=== PATIENT | female | born 1955 | race Caucasian/White ===

== ENCOUNTER → 2018-04-30 01:47 | Outpatient (CLI) | payer MEDICARE, BC, SELFPAY ==
--- NOTE | 2018-04-30 14:03 | DI.REPORT_ITS ---
SYMPTOMS/DIAGNOSIS: ABNORMAL MAMMO, R92.8, 6-MO F/U CRANIOCAUDAD AND MEDIOLATERAL RIGHT BREAST MAMMOGRAM: Mammograms were interpreted according to the usual protocol including computer analysis with CAD system, tomosynthesis and C view imaging. The breast is of moderate radiodensity. There is no evidence of a mass. There are no suspicious calcifications and there is nothing to suggest a malignancy. SUMMARY: A six-month follow-up examination reveals no evidence of malignancy. Category 1, annual screening mammography is recommended. Breast density category B. MQSA ASSESSMENT OF FINDINGS: Negative. Category 1. Patient will receive a letter notifying them of these results. BI-RADS category B. There are scattered areas of fibroglandular density.
== END ==
PROVIDERS: Visit Provider Nurse Practitioner Gerontology
DX: Z12.31 Encounter for screening mammogram for malignant neoplasm of breast (principal); R92.8 Other abnormal and inconclusive findings on diagnostic imaging of breast; N64.59 Other signs and symptoms in breast
CPT/HCPCS: 77061; 77065; G0279

== ENCOUNTER 2018-09-05 02:32 | Outpatient (CLI) | payer MEDICARE, BC, SELFPAY ==
[2018-09-05 13:22] LABS: Hemoglobin A1C 7.4 % (4.5-6.2)
[2018-09-05 13:38] LABS: ALT 42 U/L (12-78); AST 25 U/L (15-37); Albumin 3.8 g/dL (3.4-5.0); Alkaline Phosphatase 105 U/L (46-116); Anion Gap 6.9 mmol/L (3-11); BUN 18 mg/dL (7-18); Bilirubin, Total 0.4 mg/dL (0.2-1.0); CO2 30.1 mmol/L (21.0-32.0); CREATININE 0.83 mg/dL (0.55-1.02); Calcium 9.2 mg/dL (8.5-10.1); Chloride 104 mmol/L (98-107); Cholesterol 194 mg/dL (50-200); Glucose 145 mg/dL (70-100); HDL Cholesterol 53 mg/dL (40-60); LDL CHOLESTEROL 116 mg/dL (<100); Potassium 4.2 mmol/L (3.5-5.1); Sodium 141 mmol/L (136-145); TSH (W/Ref FT4) 1.87 uIU/mL (0.358-3.74); Total Protein 8.1 g/dL (6.4-8.2); Triglyceride 136 mg/dL (30-150)
== END 2018-09-05 02:52 ==
DX: E03.9 Hypothyroidism, unspecified (principal); E11.9 Type 2 diabetes mellitus without complications; E78.5 Hyperlipidemia, unspecified; I10 Essential (primary) hypertension; L40.9 Psoriasis, unspecified
CPT/HCPCS: 36415; 80053; 80061; 83721; 83036; 84443

== ENCOUNTER 2019-02-23 16:19 | Outpatient (REF) | payer MEDICARE, BC, SELFPAY ==
--- NOTE | 2019-02-23 14:30 | PAPFT_PTH ---
PATIENT: Mary Ellen Avila LOC: [facility] U#:[id number] AGE/SX: 63/F ROOM: RE02/23/[address]: Jeannie Hoffman APRN : 1955 BED: DIS: 02/23/2019 SPEC #: [id number] RECD: 02/24/19 12:55 STATUS: JACKELYN SÁNCHEZ #: [id number] GRIFFIN: 02/23/19 14:[address]: Jeannie Hoffman [facility] Cytology RECD BY: Jana Recinos Tissues: 1 - CX/ENDOCX FOR PAP SMEARS Procedures: PAP THIN PREP/UVM Screening Comments: [id number] (VAGINAL HPV SENT TO [place])
[2019-03-04 10:14] LABS: HPV High Risk type 16, PCR Negative (Negative); Specimen Source Vagina
[2019-03-04 10:15] LABS: HPV High Risk type 18, PCR Negative (Negative)
[2019-03-04 10:16] LABS: HPV other High Risk types, PCR Positive (Negative)
== END 2019-02-23 16:39 ==
LOC: LBN 16:19
DX: Z12.4 Encounter for screening for malignant neoplasm of cervix (principal); Z11.51 Encounter for screening for human papillomavirus (HPV); R87.613 High grade squamous intraepithelial lesion on cytologic smear of cervix (HGSIL)
CPT/HCPCS: 87624; 88142

== ENCOUNTER 2019-05-01 00:25 | Outpatient (CLI) | payer MEDICARE, BC, SELFPAY ==
--- NOTE | 2019-05-01 15:40 | DI.MAMMO_ITS ---
SYMPTOMS/DIAGNOSIS: SCREENING, Z12.31 MAMMOGRAM: Mammograms were interpreted according to the usual protocol including computer analysis with CAD system, tomosynthesis and C view imaging. Comparison is made with exams from 2014 through 2018. The breasts are composed of scattered fibroglandular densities, breast density Category B. No suspicious masses or suspicious microcalcifications are seen. There has been no significant change. IMPRESSION: Category I, negative mammogram. Yearly screening mammography is recommended. [facility] ASSESSMENT OF FINDINGS: Negative. Category 1. Patient will receive a letter notifying them of these results. BI-RADS category B. There are scattered areas of fibroglandular density.
== END 2019-05-01 00:45 ==
DX: Z12.31 Encounter for screening mammogram for malignant neoplasm of breast (principal)
CPT/HCPCS: 77063; 77067

== ENCOUNTER 2019-06-13 11:52 | Emergency (ER) | payer MEDICARE, BC, SELFPAY ==
[2019-06-13 12:00] VITALS: BP 143/60; PULSE 72; RESP 18; TEMP 36.7; O2SAT 98
--- NOTE | 2019-06-13 12:17 | W.ED.GENAD ---
Discharge Plan Disposition Patient Disposition: HOME Condition: Fair Discharge Details Chief Complaint: Vascular Clinical Impression: Acute pain of right lower extremity Primary Care Provider: Unknown,Unknown ED Provider: Crystal Soni Home Meds and New Rx's Prescriptions: Continued ascorbic acid (vitamin C) 250 mg tablet 250 mg PO DAILY RF: 0 omega-3 fatty acids 1,250 mg capsule 1,250 mg PO DAILY RF: 0 apple cider vinegar 600 mg capsule PO RF: 0 (DME) Contour Next Test Strips strip See Dose Instructions .ROUTE .MEDSUPPLY Qty: 25 RF: 3 cholecalciferol (vitamin D3) [Vitamin D3] 1,000 UNIT capsule 1,000 unit PO DAILY RF: 0 Fiber Supplement (inulin) 2 GM tablet,chewable 2 tab PO HS RF: 0 (DME) lancets [OneTouch Delica Lancets] 1 EACH misc 1 ea Intradermal DAILY Qty: 300 RF: 4 Saw [place] Fruit [Saw [place]] 450 MG capsule 450 mg PO BID RF: 0 hair health 1 cap PO DAILY RF: 0 ONETOUCH ULTRA TEST STRIPS 1 EACH strip 1 strip Miscellaneous BID 90 Days Qty: 180 RF: 4 nifedipine 30 mg tablet extended release 24hr 30 mg PO DAILY Qty: 90 RF: 3 levothyroxine 50 mcg tablet 50 mcg PO DAILY Qty: 90 RF: 4 lisinopril 5 mg tablet 5 mg PO DAILY Qty: 90 RF: 4 rosuvastatin [Crestor] 10 mg tablet 10 mg PO HS Qty: 90 RF: 3 Prevnar 13 (PF) 0.5 mL syringe 0.5 ml IM ONCE Qty: 0.5 RF: 0 vitamin B complex Capsule 1 cap PO DAILY RF: 0 Discharge Instructions Instructions: Leg Pain (ED) Additional Instructions: Encourage rest, ice, elevation. Tylenol as needed for discomfort. Please use compression hose or Rosendo wrap. Please use the brace to help with discomfort. Please begin a daily aspirin. Your d-dimer as discussed was high end of normal. However, given your history, I remain concerned for possible DVT. You will need an outpatient ultrasound, patient coming Saturday morning for this. If you do not hear from them by 8 AM please call to schedule appointment. If however, over the weekend, you develop redness, warmth, fevers, shortness of breath, chest pain, increased swelling or other new/worsening symptoms please seek care urgently once again. Discharge Data Discharge Date/Time-TO BE ENTERED AT DEPARTURE: 06/13/19 14:52 Medical Decision Making Patient is 64-year-old female presenting today with chief complaint of right lower extremity pain. She reports this feels like when she had a DVT historically. She reports she had a DVT and subsequent PE after sedentary time on an airplane 1617 years ago. She reports at that time she was also on estrogen supplementation. She is no longer taking any estrogen supplements. However, she is being evaluated for possible cervical cancer. Had a colposcopy on Saturday and since that time has been laying low. She denies any fevers or chills. No trauma. No recent travel. States the pain is primarily lateral and posterior on the right lower extremity. Is not noted any change in skin. She also reports she has active shingles on the left hip this is chronic and ongoing for her and does not respond to acyclovir or other antiviral regimens. Does not wish to have this evaluated at this time. On exam, patient is resting comfortably. She is noted to be hypertensive at 143/60. Her vital signs are otherwise within normal limits. No visible or palpable abnormality on exam of the right lower extremity. She does have pain particular in the lateral aspect as well as some discomfort over the Achilles tendon to the ankle. Negative Homans sign. She is exquisitely tender when she dorsiflexes the foot. No pain when plantar flexing. Has discomfort when bearing weight on the extremity. Lungs are clear. She denies chest pain shortness of breath. Do not have field service poultry technician available at this time, will screen with d-dimer and baseline labs. Review the labs. No white count. Her d-dimer is within age-adjusted cut off at 638 although this is on the higher end of normal. Her glucose is elevated at 261. Discussed these findings the patient. Again, her exam is not consistent with a DVT. The pain is maximal along the anterior aspect of the ankle and exquisitely tender with palpation. No appreciable swelling, erythema, warmth. No posterior calf. Negative Homans sign. My only concern is that the patient has had a DVT historically and she reports that it felt quite similar. She does believe that at that point the pain was more in the posterior aspect but does not seem to be totally clear on this. She and I had a lengthy discussion of risk/benefits of anticoagulation until a ultrasound may be obtained. At this point, she prefers to hold off. She will use daily aspirin for the time being and will return on Saturday for formal ultrasound. Her daughter is with her and also knows of the education and return precautions. I encouraged rest, ice, elevation. Advised Rosendo wrap, nursing will apply this to help with compression and it support of the ankle. Advised that this may also be ankle sprain as she has suffered from multiple ankle sprains historically. Request for outpatient ultrasound has been performed. All of her questions and concerns were addressed and she is in agreement with this plan. HPI General Mode of arrival: ambulatory. Date/Time Provider Initiated Documentation: 06/13/19 11:58. Limitations to Documentation: no limitations. Information obtained by: patient, family (Daughter) and RN notes reviewed. History of Present Illness 64 year old F presents to the emergency department with the chief complaint of Right ankle pain, described as severe and similar to prior episodes, with intensity rated at 8. Quality is described as aching, and is localized to the right and lower extremity. Patient reports no radiation. Patient started experiencing this day(s) (1) and it has been constant. Immobilization improves symptom(s), Movement worsens symptoms . Patient notes no other symptoms.; denies diaphoresis, fever/chills, headaches, nausea/vomiting, rash and shortness of breath. Patient did receive the following treatments prior to arrival, none Related Data Home Medications Medication Instructions Recorded Confirmed Fiber Supplement (inulin) 2 tab PO HS tab.chew 10/06/15 06/13/19 cholecalciferol (vitamin D3) 1,000 unit PO DAILY 10/06/15 06/13/19 [Vitamin D3] lancets [OneTouch Delica Lancets] #300 ea 12/25/16 02/23/19 Hair Health 1 cap PO DAILY 08/21/17 02/23/19 Saw [place] Fruit [Saw [place]] 450 mg PO BID 08/21/17 02/23/19 nifedipine 30 mg tablet,extended 30 mg PO DAILY #90 tab 07/16/18 06/13/19 release 24 hr ascorbic acid (vitamin C) 250 mg 250 mg PO DAILY 08/20/18 06/13/19 tablet omega-3 fatty acids 1,250 mg 1,250 mg PO DAILY 08/20/18 06/13/19 capsule levothyroxine 50 mcg tablet 50 mcg PO DAILY #90 tab-cap 10/15/18 06/13/19 lisinopril 5 mg tablet 5 mg PO DAILY #90 tab-cap 10/15/18 06/13/19 rosuvastatin 10 mg tablet 10 mg PO HS #90 tab-cap 10/15/18 06/13/19 apple cider vinegar 600 mg capsule mg PO cap 02/23/19 02/23/19 blood sugar diagnostic #25 each 02/23/19 02/23/19 pneumoc 13-cristy conj-dip cr(PF) 0.5 0.5 ml IM ONCE #0.5 ml 05/06/19 mL IM syringe vitamin B complex 1 cap PO DAILY 06/13/19 06/13/19 Previous Rx's Medication Instructions Recorded nifedipine 30 mg tablet,extended 30 mg PO DAILY #90 tab 07/16/18 release 24 hr levothyroxine 50 mcg tablet 50 mcg PO DAILY #90 tab-cap 10/15/18 lisinopril 5 mg tablet 5 mg PO DAILY #90 tab-cap 10/15/18 rosuvastatin 10 mg tablet 10 mg PO HS #90 tab-cap 10/15/18 blood sugar diagnostic #25 each 02/23/19 pneumoc 13-cristy conj-dip cr(PF) 0.5 0.5 ml IM ONCE #0.5 ml 05/06/19 mL IM syringe Allergies Allergy/AdvReac Type Severity Reaction Status Date / Time allopurinol Allergy Severe HARD TIME Verified 06/13/19 12:04 BREATHING chlorthalidone Allergy Severe HARD TIME Verified 06/13/19 12:04 BREATHING Tetracyclines Allergy Severe Anaphylaxsi Verified 06/13/19 12:04 s Penicillins Allergy Intermediate swells up Verified 06/13/19 12:04 venom-honey bee Allergy Intermediate swells up Verified 06/13/19 12:04 amoxicillin Allergy Mild unknown Verified 06/13/19 12:04 atorvastatin AdvReac Intermediate cramps Verified 06/13/19 12:04 gabapentin AdvReac Intermediate Diarrhea Verified 06/13/19 12:04 glimepiride AdvReac Intermediate Diarrhea Unverified 06/13/19 12:04 lorazepam AdvReac Intermediate HX OF Unverified 06/13/19 12:04 ADDICTION AND WITHDRAWAL metformin AdvReac Intermediate Headache Unverified 06/13/19 12:04 simvastatin AdvReac Intermediate myalgia Unverified 06/13/19 12:04 valacyclovir AdvReac Intermediate Diarrhea Unverified 06/13/19 12:04 amitriptyline AdvReac Mild insomnia Unverified 06/13/19 12:04 General Stated Complaint: Vascular IESHA: 3 Review of Systems Constitutional Constitutional: Reports as per HPI, Denies chills, Denies fever(s), Denies headache(s) and Denies weakness ENT Ears, Nose, Mouth, and Throat: Denies headache(s) Cardiovascular Cardiovascular: Reports as per HPI Respiratory Respiratory: Reports as per HPI and Denies cough Musculoskeletal Musculoskeletal: Reports as per HPI and Denies tingling Integumentary/Breasts Skin/Breast: Reports as per HPI, Denies rash and Denies wounds Neurologic Neurologic: Reports as per HPI, Denies headache(s), Denies tingling, Denies paresthesias and Denies weakness [facility] Medical History kidney stones shingles Surgical History Hysterectomy, Laproscopic (10/25/11) Social History Smoking/Tobacco Use Status: Former Tobacco Use Alcohol Intake: never Drug use: Never Substance use type: does not use Do you feel safe at home: Yes Do you feel safe in your relationship?: Yes Exam Const General: cooperative, healthy appearing, comfortable, no acute distress, well developed and well groomed Nutritional Appearance: average body habitus and well nourished Orientation: alert and awake Resp Effort & Inspection: normal respiratory effort, able to speak in complete sentences and no respiratory distress Auscultation: clear to auscultation bilaterally Cardio Rate: regular rate Rhythm: regular rhythm Heart Sounds: S1 normal and S2 normal Skin General skin exam: no rashes or lesions noted Lesions: no lesions Rashes: no rashes Trauma: no lacerations or abrasions Neuro General: alert and awake Cognition: normal cognition Speech: speech normal Gait: antalgic Motor: muscle tone normal throughout Sensory Exam: no sensory deficits noted Extrem Right lower extremity: normal to inspection, full ROM, normal capillary refill, no joint enlargement, knee Details: normal to inspection, lower leg Details: normal to inspection, tenderness (Lateral inferior one third of tibia, posterior calf) and no edema; no localized swelling, no palpable cords, no abrasions, no lacerations, no ecchymosis, no crepitus, no deformity and no unusual warmth and ankle Details: normal to inspection and tenderness (Exquisitely tender over the lateral malleolus) Psych Appearance: grossly normal and well kempt Mental Status: mental status grossly normal Speech and Movement: speech and movement normal Course Vital Signs Vital signs: Vital Signs Temperature 36.7 C 06/13/19 12:00 Pulse 72 06/13/19 12:00 Respiratory Rate 18 06/13/19 12:00 Blood Pressure 143/60 H 06/13/19 12:00 Pulse Oximetry 98 06/13/19 12:00 Temperature 36.7 C 06/13/19 12:00 Temperature Source Skin 06/13/19 12:00 Pulse 72 06/13/19 12:00 Respiratory Rate 18 06/13/19 12:00 Respiratory Effort Non-Labored 06/13/19 12:09 Blood Pressure 143/60 H 06/13/19 12:00 Blood Pressure Position Sitting 06/13/19 12:00 Pulse Oximetry 98 06/13/19 12:00 Oxygen Delivery Method Room Air 06/13/19 12:00 Oxygen Flow Rate 0 06/13/19 12:00 Pain Level 8 06/13/19 12:00
[2019-06-13 12:38] VITALS: RESP 16
[2019-06-13 12:55] LABS: Abs Immature Grans 0.04 k/cumm (0.0-0.09); Absolute Basophil Count 0.05 k/cumm (0.0-0.2); Absolute Eosinophil Count 0.32 k/cumm (0.0-0.7); Absolute Monocyte Count 0.52 k/cumm (0.11-0.7); Absolute Neutrophil Count 5.86 k/cumm (1.2-6.7); Basophils % 0.5; Eosinophils % 3.4; HCT 44.7 % (36.0-46.0); Immature Grans % 0.4; Lymphocytes % 28.5; Mean Corp. HGB Concentration 33.6 g/dL (32.0-36.0); Mean Corpuscular Hemoglobin 30.1 pg (27.0-33.0); Mean Corpuscular Volume 89.8 fL (80-95); Mean Platelet Volume 9.3 fL (8.0-11.0); Monocytes % 5.5; Neutrophils % 61.7; Platelet Count 234 x1000/uL (130-400); RBC 4.98 m/cumm (4.00-5.20); RBC Distribution Width 12.5 % (11.7-14.6); White Blood Cell Count 9.49 k/cumm (4.4-10.8)
[2019-06-13 13:00] LABS: BUN 17 mg/dL (7-18); CREATININE 0.75 mg/dL (0.55-1.02); Calcium 8.8 mg/dL (8.5-10.1); Chloride 104 mmol/L (98-107); Glucose 261 mg/dL (70-100); Potassium 3.9 mmol/L (3.5-5.1); Sodium 141 mmol/L (136-145)
[2019-06-13 13:07] LABS: INR 0.9 (0.9-1.1); Prothrombin Time 9.3 sec (9.3-11.0)
[2019-06-13 13:38] LABS: D-Dimer 638 ng/mlFEU (<500)
--- NOTE | 2019-06-13 14:41 | NUR.NOTE ---
Nursing Note: allegra bandage applied to right lower leg.
[2019-06-13 14:49] VITALS: BP 154/67; PULSE 68; RESP 16; O2SAT 98
== END 2019-06-13 14:52 | disposition home or self-care (01) ==
PROVIDERS: Emergency Provider Physician Assistant
DX: M79.661 Pain in right lower leg (principal); E11.9 Type 2 diabetes mellitus without complications; I10 Essential (primary) hypertension
CPT/HCPCS: 36415; 80048; 99283; 85025; 85379; 85610; 85730

== ENCOUNTER 2020-08-31 02:36 | Outpatient (CLI) | payer MEDICARE, BC, SELFPAY ==
[2020-08-31 13:15] LABS: Abs Immature Grans 0.03 10^3/uL (0.0-0.06); Absolute Basophil Count 0.03 10^3/uL (0.0-0.2); Absolute Eosinophil Count 0.29 10^3/uL (0.0-0.7); Absolute Lymphocyte Count 2.76 10^3/uL (1.2-3.4); Absolute Monocyte Count 0.42 10^3/uL (0.1-0.8); Absolute Neutrophil Count 5.21 10^3/uL (1.2-6.7); Basophils % 0.3; Eosinophils % 3.3; HCT 45.2 % (36.0-46.0); HGB 14.5 g/dL (11.2-15.7); Immature Grans % 0.3; Lymphocytes % 31.6; MCH 29.4 pg (27.0-33.0); MCHC 32.1 % (32.0-36.0); MCV 91.5 fL (80-95); MPV 9.2 fL (8.0-11.0); Monocytes % 4.8; Neutrophils % 59.7; Nucleated RBC 0 %; Platelet Count 211 10^3/uL (130-400); RBC 4.94 10^6/uL (3.93-5.22); RDW 11.9 % (11.7-14.6); RDW-SD 39.8 fL; WBC 8.74 10^3/uL (4.4-10.8)
[2020-08-31 14:25] LABS: ALT 47 U/L (14-59); AST 22 U/L (15-37); Albumin 3.7 g/dL (3.4-5.0); Alkaline Phosphatase 106 U/L (46-116); Anion Gap 7.4 mmol/L (3-11); BUN 21 mg/dL (7-18); Bilirubin, Total 0.3 mg/dL (0.2-1.0); CO2 29.6 mmol/L (21.0-32.0); CREATININE 0.86 mg/dL (0.55-1.02); Calculated LDL 88 mg/dL (<100); Chloride 103 mmol/L (98-107); Cholesterol 181 mg/dL (<200); Glucose 208 mg/dL (74-106); HDL Cholesterol 47 mg/dL (40-60); Potassium 3.5 mmol/L (3.5-5.1); Sodium 140 mmol/L (136-145); TSH 1.79 uIU/mL (0.36-3.74); Total Protein 7.5 g/dL (6.4-8.2); Triglyceride 231 mg/dL (<150)
== END 2020-08-31 02:56 ==
PROVIDERS: Visit Provider Physician Assistant
DX: E11.40 Type 2 diabetes mellitus with diabetic neuropathy, unspecified (principal); I10 Essential (primary) hypertension; E78.5 Hyperlipidemia, unspecified; E03.9 Hypothyroidism, unspecified
CPT/HCPCS: 36415; 80053; 80061; 84443; 85025

== ENCOUNTER 2020-10-13 01:20 | Outpatient (CLI) | payer MEDICARE, BC, SELFPAY ==
--- NOTE | 2020-10-13 15:38 | DI.DEXA_ITS ---
EXAM: XR DEXA BONE DENSITY W/WO MARK CLINICAL HISTORY: SCREENING FOR OSTEOPOROSIS IN POSTMENOPAUSAL WOMAN,Z78.0 TECHNIQUE: Aircuity C densitometer COMPARISON: CR LUMBAR SPINE COMPLETE from 09/13/2009 FINDINGS: Lateral view of the thoracic and lumbar spine shows no evidence of compression fractures. Bone examiner of currency al density measurements the lumbar spine correspond to a total T-score of -0.7, in the normal range. The bone mineral density measurements of the left hip correspond to a total T-score of -0.6 and a fe moral neck T-score of -1.5, in the osteopenic range. The left forearm bone mineral density measureme nts correspond to a T-score of the distal 3rd of -0.5, in the normal range. IMPRESSION: Normal bone mineral density of the lumbar spine and left forearm. Osteopenia of the left hip.
--- NOTE | 2020-10-13 15:53 | DI.MAMMO_ITS ---
EXAM: MAMMO SCREENING CLINICAL HISTORY: SCREENING, Z12.31 TECHNIQUE: Mammograms were interpreted according to the usual protocol including computer analysis w [employer] CAD system, tomosynthesis and C-view imaging. COMPARISON: 2010 through 2018 FINDINGS: The breasts are composed of scattered fibroglandular densities, Breast Density category B. No suspicious masses or suspicious microcalcifications are seen. No skin thickening or abnormal axillary lymph nodes are seen. There has been no significant change from prior exams. IMPRESSION: BI-RADS Category 1, Negative mammogram Yearly screening mammography is recommended. Breast Density - Category B, scattered fibroglandular densities. A negative radiographic report should not delay biopsy if a dominant or clinically suspicious mass is present. Up to ten percent of cancers are not identified on mammography. A negative report may reinforce clinical impression. Adenosis and dense breasts may obscure an underlying neoplasm. False positive reports average 6 to 10%. Patient will receive a letter notifying them of these results.
== END 2020-10-13 01:21 ==
LOC: DI 01:20
PROVIDERS: Visit Provider Nurse Practitioner Women's Health
DX: Z78.0 Asymptomatic menopausal state (principal); M85.88 Other specified disorders of bone density and structure, other site; Z12.31 Encounter for screening mammogram for malignant neoplasm of breast
CPT/HCPCS: 77063; 77067; 77080

== ENCOUNTER 2021-01-10 03:30 | Outpatient (CLI) | payer MEDICARE, BC, SELFPAY ==
[2021-01-10 16:10] LABS: ALT 53 U/L (14-59); AST 28 U/L (15-37); Albumin 3.7 g/dL (3.4-5.0); Alkaline Phosphatase 101 U/L (46-116); Anion Gap 9.3 mmol/L (3-11); BUN 18 mg/dL (7-18); Bilirubin, Total 0.4 mg/dL (0.2-1.0); CO2 26.7 mmol/L (21.0-32.0); CREATININE 0.7 mg/dL (0.55-1.02); Calcium 8.9 mg/dL (8.5-10.1); Chloride 104 mmol/L (98-107); Glucose 174 mg/dL (74-106); Sodium 140 mmol/L (136-145); Total Protein 7.7 g/dL (6.4-8.2)
[2021-01-10 16:12] LABS: Folate > 20.0 ng/mL (8.6-20.0); Vitamin B12 > 2000 pg/mL (193-986)
[2021-01-12 01:14] LABS: Vitamin D 25 Total 41.2 ng/mL (30-100)
== END 2021-01-10 03:31 | disposition home or self-care (01) ==
LOC: LBO 03:30
DX: I10 Essential (primary) hypertension (principal); R42 Dizziness and giddiness; M85.88 Other specified disorders of bone density and structure, other site; Z86.39 Personal history of other endocrine, nutritional and metabolic disease
CPT/HCPCS: 36415; 80053; 82306; 82607; 82746

== ENCOUNTER 2021-02-06 02:20 | Outpatient (CLI) | payer MEDICARE, BC, SELFPAY ==
--- NOTE | 2021-02-06 | DI.RAD_ITS ---
Exam(s) XR SHOULDER LT COMPLETE 2+V EXAM: XR SHOULDER LT COMPLETE 2+V CLINICAL HISTORY: JOINT PAIN, M25.50. TECHNIQUE: 2D digital imaging was performed. COMPARISON: No exams were available for comparison FINDINGS: BONES: No acute fracture is present. No bony destructive lesion is seen. JOINTS: No dislocation present. Are mild degenerative changes seen at the acromioclavicular joint. M ild degenerative changes are also seen around the greater tuberosity. The glenohumeral joint is well maintained. SOFT TISSUE: Normal. IMPRESSION: Mild degenerative changes of the left shoulder. DATA REPOSITORY: RADIATION DOSE DELIVERED:
--- NOTE | 2021-02-06 | DI.RAD_ITS ---
Exam(s) XR SHOULDER RT COMPLETE 2+V EXAM: XR SHOULDER RT COMPLETE 2+V CLINICAL HISTORY: JOINT PAIN, M25.50. TECHNIQUE: 2D digital imaging was performed. COMPARISON: LAZARUS,RF BARIUM SWALLOW UGI 2V CXR from 02/20/2010 CT CTA THORAX/ABDOMEN/PELVIS from 01/20/2018 FINDINGS: BONES: No acute fracture is present. No bony destructive lesion is seen. There is again seen a bone i sland in the right humeral head. This is been present on prior examinations dating back to 2009. JOINTS: No dislocation present. Degenerative changes are seen at the acromioclavicular joint. The gl enohumeral joint appears well maintained. SOFT TISSUE: Normal. IMPRESSION: Mild degenerative changes of the right shoulder. DATA REPOSITORY: RADIATION DOSE DELIVERED:
== END 2021-02-06 02:40 ==
PROVIDERS: Visit Provider Family Medicine
DX: M25.511 Pain in right shoulder (principal); M25.512 Pain in left shoulder; M19.011 Primary osteoarthritis, right shoulder; M19.012 Primary osteoarthritis, left shoulder
CPT/HCPCS: 73030

== ENCOUNTER 2021-03-03 02:22 | Outpatient (CLI) | payer MEDICARE, BC, SELFPAY ==
[2021-03-03 12:27] LABS: TSH 1.09 uIU/mL (0.36-3.74)
== END 2021-03-03 02:23 | disposition home or self-care (01) ==
LOC: LBO 02:23
PROVIDERS: Visit Provider Clinical Nurse Specialist Family Health
DX: E03.9 Hypothyroidism, unspecified (principal)
CPT/HCPCS: 36415; 84443

== ENCOUNTER 2021-05-19 02:27 | Outpatient (CLI) | payer MEDICARE, BC, SELFPAY ==
[2021-05-19 15:22] LABS: Abs Immature Grans 0.03 10^3/uL (0.0-0.06); Absolute Basophil Count 0.09 10^3/uL (0.0-0.2); Absolute Eosinophil Count 0.28 10^3/uL (0.0-0.7); Absolute Lymphocyte Count 2.77 10^3/uL (1.2-3.4); Absolute Monocyte Count 0.51 10^3/uL (0.1-0.8); Absolute Neutrophil Count 4.59 10^3/uL (1.2-6.7); Basophils % 1.1; Eosinophils % 3.4; Immature Grans % 0.4; Lymphocytes % 33.5; MCH 29.3 pg (27.0-33.0); MCHC 32.6 % (32.0-36.0); MPV 8.9 fL (8.0-11.0); Monocytes % 6.2; Neutrophils % 55.4; Nucleated RBC 0 %; Platelet Count 213 10^3/uL (130-400); RBC 4.78 10^6/uL (3.93-5.22); RDW-SD 39.8 fL; WBC 8.27 10^3/uL (4.4-10.8)
[2021-05-19 17:20] LABS: Vitamin B12 698 pg/mL (193-986)
== END 2021-05-19 02:28 | disposition home or self-care (01) ==
LOC: LBO 02:27
PROVIDERS: Visit Provider Clinical Nurse Specialist Family Health
DX: N93.8 Other specified abnormal uterine and vaginal bleeding (principal); G62.9 Polyneuropathy, unspecified
CPT/HCPCS: 36415; 82607; 85025

== ENCOUNTER 2021-09-02 03:59 | Emergency (ER) | payer MEDICARE, BC, SELFPAY ==
--- NOTE | 2021-09-02 04:00 | DI.CT_ITS ---
Exam(s) CT RENAL COLIC WO EXAM: CT RENAL COLIC WO INDICATION: right flank pain. COMPARISON: CT CTA THORAX/ABDOMEN/PELVIS from 01/20/2018 TECHNIQUE: CT examination was performed without contrast administration. FINDINGS: Images obtained through the lung bases are unremarkable. Visualized portions of the liver and splee n appear intact. Visualized portions of the pancreas are unremarkable. Gallbladder and bile ducts are CT normal. Abdominal aorta is of normal diameter. No significant abdominal wall hernia. No significant abdominal or pelvic adenopathy. Adrenals appear normal bilaterally. The kidneys are normal in size and shape. There is no evidence of a renal mass, hydronephrosis, or n ephrolithiasis. No ureteral dilatation or calcification identified. Urinary bladder is nearly empty. Appendix is not specifically visualized but there is no evidence of appendicitis or diverticulitis. Uterus appears atrophic or absent. IMPRESSION: Negative noncontrast abdominal and pelvic CT. No urinary tract calcification or obstruction. RADIATION DOSE DELIVERED: 629.57mGy.cm DLP 629.57mGy.cm Total DLP 629.57mGy.cm DLP 629.57mGy.cm Total DLP CTDIvol RADIATION OPTIMIZATION: All CT scans at this facility use at least one of these dose optimization te chniques: automated exposure control; mA and/or kV adjustment per patient size (includes targeted exa ms where dose is matched to clinical indication); or iterative reconstruction.
[2021-09-02 04:05] VITALS: BP 145/64; PULSE 78; RESP 20; TEMP 36.4; O2SAT 97
--- NOTE | 2021-09-02 04:22 | ED.GENADUL_ITS ---
Discharge Plan Disposition Patient Disposition: HOME Condition: Stable Discharge Details Clinical Impression: Right flank pain Primary Care Provider: Unknown,Unknown ED Provider: Vic Flores Home Meds and New Rx's Prescriptions: New cyclobenzaprine 10 mg tablet 10 mg PO TID PRNQty: 30 RF: 0 Continued ascorbic acid (vitamin C) 250 mg tablet 250 mg PO DAILY RF: 0 omega-3 fatty acids 1,250 mg capsule 1,250 mg PO DAILY RF: 0 apple cider vinegar 600 mg capsule PO RF: 0 (DME) Contour Next Test Strips strip See Dose Instructions .ROUTE .MEDSUPPLY Qty: 25 RF: 3 Fiber Supplement (inulin) 2 GM tablet,chewable 2 tab PO HS RF: 0 (DME) lancets [OneTouch Delica Lancets] 1 EACH misc 1 ea Intradermal DAILY Qty: 300 RF: 4 Saw Dalton Fruit [Saw Dalton] 450 MG capsule 450 mg PO BID RF: 0 hair health 1 cap PO DAILY RF: 0 ONETOUCH ULTRA TEST STRIPS 1 EACH strip 1 strip Miscellaneous BID 90 Days Qty: 180 RF: 4 levothyroxine 50 mcg tablet 50 mcg PO DAILY Qty: 90 RF: 4 lisinopril 5 mg tablet 5 mg PO DAILY Qty: 90 RF: 4 rosuvastatin [Crestor] 10 mg tablet 10 mg PO HS Qty: 90 RF: 3 Prevnar 13 (PF) 0.5 mL syringe 0.5 ml IM ONCE Qty: 0.5 RF: 0 nifedipine 30 mg tablet extended release 24hr 30 mg PO DAILY Qty: 90 RF: 0 Discharge Instructions Additional Instructions: you had no kidney stones, the cat scan did show some joint degeneration follow up with your primary care provider this week if pain significantly worsens, you feel more ill or have fevers return to the emergency department Medical Decision Making 66 yo female with hx of prior kidney stones, gerd, htn, dm, who comes in with one day of right flank pain. She states she took a flexeril at 10pm but despite this has continued to have pain so came here. Denies vomit but has had nausea, no chest pain, dyspnea, fever, chills, abdomen pain. She appears uncomfortable during exam, caox4 with clear speech. She has no abdominal tenderness and has right cva tenderness on exam, no lower back tenderness or saddle anesthesia. Given her history and presentation concern for kidney stone, will obtain labs and ct and reassess. labs and imaging unremarakable for emergent findings, does have findings consistent with mesenteric inflammation and lumbar djd. She is feeling better, still no saddle anesthesia nor abdominal tenderness. Will provide her with mus marin relaxers and advised to take ibuprofen and tylenol, and to see pcp this week. Return precautions given Differential Diagnosis Differential Diagnosis: kidney stone, spasm, musculoskeletal pain Medical Records Medical records reviewed: Yes I reviewed the patient's medical records. Imaging Data Radiologic Study: Attestation: I personally reviewed and interpreted this imaging study as follows: Imaging: CT Scan Radiologist's impression: IMPRESSION: 1. Findings of enteritis with reactive mesenteric inflammation. 2. Negative for hydronephrosis or urolithiasis. Lab Data Lab results reviewed: Yes I reviewed the patient's lab results. HPI General Mode of arrival: ambulatory . Date/Time Provider Initiated Documentation: 09/02/21 04:00 . Limitations to Documentation: no limitations . Information obtained by: patient . History of Present Illness 66 year old F presents to the emergency department with the chief complaint of right flank pain, described as moderate, Quality is described as stabbing, Patient reports no radiation. Patient started experiencing this day(s) (1) and it has been constant. No relieving factors improve symptom(s), No exacerbating factors reported . Patient notes denies fever/chills. Related Data Home Medications Medication Instructions Recorded Confirmed Fiber Supplement (inulin) 2 tab PO HS tab.chew 10/06/15 09/02/21 lancets [OneTouch Delica Lancets] #300 ea 12/25/16 02/23/19 Hair Health 1 cap PO DAILY 08/21/17 02/23/19 Saw Dalton Fruit [Saw Dalton] 450 mg PO BID 08/21/17 02/23/19 ascorbic acid (vitamin C) 250 mg 250 mg PO DAILY 08/20/18 09/02/21 tablet omega-3 fatty acids 1,250 mg 1,250 mg PO DAILY 08/20/18 09/02/21 capsule levothyroxine 50 mcg tablet 50 mcg PO DAILY #90 tab-cap 10/15/18 09/02/21 lisinopril 5 mg tablet 5 mg PO DAILY #90 tab-cap 10/15/18 09/02/21 rosuvastatin 10 mg tablet 10 mg PO HS #90 tab-cap 10/15/18 09/02/21 apple cider vinegar 600 mg capsule mg PO cap 02/23/19 02/23/19 blood sugar diagnostic #25 each 02/23/19 02/23/19 pneumoc 13-cristy conj-dip cr(PF) 0.5 0.5 ml IM ONCE #0.5 ml 05/06/19 mL IM syringe nifedipine 30 mg tablet,extended 30 mg PO DAILY #90 tab 06/26/19 09/02/21 release 24 hr cyclobenzaprine 10 mg PO TID PRN #30 tab 09/02/21 Previous Rx's Medication Instructions Recorded levothyroxine 50 mcg tablet 50 mcg PO DAILY #90 tab-cap 10/15/18 lisinopril 5 mg tablet 5 mg PO DAILY #90 tab-cap 10/15/18 rosuvastatin 10 mg tablet 10 mg PO HS #90 tab-cap 10/15/18 blood sugar diagnostic #25 each 02/23/19 pneumoc 13-cristy conj-dip cr(PF) 0.5 0.5 ml IM ONCE #0.5 ml 05/06/19 mL IM syringe nifedipine 30 mg tablet,extended 30 mg PO DAILY #90 tab 06/26/19 release 24 hr cyclobenzaprine 10 mg PO TID PRN #30 tab 09/02/21 Allergies Allergy/AdvReac Type Severity Reaction Status Date / Time allopurinol Allergy Severe HARD TIME Verified 09/02/21 04:15 BREATHING chlorthalidone Allergy Severe HARD TIME Verified 09/02/21 04:15 BREATHING Tetracyclines Allergy Severe Anaphylaxsi Verified 09/02/21 04:15 s Penicillins Allergy Intermediate swells up Verified 09/02/21 04:15 venom-honey bee Allergy Intermediate swells up Verified 09/02/21 04:15 amoxicillin Allergy Mild unknown Verified 09/02/21 04:15 atorvastatin AdvReac Intermediate cramps Verified 09/02/21 04:15 gabapentin AdvReac Intermediate Diarrhea Verified 09/02/21 04:15 glimepiride AdvReac Intermediate Diarrhea Unverified 09/02/21 04:15 lorazepam AdvReac Intermediate HX OF Unverified 09/02/21 04:15 ADDICTION AND WITHDRAWAL metformin AdvReac Intermediate Headache Unverified 09/02/21 04:16 simvastatin AdvReac Intermediate myalgia Unverified 09/02/21 04:16 valacyclovir AdvReac Intermediate Diarrhea Unverified 09/02/21 04:16 amitriptyline AdvReac Mild insomnia Unverified 09/02/21 04:16 General Stated Complaint: FlankPain IESHA: 3 Review of Systems All systems reviewed & are unremarkable except as noted in HPI and below Constitutional Constitutional: Denies chills, Denies fever(s) and Denies weakness Cardiovascular Cardiovascular: Denies chest pain and Denies dyspnea Respiratory Respiratory: Denies cough and Denies dyspnea Gastrointestinal Gastrointestinal: Denies abdominal pain and Denies vomiting Neurologic Neurologic: Denies weakness PFSH All Active Problems (Updated 09/02/21 @ 05:38 by Vic Flores MD) Right flank pain (Acute) Constipation (Acute) Headache (Acute) Smoker (Acute 08/07/13) Status post laparoscopic hysterectomy (Acute) Urinary incontinence in female (Acute 07/19/15) Total urinary incontinence (Acute) 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 (Acute) Psoriasis (Acute) Pain of left heel (Acute 07/19/15) heel spur on x ray Numbness and tingling in left hand (Acute 12/30/14) Kidney stone (Acute) recurrent 2013 [facility] Johnie Herrera Hypothyroidism (Acute 12/02/12) Hyperlipidemia (Acute 04/16/13) 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 (Acute 07/23/11) 11/11 TOTAL LAP HYST for abnormal PAP PAP at [facility] q 6 mo HGSIL Pap smear of vagina (Acute 04/03/17) Generalized osteoarthrosis (Acute) Gastroesophageal reflux disease with esophagitis (Acute) Essential hypertension (Acute 08/06/13) Diabetes mellitus (Acute) 2014 control improved with weight loss Depressive disorder (Acute) Chest pain (Acute) spasm; esoph spasm--resolved w/ nefedipine Carpal tunnel syndrome on both sides (Acute 02/21/15) bilateral L>R Medical History (Updated 09/02/21 @ 05:38 by Vic Flores MD) kidney stones shingles Surgical History Hysterectomy, Laproscopic (10/25/11) Family History Mother Diabetes Myocardial infarction Father Dementia Depression Sister No problems noted. Sister Neoplasm OVARIAN OR UTERINE Brother Diabetes Brother No problems noted. Brother Depression Suicide Grandfather No problems noted. Grandfather , MINING ACCIDENT at age 40. No problems noted. Grandmother , CAR ACCIDENT at age 52. Diabetes Grandmother Neoplasm OVARIAN OR UTERINE Son No problems noted. Daughter Depression Social History Smoking/Tobacco Use Status: Former Tobacco Use Smoking risk assessment performed?: Yes Alcohol Intake: never Drug use: Never Substance use type: does not use Do you feel safe at home: Yes Do you feel safe in your relationship?: Yes Exam Const General: no acute distress Orientation: alert HENMT Head: normal to inspection Ears: external ears normal General nose exam: external nose normal Mouth: moist mucous membranes Eyes General: appearance normal, both eyes and all related structures Neck Neck: normal visual inspection Resp Effort & Inspection: normal respiratory effort and able to speak in complete sentences Cardio Rate: regular rate GI Palpation: soft and nontender Back/Spine/Pelvis Back: CVA tenderness, No erythema and No warmth Skin General skin exam: no rashes or lesions noted Neuro General: patient alert and patient oriented x3 Extrem General: normal to inspection Psych Mental Status: mental status grossly normal Course Vital Signs Vital signs: Vital Signs Temperature 36.4 C L 09/02/21 04:05 Pulse 78 09/02/21 04:05 Respiratory Rate 20 09/02/21 04:05 Blood Pressure 145/64 H 09/02/21 04:05 Pulse Oximetry 97 09/02/21 04:05 Temperature 36.4 C L 09/02/21 04:05 Temperature Source Skin 09/02/21 04:05 Pulse 78 09/02/21 04:05 Respiratory Rate 20 09/02/21 04:05 Blood Pressure 145/64 H 09/02/21 04:05 Blood Pressure Position Sitting 09/02/21 04:05 Pulse Oximetry 97 09/02/21 04:05 Oxygen Delivery Method Room Air 09/02/21 04:05 Oxygen Flow Rate 0 09/02/21 04:05 Pain Level 8 09/02/21 04:05
[2021-09-02 04:25] LABS: Bilirubin Negative (Negative); Blood Negative (Negative); Clarity Sl Cloudy (Clear); Glucose 100 mg/dL (Negative); Ketones Negative (Negative); Leukocyte Esterase Negative (Negative); Nitrite Negative (Negative); Specific Gravity >= 1.030 (1.005-1.025); Urobilinogen 0.2 EU/dL (Up TO 0.2); pH 6.5 (5-8)
[2021-09-02] MEDS: Normal Saline 1,000 ML 1000 ML IV (04:36)
[2021-09-02] MEDS: Ketorolac 15 MG/ML VIAL IVP (04:36)
[2021-09-02 04:45] LABS: Abs Immature Grans 0.03 10^3/uL (0.0-0.06); Absolute Basophil Count 0.07 10^3/uL (0.0-0.2); Absolute Eosinophil Count 0.31 10^3/uL (0.0-0.7); Absolute Lymphocyte Count 3.09 10^3/uL (1.2-3.4); Absolute Monocyte Count 0.67 10^3/uL (0.1-0.8); Basophils % 0.7; HCT 46.5 % (36.0-46.0); Immature Grans % 0.3; Lymphocytes % 29.8; MCH 29.2 pg (27.0-33.0); MCHC 32.3 % (32.0-36.0); MCV 90.5 fL (80-95); Monocytes % 6.5; Neutrophils % 59.7; Nucleated RBC 0 %; Platelet Count 218 10^3/uL (130-400); RBC 5.14 10^6/uL (3.93-5.22); RDW 11.9 % (11.7-14.6); RDW-SD 39.4 fL; WBC 10.37 10^3/uL (4.4-10.8)
[2021-09-02 04:58] LABS: ALT 37 U/L (14-59); AST 27 U/L (15-37); Albumin 3.9 g/dL (3.4-5.0); Alkaline Phosphatase 111 U/L (46-116); Anion Gap 6.5 mmol/L (3-11); BUN 26 mg/dL (7-18); Bilirubin, Total 0.2 mg/dL (0.2-1.0); CO2 29.5 mmol/L (21.0-32.0); CREATININE 0.8 mg/dL (0.55-1.02); Chloride 105 mmol/L (98-107); Glucose 183 mg/dL (74-106); Lipase 206 U/L (73-393); Potassium 3.8 mmol/L (3.5-5.1); Sodium 141 mmol/L (136-145); Total Protein 8.5 g/dL (6.4-8.2)
--- NOTE | 2021-09-02 05:31 | DI.VRAD_ITS ---
PROCEDURE INFORMATION: Exam: CT Abdomen And Pelvis Without Contrast Exam date and time: 09/02/2021 4:15 AM Age: 66 years old Clinical indication: Other: RT flank pain TECHNIQUE: Imaging protocol: Computed tomography of the abdomen and pelvis without contrast. COMPARISON: CTA THORAX/ABDOMEN/PELVIS 01/20/2018 4:23 PM FINDINGS: Lungs: Lung bases are clear. Liver: Unremarkable noncontrast liver imaging. Gallbladder and bile ducts: Normal. No calcified stones. No ductal dilation. Pancreas: Normal. No ductal dilation. Spleen: Normal. No splenomegaly. Adrenal glands: Normal. No mass. Kidneys and ureters: Normal. No hydronephrosis. No stones. Stomach and bowel: Unremarkable stomach. Nondilated small bowel. Fat planes around loops of small bowel are indistinct. There are no inflammatory changes observed around the colon. Appendix: The appendix is surgical absent. Intraperitoneal space: Mild mesenteric fat stranding. No significant free fluid. Negative for free air. Negative for abscess. Vasculature: Negative for aneurysm. Moderate vascular calcifications noted. Lymph nodes: Mesenteric lymph nodes are mildly prominent. Negative for pathologic lymphadenopathy. Urinary bladder: Unremarkable as visualized. Reproductive: Unremarkable as visualized. Bones/joints: Negative for compression fracture. Multilevel degenerative disc disease and facet arthropathy noted. Degenerative anterolisthesis noted at L3-L4 and L4-L5. Spinal canal stenosis noted at L3-L4 and L4-L5. Soft tissues: Unremarkable. IMPRESSION: 1. Findings of enteritis with reactive mesenteric inflammation. 2. Negative for hydronephrosis or urolithiasis. Dictated and Authenticated by: Vic Rogers MD. Ordering:CONSTANCE Ho MD
[2021-09-02 05:34] VITALS: BP 133/58; PULSE 62; RESP 14; O2SAT 97
== END 2021-09-02 05:45 | disposition home or self-care (01) ==
PROVIDERS: Emergency Provider Emergency Medicine
DX: R10.9 Unspecified abdominal pain (principal); Z87.442 Personal history of urinary calculi
CPT/HCPCS: 36415; 80053; 83690; 96361; 96374; 99284; 74176; 81003; 85025; J1885

== ENCOUNTER → 2022-01-24 03:37 | Outpatient (CLI) | payer MEDICARE, BC, SELFPAY ==
--- NOTE | 2022-01-24 14:47 | DI.MAMMO_ITS ---
Exam(s) MAMMO SCREENING EXAM: MAMMO SCREENING CLINICAL HISTORY: SCREENING, Z12.31 TECHNIQUE: Bilateral full field digital CC and MLO mammographic images were obtained with 3D tomosyn thesis and utilizing computer aided detection (CAD). COMPARISON: Available for comparison. FINDINGS: Masses/Architectural Distortion: None seen. Microcalcifications: No suspicious pleomorphic-type are seen. Skin Thickening/Nipple Retraction: None. IMPRESSION: 1. No significant interval change with no specific features of malignancy noted. 2. Unless there is more urgent need, screening mammography is recommended, as per [employer] guidelines. BI-RADS Category 1 - Negative Breast Density - Category B - Scattered areas of fibroglandular density Breast density category C or D implies that the patient has dense breast tissue. Dense breast tissue is very common and is not abnormal but dense breast tissue can make it harder to find cancer on a ma mmogram. Also, dense breast tissue may increase their breast cancer risk. This information about the result of the mammogram report was provided to the patient to raise their awareness. Use this report when you speak with the patient about their risks for breast cancer, which includes their family hist ory. At that time, you may recommend for more screening tests (Ultrasound or MRI) as they might be us eful based on their risk. A negative radiographic report should not delay biopsy if a dominant or clinically suspicious mass is present. Up to ten percent of cancers are not identified on mammography. A negative report may reinforce clinical impression. Adenosis and dense breasts may obscure an underlying neoplasm. False positive reports average 6 to 10%. Patient will receive a letter notifying them of these results.
== END ==
PROVIDERS: PCP Clinical Nurse Specialist Family Health; Visit Provider Nurse Practitioner Women's Health
DX: Z12.31 Encounter for screening mammogram for malignant neoplasm of breast (principal)
CPT/HCPCS: 77063; 77067

== ENCOUNTER 2022-02-12 19:20 | Emergency (ER) | payer MEDICARE, BC, SELFPAY ==
[2022-02-12 19:34] VITALS: BP 163/73; PULSE 92; RESP 18; TEMP 37; O2SAT 96
[2022-02-12 19:38] VITALS: RESP 18
--- NOTE | 2022-02-12 20:00 | DI.RAD_ITS ---
Exam(s) XR PORTABLE CHEST AP EXAM: XR PORTABLE CHEST AP CLINICAL HISTORY: SOB, COUGH, PUI, R/O PNA. TECHNIQUE: 2D digital imaging was performed. COMPARISON: CR,RF BARIUM SWALLOW UGI 2V CXR from 02/20/2010 CR CHEST 2 VIEWS PA,LAT from 08/01/2017 FINDINGS: Single AP portable view. Heart size is upper normal. The mediastinum is not widened. Lungs are clear. No infiltrates nor obvious pleural effusions. Sclerotic bone lesion in the right humeral head is again noted. This is unchanged from 2010. Most p robably an enchondroma. IMPRESSION: No acute pulmonary findings on this single AP portable view of the chest. 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 This is unchanged from chest x-ray of 1010 DATA REPOSITORY: RADIATION DOSE DELIVERED: All CT scans at this facility use at least one of these dose optimization techniques: automated exposure control; mA and/or kV adjustment per patient size (includes targeted e xams where dose is matched to clinical indication); or iterative reconstruction.
--- NOTE | 2022-02-12 20:08 | ED.GENADUL_ITS ---
Discharge Plan Disposition Patient Disposition: HOME Condition: Stable Discharge Details Clinical Impression: Viral URI, Acute seasonal allergic rhinitis Primary Care Provider: Terri Estrada ED Provider: Juju Mariee Home Meds and New Rx's Prescriptions: New azithromycin 250 mg tablet See Rx Instructions .ROUTE .COMPLEX 6 Days Qty: 6 0RF Rx Instructions: For 250 mg dose pack: take 500 mg today (day 1), then 250 mg for 4 days (days 2-5) Continued ascorbic acid (vitamin C) 250 mg tablet 250 mg PO DAILY omega-3 fatty acids 1,250 mg capsule 1,250 mg PO DAILY (DME) Contour Next Test Strips strip See Dose Instructions .ROUTE .MEDSUPPLY Qty: 25 3RF Dose Instruction: As directed Rx Instructions: Glucose monitoring 3 times per week- DM (DME) lancets [OneTouch Delica Lancets] 1 EACH misc 1 ea Intradermal DAILY Qty: 300 Rx Instructions: DX:E11.9. ON ORAL AGENTS, ADJUSTING MEDS ONETOUCH ULTRA TEST STRIPS 1 EACH strip 1 strip Miscellaneous BID 90 Days Qty: 180 4RF Rx Instructions: DX: E11.9 lisinopril 5 mg tablet 5 mg PO DAILY Qty: 90 4RF Rx Instructions: 1 TAB DAILY rosuvastatin [Crestor] 10 mg tablet 10 mg PO HS Qty: 90 3RF Prevnar 13 (PF) 0.5 mL syringe 0.5 ml IM ONCE Qty: 0.5 0RF Rx Instructions: as a single dose nifedipine 30 mg tablet extended release 24hr 30 mg PO DAILY Qty: 90 0RF levothyroxine 50 mcg tablet 25 mcg PO DAILY cyclobenzaprine 10 mg tablet 10 mg PO TID PRNQty: 30 0RF No Action apple cider vinegar 600 mg capsule PO Fiber Supplement (inulin) 2 GM tablet,chewable 2 tab PO HS Saw [place] Fruit [Saw Manchester] 450 MG capsule 450 mg PO BID hair health 1 cap PO DAILY Discharge Instructions Instructions: Upper Respiratory Infection (ED), Allergic Rhinitis (ED) Additional Instructions: At this time there is no evidence for pneumonia COVID flu RSV is all within normal limits. I do suspect that your symptoms may be caused by a viral URI, also allergic rhinitis or seasonal allergies. Please return for any worsening symptoms, fever or concerns. Follow up with primary care provider in 3-5 days. Return to ED sooner if any worsening or concerns. Increase oral fluids. Referrals: Terri Estrada [Primary Care Provider] - 1 week Discharge Data Discharge Date/Time-TO BE ENTERED AT DEPARTURE: 02/12/22 22:07 Medical Decision Making This time symptoms appear to be generally URI type symptoms body aches, cough, upper respiratory congestion. Discussed x-ray results and COVID swab negative. No evidence of pneumonia at this time. Discussed strict return instructions and red flags patient verbalizes understanding. Discussed home care. This text was generated using [employer] Captureation system, please disregard any oddities of phrase or misspellings. Differential Diagnosis Differential Diagnosis: URI, pneumonia, COVID-19, influenza, sinusitis, seasonal allergies Medical Records Medical records reviewed: Yes I reviewed the patient's medical records. HPI General Mode of arrival: ambulatory . Date/Time Provider Initiated Documentation: 02/12/22 19:44 . Limitations to Documentation: no limitations . Information obtained by: patient, RN notes reviewed and old records reviewed . HPI Narrative: 66-year-old female presents to the ER with chief complaint of upper respiratory type symptoms, nasal congestion, runny nose, cough with minimal productive sputum, body aches and headache for the last 2 days. She reports sick contact with similar symptoms. She reports some chest pain only with coughing, denies any dizziness lightheadedness nausea. Past medical history includes diabetes, kidney stones shingles, hypertension, hypothyroidism high cholesterol surgical history includes hysterectomy, Related Data Home Medications Medication Instructions Recorded Confirmed inulin-sorbitol 2 gram chewable 2 tab PO HS 10/06/15 09/02/21 tablet (Fiber Supplement (inulin)) lancets 33 gauge (OneTouch Delica #300 ea 12/25/16 02/23/19 Lancets) Hair Health 1 cap PO DAILY 08/21/17 02/23/19 Saw [place] Fruit [Saw [place]] 450 mg PO BID 08/21/17 02/23/19 ascorbic acid (vitamin C) 250 mg 250 mg PO DAILY 08/20/18 02/12/22 tablet omega-3 fatty acids 1,250 mg 1,250 mg PO DAILY 08/20/18 02/12/22 capsule lisinopril 5 mg tablet 5 mg PO DAILY #90 tab-caps 10/15/18 02/12/22 rosuvastatin 10 mg tablet (Crestor) 10 mg PO HS #90 tab-caps 10/15/18 02/12/22 apple cider vinegar 600 mg capsule mg PO 02/23/19 02/23/19 blood sugar diagnostic (Contour #25 ea 02/23/19 02/23/19 Next Test Strips) pneumoc 13-cristy conj-dip cr(PF) 0.5 0.5 ml IM ONCE #0.5 mL 05/06/19 mL IM syringe (Prevnar 13 (PF)) nifedipine 30 mg tablet,extended 30 mg PO DAILY #90 tabs 06/26/19 02/12/22 release 24 hr cyclobenzaprine 10 mg tablet 10 mg PO TID PRN #30 tabs 09/02/21 02/12/22 azithromycin 250 mg tablet See Rx Instructions PO .COMPLEX 6 02/12/22 days #6 tabs levothyroxine 50 mcg tablet 25 mcg PO DAILY 02/12/22 02/12/22 Previous Rx's Medication Instructions Recorded lisinopril 5 mg tablet 5 mg PO DAILY #90 tab-caps 10/15/18 rosuvastatin 10 mg tablet (Crestor) 10 mg PO HS #90 tab-caps 10/15/18 blood sugar diagnostic (Contour #25 ea 02/23/19 Next Test Strips) pneumoc 13-cristy conj-dip cr(PF) 0.5 0.5 ml IM ONCE #0.5 mL 05/06/19 mL IM syringe (Prevnar 13 (PF)) nifedipine 30 mg tablet,extended 30 mg PO DAILY #90 tabs 06/26/19 release 24 hr cyclobenzaprine 10 mg tablet 10 mg PO TID PRN #30 tabs 09/02/21 azithromycin 250 mg tablet See Rx Instructions PO .COMPLEX 6 02/12/22 days #6 tabs Allergies Allergy/AdvReac Type Severity Reaction Status Date / Time allopurinol Allergy Severe HARD TIME Verified 02/12/22 19:41 BREATHING chlorthalidone Allergy Severe HARD TIME Verified 02/12/22 19:41 BREATHING Tetracyclines Allergy Severe Anaphylaxsi Verified 02/12/22 19:41 s Penicillins Allergy Intermediate swells up Verified 02/12/22 19:41 venom-honey bee Allergy Intermediate swells up Verified 02/12/22 19:41 amoxicillin Allergy Mild unknown Verified 02/12/22 19:41 atorvastatin AdvReac Intermediate cramps Verified 02/12/22 19:41 gabapentin AdvReac Intermediate Diarrhea Verified 02/12/22 19:41 glimepiride AdvReac Intermediate Diarrhea Unverified 02/12/22 19:41 lorazepam AdvReac Intermediate HX OF Unverified 02/12/22 19:41 ADDICTION AND WITHDRAWAL metformin AdvReac Intermediate Headache Unverified 02/12/22 19:41 simvastatin AdvReac Intermediate myalgia Unverified 02/12/22 19:41 valacyclovir AdvReac Intermediate Diarrhea Unverified 02/12/22 19:41 amitriptyline AdvReac Mild insomnia Unverified 02/12/22 19:41 General Stated Complaint: GenMedical IESHA: 3 Review of Systems All systems reviewed & are unremarkable except as noted in HPI and below Constitutional Constitutional: Reports as per HPI, Reports body ache(s) and Reports headache(s) ENT Ears, Nose, Mouth, and Throat: Reports as per HPI, Denies change in voice, Reports headache(s), Reports nasal congestion, Reports sinus pain and Reports sinus pressure Cardiovascular Cardiovascular: Reports as per HPI, Denies chest pain at rest, Denies diaphoresis, Denies syncope, Denies lightheadedness, Denies radiating jaw, neck or arm pain, Denies dyspnea and Denies dyspnea on exertion Respiratory Respiratory: Reports as per HPI, Reports chest congestion, Reports cough, Denies excessive phlegm production, Denies pain on inspiration, Reports pain with cough, Denies dyspnea, Denies dyspnea on exertion, Denies stridor and Denies wheezing Neurologic Neurologic: Denies syncope and Reports headache(s) Allergic/Immunologic Allergic/Immunologic: Denies wheezing PFSH All Active Problems (Updated 02/12/22 @ 21:50 by Juju Mariee) Viral URI (Acute) Acute seasonal allergic rhinitis (Acute) Constipation (Acute) Headache (Acute) Smoker (Acute 08/07/13) Status post laparoscopic hysterectomy (Acute) Urinary incontinence in female (Acute 07/19/15) Total urinary incontinence (Acute) 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 (Acute) Psoriasis (Acute) Pain of left heel (Acute 07/19/15) heel spur on x ray Numbness and tingling in left hand (Acute 12/30/14) Kidney stone (Acute) recurrent 2013 [facility] [place] Hypothyroidism (Acute 12/02/12) Hyperlipidemia (Acute 04/16/13) 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 (Acute 07/23/11) 11/11 TOTAL LAP HYST for abnormal PAP PAP at [facility] q 6 mo HGSIL Pap smear of vagina (Acute 04/03/17) Generalized osteoarthrosis (Acute) Gastroesophageal reflux disease with esophagitis (Acute) Essential hypertension (Acute 08/06/13) Diabetes mellitus (Acute) 2013 control improved with weight loss Depressive disorder (Acute) Chest pain (Acute) spasm; esoph spasm--resolved w/ nefedipine Carpal tunnel syndrome on both sides (Acute 02/21/15) bilateral L>R Medical History (Updated 02/12/22 @ 21:50 by Juju Mariee) kidney stones shingles Surgical History Hysterectomy, Laproscopic (10/25/11) Family History Mother Diabetes Myocardial infarction Father Dementia Depression Sister No problems noted. Sister Neoplasm OVARIAN OR UTERINE Brother Diabetes Brother No problems noted. Brother Depression Suicide Grandfather No problems noted. Grandfather , MINING ACCIDENT at age 40. No problems noted. Grandmother , CAR ACCIDENT at age 52. Diabetes Grandmother Neoplasm OVARIAN OR UTERINE Son No problems noted. Daughter Depression Social History Smoking/Tobacco Use Status: Former Tobacco Use Smoking risk assessment performed?: Yes Alcohol Intake: never Drug use: Never Substance use type: does not use Do you feel safe at home: Yes Do you feel safe in your relationship?: Yes Exam Narrative Exam Narrative: Constitutional: Alert and oriented x3. Appears stated age. Normal body habitus. Head: Normocephalic, no trauma. Eyes: Pupils PERRL, Red reflex noted, EOM's intact. Eyelids symmetrical without lesions, discharge, or swelling. ENT: Bilateral TM's WNL, External ear normal to inspection, no mastoid TTP, swelling, or erythema, Nasal turbinates boggy erythemic, no nasal discharge. Normal dentition, Posterior pharynx slightly erythemic no exudate. Chest: RRR, Normal S1, S2, distal pulses intact. Resp: Lungs clear to auscultation bilaterally, no wheezes, rales, or rhonchi. Abdomen: Soft, non-distended, Normoactive bowel sounds all 4 quads. Musculoskeletal: Normal gait, 5/5 strength to all four extremities. Skin: No suspicious rashes or lesions. Capillary refill less than 2 sec. Neurologic: Cranial nerves II-XII intact. Alert and oriented x 3. Motor: No deficits noted. Hematologic/Lymphatic: No ecchymosis, no lymphadenopathy. Course Vital Signs Vital signs: Vital Signs Temperature 37.0 C 02/12/22 19:34 Pulse 92 H 02/12/22 19:34 Respiratory Rate 18 02/12/22 19:34 Blood Pressure 163/73 H 02/12/22 19:34 Pulse Oximetry 96 02/12/22 19:34 Temperature 37.0 C 02/12/22 19:34 Temperature Source Temporal Artery Scan 02/12/22 19:34 Pulse 92 H 02/12/22 19:34 Respiratory Rate 18 02/12/22 19:38 Respiratory Effort Non-Labored 02/12/22 19:38 Respiratory Depth Normal 02/12/22 19:38 Respiratory Pattern Normal 02/12/22 19:38 Blood Pressure 163/73 H 02/12/22 19:34 Blood Pressure Position Sitting 02/12/22 19:34 Pulse Oximetry 96 02/12/22 19:34 Oxygen Delivery Method Room Air 02/12/22 19:34 Oxygen Flow Rate 0 02/12/22 19:34 Lab/Test Results Lab/Test Results: Laboratory Tests Range/Units 02/12/22 02/12/22 02/12/22 19:49 19:49 22:49 WBC Cancelled RBC Cancelled Hgb Cancelled Hct Cancelled MCV Cancelled MCH Cancelled MCHC Cancelled RDW Cancelled Plt Count Cancelled MPV Cancelled Immature Gran % Cancelled Neutrophils % Cancelled Band Neutrophils % Cancelled Lymphocytes % Cancelled Atypical Lymphs % Cancelled Monocytes % Cancelled Eosinophils % Cancelled Basophils % Cancelled Metamyelocytes % Cancelled Myelocytes % Cancelled Promyelocytes % Cancelled Other Cells % Cancelled Nucleated RBC % Cancelled Absolute Neutrophils Cancelled Absolute Lymphocytes Cancelled Absolute Monocytes Cancelled Absolute Eosinophils Cancelled Absolute Basophils Cancelled RBC Morphology Cancelled Polychromasia Cancelled Hypochromasia Cancelled Poikilocytosis Cancelled Basophilic Stippling Cancelled Anisocytosis Cancelled Microcytosis Cancelled Macrocytosis Cancelled Spherocytes Cancelled Tear Drop Cells Cancelled Ovalocytes Cancelled Stomatocytes Cancelled [place] Bodies Cancelled [place] Cells/Echinocytes Cancelled Acanthocytes (Spur) Cancelled Schistocytes Cancelled Sodium Cancelled Potassium Cancelled Chloride Cancelled Carbon Dioxide Cancelled Anion Gap Cancelled BUN Cancelled Creatinine Cancelled Estimated GFR/1.73 m2 Cancelled Glucose Cancelled Calcium Cancelled Magnesium Cancelled Total Bilirubin Cancelled AST Cancelled ALT Cancelled Alkaline Phosphatase Cancelled Troponin I Cancelled Cancelled Total Protein Cancelled Albumin Cancelled
[2022-02-12 20:50] LABS: COVID-19 PCR Negative (Negative); Influenza A PCR Negative (Negative); Influenza B PCR Negative (Negative); RSV PCR Negative (Negative)
[2022-02-12 21:00] LABS: Source Nasopharynx
--- NOTE | 2022-02-12 21:32 | DI.VRAD_ITS ---
PROCEDURE INFORMATION: Exam: XR Chest Exam date and time: 02/12/2022 8:21 PM Age: 66 years old Clinical indication: Cough and shortness of breath; Patient HX: SOB, cough, pui, R/O pna TECHNIQUE: Imaging protocol: XR of the chest. Views: 1 view. COMPARISON: CR CHEST 2 VIEWS PA,LAT 08/01/2017 1:03 PM FINDINGS: Lungs: Unremarkable. No consolidation. Pleural spaces: Unremarkable. No pleural effusion. No pneumothorax. Heart/Mediastinum: Unremarkable. No cardiomegaly. Bones/joints: Unremarkable. IMPRESSION: No acute findings. Dictated and Authenticated by: Vic Rogers MD. Ordering:MONROE Matute MD
== END 2022-02-12 22:07 | disposition home or self-care (01) ==
PROVIDERS: Emergency Provider Registered Nurse Emergency; PCP Clinical Nurse Specialist Family Health
DX: J06.9 Acute upper respiratory infection, unspecified (principal); J30.2 Other seasonal allergic rhinitis
CPT/HCPCS: 80053; 87637; 99283; 71045; 83735; 84484; 85025

== ENCOUNTER → 2022-07-27 00:35 | Outpatient (CLI) | payer MEDICARE, BC, SELFPAY ==
--- NOTE | 2022-07-27 | DI.RAD_ITS ---
Exam(s) XR HAND LT COMPLETE EXAM: XR HAND LT COMPLETE CLINICAL HISTORY: LT HAND JOINT PAIN, M79.642 TECHNIQUE: COMPARISON: CR RIGHT INDEX FINGER from 08/24/2017 FINDINGS: Three views were obtained. There are degenerative changes involving the IP joints, particularly the DIP joints, as well as the greater multangular 1st metacarpal joint. Mild joint space narrowing and marginal osteophytes are noted involving the DIP joints, most marked at middle finger and little fing er DIP joints. IMPRESSION: RADIATION DOSE DELIVERED: Total DLP
== END ==
PROVIDERS: PCP Clinical Nurse Specialist Family Health; Visit Provider Nurse Practitioner
DX: M19.042 Primary osteoarthritis, left hand (principal)
CPT/HCPCS: 73130

== ENCOUNTER 2022-08-01 14:35 | Emergency (ER) | payer MEDICARE, BC, SELFPAY ==
--- NOTE | 2022-08-01 14:45 | RT.EKG_ITS ---
APPROVED REPORT Exam: Resting ECG Reason for Exam: Chest pain Patient Location: E HR:91 bpm ECG Measurements Heart Rate 91 AXIS NV 186 P 46 QRSd 106 QRS 62 QT 371 T 8 QTc 458 Conclusion Sinus rhythm...normal P axis, V-rate 60- 99
[2022-08-01 14:54] VITALS: BP 182/75; PULSE 92; RESP 14; TEMP 36.8; O2SAT 98
--- NOTE | 2022-08-01 16:15 | DI.RAD_ITS ---
Exam(s) XR CHEST 2V PA LATERAL EXAM: XR CHEST 2V PA LATERAL CLINICAL HISTORY: chest pain. TECHNIQUE: 2D digital imaging was performed. COMPARISON: No exams were available for comparison FINDINGS: 2 views: Heart size is normal. The mediastinum is not widened. Lungs are clear. No infiltrates nor pleural effusions. IMPRESSION: No acute pulmonary findings. DATA REPOSITORY: RADIATION DOSE DELIVERED:
[2022-08-01 16:44] LABS: Bilirubin Negative (Negative); Blood Negative (Negative); Clarity Clear (Clear); Glucose 500 mg/dL (Negative); Ketones Trace mg/dL (Negative); Leukocyte Esterase Negative (Negative); Nitrite Negative (Negative); Specific Gravity >= 1.030 (1.005-1.025); Urobilinogen 0.2 EU/dL (Up TO 0.2)
[2022-08-01 17:17] VITALS: RESP 18
[2022-08-01 17:29] LABS: Abs Immature Grans 0.05 10^3/uL (0.0-0.06); Absolute Basophil Count 0.09 10^3/uL (0.0-0.2); Absolute Eosinophil Count 0.19 10^3/uL (0.0-0.7); Absolute Lymphocyte Count 2.19 10^3/uL (1.2-3.4); Absolute Monocyte Count 0.68 10^3/uL (0.1-0.8); Absolute Neutrophil Count 6.39 10^3/uL (1.2-6.7); Basophils % 0.9; HCT 45.5 % (36.0-46.0); HGB 15.2 g/dL (11.2-15.7); Immature Grans % 0.5; Lymphocytes % 22.8; MCH 29.6 pg (27.0-33.0); MCHC 33.4 % (32.0-36.0); MCV 89 fL (80-95); MPV 9.3 fL (8.0-11.0); Monocytes % 7.1; Neutrophils % 66.7; Platelet Count 217 10^3/uL (130-400); RBC 5.14 10^6/uL (3.93-5.22); RDW 12.1 % (11.7-14.6); RDW-SD 39.5 fL; WBC 9.59 10^3/uL (4.4-10.8)
[2022-08-01 17:33] LABS: ALT 33 U/L (14-59); AST 23 U/L (15-37); Albumin 3.9 g/dL (3.4-5.0); Alkaline Phosphatase 102 U/L (46-116); Anion Gap 7.2 mmol/L (3-11); BUN 21 mg/dL (7-18); Bilirubin, Total 0.2 mg/dL (0.2-1.0); CO2 27.8 mmol/L (21.0-32.0); CREATININE 0.8 mg/dL (0.55-1.02); Calcium 9.5 mg/dL (8.5-10.1); Chloride 103 mmol/L (98-107); Estimated GFR 79.71 (mL/min/1.73m2); Glucose 237 mg/dL (74-106); Potassium 3.8 mmol/L (3.5-5.1); Sodium 138 mmol/L (136-145); Total Protein 8.6 g/dL (6.4-8.2); Troponin I < 50 ng/L (<or=60)
[2022-08-01 17:35] LABS: Hemoglobin A1C 8.3 % (<5.7)
--- NOTE | 2022-08-01 17:42 | DI.VRAD_ITS ---
PROCEDURE INFORMATION: Exam: XR Chest Exam date and time: 08/01/2022 5:01 PM Age: 67 years old Clinical indication: Other: Chest pain TECHNIQUE: Imaging protocol: Radiologic exam of the chest. Views: 2 views. COMPARISON: XR PORTABLE CHEST AP 02/12/2022 8:21 PM FINDINGS: Lungs: Unremarkable. No consolidation. Unchanged mild right hemidiaphragm elevation. Pleural spaces: Unremarkable. No pleural effusion. No pneumothorax. Heart/Mediastinum: Tortuous atheromatous aorta. No cardiomegaly. Bones/joints: Unremarkable. IMPRESSION: No acute findings. Dictated and Authenticated by: Silvia Mitchell MD. Ordering:CORI Bates MD
[2022-08-01 18:34] VITALS: BP 183/86; PULSE 74; TEMP 36.3; O2SAT 97
--- NOTE | 2022-08-01 18:37 | W.ED.GENAD ---
Discharge Plan Disposition Patient Disposition: Home Condition: Stable Discharge Details Clinical Impression: Hypertension, Hyperglycemia Primary Care Provider: KIRILL ADKINS ED Provider: Jana Celaya Home Meds and New Rx's Prescriptions: New lisinopril 20 mg tablet 20 mg PO DAILY Qty: 14 0RF Continued ascorbic acid (vitamin C) 250 mg tablet 250 mg PO DAILY apple cider vinegar 600 mg capsule PO (DME) Contour Next Test Strips strip See Dose Instructions .ROUTE .MEDSUPPLY Qty: 25 3RF Dose Instruction: As directed Rx Instructions: Glucose monitoring 3 times per week- DM (DME) lancets [OneTouch Delica Lancets] 1 EACH misc 1 ea Intradermal DAILY Qty: 300 Rx Instructions: DX:E11.9. ON ORAL AGENTS, ADJUSTING MEDS Saw [place] Fruit [Saw Schulenburg] 450 MG capsule 450 mg PO BID hair health 1 cap PO DAILY ONETOUCH ULTRA TEST STRIPS 1 EACH strip 1 strip Miscellaneous BID 90 Days Qty: 180 4RF Rx Instructions: DX: E11.9 rosuvastatin [Crestor] 10 mg tablet 10 mg PO HS Qty: 90 3RF Prevnar 13 (PF) 0.5 mL syringe 0.5 ml IM ONCE Qty: 0.5 0RF Rx Instructions: as a single dose nifedipine 30 mg tablet extended release 24hr 30 mg PO DAILY Qty: 90 0RF lisinopril 5 mg tablet 10 mg PO DAILY Qty: 90 4RF Rx Instructions: 1 TAB DAILY Digestive Advantage Prob Gummy 250 million cell tablet,chewable See Rx Instructions PO .COMPLEX Rx Instructions: 1 tablet orally daily aspirin [Enteric Coated Aspirin] 81 mg tablet,delayed release (DR/EC) 81 mg PO DAILY Child's Fiber Select Gummies 1.5 gram tablet,chewable 3 g PO DAILY cholecalciferol (vitamin D3) 25 mcg (1,000 unit) capsule 25 mcg PO DAILY omega 6-zap-iyg-fish oil [Fish Oil] 300-1,000 mg capsule 2 cap PO DAILY levothyroxine 50 mcg tablet 25 mcg PO DAILY cyclobenzaprine 10 mg tablet 10 mg PO TID PRNQty: 30 0RF Discharge Instructions Instructions: Hypertension (ED), Diabetic Hyperglycemia (ED) Additional Instructions: Increase lisinopril to 20 mg daily Follow-up for stress test Talk to your doctor about your blood sugar as it is quite elevated today Follow-up with your doctor next week Check your blood pressure once daily Return earlier should you have new or worsening complaint Referrals: KIRILL ADKINS [Primary Care Provider] - Discharge Data Discharge Date/Time-TO BE ENTERED AT DEPARTURE: 08/01/22 18:44 Medical Decision Making Labs within normal limits, troponin negative, EKG without acute abnormality Symptoms for several months, 1 troponin is reasonable at this time without acute chest pain Blood sugar is notably elevated and elevated A1c, patient declines starting on metformin She is encouraged to follow-up with her doctor for discussion She is asymptomatic at time of my assessment in the emergency department, I see no clear indication for further evaluation at this time although close outpatient reassessment is needed Return precautions reviewed and patient expressed understanding Medical Records Medical records reviewed: Yes I reviewed the patient's medical records. Lab Data Lab results reviewed: Yes I reviewed the patient's lab results. Sign Out No HPI General Date/Time Provider Initiated Documentation: 08/01/22 15:05. HPI Narrative: This 67-year-old female presents with high blood pressure that started last night, palpitations, some intermittent chest discomfort. She states this is going on for the past couple months intermittently. States her blood sugar was also elevated last evening is not currently on any meds for diabetes which she states that she refuses to take secondary to the adverse effects. Related Data Home Medications Medication Instructions Recorded Confirmed lancets 33 gauge (OneTouch Delica #300 ea 12/25/16 02/23/19 Lancets) Hair Health 1 cap PO DAILY 08/21/17 02/23/19 Saw Schulenburg Fruit [Saw Schulenburg] 450 mg PO BID 08/21/17 02/23/19 ascorbic acid (vitamin C) 250 mg 250 mg PO DAILY 08/20/18 02/12/22 tablet rosuvastatin 10 mg tablet (Crestor) 10 mg PO HS #90 tab-caps 10/15/18 02/12/22 apple cider vinegar 600 mg capsule mg PO 02/23/19 02/23/19 blood sugar diagnostic (Contour #25 ea 02/23/19 02/23/19 Next Test Strips) pneumoc 13-cristy conj-dip cr(PF) 0.5 0.5 ml IM ONCE #0.5 mL 05/06/19 mL IM syringe (Prevnar 13 (PF)) nifedipine 30 mg tablet,extended 30 mg PO DAILY #90 tabs 06/26/19 02/12/22 release 24 hr cyclobenzaprine 10 mg tablet 10 mg PO TID PRN #30 tabs 09/02/21 02/12/22 levothyroxine 50 mcg tablet 25 mcg PO DAILY 02/12/22 02/12/22 Bacillus coagulans 250 million See Rx Instructions PO .COMPLEX 07/24/22 cell chewable tablet (Digestive Advantage Probiotic Gummy) aspirin 81 mg tablet,delayed 81 mg PO DAILY 07/24/22 release (Enteric Coated Aspirin) cholecalciferol (vitamin D3) 25 25 mcg PO DAILY 07/24/22 mcg (1,000 unit) capsule inulin 1.5 gram chewable tablet 3 g PO DAILY 07/24/22 (Children's Fiber Select Gummies) lisinopril 5 mg tablet 10 mg PO DAILY #90 tab-caps 07/24/22 omega 8-rjh-lyd-fish oil 300 2 cap PO DAILY 07/24/22 mg-1,000 mg capsule (Fish Oil) lisinopril 20 mg tablet 20 mg PO DAILY #14 tabs 08/01/22 Previous Rx's Medication Instructions Recorded rosuvastatin 10 mg tablet (Crestor) 10 mg PO HS #90 tab-caps 10/15/18 blood sugar diagnostic (Contour #25 ea 02/23/19 Next Test Strips) pneumoc 13-cristy conj-dip cr(PF) 0.5 0.5 ml IM ONCE #0.5 mL 05/06/19 mL IM syringe (Prevnar 13 (PF)) nifedipine 30 mg tablet,extended 30 mg PO DAILY #90 tabs 06/26/19 release 24 hr cyclobenzaprine 10 mg tablet 10 mg PO TID PRN #30 tabs 09/02/21 lisinopril 5 mg tablet 10 mg PO DAILY #90 tab-caps 07/24/22 lisinopril 20 mg tablet 20 mg PO DAILY #14 tabs 08/01/22 Allergies Allergy/AdvReac Type Severity Reaction Status Date / Time allopurinol Allergy Severe HARD TIME Verified 02/12/22 19:41 BREATHING chlorthalidone Allergy Severe HARD TIME Verified 02/12/22 19:41 BREATHING Tetracyclines Allergy Severe Anaphylaxsi Verified 02/12/22 19:41 s Penicillins Allergy Intermediate swells up Verified 02/12/22 19:41 venom-honey bee Allergy Intermediate swells up Verified 02/12/22 19:41 amoxicillin Allergy Mild unknown Verified 02/12/22 19:41 atorvastatin AdvReac Intermediate cramps Verified 02/12/22 19:41 gabapentin AdvReac Intermediate Diarrhea Verified 02/12/22 19:41 glimepiride AdvReac Intermediate Diarrhea Unverified 02/12/22 19:41 lorazepam AdvReac Intermediate HX OF Unverified 02/12/22 19:41 ADDICTION AND WITHDRAWAL metformin AdvReac Intermediate Headache Unverified 02/12/22 19:41 simvastatin AdvReac Intermediate myalgia Unverified 02/12/22 19:41 valacyclovir AdvReac Intermediate Diarrhea Unverified 02/12/22 19:41 amitriptyline AdvReac Mild insomnia Unverified 02/12/22 19:41 contrast dye Allergy Severe Anaphylaxis Uncoded 07/24/22 14:18 General Stated Complaint: GenMedical IESHA: 3 Review of Systems All systems reviewed & are unremarkable except as noted in HPI and below PFSH All Active Problems (Updated 08/01/22 @ 18:41 by FRANCOIS Travis) Hypertension (Chronic) Hyperglycemia (Acute) Constipation (Acute) Headache (Acute) Smoker (Acute 08/07/13) Status post laparoscopic hysterectomy (Acute) Urinary incontinence in female (Acute 07/19/15) Total urinary incontinence (Acute) 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 (Acute) Psoriasis (Acute) Pain of left heel (Acute 07/19/15) heel spur on x ray Numbness and tingling in left hand (Acute 12/30/14) Kidney stone (Acute) recurrent 2013 ESWL Johnie Herrera Hypothyroidism (Acute 12/02/12) Hyperlipidemia (Acute 04/16/13) 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 (Acute 07/23/11) 3/ TOTAL LAP HYST for abnormal PAP PAP at [facility] q 6 mo HGSIL Pap smear of vagina (Acute 04/03/17) Generalized osteoarthrosis (Acute) Gastroesophageal reflux disease with esophagitis (Acute) Essential hypertension (Acute 08/06/13) Diabetes mellitus (Acute) 2014 control improved with weight loss Depressive disorder (Acute) Chest pain (Acute) spasm; esoph spasm--resolved w/ nefedipine Carpal tunnel syndrome on both sides (Acute 02/21/15) bilateral L>R Medical History (Updated 08/01/22 @ 18:41 by FRANCOIS Traivs) Abnormal vaginal bleeding Acute joint pain Hepatitis B History of neck pain Hx of herpes zoster Hypertension Insomnia kidney stones Neuropathy Osteopenia Palpitations shingles Shoulder pain Tremor Type 2 diabetes mellitus Surgical History Hysterectomy, Laproscopic (10/25/11) Family History Mother Diabetes Myocardial infarction Father Dementia Depression Sister No problems noted. Sister Neoplasm OVARIAN OR UTERINE Brother Diabetes Brother No problems noted. Brother Depression Suicide Grandfather No problems noted. Grandfather , MINING ACCIDENT at age 40. No problems noted. Grandmother , CAR ACCIDENT at age 52. Diabetes Grandmother Neoplasm OVARIAN OR UTERINE Son No problems noted. Daughter Depression Social History Smoking/Tobacco Use Status: Former Tobacco Use Smoking risk assessment performed?: Yes Alcohol Intake: never Drug use: Never Substance use type: does not use Do you feel safe at home: Yes Do you feel safe in your relationship?: Yes Exam Const General: cooperative, comfortable and no acute distress Eyes Pupils: PERRL EOM: EOM intact bilaterally and nystagmus Resp Effort & Inspection: normal respiratory effort Auscultation: clear to auscultation bilaterally Cardio Rate: regular rate Rhythm: regular rhythm Skin General skin exam: no rashes or lesions noted Neuro General: patient alert and patient oriented x3 Cranial Nerves: CN's II-XI intact bilaterally, tongue midline and nystagmus Cognition: normal cognition Speech: speech normal Gait: normal gait Motor: strength 5/5 throughout Sensory Exam: no sensory deficits noted Course Vital Signs Vital signs: Vital Signs Temperature 36.8 C 08/01/22 14:54 Pulse 92 H 08/01/22 14:54 Respiratory Rate 14 08/01/22 14:54 Blood Pressure 182/75 H 08/01/22 14:54 Pulse Oximetry 98 08/01/22 14:54 Temperature 36.3 C L 08/01/22 18:34 Temperature Source Oral 08/01/22 18:34 Pulse 74 08/01/22 18:34 Respiratory Rate 18 08/01/22 17:17 Respiratory Effort Non-Labored 08/01/22 17:17 Respiratory Depth Normal 08/01/22 17:17 Respiratory Pattern Normal 08/01/22 17:17 Blood Pressure 183/86 H 08/01/22 18:34 Blood Pressure Position Sitting 08/01/22 14:54 Pulse Oximetry 97 08/01/22 18:34 Oxygen Delivery Method Room Air 08/01/22 18:34 Oxygen Flow Rate 0 08/01/22 18:34 Pain Level 0 08/01/22 14:54 Lab/Test Results Lab/Test Results: Laboratory Tests Range/Units 08/01/22 08/01/22 08/01/22 16:40 16:59 16:59 WBC (4.4-10.8) 10^3/uL RBC (3.93-5.22) 10^6/uL Hgb (11.2-15.7) g/dL Hct (36.0-46.0) % MCV (80-95) fL MCH (27.0-33.0) pg MCHC (32.0-36.0) % RDW (11.7-14.6) % Plt Count (130-400) 10^3/uL MPV (8.0-11.0) fL Immature Gran % Neutrophils % Lymphocytes % Monocytes % Eosinophils % Basophils % Nucleated RBC % (0.0-0.3) % Absolute Neutrophils (1.2-6.7) 10^3/uL Absolute Lymphocytes (1.2-3.4) 10^3/uL Absolute Monocytes (0.1-0.8) 10^3/uL Absolute Eosinophils (0.0-0.7) 10^3/uL Absolute Basophils (0.0-0.2) 10^3/uL Sodium (136-145) mmol/L 138 Potassium (3.5-5.1) mmol/L 3.8 Chloride (98-107) mmol/L 103 Carbon Dioxide (21.0-32.0) mmol/L 27.8 Anion Gap (3-11) mmol/L 7.2 BUN (7-18) mg/dL 21 H Creatinine (0.55-1.02) mg/dL 0.8 Est GFR (CKD-EPI 2020) (mL/min/1.73m2) 79.71 Glucose (74-106) mg/dL 237 H Hemoglobin A1c (<5.7) % 8.3 H Calcium (8.5-10.1) mg/dL 9.5 Total Bilirubin (0.2-1.0) mg/dL 0.2 AST (15-37) U/L 23 ALT (14-59) U/L 33 Alkaline Phosphatase (46-116) U/L 102 Troponin I (<or=60) ng/L < 50 Total Protein (6.4-8.2) g/dL 8.6 H Albumin (3.4-5.0) g/dL 3.9 Urine Color (Yellow) Yellow Urine Clarity (Clear) Clear Urine pH (5-8) 6.0 Ur Specific [place] (1.005-1.025) >= 1.030 H Urine Protein (Negative) mg/dL Negative Urine Ketones (Negative) mg/dL Trace H Urine Blood (Negative) Negative Urine Nitrite (Negative) Negative Urine Bilirubin (Negative) Negative Urine Urobilinogen (Up TO 0.2) EU/dL 0.2 Ur Leukocyte Esterase (Negative) Negative Urine Glucose (Negative) mg/dL 500 H Range/Units 08/01/22 16:59 WBC (4.4-10.8) 10^3/uL 9.59 RBC (3.93-5.22) 10^6/uL 5.14 Hgb (11.2-15.7) g/dL 15.2 Hct (36.0-46.0) % 45.5 MCV (80-95) fL 89 MCH (27.0-33.0) pg 29.6 MCHC (32.0-36.0) % 33.4 RDW (11.7-14.6) % 12.1 Plt Count (130-400) 10^3/uL 217 MPV (8.0-11.0) fL 9.3 Immature Gran % 0.5 Neutrophils % 66.7 Lymphocytes % 22.8 Monocytes % 7.1 Eosinophils % 2.0 Basophils % 0.9 Nucleated RBC % (0.0-0.3) % 0.0 Absolute Neutrophils (1.2-6.7) 10^3/uL 6.39 Absolute Lymphocytes (1.2-3.4) 10^3/uL 2.19 Absolute Monocytes (0.1-0.8) 10^3/uL 0.68 Absolute Eosinophils (0.0-0.7) 10^3/uL 0.19 Absolute Basophils (0.0-0.2) 10^3/uL 0.09 Sodium (136-145) mmol/L Potassium (3.5-5.1) mmol/L Chloride (98-107) mmol/L Carbon Dioxide (21.0-32.0) mmol/L Anion Gap (3-11) mmol/L BUN (7-18) mg/dL Creatinine (0.55-1.02) mg/dL Est GFR (CKD-EPI 2020) (mL/min/1.73m2) Glucose (74-106) mg/dL Hemoglobin A1c (<5.7) % Calcium (8.5-10.1) mg/dL Total Bilirubin (0.2-1.0) mg/dL AST (15-37) U/L ALT (14-59) U/L Alkaline Phosphatase (46-116) U/L Troponin I (<or=60) ng/L Total Protein (6.4-8.2) g/dL Albumin (3.4-5.0) g/dL Urine Color (Yellow) Urine Clarity (Clear) Urine pH (5-8) Ur Specific [place] (1.005-1.025) Urine Protein (Negative) mg/dL Urine Ketones (Negative) mg/dL Urine Blood (Negative) Urine Nitrite (Negative) Urine Bilirubin (Negative) Urine Urobilinogen (Up TO 0.2) EU/dL Ur Leukocyte Esterase (Negative) Urine Glucose (Negative) mg/dL
--- NOTE | 2022-08-04 15:35 | NUR.NOTE ---
Nursing Note: 2nd stress test request faxed to [facility] for Regular Exercise Treadmill stress test; for chest pain per Jana Celaya.
== END 2022-08-01 18:44 | disposition home or self-care (01) ==
PROVIDERS: Emergency Provider Physician Assistant; PCP Nurse Practitioner
DX: E11.65 Type 2 diabetes mellitus with hyperglycemia (principal); I10 Essential (primary) hypertension; G47.00 Insomnia, unspecified
CPT/HCPCS: 36416; 80053; 82962; 93005; 99284; 71046; 81003; 83036; 84484; 85025; 93010

== ENCOUNTER 2022-10-23 02:11 | Outpatient (CLI) | payer MEDICARE, BC, SELFPAY ==
[2022-10-23 14:56] LABS: Hemoglobin A1C 7.1 % (<5.7)
[2022-10-23 15:58] LABS: ALT 29 U/L (14-59); AST 26 U/L (15-37); Alkaline Phosphatase 94 U/L (46-116); BUN 19 mg/dL (7-18); Bilirubin, Total 0.2 mg/dL (0.2-1.0); CREATININE 0.9 mg/dL (0.55-1.02); Calcium 9.5 mg/dL (8.5-10.1); Calculated LDL 132 mg/dL (<100); Chloride 102 mmol/L (98-107); Cholesterol 211 mg/dL (<200); Glucose 152 mg/dL (74-106); HDL Cholesterol 60 mg/dL (40-60); Sodium 140 mmol/L (136-145); Total Protein 8.3 g/dL (6.4-8.2); Triglyceride 95 mg/dL (<150); Vitamin B12 1383 pg/mL (193-986)
== END 2022-10-23 02:12 | disposition home or self-care (01) ==
PROVIDERS: PCP Nurse Practitioner; Visit Provider Nurse Practitioner
DX: E11.40 Type 2 diabetes mellitus with diabetic neuropathy, unspecified (principal); E78.5 Hyperlipidemia, unspecified; G62.9 Polyneuropathy, unspecified
CPT/HCPCS: 36415; 80053; 80061; 82607; 83036

== ENCOUNTER 2023-01-30 01:52 | Outpatient (CLI) | payer MEDICARE, BC, SELFPAY ==
--- NOTE | 2023-01-30 14:30 | DI.MAMMO_ITS ---
Exam(s) MAMMO SCREENING EXAM: MAMMO SCREENING CLINICAL HISTORY: SCREENING, Z12.31 TECHNIQUE: Mammograms were interpreted according to the usual protocol including computer analysis w [employer] CAD system, tomosynthesis and C-view imaging. COMPARISON: 2012 through 2021 FINDINGS: The breasts are composed of scattered fibroglandular densities, Breast Density category B. No suspicious masses or suspicious microcalcifications are seen. No skin thickening or abnormal axillary lymph nodes are seen. There has been no significant change from prior exams. IMPRESSION: BI-RADS Category 1, Negative mammogram Yearly screening mammography is recommended. Breast Density - Category B, scattered fibroglandular densities. A negative radiographic report should not delay biopsy if a dominant or clinically suspicious mass is present. Up to ten percent of cancers are not identified on mammography. A negative report may reinforce clinical impression. Adenosis and dense breasts may obscure an underlying neoplasm. False positive reports average 6 to 10%. Patient will receive a letter notifying them of these results.
== END 2023-01-30 02:12 ==
LOC: DI 01:53
PROVIDERS: PCP Nurse Practitioner; Visit Provider Nurse Practitioner Women's Health
DX: Z12.31 Encounter for screening mammogram for malignant neoplasm of breast (principal)
CPT/HCPCS: 77063; 77067

== ENCOUNTER 2023-03-01 01:26 | Outpatient (CLI) | payer MEDICARE, BC, SELFPAY ==
[2023-03-01 13:21] LABS: Abs Immature Grans 0.02 10^3/uL (0.0-0.06); Absolute Basophil Count 0.07 10^3/uL (0.0-0.2); Absolute Eosinophil Count 0.32 10^3/uL (0.0-0.7); Absolute Lymphocyte Count 2.75 10^3/uL (1.2-3.4); Absolute Monocyte Count 0.52 10^3/uL (0.1-0.8); Absolute Neutrophil Count 4.64 10^3/uL (1.2-6.7); Basophils % 0.8; Eosinophils % 3.8; HCT 39.3 % (36.0-46.0); HGB 12.9 g/dL (11.2-15.7); Immature Grans % 0.2; Lymphocytes % 33.1; MCH 29.3 pg (27.0-33.0); MCHC 32.8 % (32.0-36.0); MCV 89 fL (80-95); Monocytes % 6.3; Neutrophils % 55.8; Platelet Count 194 10^3/uL (130-400); RDW 12.1 % (11.7-14.6); RDW-SD 40.2 fL; WBC 8.32 10^3/uL (4.4-10.8)
[2023-03-01 13:23] LABS: ESR 20 mm/hr (0-30)
[2023-03-01 14:01] LABS: Vitamin B12 536 pg/mL (193-986)
[2023-03-04 12:42] LABS: ANA Interpretation Negative (Negative)
== END 2023-03-01 01:27 | disposition home or self-care (01) ==
LOC: LBO 01:26
PROVIDERS: PCP Nurse Practitioner; Visit Provider Nurse Practitioner
DX: R25.1 Tremor, unspecified (principal); G62.9 Polyneuropathy, unspecified
CPT/HCPCS: 36415; 85652; 82607; 85025; 86038

== ENCOUNTER → 2023-03-18 13:51 | Outpatient (BNVA) | payer MEDICARE, BC, SELFPAY | PROVIDERS: PCP Nurse Practitioner; Referring Provider Clinical Nurse Specialist Family Health; Visit Provider Psychiatry & Neurology Neurology | DX: R40.4 Transient alteration of awareness (principal); G47.00 Insomnia, unspecified; I10 Essential (primary) hypertension | CPT/HCPCS: 99205 ==

== ENCOUNTER 2024-02-21 01:26 | Outpatient (CLI) | payer MEDICARE, BC, SELFPAY ==
--- OUTSIDE RECORDS SUMMARY | 2024-02-21 01:27 | XMS_ITS | Continuity of Care Document ---
Author Name Unknown Organization [facility] Address [address] [place] [id number] Care Team Providers Care Green Chain Marker Name Role Phone Sophia Hercules APRN Primary Care Physician Encounter [facility]_[id number] FIN NBR [id number] Date(s): 12/25/22 - 12/25/[address] [phone] Discharge Disposition: Home Assessment and Plan Future Appointments Future Scheduled Tests Radiology* MG Mammo Screening Bilateral 12/25/22 Patient Care team information Care Team Personnel Name: Sophia Hercules APRN Position: No Access Member Role: Primary Care Physician Address: Address: [address] [place] [id number]
--- OUTSIDE RECORDS SUMMARY | 2024-02-21 01:27 | XMS_ITS | Continuity of Care Document ---
Author Name Unknown Organization [facility] Ambulatory Clinics Address [address] [place] [address] Care Team Providers Care Hand Clipper Name Role Phone KIRILL ADKINS APRN Primary Care Physician [phone] Encounter [facility] NBR [id number] Date(s): 02/17/24 - 02/17/24 [facility] Ambulatory Clinics [address] [place], [place] [address] Encounter Diagnosis History of abnormal cervical Pap smear(Discharge Diagnosis) - 02/17/24 Pap smear for cervical cancer screening(Discharge Diagnosis) - 02/17/24 Discharge Disposition: Home or Self Care Attending Physician: Annia Cobb APRN Allergies, Adverse Reactions, Alerts Substance Reaction Severity Status allopurinol Unknown Unknown Active tetracycline Unknown Unknown Active amoxicillin Unknown Unknown Active penicillin Unknown Unknown Active chlorthalidone Unknown Unknown Active simvastatin Unknown Unknown Active gabapentin Unknown Unknown Active glimepiride Unknown Unknown Active atorvastatin Unknown Unknown Active Bee Stings Unknown Unknown Active Amitriptyline Hydrochloride Unknown Unknown Active LORazepam Unknown Unknown Active metFORMIN Unknown Unknown Active valACYclovir unknown Unknown Active Contrast Media Unknown Unknown Active Assessment and Plan Extracted from: Title:Office Visit Note Author:TANIA Hill RN Date:02/17/24 1.??History of abnormal cerv ical Pap smear??Z87.42 ??The last 4 vaginal Paps have been Neg/Neg HPV. 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 She has some auto-immune type labs that are pending for a variety to symptoms she has been experiencing for a few years. Ordered: Outside Lab Request, 02/17/24 16:42:00 EDT, Stop date 02/17/24 16:42:00 EDT, Genpath PAP + PAP dependent HPV, History of abnormal cervical Pap smear Pap smear for cervical cancer screening ?? 2.??Pap smear for cervical cancer screening??Z12.4 Ordered: Outside Lab Request, 02/17/24 16:42:00 EDT, Stop date 02/17/24 16:42:00 EDT, Genpath PAP + PAP dependent HPV, History of abnormal cervical Pap smear Pap smear for cervical cancer screening ?? Future Appointments Medications Crestor 10 mg oral tablet 10 mg = 1 tab, Oral, Daily, # 30 tab, 0 Refill(s) Start Date: 01/21/23 Status: Ordered cyclobenzaprine 5 mg oral tablet 5 mg = 1 tab, Oral, TID, PRN as needed for muscle spasm, # 30 tab, 0 Refill(s) Start Date: 01/21/23 Status: Ordered Fiber Choice 1.5 g oral tablet, chewable 1.5 g = 1 tab, Chewed, BID, # 90 tab, 0 Refill(s) Start Date: 01/21/23 Status: Ordered levothyroxine 50 mcg (0.05 mg) oral capsule 50 mcg = 1 cap, Oral, Daily, Half tab daily., # 30 cap, 0 Refill(s) Start Date: 01/21/23 Status: Ordered lisinopril 10 mg oral tablet 10 mg = 1 tab, Oral, Daily, # 30 tab, 0 Refill(s) Start Date: 01/21/23 Status: Ordered omega-3 polyunsaturated fatty acids 1000 mg oral capsule 1,000 mg = 1 cap, Oral, BID, # 60 cap, 0 Refill(s) Start Date: 01/21/23 Status: Ordered One Touch Ultra Test Strips Supply, See instructions, # 1 EA, 0 Refill(s) Start Date: 01/21/23 Status: Ordered Probiotic Formula (Bacillus Coagulans) oral capsule 1 cap, Oral, Daily, # 30 cap, 0 Refill(s) Start Date: 01/21/23 Status: Ordered Procardia XL 30 mg oral tablet, extended release 30 mg = 1 tab, Oral, Daily, # 30 tab, 0 Refill(s) Start Date: 01/21/23 Status: Ordered Vitamin B12 1,000 mcg =, Oral, Daily, 0 Refill(s) Start Date: 01/21/23 Status: Ordered Vitamin C 500 mg oral tablet 500 mg = 1 tab, Oral, Daily, # 30 tab, 0 Refill(s) Start Date: 5/22/23 Status: Ordered Vitamin D3 1000 intl units oral capsule 25 mcg = 1 cap, Oral, Daily, # 75 cap, 0 Refill(s) Start Date: 01/21/23 Status: Ordered Problem List Condition Confirmation Course Effective Dates Status H ealth Status Informant Chest pain Confirmed Active Headaches, cluster Confirmed Active 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 Constipation Confirmed Active Depression Confirmed Active Diabetes Confirmed Active Embolism Confirmed Active GERD (gastroesophageal reflux disease) Confirmed Active Shingles Confirmed Active History of abnormal cervical Pap smear Confirmed Active HPV in female Confirmed Active Hyperlipidemia Confirmed Active Hypertensive disorder Confirmed Active Hypothyroidism Confirmed Active Nephrolithiasis Confirmed Active Osteoarthritis Confirmed Active Psoriasis Confirmed Active Tremors of nervous system Confirmed Active Urinary incontinence Confirmed Active Procedures Procedure Date Related Diagnosis Body Site Status Colposcopy 06/2019 Completed ESWL (extracorporeal shockwa ve lithotripsy) of ureteric calculus 2012 Completed Appendectomy Completed delivery Complet ed Dysplasia Completed Embolism Completed Hysterectomy 1 Completed Kidney stone Completed LEEP (Loop electrosurgical e xcision procedure) of cervix Completed Surgery 2 Completed 1Due to HPV 2Cryo surgery Vital Signs Most recent to oldest [Reference Range]: 1 Blood Pressure [90-140/60-90 mmHg] 122/6 8mmHg (02/17/24 2:22 PM) Mean Arterial Pressure, Cuff [65-140 mmH g] 86 mmHg (02/17/24 2:22 PM) Weight 68.9 kg (02/17/24 2:22 PM) Weight Measured (lbs) 151.898 lb (02/17/24 2:22 PM) Weight Dosing 68.900 kg (02/17/24 2:22 PM) [place] Body Weight Calculated 50.118 kg (02/17/24 2:22 PM) Height 157.5 cm (02/17/24 2:22 PM) Height/Length Measured (inches) 62.01 in ch (02/17/24 2:22 PM) BSA Measured 1.74 m2 (02/17/24 2:22 PM) Body Mass Index 27.78 kg/m2 (02/17/24 2:22 PM) Social History Social History Type Response Tobacco Former tobacco user Tobacco Use:. 1 Sex Female 1stopped smoking in 2006 Physician Outpatient Note * Annia Cobb APRN: PERFORM Event Display: Office Clinic Note Physician Authored Date: [id number] ELIAZAR HAYDEN DOB:1955 Age:68 years Sex:Female Visit Date:02/17/2024 Primary Care Physician: KIRILL ADKINS APRN Chief Complaint Annual PAP History of Present Illness Eliazar??presents for??repeat??vaginal Pap smear.? Patient has a long history of HPV and subsequently had a hysterectomy due to this reason. Since herhysterectomy she continues to get vaginal Pap smears which had returned abnormal. She was seen by Dr. Althea Wolf who had been treating her. The patient has required anesthesia while doing colposcopy and treatment to the vaginal cuff. Dr. Melina Card suggested she have Paps locally to saveher the drive to [facility], and she would continue to treat her as needed. The last laser surgery was inOctober of 2018. ?? Last Pap: 01/21/2023 neg/neg HPV. 01/15/2022, neg/neg HPV.?? 01/31/2021 Neg/Neg HPV 07/11/2020 Neg/Neg HPV Review of Systems GENERAL??Overall she feels well.. INBOUND CUSTOMER SERVICE AGENT??No complaints..?? Physical Exam Vitals & Measurements BP:??122/68?? HT:??157.5??cm?? WT:??68.9??kg?? BMI:??27.78?? BSA:??1.74?? GENERAL?Healthy woman appearing her age, No apparent distress, Reasonable historian.? [facility] Pelvic Exam:?? EXTERNAL GENITALIA??Labia majora and minora bilaterally are normal in appearance.,??Introitus is normal in external appearance..?? VAGINA??Atrophic mucosa. Short vagina. Tissues appear healthy. No masses palpated.?? VAGINAL DISCHARGE??Thin, minimal, white discharge..?? CERVIX??Surgically absent..?? UTERUS??Surgically absent.. Assessment/Plan 1.??History of abnormal cervical Pap smear??Z87.42 ??The last 4 vaginal Paps have been Neg/Neg HPV. 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 She has some auto-immune type labs that are pending for a variety to symptoms she has been experiencing for a few years. Ordered: Outside Lab Request, 02/17/24 16:42:00 EDT, Stop date 02/17/24 16:42:00 EDT, Genpath PAP + PAP dependent HPV, History of abnormal cervical Pap smear Pap smear for cervical cancer screening ?? 2.??Pap smear for cervical cancer screening??Z12.4 Ordered: Outside Lab Request, 02/17/24 16:42:00 EDT, Stop date 02/17/24 16:42:00 EDT, Genpath PAP + PAP dependent HPV, History of abnormal cervical Pap smear Pap smear for cervical cancer screening ?? Follow Up Instructions prn, one year Problem List/Past Medical History Ongoing Chest pain Constipation Depression Diabetes Embolism Genital warts due to HPV (human papillomavirus) GERD (gastroesophageal reflux disease) Headaches, cluster History of abnormal cervical Pap smear HPV in female Hyperlipidemia Hypertensive disorder Hypothyroidism Nephrolithiasis Osteoarthritis Psoriasis Shingles Tremors of nervous system Urinary incontinence Historical Procedure/Surgical History ???Colposcopy (06/2019)???ESWL (extracorporeal shockwave lithotripsy) of ureteric calculus (2012)???Appendectomy??? delivery???Dysplasia???Embolism???Hysterectomy???Kidney stone???LEEP (Loop e lectrosurgical excision procedure) of cervix???Surgery Medications Crestor 10 mg oral tablet, 10 mg= 1 tab, Oral, Daily cyclobenzaprine 5 mg oral tablet, 5 mg= 1 tab, Oral, TID, PRN Fiber Choice 1.5 g oral tablet, chewable, 1.5 g= 1 tab, Chewed, BID levothyroxine 50 mcg (0.05 mg) oral capsule, 50 mcg= 1 cap, Oral, Daily lisinopril 10 mg oral tablet, 10 mg= 1 tab, Oral, Daily omega-3 polyunsaturated fatty acids 1000 mg oral capsule, 1000 mg= 1 cap, Oral, BID One Touch Ultra Test Strips, See instructions Probiotic Formula (Bacillus Coagulans) oral capsule, 1 cap, Oral, Daily Procardia XL 30 mg oral tablet, extended release, 30 mg= 1 tab, Oral, Daily Vitamin B12, 1000 mcg, Oral, Daily Vitamin C 500 mg oral tablet, 500 mg= 1 tab, Oral, Daily Vitamin D3 1000 intl units oral capsule, 25 mcg= 1 cap, Oral, Daily Allergies Amitriptyline Hydrochloride??(Unknown) Bee Stings??(Unknown) Contrast Media??(Unknown) LORazepam??(Unknown) allopurinol??(Unknown) amoxicillin??(Unknown) atorvastatin??(Unknown) chlorthalidone??(Unknown) gabapentin??(Unknown) glimepiride??(Unknown) metFORMIN??(Unknown) penicillin??(Unknown) simvastatin??(Unknown) tetracycline??(Unknown) valACYclovir??(unknown) Social History Alcohol Never Electronic Cigarette/Vaping Electronic Cigarette Use: Never. Employment/School Retired Exercise Home/Environment Lives with Children, Significant other, dog. Living situation: Home/Independent. Sexual Sexually active: No. Substance Use Never Tobacco Former tobacco user Tobacco Use:.- Comments: stopped smoking in 2006 Family History Alzheimer's disease: Father. Diabetes mellitus: Mother. Heart disease: Mother. Kidney stone: Father. Family Member(s): ?? FATHER, at age: Unknown. Cause of : Electronically Signed on 02/18/2024 07:24 EDT Annia Cobb APRN Patient Care team information Care Team Personnel Name: KIRILL ADKINS APRN Position: No Access Member Role: Primary Care Physician Address: Address: [address] [place], [place] [address] [address]- Care Team Related Persons Name: DWAIN HAYDEN Address: Home [address] [place] [address] Name: ROCHELLE HAYDEN Name: MEGHAN HAYDEN
--- OUTSIDE RECORDS SUMMARY | 2024-02-21 01:27 | XMS_ITS | Continuity of Care Document ---
Author Name Unknown Organization [facility] Address [address] [place] [address] Care Team Providers Care Stranding Supervisor Name Role Phone Sophia Hercules APRN Primary Care Physician [phone] Encounter [facility] [facility] NBR [id number] Date(s): 01/24/23 - 01/24/[address] [address]- [place] Discharge Disposition: Home or Self Care Attending Physician: Sophia Hercules APRN Admitting Physician: Sophia Hercules APRN Referring Physician: Sophia Hercules APRN Assessment and Plan Future Appointments Future Scheduled Tests Radiology* MG Mammo Screening Bilateral 12/25/22 Medications Crestor 10 mg oral tablet 10 [...] Refill(s) Start Date: 01/21/23 Status: Ordered Vitamin D3 1000 intl units [...] 2 Completed 1Due to HPV 2Cryo surgery Results Laboratory List Name Date Microalbumin/Creatinine Rati o Urine (Microalbumin, Random Urine (CPT- 65744/40481)) 01/24/23 Most recent to oldest [Reference Range]: 1 U Creatinine 112.0 mg/dL *NA* (01/24/23 4:19 PM) U Microalb/Creat [0.0-30.0] 8.6 (01/24/23 4:19 PM) U Microalb [<=19.0 mg/L] 9.6 mg/L (01/24/23 4:19 PM) Social History Social History Type Response Tobacco Former tobacco user Tobacco Use:. 1 Sex 1stopped smoking in 2006 Patient Care team information Care Team Personnel Name: Sophia Hercules APRN Position: No Access Member Role: Primary Care Physician Address: Address: [address] [place] [address]
--- OUTSIDE RECORDS SUMMARY | 2024-02-21 01:27 | XMS_ITS | Continuity of Care Document ---
Author Name Unknown Organization [facility] Ambulatory Clinics Address [address] [place] [address] Care Team Providers Care Flight Manager Name Role Phone Sophia Hercules APRN Primary Care Physician Encounter [facility] NBR [id number] Date(s): 01/21/23 - 01/21/23 [facility] Ambulatory Clinics [address] [place] [address]- Encounter Diagnosis History of abnormal cervical Pap smear(Discharge Diagnosis) - 01/21/23 Discharge Disposition: Home or Self Care Attending Physician: Annia Cobb Assessment and Plan Future Appointments Future Scheduled Tests Radiology* MG Mammo Screening Bilateral 12/25/22 Functional Status 01/21/23 Other exposure to Infectious Disease Non e Medications Crestor 10 mg oral tablet 10 [...] [Reference Range]: 1 Blood Pressure [90-140/60-90 mmHg] 90/55 mmHg (01/21/23 1:51 PM) Weight 64.4 kg (01/21/23 1:51 PM) Weight Measured (lbs) 141.978 lb (01/21/23 1:51 PM) [place] Body Weight Calculated 50.571 kg (01/21/23 1:51 PM) Height 158 cm (01/21/23 1:51 PM) Height/Length Measured (inches) 62.2 inc h (01/21/23 1:51 PM) BSA Measured 1.68 m2 (01/21/23 1:51 PM) Body Mass Index 25.8 kg/m2 (01/21/23 1:51 PM) Social History Social History Type Response Tobacco Former tobacco user Tobacco Use:. 1 Sex 1stopped smoking in 2006 Patient Care team information Care Team Personnel Name: Sophia Hercules APRN Position: No Access Member Role: Primary Care Physician Address: Address: [address] [place] [address] [place], [place] [address]
--- OUTSIDE RECORDS SUMMARY | 2024-02-21 01:27 | XMS_ITS | Continuity of Care Document ---
Author Name Unknown Organization [facility] Address [address] [place] [phone] Care Team Providers Care Angle Shear Operator Name Role Phone KIRILL ADKINS APRN Primary Care Physician [phone] Encounter [facility] [facility] NBR [id number] Date(s): 06/07/22 - 06/07/[address] [address] Discharge Disposition: Home or Self Care Attending Physician: Jose L Parker MD, FACC, FACP, FASNC, FASE, FSCCT Admitting Physician: Jose L Parker MD, FACC, FACP, FASNC, FASE, FSCCT Referring Physician: KIRILL ADKINS APRN Patient Care team information Personnel Name: KIRILL ADKINS APRN Address: Address: [address] [place] [phone]
--- OUTSIDE RECORDS SUMMARY | 2024-02-21 01:27 | XMS_ITS | Continuity of Care Document ---
Author Name Unknown Organization [facility] Address [address] [place] [id number] Care Team Providers Care Compressor Station Operator Name Role Phone Sophia Hercules APRN Primary Care Physician Encounter [facility] NBR [id number] Date(s): 02/28/23 - 02/28/[address] [address] Encounter Diagnosis Tremor, unspecified(Final) - Palpitations(Final) - Discharge Disposition: Home or Self Care Attending Physician: CRISTA BRAGG MD Admitting Physician: CRISTA BRAGG MD Referring Physician: Sophia Hercules APRN Allergies, Adverse Reactions, Alerts Substance Reaction [...] Media Unknown Unknown Active Assessment and Plan Future Appointments Future Scheduled [...] Most recent to oldest [Reference Range]: 1 Weight 64.5 kg (02/27/23 8:09 AM) Height 157.5 cm (02/27/23 8:09 AM) Social History Social History Type Response Tobacco Former tobacco user Tobacco Use:. 1 Sex 1stopped smoking in 2006 Patient Care team information Care Team Personnel Name: Sophia Hercules APRN Position: No Access Member Role: Primary Care Physician Address: Address: [address] [place] [address]- Care Team Related Persons Name: MEGHAN HAYDEN
[2024-02-21 16:11] LABS: COMMENT (LAB VIEW ONLY) 160.37 mg/dL; Microalb ug/mg Crea 9.8 ug/mg Cr
== END 2024-02-21 01:27 | disposition home or self-care (01) ==
LOC: LBO 01:26
PROVIDERS: PCP Nurse Practitioner; Visit Provider Nurse Practitioner
DX: M25.59 Pain in other specified joint (principal); R21 Rash and other nonspecific skin eruption; E78.5 Hyperlipidemia, unspecified; E11.40 Type 2 diabetes mellitus with diabetic neuropathy, unspecified
CPT/HCPCS: 36415; 80053; 80061; 82306; 85652; 86200; 86812; 82043; 82570; 82607; 83036; 84443; 85025; 86038; 86140; 86431; 86618

== ENCOUNTER 2024-03-03 03:23 | Outpatient (CLI) | payer MEDICARE, BC, SELFPAY ==
[2024-03-03 15:43] LABS: Abs Immature Grans 0.03 10^3/uL (0.0-0.06); Absolute Basophil Count 0.07 10^3/uL (0.0-0.2); Absolute Eosinophil Count 0.18 10^3/uL (0.0-0.7); Absolute Lymphocyte Count 2.63 10^3/uL (1.2-3.4); Absolute Monocyte Count 0.59 10^3/uL (0.1-0.8); Absolute Neutrophil Count 6.36 10^3/uL (1.2-6.7); Basophils % 0.7 %; Eosinophils % 1.8 %; HCT 45.2 % (36.0-46.0); HGB 15.1 g/dL (11.2-15.7); Immature Grans % 0.3 %; Lymphocytes % 26.7 %; MCH 29.9 pg (27.0-33.0); MCHC 33.4 % (32.0-36.0); MCV 90 fL (80-95); MPV 9.6 fL (8.0-11.0); Neutrophils % 64.5 %; Platelet Count 227 10^3/uL (130-400); RBC 5.05 10^6/uL (3.93-5.22); RDW 12.3 % (11.7-14.6); RDW-SD 40.1 fL; WBC 9.86 10^3/uL (4.4-10.8)
[2024-03-03 16:02] LABS: ESR 16 mm/hr (0-30)
[2024-03-03 16:53] LABS: Hemoglobin A1C 10.7 % (<5.7)
[2024-03-03 17:16] LABS: ALT 48 U/L (14-59); AST 29 U/L (15-37); Albumin 3.9 g/dL (3.4-5.0); Alkaline Phosphatase 93 U/L (46-116); Anion Gap 8.8 mmol/L (3-11); BUN 24 mg/dL (7-18); Bilirubin, Total 0.38 mg/dL (0.2-1.0); CO2 29.2 mmol/L (21.0-32.0); Calcium 9.6 mg/dL (8.5-10.1); Calculated LDL 139 mg/dL (<100); Chloride 100 mmol/L (98-107); Cholesterol 221 mg/dL (<200); Estimated GFR 60.61 (mL/min/1.73m2); Glucose 232 mg/dL (74-106); HDL Cholesterol 53 mg/dL (40-60); Potassium 4.2 mmol/L (3.5-5.1); Sodium 138 mmol/L (136-145); TSH (W/Ref FT4) 2.69 uIU/mL (0.36-3.74); Triglyceride 149 mg/dL (<150); Vitamin B12 712 pg/mL (193-986); Vitamin D 25 Total 74.1 ng/mL (30-100)
[2024-03-03 17:33] LABS: C-Reactive Protein < 0.50 mg/dL (<or=0.5)
[2024-03-03 22:23] LABS: Rheumatoid Factor <8.6 IU/mL (<12.0)
[2024-03-04 09:40] LABS: Cyclic Citrullinated Peptide <2.5 U/mL (<5.0)
[2024-03-04 10:45] LABS: Lyme Ab w Rflx to Lyme Confirm Negative (Negative)
[2024-03-04 14:30] LABS: ANA Interpretation Negative (Negative)
[2024-03-06 15:29] LABS: HLA-B27 Result Negative
== END 2024-03-03 03:24 | disposition home or self-care (01) ==
LOC: LBO 03:23
PROVIDERS: PCP Nurse Practitioner; Visit Provider Nurse Practitioner
DX: E11.40 Type 2 diabetes mellitus with diabetic neuropathy, unspecified (principal); M85.80 Other specified disorders of bone density and structure, unspecified site; G62.9 Polyneuropathy, unspecified; R21 Rash and other nonspecific skin eruption; M25.50 Pain in unspecified joint; E78.5 Hyperlipidemia, unspecified; I10 Essential (primary) hypertension; E03.9 Hypothyroidism, unspecified
CPT/HCPCS: 36415; 80053; 80061; 82306; 85652; 86200; 86812; 82607; 83036; 84443; 85025; 86038; 86140; 86431; 86618

== ENCOUNTER 2024-05-01 01:48 | Outpatient (CLI) | payer MEDICARE, BC, SELFPAY ==
--- OUTSIDE RECORDS SUMMARY | 2024-05-01 01:54 | XMS_ITS | Encounter Summary ---
Author Organization [facility] [place] [address] Care Team Providers Care Solder Making Laborer Name Role Phone Kristen Avina Wyatt JONES Primary Care Provider [phone] Reason for Visit * Reason Comments Post Hospital Discharge Established Encounter Details Date Type Department Care Team (Latest Contact Info) Description 11/29/2017 9:30 AM EDT Office Visit [place] [address] Althea Mascorro MD [facility] DR [place] [address] VAIN III (vaginal intraepithelial neoplasia III) Social History Tobacco Use Types Packs/Day Years Used Date Smoking Tobacco: Former Smokeless Tobacco: Never Alcohol Use Standard Drinks/Week Comments No 0 (1 standard drink = 0.6 oz pur e alcohol) Sex and Gender Information Value Date Recorded Sex Assigned at Not on file Gender Identity Not on file Sexual Orientation Not on file documented as of this encounter Last Filed Vital Signs Vital Sign Reading Time Taken Comments Blood Pressure 110/79 11/29/2017 9:42 AM EDT Pulse 71 11/29/2017 9:42 AM EDT Temperature 36.7 ??C (98 ??F) 11/29/2017 9:42 AM EDT Respiratory Rate 14 11/29/2017 9:42 AM EDT Oxygen Saturation 98% 11/29/2017 9:42 AM EDT Inhaled Oxygen Concentration - - Weight 69.9 kg (154 lb 1.6 oz) 11/29/2017 9:42 A M EDT Height 160 cm (5' 2.99) 11/29/2017 9:42 AM EDT Body Mass Index 27.3 11/29/2017 9:42 AM EDT documented in this encounter Progress Notes * Jacqui Nicolas - 11/29/2017 9:30 AM EDT Division [place] [address] Postoperative Visit: Patient Active Problem List Diagnosis Code ??? Acrochordon L91.8 ??? Psoriasis L40.9 ??? Abnormal Pap smear of cervix R87.619 ??? Anxiety F41.9 ??? HTN (hypertension) I10 ??? Hyperlipidemia E78.5 ??? Hypothyroidism E03.9 ??? Nephrolithiasis N20.0 ??? Pulmonary embolus I26.99 ??? Shingles B02.9 ??? Pap smear of vagina with HGSIL R87.623 ??? 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 On 11/08/17 she underwent an exam under anesthesia, vaginal colposcopy, and CO2 laser ablation of a lesion in her posterior left vaginal cuff. Her postoperative course was uncomplicated. She has been doing well since surgery aside from spotting and cramping for about 3 days. She never took pain medicationsand is having regular bowel movements. Her energy level is normal and she is eating well. She denies fevers, chills, dysuria, abdominal pain, vaginal bleeding, nausea, vomiting or diarrhea. Objective: Vitals: 11/29/17 0942 BP: 110/79 Pulse: 71 Resp: 14 Temp: 36.7 ??C (98 ??F) TempSrc: Tympanic SpO2: 98% Weight: 69.9 kg (154 lb 1.6 oz) Height: 160 cm (5' 2.99) Body mass index is 27.3 kg/(m^2). Body surface area is 1.76 meters squared. Physical Exam Constitutional: She appears well-developed and well-nourished. No distress. HENT: Head: Normocephalic. Eyes: No scleral icterus. Neck: Normal range of motion. Cardiovascular: Normal rate, regular rhythm and normal heart sounds. Exam reveals no gallop and no friction rub. No murmur heard. Pulmonary/Chest: Effort normal and breath sounds normal. No respiratory distress. She has no wheezes. She has no rales. Genitourinary: Genitourinary Comments: Deferred Musculoskeletal: Normal range of motion. She exhibits no edema or tenderness. Neurological: She is alert. Coordination normal. Skin: Skin is warm and dry. No rash noted. She is not diaphoretic. Psychiatric: She has a normal mood and affect. Her behavior is normal. 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 She is doing well postoperatively and is advised thatshe may resume full activities. I reviewed her pathology with her from September, and the plan for her further care. We recommend an annual vaginal cuff pap with concurrent HPVat this time. She may pursue this here with us, or with her PCP annually. If abnormal with her PCP, she should follow up with us in our clinic so we can complete a vaginal colposcopy with biopsies. She agreed to the plan. She will call in the interim with any vaginal bleeding or pain. She also expressed concern as she's had two family members with uterine cancer and 1 with ovarian cancer in the past. She is worried that she retained her ovaries after her hysterectomy. No family members have had genetic testing, and no one has a history of colorectal cancer. 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 She agreed, and we will place that referral today. Patient seen, evaluated, and discussed with Dr. Mascorro, attending gynecologic oncologist. 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
--- OUTSIDE RECORDS SUMMARY | 2024-05-01 01:54 | XMS_ITS | Encounter Summary ---
Author Organization [place] [address] Care Team Providers Care Publishing Specialist Name Role Phone Jena Benavides KAREN Primary Care Provider Reason for Visit * Reason Comments Follow-up Skin Check Encounter Details Date Type Department Care Team (Late st Contact Info) Description 03/20/2019 4:30 PM EDT Office Visit Dermatology at [address] [phone] Anthony Uribe MD [address] [place] [address], [facility] [place] [address] Psoriasis; Actinic keratosis; Seborrheic keratosis Social History Tobacco Use Types Packs/Day Years Used Date Smoking Tobacco: Former Smokeless Tobacco: Never Alcohol Use Standard Drinks/Week Comments No 0 (1 standard drink = 0.6 oz pur e alcohol) Sex and Gender Information Value Date Recorded Sex Assigned at Not on file Gender Identity Not on file Sexual Orientation Not on file documented as of this encounter Progress Notes * Anthony Uribe MD - 03/20/2019 4:30 PM EDT Problems: 1. Followup psoriasis/skin lesions of concern ?? 2. New skin tags. ?? 3. History of palmar-plantar pustular psoriasis with chronic plaques, now primarily with just elbow and knee involvement, controlled with her home narrow-band UVB unit. ?? 4. History of successful acitretin use, currently not taking this. ?? 5. Status post unsuccessful course of Enbrel, March 2004 through October 2004 Deana follows up after last see me some 5 years ago. She is been doing well. Her psoriasis is pretty much in remission now. She is not needing to use her narrowband UVB light unit at home. Usually using [id number] creams and emollients with good results. The summer sun certainly does helpher. She is more concerned today about some tags in the left axillary vault and skin lesions of concern. She reminds with her psoriasis really started to flareup around the times that she had her children. She is concerned about lesion on her right mid central cheek which tse and stings and has been present for about a year she states it does not heal does not go away. Physical examination reveals what appears to be an actinic keratosis on her right mid central cheek. She has seborrheic keratoses one on the right upper back and one on the right popliteal fossa. Otherwise careful examination of the face the neck the chest the back the hands arms and forearms is benign. She has very minimal patches of psoriasis on her both elbows and both knees with slight erythema. No palmar plantar pustular disease today. Her hands are clear Assessment plan: Acrochordon left axillary vaults 1. Today site was anesthetized and removed with electrodesiccation Seborrheic keratoses right back, right posterior fossa 1. LN 2 x 2 applied to sites Actinic keratosis right lateral cheek 1. LN 2 x 2 applied to single site. Psoriasis 1. Continue conservative therapy as she is doing now 2. Hold in reserve the use of her home narrowband UVB light unit. 3. Return to clinic here as needed for new lesion/concerns. CC: Jena Velasco APRN documented in this encounter Plan of Treatment Upcoming Encounters Date Type Department Care Team (Late st Contact Info) Description 06/01/2024 4:00 PM EDT Office Visit Dermatology at [place] [address] [facility] [place] [phone] Anthony Uribe MD [address] [facility] [place] [address] documented as of this encounter Visit Diagnoses Diagnosis Psoriasis Other psoriasis Actinic keratosis Seborrheic keratosis Other seborrheic keratosis documented in this encounter Care Teams Publishing Specialist Relationship Specialty Start Date End Date Jena Benavides APRN [address] [phone] PCP - General Family Medicine 03/20/19 06/29/19 documented as of this encounter
--- OUTSIDE RECORDS SUMMARY | 2024-05-01 01:54 | XMS_ITS | Encounter Summary ---
Author Organization [facility] Address [facility] [place] [address] Care Team Providers Care Croze Machine Operator Name Role Phone Chip Harris Primary Care Provider Reason for Visit * Auth/Cert Specialty Diagnoses / Procedures Referred By Robert jessica Referred To Contact Diagnoses VAIN III Procedures PRO COLPOSCOPY, ENTIRE VAGINA PRO EXCISION VAGINAL CYST OR TUMOR PRO DESTRUCT, VAGINAL LESION(S), SIMPLE COLPOSCOPY OF VAGINA WITH CERVIX IF PRESENT (WRVU 1.6) EXCISION OF VAGINAL CYST OR TUMOR (WRVU 2.7) DESTRUCTION OF VAGINAL LESION(S), SIMPLE W\W\O LASER (WRVU 1.3) MODIFIER LASER,CO2 Referral ID Status Reason Start Date Expiration Date Visits Re quested Visits Authorized [id number] 1 1 Encounter Details Date Type Department Care Team (Latest Contact Info) Description 08/10/2019 12:55 PM EST - 08/10/2019 5:20 PM [facility] Hospital [place] [address] Alex Mascorro MD [facility] [place] [address] VAIN III (vaginal intraepithelial neoplasia III) Discharge Disposition: Home Social History Tobacco Use Types Packs/Day Years [...] Sign Reading Time Taken Comments Blood Pressure 140/67 08/10/2019 4:45 PM EST Pulse 100 08/10/2019 4:10 PM EST Temperature 36.4 ??C (97.5 ??F) 08/10/2019 4:10 PM ES T Respiratory Rate 18 08/10/2019 1:56 PM EST Oxygen Saturation 99% 08/10/2019 4:45 PM EST Inhaled Oxygen Concentration - - Weight 67.1 kg (148 lb) 08/10/2019 1:56 PM EST Height 158.8 cm (5' 2.5) 08/10/2019 1:56 PM EST Body Mass Index 26.64 08/10/2019 1:56 PM EST documented in this encounter Discharge Instructions * Patient Instructions* Yaa Peck - 08/10/2019 4:05 PM EST Medical Receptionist Assistant Surgery Patient Instructions Activity Restrictions and Hygeine Avoid vigorous exercise for 2 weeks. It is normal to have brown, black or redish discharge. If you have heavy vaginal bleeding, call. When to Call It is normal to have a vniqoa-rq-nspgitlo amount of discharge. This can range in color from yellow to blood tinged. On days of high activity, you may have bright red spotting. This is OK. What is NOTnormal is heaving bleeding, or discharge with foul odor, especially if it is associated with increasing pain, redness, or fever. These symptoms should be reported immediately. Contact Information Dr. Summers-Kyaw Division of Gynecologic Oncology [place] [phone] documented in this encounter Medications at Time of Discharge Medication Sig Dispensed Refills Start Date End Date cholecalciferol, Vitamin D3, 25 mcg (1,000 unit) Capsule Take 1,000 Units by mouth. 10/06/2015 ascorbic acid, Vitamin C, (Vitamin C) 250 mg Tablet Take 250 mg by mouth. 08/20/2018 VITAMIN B COMPLEX-100 ORAL Take 1 capsule by mouth. 06/13/2019 UNABLE TO FIND Take 1 capsule by mouth. Hair Health 08/21/2017 INULIN-SORBITOL ORAL Take 2 tablets by mouth nightly. 10/06/2015 cyclobenzaprine (FLEXERIL) 5 mg Tablet Take 5 mg by mouth 3 times daily as needed for Muscle spasms. aspirin 325 mg Tablet, Delayed Release (E.C.) Take 325 mg by mouth daily. atropine 1 % Drops 1 drop 3 times daily. Apple Cider Vinegar 300 mg Tablet Take 200 mg by mouth. SYNTHROID 50 mcg Tablet Take 50 mcg by mouth daily. 05/09/2017 lisinopril (PRINIVIL;ZESTRIL) 5 mg Tablet 5 mg nightly. 04/08/2017 rosuvastatin (CRESTOR) 10 mg Tablet 10 mg nightly. 05/09/2017 NIFEdipine (PROCARDIA XL) 30 mg Tablet Extended Rel 24 hr 30 mg nightly. 04/09/2017 CALCIUM CARBONATE/VITAMIN D3 (VITAMIN D-3 ORAL) Take by mouth nightly. INULIN (FIBER GUMMIES ORAL) Take by mouth nightly. fish oil-omega-3 fatty acids 1,000 mg Capsule Take 2 g by mouth nightly. [place] Fruit 450 mg Capsule Take 450 mg by mouth. 08/21/2017 02/17/2021 metFORMIN (Glucophage) 500 mg Tablet Take 500 mg by mouth. 06/26/2019 02/17/2021 acetaminophen (TYLENOL) 500 mg Tablet Take 2 tablets by mouth every 8 hours as needed for Pain. 30 tablet 1 08/10/2019 02/17/2021 b complex vitamins Capsule Take 1 capsule by mouth daily. 02/17/2021 lidocaine (LIDODERM) 5 %(700 mg/patch) 07/11/2010 02/17/2021 documented as of this encounter Progress Notes * Mary Andino RN - 08/10/2019 5:19 PM EST Patient alert and oriented, vital signs stable. Reviewed discharge instructions; patient and verbalized understanding. Copy of instruction sheet with contact numbers for questions/concerns with family. Pain assessment documented. Patient escorted out of department via wheelchair with family. Pt voided prior to leaving. documented in this encounter H&P Notes * Yaa Peck M - 08/10/2019 2:41 PM EST Gynecology H & P Problem List: Active Hospital Problems Diagnosis ??? VAIN III (vaginal intraepithelial neoplasia III) Resolved Hospital Problems No resolved problems to display. Active Non-Hospital Problems Diagnosis ??? Type 2 diabetes mellitus ~ 10 yrs off all oral meds with diet; A1c 7.3% January 2019 ??? Pap smear of vagina with HGSIL ??? Abnormal Pap smear of cervix ??? Anxiety ??? HTN (hypertension) ??? Hyperlipidemia ??? Hypothyroidism ??? Nephrolithiasis ??? Shingles ??? Acrochordon ??? Psoriasis ??? Pulmonary embolus Reason for Visit: 64 y.o. Female presents to [facility] for scheduled surgery History of Present Illness: VONDA Hyde is a 64 yo woman with VAIN. She had biopsies in June which returned VAIN 2-3 and she wasrecommended to undergo resection and CO2 laser. Since her last visit, she has had a sinus infection which is now better. She also has been having neck spasms and is starting Flexeril. She's been having spotting from the vagina. Otherwise, no changes in health. Review of Systems: Review of Systems Complete ROS performed and otherwise negative. Past Medical and Surgical History: Past Medical History: Diagnosis Date ??? Abnormal Pap smear of cervix ??? Anxiety ??? Diabetes ??? Hepatitis B at age 17 ??? HTN (hypertension) ??? Hyperlipidemia ??? Hypothyroidism ??? Nephrolithiasis ??? Psoriasis ??? Pulmonary embolus 2000 percipitated by HRT ??? Pyelonephritis ??? Shingles Past Surgical History: Procedure Laterality Date ??? CERVIX LESION DESTRUCTION ??? SECTION ??? DILATION AND CURETTAGE OF UTERUS ??? HYSTERECTOMY 2012 laparoscopic ??? LAPAROSCOPIC APPENDECTOMY ??? LEEP ??? LITHOTRIPSY ??? PRO COLPOSCOPY, ENTIRE VAGINA N/A 11/08/2017 COLPOSCOPY OF VAGINA WITH CERVIX IF PRESENT (WRVU 1.6) performed by Alex Pa MD at [facility] OR ??? PRO COLPOSCOPY, ENTIRE VAGINA N/A 06/09/2019 COLPOSCOPY OF VAGINA WITH CERVIX IF PRESENT (WRVU 1.6) [facility] ??? PRO COLPOSCOPY, ENTIRE VAGINA, W/BIOPSY(S) N/A 09/20/2017 COLPOSCOPY OF VAGINA WITH CERVIX IF PRESENT, BIOPSY (WRVU 2.2) performed by [facility]orro [facility] ??? PRO DESTRUCT, VAGINAL LESION(S), SIMPLE N/A 11/08/2017 DESTRUCTION OF VAGINAL LESION(S), SIMPLE W\W\O LASER (WRVU 1.3) performed by Alex Mascorro MD at [facility] OR ??? PRO PELVIC EXAMINATION W ANESTH N/A 09/20/2017 PELVIC EXAM UNDER ANESTHESIA (WRVU 1.75) performed by Alex Mascorro MD at [facility] OR ??? PRO PELVIC EXAMINATION W ANESTH N/A 06/09/2019 PELVIC EXAM UNDER ANESTHESIA (WRVU 1.75) performed by Alex Mascorro MD at [facility] OR Past Obstetric History: OB History Para Term AB Living 4 2 2 0 0 0 SAB TAB Ectopic Multiple Live Births 0 0 0 0 2 Prior To Admission Medications: Medications Prior to Admission Medication Sig Dispense Refill Last Dose ??? cyclobenzaprine (FLEXERIL) 5 mg Tablet Take 5 mg by mouth 3 times daily as needed for Muscle spasms. 08/09/2019 at Unknown time ??? atropine 1 % Drops 1 drop 3 times daily. 08/09/2019 at Unknown time ??? b complex vitamins Capsule Take 1 capsule by mouth daily. 08/09/2019 at Unknown time ??? Apple Cider Vinegar 300 mg Tablet Take 200 mg by mouth. 08/09/2019 at Unknown time ??? SYNTHROID 50 mcg Tablet Take 50 mcg by mouth daily. 08/10/2019 at 0930 ??? lisinopril (PRINIVIL;ZESTRIL) 5 mg Tablet 5 mg nightly. 08/09/2019 at Unknown time ??? rosuvastatin (CRESTOR) 10 mg Tablet 10 mg nightly. 08/09/2019 at Unknown time ??? NIFEdipine (PROCARDIA XL) 30 mg Tablet Extended Rel 24 hr 30 mg nightly. 08/09/2019 at Unknown time ??? CALCIUM CARBONATE/VITAMIN D3 (VITAMIN D-3 ORAL) Take by mouth nightly. 08/09/2019 at Unknown time ??? INULIN (FIBER GUMMIES ORAL) Take by mouth nightly. 08/09/2019 at Unknown time ??? fish oil-omega-3 fatty acids 1,000 mg Capsule Take 2 g by mouth nightly. 08/09/2019 at Unknown time ??? aspirin 325 mg Tablet, Delayed Release (E.C.) Take 325 mg by mouth daily. 08/04/2019 ??? acetaminophen (TYLENOL) 500 mg Tablet Take 1,000 mg by mouth every 6 hours as needed for Pain. More than a month at Unknown time ??? lidocaine (LIDODERM) 5 %(700 mg/patch) Unknown at Unknown time Allergies: Allergies Allergen Reactions ??? Allergen Pae-Wvrkp-Huosv Bee CIS - Anaphylaxis ??? Iodine And Iodide Containing Products CIS - Anaphylaxis ??? Penicillins CIS - Anaphylaxis ??? Tetracyclines CIS - Anaphylaxis ??? Venom-Wasp CIS - Anaphylaxis ??? Qwkpr-Doigg-Kpsvc Hornet CIS - Anaphylaxis ??? Venom-Yellow Hornet CIS - Anaphylaxis ??? Venom-Yellow Jacket CIS - Anaphylaxis ??? Amitriptyline Palpitations ??? Amoxicillin Trihydrate CIS - mild ??? Atorvastatin Calcium CIS - muscle nadeen ??? Glimepiride CIS - N/V/D ??? Metformin CIS - nausea & diarrhea Family History: Family History Problem Relation Age of Onset ??? Diabetes Mother ??? Myocardial Infarction Mother 81 ??? Dementia Father 82 ??? Uterine Cancer Sister 35 ovarian or uterine, unsure ??? Depression Brother ??? Diabetes Brother ??? Diabetes Maternal Grandmother age 52 MVA ??? Ovarian Cancer Paternal Grandmother 40 ??? Uterine Cancer Niece ??? Colorectal Cancer Neg Hx ??? Pancreatic Cancer Neg Hx Social History and Habits: Social History Socioeconomic History ??? Marital status: Spouse name: Not on file ??? Number of children: Not on file ??? Years of education: Not on file ??? Highest education level: Not on file Occupational History ??? Not on file Social Needs ??? Financial resource strain: Not on file ??? Food insecurity: Worry: Not on file Inability: Not on file ??? Transportation needs: Medical: Not on file Non-medical: Not on file Tobacco Use ??? Smoking status: Former Smoker ??? Smokeless tobacco: Never Used Substance and Sexual Activity ??? Alcohol use: No ??? Drug use: No ??? Sexual activity: Not on file Lifestyle ??? Physical activity: Days per week: Not on file Minutes per session: Not on file ??? Stress: Not on file Relationships ??? Social connections: Talks on phone: Not on file Gets together: Not on file Attends cheondoism service: Not on file Active member of club or organization: Not on file Attends meetings of clubs or organizations: Not on file Relationship status: Not on file ??? Intimate partner violence: Fear of current or ex partner: Not on file Emotionally abused: Not on file Physically abused: Not on file Forced sexual activity: Not on file Other Topics Concern ??? Not on file Social History Narrative ??? Not on file Immunizations: Immunization History Administered Date(s) Administered ??? Influenza Vaccine PF, Quadrivalent 06/09/2019 Physical Exam: Last Set of Vitals: Last value Range last 24 hrs Temperature Temp: 36.7 ??C (98.1 ??F) Temp: [36.7 ??C (98.1 ??F)] Heart Rate Heart Rate: 60 Heart Rate: [60] Blood Pressure BP: 139/58 BP: (139)/(58) Respiratory Rate Resp: 18 Resp: [18] SpO2 SpO2: 98 % SpO2: [98 %] Physical Exam General: Appears well, NAD Carido: RRR Resp: CTAB Abdomen: soft, non-tender LE: no edema, non-tender. Pertinent Radiographic/Diagnostic Results: ? Surgical Pathology DIAGNOSIS A - Upper left vaginal biopsy: ?? 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 B - Right vaginal apex, biopsy: ?? - Vaginal submucosa with scant focal denuded mucosa. ?? - No definite dysplasia or HPV effect is seen. Assessment/Plan: 64 yo woman with VAIN with recent bx showing VAIN 2-3 who presents for scheduled colposcopy, excision of lesions, CO2 laser of the vagina. Dr Mascorro counseled the patient about the risks including bleeding, infection, injury to surrounding structures. All questions were answered and she signed a consent form. Yaa Peck MD PGY4 08/10/2019 Associated attestation - Alex Mascorro MD - 08/10/2019 2:57 PM EST Into see patient prior to her surgery. We reviewed the planned procedure. Consents complete and in her chart. Questions answered. documented in this encounter Miscellaneous Notes * Op Note - Alex Mascorro MD - 08/10/2019 4:47 PM EST [facility] Operative Note Patient Name: Mary Ellen Avila : [id number] MR#: [id number] Case Date: 08/10/2019 Surgeon: Surgeon(s) and Role: * Alex Mascorro MD - Primary * Yaa Peck MD - Resident Preoperative diagnosis: VAIN III Postoperative diagnosis: VAIN III Procedure(s) (LRB): COLPOSCOPY OF VAGINA WITH CERVIX IF PRESENT (WRVU 1.6) (N/A) EXCISION OF VAGINAL CYST OR TUMOR (WRVU 2.7) (N/A) DESTRUCTION OF VAGINAL LESION(S), SIMPLE W\W\O LASER (WRVU 1.3) (N/A) MODIFIER LASER,CO2 (N/A) Findings: Diffuse lugol's non staining at vaginal apex with concentration of punctations on the left upper vaginal apex. Anesthesia: General Estimated Blood Loss: 0.5 mL Specimens removed during surgery: Order Name Source Comment Collection Info Order Time SPECIMEN TO PATHOLOGY Vain iii left vaginal apex excision No 08/10/2019 3:45 PM Time specimen removed from patient: 3:39 PM Number of tissue samples (in container) 1 Drains: * No LDAs found * Surgical Closure: Primary Closure - skin incision is completely closed without any wires, michelle, drains or other devices Disposition: awakened from anesthesia, extubated and taken to the recovery room in a stable condition, having suffered no apparent untoward event. Condition: doing well without problems (Please see the Surgical Encounter Summary for any Implant and Specimen details pertinent to this patient.) HPI/Surgical Indications: 64 yo with VAIN II-III Procedure Description: Informed consent was signed. Patient was taken the operating room where she was put to sleep with sedation. She is placed in dorsolithotomy position. SCDs were placed. She not receive any antibiotic prophylaxis. A verbal timeout was performed. A colposcopy of the vagina was then performed with findings as noted above. The vagina and perineum were prepped and the patient wasdraped. A sterile speculum was inserted in the area of concentrated punctate lesions was injected with local anesthetic with epinephrine. This area was then excised using a 15 blade. The laser was then assembled. A wet Ray-Wilbert was placed in the rectum. Safety timeout was performed to ensure that all OR staff had appropriate laser protection. And a CO2 laser set at a power of 20 was then used to laser the upper vagina and the areas of diffuse nonstaining as well as the bed of the excised portion. Hemostasis was noted at the conclusion of the laser procedure. All instrument of the vagina. Allises were of the rectum. The patient tolerated the procedure well was awake in the operating room. Sponge [place] counts were correct x2. Infection Bundle used? N/A Attestation: Case Date: 08/10/2019 I was present and I participated during the entire procedure (does not need to include opening and closing). ALEX MASCORRO MD 08/10/2019 documented in this encounter Plan of Treatment Upcoming Encounters Date Type Department Care Team (Late st Contact Info) Description 06/01/2024 4:00 PM EDT Office Visit Dermatology at [place] [address] [facility] [place] [address] Anthony Uribe MD [address] [facility] [place] [address] documented as of this encounter Procedures Procedure Name Priority Date/Time Associated Diagnosis Comments POCT GLUCOSE Routine 08/10/2019 4:34 PM EST SPECIMEN TO PATHOLOGY Routine 08/10/2019 3:45 PM EST SURGICAL PATHOLOGY REPORT Routine 08/10/2019 3:39 PM EST MODIFIER LASER,CO2 08/10/2019 3: 04 PM EST VAIN III Destruct, Vaginal Lesion(S), Simple (73089) 08/10/2019 3:04 PM EST VAIN III Excision Vaginal Cyst Or Tumor ([id number]) 08/10/2019 3:04 PM EST VAIN III Colposcopy, Entire Vagina ([id number]) 08/10/2019 3:04 PM EST VAIN III POCT GLUCOSE Routine 08/10/2019 2:05 PM EST documented in this encounter Results * POCT Glucose (08/10/2019 4:34 PM EST) [facility] Glucose, POC 102 65 - 199 mg/dL [facility] Comment: Supplemental ranges: <140 mg/dL before meals <180 mg/dL all other times of the day Blood specimen (specimen) 08/10/2019 4:34 PM EST 08/10/2019 4:34 PM EST Alex Mascorro MD POINT OF CARE TEST ORDERABLES Performing Organization Address City/[facility]/ZIP Co de Phone Number [facility] [place] [place] [address] * Specimen to Pathology (08/10/2019 3:45 PM EST) AP Specimen 08/10/2019 3:45 PM EST 08/10/2019 3:45 PM EST Narrative [facility] - 08/10/2019 3:45 PM EST Specimen requisition ordered. ??Separate Pathology report to follow Alex Mascorro MD PATHOLOGY/CYTOLOGY ORDERABLES Performing Organization Address City/[facility]/ZIP Co de Phone Number [facility] [place] [address] * Surgical Pathology Report (08/10/2019 3:39 PM EST) Final Diagnosis [id number] ? Location: [facility]; A The signing pathologist has (i) examined the relevant preparation(s) for the specimen(s) and (ii) rendered or confirmed the diagnosis(es). . ?Surgical Pathology DIAGNOSIS Left vaginal apex biopsy: ?HSIL (VAIN III). CR-0 Electronically signed by: ??Kevin REZA, Ortega Buckley Verified: ??08/13/2019 ?Pathologist Performed at: ??-[facility] Dept. of Pathology, [place], [place] CLINICAL INFORMATION Specimen Submitted: A - Left vaginal apex Clinical History and Diagnosis: VAIN III SPECIMEN PROCESSING A - Labeled/Fixativ e: Left vaginal apex, fresh. Quantity/Size: Single, 1.3 x 0.3 x 0.1 cm. Tissue Description: Thin curled glistening pink mucosa with yellow and red surface opposite. The yellow and red surface is inked black. Sections/Proces sing: Entirely submitted in 1 cassette labeled A1. rh 08/13/2019 4:16 PM EST [facility] VAGINAL STRUCTURE / Unknown 08/10/2019 3:39 PM EST 08/10/2019 3:39 PM EST Alex Mascorro MD PATHOLOGY/CYTOLOGY ORDERABLES [facility] [place] [place] [address] * POCT Glucose (08/10/2019 2:05 PM EST) Glucose, POC 126 65 - 199 mg/dL [facility] Comment: Supplemental ranges: <140 mg/dL before meals <180 mg/dL all other times of the day Blood specimen (specimen) 08/10/2019 2:05 PM EST 08/10/2019 2:05 PM EST Alex Mascorro MD POINT OF CARE TEST ORDERABLES [facility] [place] [place] [address] documented in this encounter Visit Diagnoses Diagnosis 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, 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, vagina documented in this encounter Administered Medications Inactive Administered Medications - up to 3 most recent administrations Medication Order MAR Action Action Date Dose Rate Site acetaminophen (Tylenol) tablet 650 mg 650 mg, Oral, ONCE, 1 dose, On Sat08/10/19 at 1430, Day of Surgery (Day of Procedure), Routine Given 08/10/2019 2:30 PM EST 650 mg lactated ringers infusion 1,000 mL, at 100 mL/hr, Intravenous, CONTINUOUS, Starting on Sat08/10/19 at 1430, Until Sat08/10/19 at 1701, Day of Surgery (Day of Procedure) New Bag 08/10/2019 2:30 PM EST 1,000 mLs 100 mL/hr documented in this encounter Active and Recently Administered Medications Times are shown in EST. Scheduled Medication Order 08/08/2019 08/09/2019 08/10/2019 acetaminophen (Tylenol) tablet 650 mg (COMPLETED) 650 mg, Oral, ONCE, 1 dose, On 08/10/19 at 1430, Day of Surgery (Day of Procedure), Routine 1430 (Given - Provid er: Frieda Dave RN) Continuous Medication Order 08/08/2019 08/09/2019 08/10/2019 lactated ringers infusion (CANCELED) 1,000 mL, at 100 mL/hr, Intravenous, CONTINUOUS, Starting on Sat08/10/19 at 1430, Until Sat08/10/19 at 1701, Day of Surgery (Day of Procedure) 1430 (New Bag - Prov ider: Frieda Dave RN)1604 (Anesthesia Volume Adjustment - Provider: Mercedes Gill CRNA) lactated ringers infusion 1,000 mL, at 100 mL/hr, Intravenous, CONTINUOUS, Starting on Sat08/10/19 at 1630, Until Sat08/10/19 at 1920 1630 (Due) PRN Medication Order 08/08/2019 08/09/2019 08/10/2019 BUpivacaine-EPINEPHrine 0.5 %-1:200,000 injection (CANCELED) ONCE PRN, Starting on Sat08/10/19 at 1545, Until Sat08/10/19 at 1920, Intra-Operative (Intra-Procedure), Routine 1545 (Given - Provid er: lAex Mascorro MD) oxyCODONE (Roxicodone) tablet 5-10 mg 5-10 mg, Oral, EVERY 3 HOURS PRN, Starting on Sat08/10/19 at 1605, Until Sat08/10/19 at 1920, Pain, - If multiple pain medications ordered, use acetaminophen first. - If pain not relieved by acetaminophen first, administer oxycodone. - Initial dose 5 mg. - If pain control not adequate in 60 minutes, give additional 5 mg., Routine strong iodine (Lugols) 5% oral liquid (CANCELED) ONCE PRN, Starting on Sat08/10/19 at 1536, Until Sat08/10/19 at 1920, Intra-Operative (Intra-Procedure), Routine 1536 (Given - Provid er: Alex Mascorro MD - Comment: applied during colposcopy) documented in this encounter Care Teams Croze Machine Operator Relationship Specialty Start Date End Date Chip Harris PA PCP - General Family Medicine 07/09/19 documented as of this encounter
--- OUTSIDE RECORDS SUMMARY | 2024-05-01 01:54 | XMS_ITS | Encounter Summary ---
Author Organization [facility] [place] [place] [address] Care Team Providers Care Seed Service Advisor Name Role Phone None Primary Care Provider Unavailabl e Encounter Details Date Type Department Care Team (Late Contact Info) Description 07/06/2019 Telephone Obstetrics [place] [phone] Jaylin Stovall RN Social History Tobacco Use Types Packs/Day Years Used Date Smoking Tobacco: Former Smokeless Tobacco: Never Alcohol Use Standard Drinks/Week Comments No 0 (1 standard drink = 0.6 oz pur e alcohol) Sex and Gender Information Value Date Recorded Sex Assigned at Not on file Gender Identity Not on file Sexual Orientation Not on file documented as of this encounter Miscellaneous Notes * Telephone Encounter - Jaylin Stovall RN - 07/06/2019 10:07 AM EST Pre-op Education Call: RN left message for patient offering to review any questions regarding upcoming surgery. Requested she call the office if she did not receive pre-op soap while in the office, contact name and number provided. documented in this encounter Plan of Treatment Upcoming Encounters Date Type Department Care Team (Late Contact Info) Description 06/01/2024 4:00 PM EDT Office Visit Dermatology at [address] [place] [id number] Anthony Uribe MD [address] [place] [address] documented as of this encounter Visit Diagnoses Not on filedocumented in this encounter Care Teams Seed Service Advisor Relationship Specialty Start Date End Date None None PCP - General 06/30/19 07/08/19 documented as of this encounter
--- OUTSIDE RECORDS SUMMARY | 2024-05-01 01:54 | XMS_ITS | Encounter Summary ---
Author Organization [facility] Address [facility] [place] [address] Care Team Providers Care Machine Records Units Supervisor Name Role Phone Chip Harris Primary Care Provider Reason for Visit * Auth/Cert Specialty Diagnoses / Procedures Referred By Robert t Referred To Contact Diagnoses VAIN III Procedures PRO COLPOSCOPY, ENTIRE VAGINA PRO EXCISION VAGINAL CYST OR TUMOR PRO DESTRUCT, VAGINAL LESION(S), SIMPLE COLPOSCOPY OF VAGINA WITH CERVIX IF PRESENT (WRVU 1.6) EXCISION OF VAGINAL CYST OR TUMOR (WRVU 2.7) DESTRUCTION OF VAGINAL LESION(S), SIMPLE W\W\O LASER (WRVU 1.3) MODIFIER LASER,CO2 Referral ID Status Reason Start Date Expiration Date Visits Re quested Visits Authorized [id number] 1 1 Encounter Details Date Type Department Care Team (Late st Contact Info) Description 08/10/2019 3:02 PM EST Anesthesia Event [place] [address] Avi Andrade MD [facility] [place] [address] Amadou Lombardi Anesthesia Record Procedure Summary Procedure Name Responsible Anesthesiologist Anesthesia Start Time Anesthesia Stop Time COLPOSCOPY OF VAGINA WITH CERVIX IF PRESENT (WRVU 1.6) Avi Andrade MD 08/10/19 1502 08/10/19 1610 Events Date Time Event Comment 08/10/2019 1439 1502 AN Verify 1502 Start 1504 An Start Data 1508 An Induction 1510 Anesthesia Ready 1533 Quick Note Local w/epi inj ected by surgeon 1601 an stop data 1605 Recovery or ICU Handoff Faith ent care was transferred to the destination unit staff after review of the patient's medical history, current anesthetic/surgical status and plan, according to the Provider Handoff Checklist. 1610 Stop Meds Name Total fentaNYL 25 mcg IV Lidocaine 80 mg Propofol 150 mg Dexmedetomidine 4 mcg Ondansetron 4 mg Glycopyrrolate 0.8 mg Ketorolac 15 mg lactated ringers infusion 600 mL * Agents Name O2 Air N2O Sevoflurane (et) * Blood No blood administrations on file. Lines, Drains, and Airways Type Details Placement Removal (RETIRED) Peripheral IV Line - Single Lumen 08/10/19; 1430; median cubital vein (antecubital fossa), right; ohzd-pzq-pzmcce catheter system; 20 gauge; tolerated well; 08/10/19; 1719 08/10/19 1430 by Frieda Dave RN 08/10/19 1719 by Mary Andino RN documented in this encounter Social History Tobacco Use Types Packs/Day Years Used Date Smoking Tobacco: Former Smokeless Tobacco: Never Alcohol Use Standard Drinks/Week Comments No 0 (1 standard drink = 0.6 oz pur e alcohol) Sex and Gender Information Value Date Recorded Sex Assigned at Not on file Gender Identity Not on file Sexual Orientation Not on file documented as of this encounter OR Notes * Anesthesia Postprocedure Evaluation - Avi Andrade MD - 08/10/2019 9:25 PM EST Department of Anesthesiology Post-procedure Note Patient: Mary Ellen Avila Procedure Summary Date: 08/10/19 Room / Location: [facility] MAIN OR Anesthesia Start: 1502 Anesthesia Stop: 1610 Procedures: COLPOSCOPY OF VAGINA WITH CERVIX IF PRESENT (WRVU 1.6) (N/A ) EXCISION OF VAGINAL CYST OR TUMOR (WRVU 2.7) (N/A ) DESTRUCTION OF VAGINAL LESION(S), SIMPLE W\W\O LASER (WRVU 1.3) (N/A ) MODIFIER LASER,CO2 (N/A ) Diagnosis: (VAIN III) Surgeon: Althea Mascorro MD Responsible Provider: Avi Andrade MD Anesthesia Type: general ASA Status: 2 All Anesthesia Providers: Anesthesiologist: Avi Andrade MD POTLINE MONITOR: Mercedes Gill CRNA Student Nurse Emergency Nurse: Amadou Lombardi Vitals Value Taken Time BP 140/67 08/10/2019 4:45 PM Temp 36.4 ??C (97.5 ??F) 08/10/2019 4:10 PM Pulse 100 08/10/2019 4:10 PM Resp SpO2 99 % 08/10/2019 4:45 PM Pain Level 0 08/10/2019 4:30 PM ANES POST EVAL * Anesthesia Preprocedure Evaluation - Avi Andrade MD - 08/10/2019 2:06 PM EST Pre-Anesthesia Evaluation for: Mary Ellen Avila a 64 y.o. female. Procedure(s): COLPOSCOPY OF VAGINA WITH CERVIX IF PRESENT (WRVU 1.6) EXCISION OF VAGINAL CYST OR TUMOR (WRVU 2.7) DESTRUCTION OF VAGINAL LESION(S), SIMPLE W\W\O LASER (WRVU 1.3) MODIFIER LASER,CO2 Patient Active Problem List Diagnosis ??? Type 2 diabetes mellitus ~ 10 yrs off all oral meds with diet; A1c 7.3% January 2019 ??? VAIN III (vaginal intraepithelial neoplasia III) ??? Pap smear of vagina with HGSIL ??? Abnormal Pap smear of cervix S/p LEEP, cryo, hysterectomy Continued HSIL pap of vagina with multiple colposcopies resulting as normal ??? Anxiety ??? HTN (hypertension) ??? Hyperlipidemia ??? Hypothyroidism ??? Nephrolithiasis ??? Shingles ??? Acrochordon ??? Psoriasis ??? Pulmonary embolus percipitated by HRT in 2000, reports that she was never on anticoagulation Past Medical History: Diagnosis Date ??? Abnormal [...] CERVIX IF PRESENT (WRVU 1.6) performed by Althea Pa MD at [facility] OR ??? PRO COLPOSCOPY, ENTIRE VAGINA N/A 06/09/2019 COLPOSCOPY OF VAGINA WITH CERVIX IF PRESENT (WRVU 1.6) performed by Althea Pa MD at [facility] OR ??? PRO COLPOSCOPY, ENTIRE VAGINA, W/BIOPSY(S) N/A 09/20/2017 COLPOSCOPY OF VAGINA WITH CERVIX IF PRESENT, BIOPSY (WRVU 2.2) performed by Althea Mascorro MDat [facility] OR ??? PRO DESTRUCT, VAGINAL LESION(S), SIMPLE N/A 11/08/2017 DESTRUCTION OF VAGINAL LESION(S), SIMPLE W\W\O LASER (WRVU 1.3) performed by Althea Mascorro MD at [facility] OR ??? PRO PELVIC EXAMINATION W ANESTH N/A 09/20/2017 PELVIC EXAM UNDER ANESTHESIA (WRVU 1.75) performed by Althea Mascorro MD at [facility] OR ??? PRO PELVIC EXAMINATION W ANESTH N/A 06/09/2019 PELVIC EXAM UNDER ANESTHESIA (WRVU 1.75) performed by Althea Mascorro MD at [facility] OR Social History Tobacco Use ??? Smoking status: Former Smoker ??? Smokeless tobacco: Never Used Substance Use Topics ??? Alcohol use: No Social History Substance and Sexual Activity Drug Use No Allergies Allergen Reactions ??? Allergen Vei-Bjvoe-Cydhj Bee CIS - Anaphylaxis ??? Iodine And Iodide Containing Products CIS - Anaphylaxis ??? Penicillins CIS - Anaphylaxis ??? Tetracyclines CIS - Anaphylaxis ??? Venom-Wasp CIS - Anaphylaxis ??? Gzciq-Xtdww-Dablg Hornet CIS - Anaphylaxis ??? Venom-Yellow Hornet CIS - Anaphylaxis ??? Venom-Yellow Jacket CIS - Anaphylaxis ??? Amitriptyline Palpitations ??? Amoxicillin Trihydrate CIS - mild ??? Atorvastatin Calcium CIS - muscle nadeen ??? Glimepiride CIS - N/V/D ??? Metformin CIS - nausea & diarrhea Medications: MAR and/or home medications have been reviewed. Physical Exam: Most Recent Vitals: 08/10/19 1356 BP: 139/58 Pulse: 60 Resp: 18 Temp: 36.7 ??C (98.1 ??F) SpO2: 98% Body mass index is 26.64 kg/m??. Height: 158.8 cm (5' 2.5) Weight: 67.1 kg (148 lb) Airway Assessment: Mallampati: II TM distance: >3 FB Neck ROM: full Cardiovascular Assessment: Rhythm: regular Pulmonary Assessment: breath sounds clear to auscultation Dental Assessment: Misc Assessment: Patient is wearing No contact(s). IV access: Peripheral line Anesthesia Plan: ASA 2 general, with a(n) intravenous induction 64 yo female, 67kg, for colposcopy/laser desctruction of lesions PMH: htn (KAREN-I, CCB), hld (statin), hypothyroid (synthroid) Did well with LMA for similar procedure last month. Plan: GALMA with ETT back up, piv I have seen and examined the patient. I have reviewed the medical record and pertinent laboratory information. I have noted the major medical issues to include abcd. I have reviewed risks from minor to major as outlined in the anesthesia consent form. I have highlighted risks related to abcd. The patient acknowledged These risks and would like to proceed with the anesthesia plan. Region - Other Informed Consent: Anesthetic plan and risks discussed with patient. Use of blood products discussed with patient who. Plan discussed with POTLINE MONITOR. PAT Clinic Note documented in this encounter Plan of Treatment Upcoming Encounters Date Type Department Care Team (Late st Contact Info) Description 06/01/2024 4:00 PM EDT Office Visit Dermatology at [address] [place] [address] Anthony Uribe MD [address], [place] [address] documented as of this encounter Visit Diagnoses Not on filedocumented in this encounter Administered Medications Inactive Administered Medications - up to 3 most recent administrations Medication Order MAR Action Action Date Dose Rate Site dexmedetomidine (PRECEDEX) injection PRN, Starting on Sat08/10/19 at 1508, Until Sat08/10/19 at 1641, Anesthesia Intra-op, Routine Given 08/10/2019 3:08 PM EST 4 mcg fentaNYL 50 mcg/mL multi-dose injection PRN, Starting on Sat08/10/19 at 1527, Until Sat08/10/19 at 1641, Anesthesia Intra-op, Routine Given 08/10/2019 3:27 PM EST 25 mcg glycopyrrolate (ROBINUL) multi-dose injection PRN, Starting on Sat08/10/19 at 1527, Until Sat08/10/19 at 1641, Anesthesia Intra-op, Routine Given 08/10/2019 3:30 PM EST 0.2 mg Given 08/10/2019 3:28 PM EST 0.2 mg Given 08/10/2019 3:23 PM EST 0.4 mg ketorolac (TORADOL) injection PRN, Starting on Sat08/10/19 at 1601, Until Sat08/10/19 at 1641, Anesthesia Intra-op, Routine Given 08/10/2019 4:01 PM EST 15 mg lidocaine (PF) (XYLOCAINE) 100 mg/5 mL (2 %) injection PRN, Starting on Sat08/10/19 at 1508, Until Sat08/10/19 at 1641, Anesthesia Intra-op, Routine Given 08/10/2019 3:08 PM EST 80 mg ondansetron (ZOFRAN) injection PRN, Starting on Sat08/10/19 at 1517, Until Sat08/10/19 at 1641, Anesthesia Intra-op, Routine Given 08/10/2019 3:17 PM EST 4 mg propofol (DIPRIVAN) 10 mg/mL bolus injection (Anesthesia) PRN, Starting on Sat08/10/19 at 1508, Until Sat08/10/19 at 1641, Anesthesia Intra-op Given 08/10/2019 3:08 PM EST 150 mg documented in this encounter Care Teams Machine Records Units Supervisor Relationship Specialty Start Date End Date Chip Harris PA PCP - General Family Medicine 07/09/19 documented as of this encounter
--- OUTSIDE RECORDS SUMMARY | 2024-05-01 01:54 | XMS_ITS | Encounter Summary ---
Author Organization [facility] [place] [address] Care Team Providers Care Finished Cloth Examiner Name Role Phone Chip Harris Primary Care Provider [phone] Encounter Details Date Type Department Care Team (Late st Contact Info) Description 02/22/2021 Telephone Obstetrics [place] [id number] Jacqui Guthrie RN Social History Tobacco Use Types Packs/Day Years Used Date Smoking Tobacco: Former Smokeless Tobacco: Never Alcohol Use Standard Drinks/Week Comments No 0 (1 standard drink = 0.6 oz pur e alcohol) Sex and Gender Information Value Date Recorded Sex Assigned at Not on file Gender Identity Not on file Sexual Orientation Not on file documented as of this encounter Miscellaneous Notes * Addendum Note - Jacqui Guthrie RN - 02/23/2021 4:03 PM EDTAddended by: JACQUI GUTHRIE on: 02/23/2021 04:03 PM Modules accepted: Orders * Addendum Note - Jacqui Guthrie RN - 02/23/2021 3:11 PM EDTAddended by: JACQUI GUTHRIE on: 02/23/2021 03:11 PM Modules accepted: Orders * Telephone Encounter - Jacqui Guthrie RN - 02/23/2021 12:30 PM EDT This nurse spoke to patient. Patient states she believes that the blood that was seen on UA was not blood from her bladder as originally thought. Patient believes it was blood from her vagina. She states she had spotting after she left the office and she believes the bleeding was from the speculum during the exam. Dr. Oh patient would like to know if you still feel the urology consult is still urgent and nessacary? * Telephone Encounter - Jacqui Guthrie RN - 02/23/2021 12:28 PM EDT ----- Message from Jessie Eagle sent at 02/23/2021 12:10 PM EDT ----- Regarding: Referral Caller's name: Mary Ellen Margarita Call back #: [phone] Patient's provider/team: Dr Melina Card Reason for call: She would like to talk with you directly before making any changes * Telephone Encounter - Jacqui Guthrie RN - 02/22/2021 12:21 PM EDT ----- Message from Jessie Eagle sent at 02/22/2021 11:38 AM EDT ----- Regarding: Referral Caller's name: Mary Ellen Avila Call back #: [phone] Patient's provider/team:Dr Melina Card Reason for call: Referral to Urology, she would like to go to [facility] can you change the referral to external? documented in this encounter Plan of Treatment Upcoming Encounters Date Type Department Care Team (Late st [facility] Info) Description 06/01/2024 4:00 PM EDT Office Visit Dermatology at [address] [place] [address] Anthony Uribe MD [address], [place] [address] documented as of this encounter Results * US Transvaginal Non OB (03/10/2021 1:48 PM EDT) Anatomical Region Laterality Modality Ultrasound 03/10/2021 1:45 PM EDT Impressions 03/10/2021 2:28 PM EDT 1. Uterus is surgically absent. No pelvic mass. 2. Normal postmenopausal appearance of the left ovary. No cystic or solid adnexal mass. 3. Right ovary is not visualized. Normal appearance of the right adnexa with no cystic or solid mass. Thank you for letting us participate in the care of this patient. ??If you are a health care provider and have any questions regarding this report, please contact the number below. ??For patients who have questions please contact the health transitions rn care coordinator that requested your imaging first. Electronically signed by: Heraclio Gallagher MD, [facility] ([phone]), at 03/10/2021 2:20 PM Thank you for letting us participate in the care of this patient. If you are a health care provider and have any questions regarding this report, please contact the number below. For patients who have questions, please contact the health transitions rn care coordinator that requested your imaging first. ?Heraclio Gallagher, Staff Physician Electronically Signed Final Report ?? 03/10/2021 02:27 pm Narrative 03/10/2021 2:28 PM EDT Gynecological Report ?(Signed Final 03/10/2021 02:27 pm) PATIENT INFO: ID #: ? [id number] ?: ??[birth year] (65 yrs)(F) Name: ? MARY ELLEN Moreno MARGARITA ? Visit Date: 03/10/2021 01:45 pm PERFORMED BY: Performed By: ? Margaret Marino RDMS Attending: ?Heraclio Gallagher MD Referred By: ?ALEX GAN Location: ? [place] SERVICE(S) PROVIDED: UTV - Transvaginal - [id number] ?[id number] INDICATIONS: Abnormal uterine bleeding TECHNIQUE/SCAN QUALITY: Technique: ?Transducer ID#:[id number] -------- HISTORY: -------- Age: ?? 65 ------- UTERUS: ------- Position: ?? Surgically absent ENDOMETRIUM: RIGHT OVARY: Status: ?? Not Visualized LEFT OVARY: Status: ?? Visualized Size (cm) ?L: ??2.0 ? W: ?? 1.2 ?H: ??1.3 Vol (ml): ?1.6 Morphology: ?Normal appearance Procedure Note Heraclio Gallagher MD - 03/10/2021 Gynecological Report (Signed Final 03/10/2021 02:27 pm) PATIENT INFO: ID #: [id number] : [birth year] (65 yrs)(F) Name: MARY ELLEN AVILA Visit Date: 03/10/2021 01:45 pm PERFORMED BY: Performed By: Margaret Marino RDMS Attending: Heraclio Gallagher MD Referred By: ALEX GAN Location: [place] SERVICE(S) PROVIDED: UTV - Transvaginal - [id number] INDICATIONS: Abnormal uterine bleeding TECHNIQUE/SCAN QUALITY: Technique: Transducer ID#:[id number] -------- HISTORY: -------- Age: 65 ------- UTERUS: ------- Position: Surgically absent ENDOMETRIUM: RIGHT OVARY: Status: Not Visualized LEFT OVARY: Status: Visualized Size (cm) L: 2.0 W: 1.2 H: 1.3 Vol (ml): 1.6 Morphology: Normal appearance IMPRESSION 1. Uterus is surgically absent. No pelvic mass. 2. Normal postmenopausal appearance of the left ovary. No cystic or solid adnexal mass. 3. Right ovary is not visualized. Normal appearance of the right adnexa with no cystic or solid mass. Thank you for letting us participate in the care of this patient. If you are a health care provider and have any questions regarding this report, please contact the number below. For patients who have questions please contact the health transitions rn care coordinator that requested your imaging first. Electronically signed by: Heraclio Gallagher MD, [facility] ([phone]), at 03/10/2021 2:20 PM Thank you for letting us participate in the care of this patient. If you are a health care provider and have any questions regarding this report, please contact the number below. For patients who have questions, please contact the health transitions rn care coordinator that requested your imaging first. Heraclio Gallagher, Staff Physician Electronically Signed Final Report 03/10/2021 02:27 pm Alex Gan MD IMG US PELVIC ORDE RABLES documented in this encounter Visit Diagnoses Diagnosis Nephrolithiasis Calculus of kidney Hematuria, unspecified type Hematuria, unspecified type documented in this encounter Care Teams Finished Cloth Examiner Relationship Specialty Start Date End Date Chip Harris PA PCP - General Family Medicine 07/09/19 documented as of this encounter
--- OUTSIDE RECORDS SUMMARY | 2024-05-01 01:54 | XMS_ITS | Encounter Summary ---
Author Organization [facility] [place] [address] Care Team Providers Care Nfl Player Name Role Phone Chip Harris Primary Care Provider Reason for Visit * Reason Comments Established follow up Encounter Details Date Type Department Care Team (Latest Contact Info) Description 02/17/2021 1:00 PM EDT Office Visit [place] [address] Althea Mascorro MD [facility] [place] [address] VAIN III (vaginal intraepithelial neoplasia III); Other microscopic hematuria Social History Tobacco Use Types Packs/Day Years [...] Sign Reading Time Taken Comments Blood Pressure 138/68 02/17/2021 1:01 PM EDT Pulse 53 02/17/2021 1:01 PM EDT Temperature 36.6 ??C (97.8 ??F) 02/17/2021 1:01 PM ED T Respiratory Rate 16 02/17/2021 1:01 PM EDT Oxygen Saturation 99% 02/17/2021 1:01 PM EDT Inhaled Oxygen Concentration - - Weight 64.3 kg (141 lb 11.2 oz) 02/17/2021 1:01 PM EDT Height 160 cm (5' 3) 02/17/2021 1:01 PM EDT Body Mass Index 25.1 02/17/2021 1:01 PM EDT documented in this encounter Progress Notes * Althea Mascorro MD - 02/17/2021 1:00 PM EDT Division of [place] [address] Follow up Visit: Patient Active Problem List Diagnosis Code ??? Acrochordon L91.8 ??? Psoriasis L40.9 ??? Abnormal Pap smear of cervix R87.619 ??? Anxiety F41.9 ??? HTN (hypertension) I10 ??? Hyperlipidemia E78.5 ??? Hypothyroidism E03.9 ??? Nephrolithiasis N20.0 ??? Pulmonary embolus I26.99 ??? Shingles B02.9 ??? Pap smear of vagina with HGSIL R87.623 ??? VAIN III (vaginal intraepithelial neoplasia III) D07.2 ??? Type 2 diabetes mellitus ~ 10 yrs off all oral meds with diet; A1c 7.3% January 2019 E11.9 Subjective: Mary Ellen Avila returns to the office today for a follow up visit. She has a hx of VAIN III, last treated with laser 08/2019. SHe has been undergoing pap smears with her local provider, that have beennormal per patient. She had an episode of brown mucous discharge ~ 2 weeks ago. It occurred as a single episode and soaked through her pad (used for incontinence) and pants. She had severe cramping im mediately after this and then had brighter red bleeding with spotting X 2 days. Her bleeding has now stopped. She saw her local provider and was told she has a fistula, but unknown other organ the fistula connects to. The discharge had no odor. She does have urinary incontinence and does not think she leaks urine form her vagina. No issues with micturition otherwise. She has changed her diet and m oves her bowels less frequently. She has a hx of prior total hysterectomy. Objective: Vitals: 02/17/21 1301 BP: 138/68 Patient Position: Sitting Pulse: 53 Resp: 16 Temp: 36.6 ??C (97.8 ??F) TempSrc: Temporal SpO2: 99% Weight: 64.3 kg (141 lb 11.2 oz) Height: 160 cm (5' 3) Body mass index is 25.1 kg/m??. Body surface area is 1.69 meters squared. Physical Exam Constitutional: General: She is not in acute distress. Appearance: She is well-developed. She is not diaphoretic. HENT: Head: Normocephalic. Eyes: General: No scleral icterus. Cardiovascular: Rate and Rhythm: Normal rate and regular rhythm. Heart sounds: Normal heart sounds. No murmur heard. No friction rub. No gallop. Pulmonary: Effort: Pulmonary effort is normal. No respiratory distress. Breath sounds: Normal breath sounds. No wheezing or rales. Genitourinary: Comments: Normal external genitalia (labia majora and minora, vaginal introitus, urethral meatus). Atrophic vaginal mucosa with no blood in the vault. No visible lesions or nodularity. On bimanual exam no palpable nodules or pelvic masses. On rectovaginal exam no palpable masses or nodularity. No thickening of the rectovaginal septum. Musculoskeletal: General: No tenderness. Normal range of motion. Cervical back: Normal range of motion. Skin: General: Skin is warm and dry. Findings: No rash. Neurological: Mental Status: She is alert. Coordination: Coordination normal. Psychiatric: Behavior: Behavior normal. Assessment and Plan: Mary Ellen Avila is a 65 y.o. with hx of VAIN II-III s/p laser. She had a normal pap recently, but has had an episode of bleeding. No blood or obvious sources on exam. UA +bloood. Will discuss with urology study that may help determine if her bleeding is from . * Mis Ortiz LNA - 02/17/2021 1:00 PM EDT Examination chaperoned by COOPER Landry. documented in this encounter Plan of Treatment Upcoming Encounters Date Type Department Care Team (Late st Contact Info) Description 06/01/2024 4:00 PM EDT Office Visit Dermatology at [place] [address] [place] [address] Anthony Uribe MD [address], [place] [address] documented as of this encounter Procedures Procedure Name Priority Date/Time Associated Diagnosis Comments POCT URINE DIPSTICK Routine 02/17/2021 3 :36 PM EDT Other microscopic hematuria HC URINE CULTURE Routine 02/17/2021 1:00 PM EDT Other microscopic hematuria documented in this encounter Results * POCT urine dipstick (02/17/2021 3:36 PM EDT) POC Sp [place] 1.025 1.002 - 1.030 POC pH, UA 5 5.0 - 8.5 POC Leuk, UA Negative Negative - Negative POC Nitrite, UA Negative Negative - Negative POC Protein, UA Trace Negative - Negative mg/dL POC Glucose, UA Normal Normal - Normal mg/dL POC Ketone, UA Negative Negative - Negative POC Urobil, UA Normal 0.2 - 1.0 mg/dL POC Bili, UA Negative Negative - Negative POC Blood, UA 250 Negative - Negative savanah/uL 02/17/2021 3:36 PM EDT Althea Mascorro MD POINT OF CARE TEST ORDERABLES * Urine culture Clean Catch Urine (02/17/2021 1:00 PM EDT) Urine Culture No growth (Less than 1,000 cfu/ml). 

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
--- OUTSIDE RECORDS SUMMARY | 2024-05-01 01:54 | XMS_ITS | Clinical Summary ---
Author Organization [facility] Address [facility] [place] [address] Care Team Providers Care Technical Services Rep Name Role Phone Chip Harris Primary Care Provider [phone] Allergies Active Allergy Reactions Criticality Noted Date Comments Allergen Yjh-Zfqnd-Rqots Bee High CIS - Anaphylaxis Allopurinol High 06/13/2019 Other reaction(s): HARD TIME BREATHING Amitriptyline Palpitations 08/07/2019 Amoxicillin Trihydrate CIS - mild Atorvastatin Calcium CIS - muscle nadeen Chlorthalidone High 06/13/2019 Other reaction(s): HARD TIME BREATHING Gabapentin Diarrhea Medium 06/13/2019 Glimepiride CIS - N/V/D Iodine And Iodide Containing Products High CIS - Anaphylaxis Lorazepam Medium 06/13/2019 Other reaction(s): HX OF ADDICTION AND WITHDRAWAL Metformin CIS - nausea & diarrhea Penicillins High CIS - Anaphylaxis Tetracyclines High CIS - Anaphylaxis Valacyclovir Diarrhea Medium 06/13/2019 Venom-Wasp High CIS - Anaphylaxis [facility] High CIS - Anaphylaxis Venom-Yellow [place]et High CIS - Anaphylaxis Venom-Yellow Jacket High CIS - Anaphylaxis Medications Medication Sig Dispensed Refills Start Date End Date Status SYNTHROID 50 mcg Tablet Take 50 mcg by mouth daily. 05/09/2017 Active lisinopril (PRINIVIL;ZESTRIL) 5 mg Tablet 5 mg nightly. 04/08/2017 Active rosuvastatin (CRESTOR) 10 mg Tablet 10 mg nightly. 05/09/2017 Active NIFEdipine (PROCARDIA XL) 30 mg Tablet Extended Rel 24 hr 30 mg nightly. 04/09/2017 Ac tive CALCIUM CARBONATE/VITAMIN D3 (VITAMIN D-3 ORAL) Take by mouth nightly. Active INULIN (FIBER GUMMIES ORAL) Take by mouth nightly. Active fish oil-omega-3 fatty acids 1,000 mg Capsule Take 2 g by mouth nightly. Active atropine 1 % Drops 1 drop 3 times daily. Active Apple Cider Vinegar 300 mg Tablet Take 200 mg by mouth. Active cyclobenzaprine (FLEXERIL) 5 mg Tablet Take 5 mg by mouth 3 times daily as needed for Muscle spasms. Active aspirin 325 mg Tablet, Delayed Release (E.C.) Take 325 mg by mouth daily. Active cholecalciferol, Vitamin D3, 25 mcg (1,000 unit) Capsule Take 1,000 Units by mouth. 10/06/2015 Active ascorbic acid, Vitamin C, (Vitamin C) 250 mg Tablet Take 250 mg by mouth. 08/20/2018 Active VITAMIN B COMPLEX-100 ORAL Take 1 capsule by mouth. 06/13/2019 Active UNABLE TO FIND Take 1 capsule by mouth. Hair Health 08/21/2017 Active INULIN-SORBITOL ORAL Take 2 tablets by mouth nightly. 10/06/2015 Active Bacillus coagulans/inulin (PROBIOTIC WITH PREBIOTIC ORAL) Take by mouth. 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 Pap smear of vagina with HGSIL 07/03/2017 Acrochordon 05/24/2014 Psoriasis 05/24/2014 Pulmonary embolus 09/02/2000 Overview (07/03/2017): percipitated by HRT in 2000, reports that she was never on anticoagulation Abnormal Pap smear of cervix Overview (07/03/2017): S/p LEEP, cryo, hysterectomy Continued HSIL pap of vagina with multiple colposcopies resulting as normal Anxiety HTN (hypertension) Hyperlipidemia Hypothyroidism Nephrolithiasis Shingles Immunizations Name Administration Dates Next Due Influenza Quadrivalent, Preservative Free 2018 Family History Medical History Relation Comments Depression Brother Diabetes Brother Dementia Father Diabetes Maternal Grandmother ag e 52 MVA Diabetes Mother Myocardial Infarction Mother Uterine Cancer Niece Ovarian Cancer Paternal Grandmother Uterine Cancer Sister ovarian or uteri ne, unsure Colorectal Cancer Neg Hx Pancreatic Cancer Neg Hx Relation Status Comments Brother Father Maternal Grandmother Mother Niece Paternal Grandmother Sister Social History Tobacco Use Types Packs/Day Years Used Date Smoking Tobacco: Former Smokeless Tobacco: Never Alcohol Use Standard Drinks/Week Comments No 0 (1 standard drink = 0.6 oz pur e alcohol) Sex and Gender Information Value Date Recorded Sex Assigned at Not on file Gender Identity Not on file Sexual Orientation Not on file Last Filed Vital Signs Vital Sign Reading [...] Mass Index 25.1 02/17/2021 1:01 PM EDT Plan of Treatment Upcoming Encounters Date Type Department Care Team (Late st Contact Info) Description 06/01/2024 4:00 PM EDT Office Visit Dermatology at [place] [address] [facility] [place] [phone] Anthony Uribe MD [address], [place] [address] Health Maintenance Due Date Last Done Comments CT Colonography 1953 Colonoscopy 1953 Colorectal Cancer Screening 1953 FIT DNA 1953 FIT 1953 Sigmoidoscopy (10 year) with FIT yearly 1953 Sigmoidoscopy 1953 Pneumoccocal Vaccine: 65+ (1 of 2 - PCV) 1959 DM Creatinine yearly 1963 DM Hemoglobin A1c 1963 DM Opthalmology Exam 1963 DM Urine Microalbumin yearly 1963 Hepatitis C Screening 1971 Tdap adult 1972 Tetanus vaccine 1972 Breast Cancer Share Decision Needed 1993 Breast Cancer screening 1993 Zoster vaccine (1 of 2) 2003 Advance Directive 2008 Bone Density Scan 2018 Covid-19 Vaccine (1 - 2022-24 season) 2023 Influenza (Flu) vaccine (1 o f 1 - Influenza standard series) 05/03/2024 06/09/2019 HPV test Discontinued 09/20/2017 PAP Smear Discontinued 09/20/2017 Procedures Procedure Name Priority Date/Time Associated Diagnosis Comments HPV Routine 09/20/2017 9:06 AM EST MINIBUS DRIVER CYTOLOGY FINAL REPORT Routine 09/20/2017 9:06 AM EST from Last 3 Months or Most Recently Relevant to Health Maintenance Results * (ABNORMAL) HPV (09/20/2017 9:06 AM EST) HPV16 NEGATIVE NEGATIVE [facility] HPV 18 NEGATIVE NEGATIVE [facility] HPV Other HR POSITIVE(A) NEGATIVE [facility] HPV Interpretation See Comment [facility] Comment: POSITIVE for high-risk HPV* (High risk type other than types 16 or 18): * Testing positive for high risk HPV means that the specimen is positive for at least one of the following 14 types tested: ??types 16, 18, 31, 33, 35, 39, 45, 51, 52, 56, 58, 59, 66, and 68. Radha Keven HPV test Specimen: HPV Testing - Cytology Liquid Based Prep Cervical swab (specimen) 09/20/2017 9:06 AM EST 09/20/2017 9:26 AM EST Narrative Resulting Agency Comment Spec In Lab Althea Mascorro MD PATHOLOGY/CYTOLOGY ORDERABLES [facility] [place] [address] * Outdoor Education Teacher Cytology Final Report (09/20/2017 9:06 AM EST) Outdoor Education Teacher Cytology Final Report [id number] ? [facility]; A The signing pathologist has (i) examined the relevant preparation(s) for the specimen(s) and (ii) rendered or confirmed the diagnosis(es). . ? Outdoor Education Teacher Final DIAGNOSIS Epithelial Cell Abnormality Atypical Squamous Cells, cannot exclude High Grade Squamous Intraepithelial Lesion (ASC-H). For consensus guidelines for the management of cervical cancer screening test results, please see: ?? http://www.asccp.o rg . Electronically signed by: ??Lorraine Zaman MD Verified: ??10/01/2017 ?Pathologist Performed at: ??-[facility] [place], [place], [place] HPV RESULTS HPV16 (Result) ?Negative HPV18 (Result) ?Negative HPVOHR (Result) ? Positive * HPV (Interpretation) ?See Below HPV (Interpretation) Text: POSITIVE for high-risk HPV* (High risk type other than types 16 or 18): *Testing positive for high risk HPV means that the specimen is positive for at least one of the following 14 types tested: types 16, 18, 31, 33, 35, 39, 45, 51, 52, 56, 58, 59, 66, and 68. Radha keven HPV test Specimen: HPV Testing - Cytology Liquid Based Prep The Radha keven ? HPV test was validated, performed and results reported through the [facility] ([facility]) at [facility]. ? - Wilfrido Mahoney, PhD, [facility], Director-[facility] STATEMENT OF ADEQUACY Specimen submitted is satisfactory. Endocervical component present. CLINICAL INFORMATION HPV Option: ?Concurrent HPV and Pap Preparation: ? Liquid based Pap Specimen Source: ? Vaginal LMP: ? n/a Hormones?: ? No Hysterectomy?: ? Total Hysterectomy ?: ? _ ?: ? _ I.U.D.?: ? _ Pelvic Radiation: ?No Prior MINIBUS DRIVER Therapy?: ?Cone Biopsy Hist Abnl Pap/Biopsy?: ?? Yes, history of previous abnormal Pap Hist of HPV Vaccine?: ?No Hist of Smoking?: ?No Hist of ANANTH exposure?: ?? No ICD Diagnosis: ? Z91.89 Screening Pap, History Clinical High Risk Clinical Data, Significant Therapy and Clinical Impression ?? : . CLINICAL INFORMATION ?_ This Pap Test has been evaluated with the assistance of the SampalRxPrep Pap Test Imaging System. Note: The Pap test is a screening test for cervical cancer with an inherent false-negative rate dependent upon several variables. For further information please contact the [facility]. Reference: Parminder OSEI. Specifications Writer of Pap Smear Results. In: Loni BS, Vidal [facility], ed. The Pap Smear. [place]: Jabier, 2002: 71-77. [facility] 09/20/2017 9:06 AM EST Althea Mascorro MD PATHOLOGY/CYTOLOGY ORDERABLES [facility] [place] [address] from Last 3 Months or Most Recently Relevant to Health Maintenance Advance Directives * Full Code (Latest Code Status on File) Date Activated Date Inactivated Comments 08/10/2019 2:46 PM 08/10/2019 7:25 PM Question Answer Comments Does patient have capacity to make decision: Yes * Full Code Date Activated Date Inactivated Comments 06/09/2019 6:58 AM 06/09/2019 11:28 AM Question Answer Comments Does patient have capacity to make decision: Yes * Full Code Date Activated Date Inactivated Comments 11/08/2017 9:17 AM 11/08/2017 2:30 PM Question Answer Comments Does patient have capacity to make decision: Yes * Full Code Date Activated Date Inactivated Comments 09/20/2017 7:47 AM 09/20/2017 1:23 PM Question Answer Comments Does patient have capacity to make decision: Yes Care Teams Technical Services Rep Relationship Specialty Start Date End Date Chip Harris PA PCP - General Family Medicine 07/09/19
--- OUTSIDE RECORDS SUMMARY | 2024-05-01 01:54 | XMS_ITS | Encounter Summary ---
Author Organization [facility] [place] [address] Care Team Providers Care Dust Collector Operator Name Role Phone Jena Benavides Godwin JONES Primary Care Provider Reason for Visit * Auth/Cert Specialty Diagnoses / Procedures Referred By Robert jessica Referred To Contact Diagnoses VAIN III Procedures PRO PELVIC EXAMINATION W ANESTH PRO COLPOSCOPY, ENTIRE VAGINA PELVIC EXAM UNDER ANESTHESIA (WRVU 1.75) COLPOSCOPY OF VAGINA WITH CERVIX IF PRESENT (WRVU 1.6) Referral ID Status Reason Start Date Expiration Date Visits Re quested Visits Authorized [id number] 1 1 Encounter Details Date Type Department Care Team (Late st Contact Info) Description 06/09/2019 7:30 AM EDT - 06/09/2019 8:58 AM EDT Surgery [place] [phone] Alex Gan MD [facility] [place] [address] PELVIC EXAM UNDER ANESTHESIA (WRVU 1.75) Social History Tobacco Use Types Packs/Day Years [...] Sign Reading Time Taken Comments Blood Pressure 128/52 06/09/2019 8:45 AM EDT Pulse 76 06/09/2019 8:12 AM EDT Temperature 36 ??C (96.8 ??F) 06/09/2019 8:12 AM EDT Respiratory Rate 16 06/09/2019 8:45 AM EDT Oxygen Saturation 96% 06/09/2019 8:45 AM EDT Inhaled Oxygen Concentration - - Weight 65.8 kg (145 lb) 06/09/2019 6:29 AM EDT Height 157.5 cm (5' 2) 06/09/2019 6:29 AM EDT Body Mass Index 26.52 06/09/2019 6:29 AM EDT documented in this encounter Discharge Instructions * Patient Instructions* Minerva Hodge MD - 06/09/2019 8:09 AM EDT Showroom Sales Consultant/Oncology Patient Instructions Future Appointments Date Time Provider Department Center 07/10/2019 1:15 PM Alex Gan MD [facility] DIRECTOR OF PRIMARY CARE [address] [place] [address] When to Call It is normal to have a lqtqxn-gz-pzydbvek amount of discharge after vaginal surgery. This can rangein color from yellow to blood tinged. On days of high activity, you may have bright red spotting. This is OK. What is NOT normal is heaving bleeding, or discharge with foul odor, especially if it is associated with increasing pain, redness, or fever. These symptoms should be reported immediately. Follow-up Our legal secretary will call you to schedule a follow-up appointment. If you do not hear from us after 1week, please call our office during normal business hours. Contact Information Dr. Alex Gan Division of [place] [address] documented in this encounter Medications at Time of Discharge Medication Sig Dispensed Refills Start Date End Date cholecalciferol, Vitamin D3, 25 mcg (1,000 unit) Capsule Take 1,000 Units by mouth. 10/06/2015 ascorbic acid, Vitamin C, (Vitamin C) 250 mg Tablet Take 250 mg by mouth. 08/20/2018 UNABLE TO FIND Take 1 capsule by mouth. Hair Health 08/21/2017 INULIN-SORBITOL ORAL Take 2 tablets by mouth nightly. 10/06/2015 SYNTHROID 50 mcg Tablet Take 50 mcg [...] Take 2 g by mouth nightly. [place] Fruit 450 mg Capsule Take 450 mg by mouth. 08/21/20172020 acetaminophen (TYLENOL) 500 mg Tablet Take 1,000 mg by mouth every 6 hours as needed for Pain. 08/10/2019 estrogens, conjugated, (PREMARIN) 0.625 mg/gram Cream Place 0.5 g vaginally daily. 42.5 g 12 05/29/2019 08/07/2019 [place] 500 mg Capsule Take 500 mg by mouth 3 times daily. 06/30/2019 Biotin 10,000 mcg Capsule Take by mouth daily. 019 diphenhydrAMINE-acetami nophen (TYLENOL PM) 25-500 mg Tablet Take by mouth nightly. 1 10/08/2018 lidocaine (LIDODERM) 5 %(700 mg/patch) 07/11/2010 02/17/2021 Cyanocobalamin (VITAMIN B-12) 2,000 mcg tablet 07/11/201008/07 documented as of this encounter Progress Notes * Vic Kaur RN - 06/09/2019 8:59 AM EDT Patient and stated understanding of discharge instructions and had no questions at this time. documented in this encounter H&P Notes * Mindy Gaona MD - 06/09/2019 6:48 AM EDT Inpatient [facility] - Admission Interval Note I have reviewed the pre-procedure H&P completed by Dr. Alex Gan on 05/29/19. (X) Condition unchanged since H&P originally performed. Interval Note: S: Mary Ellen Avila feels well today. She does have a tooth infection which she has seen her dentist about. She is not taking any antibiotics. She has a black eye because [place] Otherwise no changes to medical or surgical history. No interim hospitalizations or medication changes. Has not started estrogen cream, but has obtained it. O: Most Recent Vitals: 06/09/19 0629 BP: 147/63 Pulse: 62 Resp: 18 Temp: 36.2 ??C (97.2 ??F) SpO2: 98% Gen: Sitting in bed, appears comfortable CV: Normal rate, regular rhythm Pulm : CTAB A/P: 64 y.o. 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 Consent reviewed and signed with patient today. Will proceed with planned procedure. Abx Ppx: not indicated VTE Ppx: SCDs A copy of this document will be sent to the patient's Primary Care Physician and/or Referring Physician. Mindy Gaona MD 06/09/2019 Associated attestation - Alex Gan MD - 06/09/2019 11:20 AM EDT Into see patient prior to her surgery. We reviewed the planned procedure. Consents complete and in her chart. Questions answered. documented in this encounter Miscellaneous Notes * Op Note - Alex Gan MD - 06/09/2019 9:28 AM EDT [facility] Operative Note Patient Name: Mary Ellen Avila : [id number] MR#: [id number] Case Date: 06/09/2019 Surgeon: Surgeon(s) and Role: * Alex Gan MD - Primary * Minerva Hodge MD - Resident Preoperative diagnosis: VAIN III Postoperative diagnosis: VAIN III Procedure(s) (LRB): PELVIC EXAM UNDER ANESTHESIA (WRVU 1.75) (N/A) COLPOSCOPY OF VAGINA WITH CERVIX IF PRESENT (WRVU 1.6) (N/A) Findings: On EUA no palpable masses or nodules. On colposcopy the vaginal is atrophic appearing. Wart like lesion on the upper left vaginal apex was biopsied. Are of Lugol's non staining on the rightvaginal apex also biopsied. No other suspicious lesions. Anesthesia: General Estimated Blood Loss: None Specimens removed during surgery: Order Name Source Comment Collection Info Order Time SPECIMEN TO PATHOLOGY VAIN III Upper Left Vaginal BX biopsy No 06/09/2019 7:56 AM Time specimen removed from patient: 7:55 AM Number of tissue samples (in container) 1 Biospecimen to store? No SPECIMEN TO PATHOLOGY VAIN III Right vaginal [place] biopsy No 06/09/2019 7:56 AM Time specimen removed from patient: 7:56 AM Number of tissue samples (in container) 1 Biospecimen to store? No Drains: * No LDAs found * Surgical [...] details pertinent to this patient.) HPI/Surgical Indications: Mary Ellen Avila returns to the office today for a follow up visit. On 11/08/17 she underwent an exam under anesthesia, vaginal colposcopy, and CO2 laser ablation of a lesion inher posterior left vaginal cuff. Her postoperative course was uncomplicated. She has been doing well since surgery. She denies fevers, chills, dysuria, abdominal pain, vaginal bleeding, nausea, vomiting or diarrhea. She had a follow up pap smear that showed HSIL 03/2019. She is unable to tolerate exams in the office. She feels her vaginal/vulvar discomfort is worsening in general. She is unable tohave intercourse due to discomfort and dryness. Procedure Description: Informed consent was signed. The patient was taken the operating room she was put sleep under general anesthesia. She is placed in dorsolithotomy position. SCDs were placed. A verbal timeout was performed. On exam under anesthesia was performed with findings as noted above. An open sided speculum was placed in the vagina. Acetic acid and Lugol's were applied and colposcopy was performed with findings as noted above. Biopsies were obtained with a Playteau biopsy forcep. The biopsy sites were found to be hemostatic. All instruments were removed from the vagina. The patient told the procedure well was awakened in the operating room. Sponge needle instrument counts were correct x2. Infection Bundle used? N/A Attestation: Case Date: 06/09/2019 I performed this procedure without the involvement of a resident. ALEX GAN MD 06/09/2019 documented in this encounter Plan of Treatment Upcoming Encounters Date Type Department Care Team (Late st Contact Info) Description 06/01/2024 4:00 PM EDT Office Visit Dermatology at [place] [address] [place] [address] Anthony Uribe MD [address] [facility] [facility], [place] [address] documented as of this encounter Procedures Procedure Name Priority Date/Time Associated Diagnosis Comments POCT GLUCOSE Routine 06/09/2019 8:44 AM EDT SURGICAL PATHOLOGY REPORT Routine 06/09/2019 7:56 AM EDT SPECIMEN TO PATHOLOGY Routine 06/09/2019 7:56 AM EDT SPECIMEN TO PATHOLOGY Routine 06/09/2019 7:56 AM EDT Colposcopy, Entire Vagina (81759) 06/09/2019 7:30 AM EDT VAIN III Pelvic Examination W Anesth (30679) 06/09/2019 7:30 AM EDT VAIN III POCT GLUCOSE Routine 06/09/2019 6:51 AM EDT documented in this encounter Results * POCT Glucose (06/09/2019 8:44 AM EDT) Glucose, POC 159 65 - 199 mg/dL [facility] Comment: Supplemental ranges: <140 mg/dL before meals <180 mg/dL all other times of the day Blood specimen (specimen) 06/09/2019 8:44 AM EDT 06/09/2019 8:44 AM EDT Alex Gan MD POINT OF CARE TEST ORDERABLES [facility] [place] [address] * Surgical Pathology Report (06/09/2019 7:56 AM EDT) Final Diagnosis [id number] ? Location: [facility]; [facility]; The signing pathologist has (i) examined the relevant preparation(s) for the specimen(s) and (ii) rendered or confirmed the diagnosis(es). . 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 B - Right vaginal apex, biopsy: ??- Vaginal submucosa with scant focal denuded mucosa. ??- No definite dysplasia or HPV effect is seen. Electronically signed by: ??Ana Mandel DO Verified: ??06/12/2019 ?Pathologist Performed at: ??-[facility] Dept. [place]ology, [place], [place] DISCUSSION Deeper levels were examined. ADDITIONAL STUDIES Immunohistochemistry Studies: Formalin-fixed, paraffin-embedded tissue sections are studied using the polymer technique with appropriate positive and negative controls. ?These IHC studies provide the pathologist with adjunctive diagnostic information. Antibody specificity has been verified by testing antibodies on a series of in-house tissues with known immunohistochemical performance characteristics. The clinical interpretation of any antibody positive staining or its absence is evaluated within the context of clinical presentation, morphology, histopathological criteria and other diagnostic tests. Block ? Antibody ?Result (Positive/Negative) B1 ? p16 ?Negative CLINICAL INFORMATION Specimen Submitted: A - upper left vaginal bx B - right vaginal apex Clinical History and Diagnosis: VAIN III SPECIMEN PROCESSING A - Labeled/Fixative: Upper left vaginal BX, saline. Quantity/Size: Single, 0.5 cm. Tissue Description: Soft, pink-white tissue. Sections/Processing: Submitted en toto ??in 1 cassette labeled A1. B - Labeled/Fixative: Right vaginal apex, saline. Quantity/Size: Single, 0.8 x 0.2 x 0.1 cm. Tissue Description: Soft, pink tissue. Sections/Processing: Submitted en toto ??in 1 cassette labeled B1. ??sns 06/12/2019 8:40 AM EDT [facility] VAGINAL STRUCTURE / Unknown 06/09/2019 7:56 AM EDT 06/09/2019 7:56 AM EDT VAGINAL STRUCTURE / Unknown 06/09/2019 7:56 AM EDT 06/09/2019 7:56 AM EDT Alex Gan MD PATHOLOGY/CYTOLOGY ORDERABLES Performing Organization Address [facility] Co de Phone Number [facility] [place] [address] * Specimen to Pathology (06/09/2019 7:56 AM EDT) AP Specimen 06/09/2019 7:56 AM EDT 06/09/2019 7:56 AM EDT Narrative [facility] - 06/09/2019 7:56 AM EDT Specimen requisition ordered. ??Separate Pathology report to follow Alex Gan MD PATHOLOGY/CYTOLOGY ORDERABLES Performing Organization Address [facility]/ZIP Co de Phone Number [facility] [place] [address] * Specimen to Pathology (06/09/2019 7:56 AM EDT) AP Specimen 06/09/2019 7:56 AM EDT 06/09/2019 7:56 AM EDT Narrative [facility] - 06/09/2019 7:56 AM EDT Specimen requisition ordered. ??Separate Pathology report to follow Alex Gan MD PATHOLOGY/CYTOLOGY ORDERABLES Performing Organization Address City/[facility]/ZIP Co de Phone Number [facility] [place] [address] * POCT Glucose (06/09/2019 6:51 AM EDT) Glucose, POC 144 65 - 199 mg/dL [facility] Comment: Supplemental ranges: <140 mg/dL before meals <180 mg/dL all other times of the day Blood specimen (specimen) 06/09/2019 6:51 AM EDT 06/09/2019 6:51 AM EDT Alex Gan MD POINT OF CARE TEST ORDERABLES Performing Organization Address [facility]/ZIP Co de Phone Number [facility] [place] [address] documented in this encounter Visit Diagnoses Not on filedocumented in this encounter Administered Medications Inactive Administered Medications - up to 3 most recent administrations Medication Order MAR Action Action Date Dose Rate Site lactated ringers infusion 1,000 mL, at 100 mL/hr, Intravenous, CONTINUOUS, Starting on Sat06/09/19 at 0645, Until Sat06/09/19 at 0901, Day of Surgery (Day of Procedure) New Bag 06/09/2019 7:25 AM EDT 1,000 mLs 100 mL/hr documented in this encounter Active and Recently Administered Medications Times are shown in EDT. Continuous Medication Order 06/07/2019 06/08/2019 06/09/2019 lactated ringers infusion (CANCELED) 1,000 mL, at 100 mL/hr, Intravenous, CONTINUOUS, Starting on Sat06/09/19 at 0645, Until Sat06/09/19 at 0901, Day of Surgery (Day of Procedure) 0725 (New Bag - Prov ider: Winifred Cunningham, RN)0751 (Anesthesia Volume Adjustment - Provider: Annia Newman CRNA) documented in this encounter Care Teams Dust Collector Operator Relationship Specialty Start Date End Date Jena Benavides APRN [address] [facility] [address] [place] [address] PCP - General Family Medicine 03/20/19 06/29/19 documented as of this encounter
--- OUTSIDE RECORDS SUMMARY | 2024-05-01 01:54 | XMS_ITS | Encounter Summary ---
Author Organization [facility] Address [facility] [place] [address] Care Team Providers Care Environmental Programs Manager Name Role Phone Chip Harris Primary Care Provider [phone] Reason for Referral * Consultation (Urgent) - Closed Specialty Diagnoses / Procedures Referred By Contac t Referred To Contact Urology Diagnoses Hematuria, unspecified type concern for origin of blood. discussed with Dr. Pepe. Althea Mascorro MD [facility] [place] [address] Jose Antonio Pepe MD [facility] [place] [address] Referral ID Status Reason Start Date Expiration Date V isits Requested Visits Authorized [id number] Closed Consult, Test & Treat 02/21/2021 02/21/2022 1 1 Encounter Details Date Type Department Care Team (Late st Contact Info) Description 02/21/2021 Telephone Obstetrics [place] [phone] Jaylin Guthrie, RN Social History Tobacco Use Types Packs/Day [...] Miscellaneous Notes * Telephone Encounter - Jaylin Guthrie RN - 02/21/2021 8:48 AM EDT ----- Message from Althea Mascorro MD sent at 02/21/2021 8:33 AM EDT ----- Please place urgent referral to urology with Discussed with Dr. Pepe in the comments. Baylee- this is the patient whose PCP was adamant that she be told everything. Are you able to send them a note saying concern for origin of blood and that she is being referred to urology? Thanks, Althea documented in this encounter Plan of Treatment Upcoming Encounters Date Type Department Care Team (Late st Contact Info) Description 06/01/2024 4:00 PM EDT Office Visit Dermatology at [place] [address] [place] [address] Anthony Uribe MD [address] [place] [address] Scheduled Referrals Name Type Priority Associated Diagnoses Orde r Schedule Referral to Urology Outpatient Referral Routine Hematuria, unspecified type Ordered: 02/21/2021 documented as of this encounter Visit Diagnoses Diagnosis Hematuria, unspecified type documented in this encounter Care Teams Environmental Programs Manager Relationship Specialty Start Date End Date Chip Harris PA PCP - General Family Medicine 07/09/19 documented as of this encounter
--- OUTSIDE RECORDS SUMMARY | 2024-05-01 01:54 | XMS_ITS | Encounter Summary ---
Author Organization [facility] [place] [place] [address] Care Team Providers Care Tower Helper Name Role Phone Chip Harris Primary Care Provider Encounter Details Date Type Department Care Team (Late Contact Info) Description 02/21/2021 [place] [address] Jolynn Pepe MD [facility] [place] [address] Hematuria, unspecified type (Primary Dx) Social History Tobacco Use Types Packs/Day Years Used Date Smoking Tobacco: Former Smokeless Tobacco: Never Alcohol Use Standard Drinks/Week Comments No 0 (1 standard drink = 0.6 oz pur e alcohol) Sex and Gender Information Value Date Recorded Sex Assigned at Not on file Gender Identity Not on file Sexual Orientation Not on file documented as of this encounter Plan of Treatment Upcoming Encounters Date Type Department Care Team (Late st Contact Info) Description 06/01/2024 4:00 PM EDT Office Visit Dermatology at [place] [address] [place] [phone] Anthony Uribe MD [address] [facility] [place] [address] documented as of this encounter Results * US Retroperitoneal Complete (03/10/2021 1:48 PM EDT) Anatomical Region Laterality Modality Abdomen Ultrasound 03/10/2021 1:32 PM EDT Impressions 03/10/2021 2:04 PM EDT 1. Mild bilateral medullary nephrocalcinosis. No concerning focal lesion. 2. No evident stone within either kidney. 3. No collecting system dilation. Thank you for letting us participate in the care of this patient. ??If you are a health care provider and have any questions regarding this report, please contact the number below. ??For patients who have questions please contact the health insurance healthcare representative that requested your imaging first. Thank you for letting us participate in the care of this patient. If you are a health care provider and have any questions regarding this report, please contact the number below. For patients who have questions, please contact the health insurance healthcare representative that requested your imaging first. ?Heraclio Gallagher, Staff Physician Electronically Signed Final Report ?? 03/10/2021 02:03 pm Narrative 03/10/2021 2:04 PM EDT Renal ? (Signed Final 03/10/2021 02:03 pm) PATIENT INFO: ID #: ? [id number] ?: ??[birth year] (65 yrs)(F) Name: ? ELIAZAR AVILA ? Visit Date: 03/10/2021 01:32 pm PERFORMED BY: Performed By: ? Margaret Marino RDMS Attending: ?Heraclio Gallagher MD Referred By: ?JOLYNN PEPE Location: ? [facility] SERVICE(S) PROVIDED: URETRO - Retroperitoneal Complete - [id number] ? [id number] INDICATIONS: Hematuia, allergic to Iodine. Please assess for renal mass and hydronephrosis COMPARISON: No prior studies for comparison. RIGHT KIDNEY: Size (cm) ?L: ??9.5 Cortical Thickness: ?Normal Cortical Echogenicity: ?? Normal Hydronephrosis: ?No sonographic evidence Comment: ?Nephrocalcinosis LEFT KIDNEY: Size (cm) ?L: ??9.6 Cortical Thickness: ?Normal Cortical Echogenicity: ?? Normal Hydronephrosis: ?No sonographic evidence Comment: ?Simple cyst mid measuring 0.9 x 0.6 x 0.8. ? Nephrocalcinosis URINARY BLADDER: Pre-void (cm) ? L: ??4.7 ? AP: ??2.6 ? TV: ??6.4 Vol (ml): ?40.9 Comment: ?Partially distended, normal contour Procedure Note Heraclio Gallagher MD - 03/10/2021 Renal (Signed Final 03/10/2021 02:03 pm) PATIENT INFO: ID #: [id number] : [birth year] (65 yrs)(F) Name: ELIAZAR AVILA Visit Date: 03/10/2021 01:32 pm PERFORMED BY: Performed By: Margaret Marino RDMS Attending: Heraclio Gallagher MD Referred By: JOLYNN PEPE Location: [facility] SERVICE(S) PROVIDED: URETRO - Retroperitoneal Complete - [id number] INDICATIONS: Hematuia, allergic to Iodine. Please assess for renal mass and hydronephrosis COMPARISON: No prior studies for comparison. RIGHT KIDNEY: Size (cm) L: 9.5 Cortical Thickness: Normal Cortical Echogenicity: Normal Hydronephrosis: No sonographic evidence Comment: Nephrocalcinosis LEFT KIDNEY: Size (cm) L: 9.6 Cortical Thickness: Normal Cortical Echogenicity: Normal Hydronephrosis: No sonographic evidence Comment: Simple cyst mid measuring 0.9 x 0.6 x 0.8. Nephrocalcinosis URINARY BLADDER: Pre-void (cm) L: 4.7 AP: 2.6 TV: 6.4 Vol (ml): 40.9 Comment: Partially distended, normal contour IMPRESSION 1. Mild bilateral medullary nephrocalcinosis. No concerning focal lesion. 2. No evident stone within either kidney. 3. No collecting system dilation. Thank you for letting us participate in the care of this patient. If you are a health care provider and have any questions regarding this report, please contact the number below. For patients who have questions please contact the health insurance healthcare representative that requested your imaging first. Thank you for letting us participate in the care of this patient. If you are a health care provider and have any questions regarding this report, please contact the number below. For patients who have questions, please contact the health insurance healthcare representative that requested your imaging first. Heraclio Gallagher, Staff Physician Electronically Signed Final Report 03/10/2021 02:03 pm Jolynn Pepe MD IMG US GEN ORDERABLE S documented in this encounter Visit Diagnoses Diagnosis Hematuria, unspecified type- Primary Hematuria, unspecified type documented in this encounter Care Teams Tower Helper Relationship Specialty Start Date End Date Chip Harris PA PCP - General Family Medicine 07/09/19 documented as of this encounter
--- OUTSIDE RECORDS SUMMARY | 2024-05-01 01:54 | XMS_ITS | Encounter Summary ---
Author Organization [facility] Address [facility] [place] [address] Care Team Providers Care Sales Service Professional Name Role Phone Chip Harris Primary Care Provider [phone] Encounter Details Date Type Department Care Team (Latest Contact Info) Description 03/10/2021 1:03 PM EDT - 03/10/2021 11:59 PM EDT Hospital En[place] [address] Alex Gan MD [facility] G[place]EC[place] [address] Hematuria, unspecified type Discharge Disposition: Home Social History Tobacco Use Types Packs/Day Years Used Date Smoking Tobacco: Former Smokeless Tobacco: Never Alcohol Use Standard Drinks/Week Comments No 0 (1 standard drink = 0.6 oz pur e alcohol) Sex and Gender Information Value Date Recorded Sex Assigned at Not on file Gender Identity Not on file Sexual Orientation Not on file documented as of this encounter Medications at Time of Discharge Medication Sig Dispensed Refills Start Date End Date cholecalciferol, Vitamin D3, 25 mcg (1,000 unit) Capsule Take 1,000 Units by mouth. 10/06/2015 ascorbic acid, Vitamin C, (Vitamin C) 250 mg Tablet Take 250 mg by mouth. 2017 VITAMIN B COMPLEX-100 ORAL Take 1 capsule by mouth. 06/13/2019 UNABLE TO FIND Take 1 capsule by mouth. Hair Health 08/21/2017 INULIN-SORBITOL ORAL Take 2 tablets by mouth nightly. 10/06/2015 Bacillus coagulans/inulin (PROBIOTIC WITH PREBIOTIC ORAL) Take by mouth. UNABLE TO FIND altai to help with blood augar cyclobenzaprine (FLEXERIL) 5 mg Tablet Take 5 [...] Capsule Take 2 g by mouth nightly. documented as of this encounter Plan of Treatment Upcoming Encounters Date Type Department Care Team (Late st Contact Info) Description 06/01/2024 4:00 PM EDT Office Visit Dermatology at [address] [address] Anthony Uribe MD [address], [place] [address] documented as of this encounter Procedures Procedure Name Priority Date/Time Associated Diagnosis Comments US TRANSVAGINAL NON OB Routine 1:48 PM EDT Hematuria, unspecified type US RETROPERITONEAL COMPLETE Routine 03/10/2021 1:48 PM EDT Hematuria, unspecified type documented in this encounter Results * US Transvaginal Non [...] who have questions please contact the health careers counsellor that requested your imaging first. Electronically signed by: Heraclio Gallagher MD, [facility] ([phone]), at 03/10/2021 2:20 PM Thank you for letting us participate in the care of this patient. If you are a health care provider and have any questions regarding this report, please contact the number below. For patients who have questions, please contact the health careers counsellor that requested your imaging first. ?Heraclio Gallagher, Staff Physician Electronically Signed Final Report ?? 03/10/2021 02:27 pm Narrative 03/10/2021 2:28 PM EDT Gynecological Report ?(Signed Final 03/10/2021 02:27 pm) PATIENT INFO: ID #: ? [id number] ?: ??[birth year] (65 yrs)(F) Name: ? ELIAZAR AVILA ? Visit Date: 03/10/2021 01:45 pm PERFORMED BY: Performed By: ? Margaret Marino RDMS Attending: ?Heraclio Gallagher MD Referred By: ?ALEX GAN Location: ? [facility] SERVICE(S) PROVIDED: UTV - Transvaginal - [id number] ?[id number] INDICATIONS: Abnormal uterine bleeding TECHNIQUE/SCAN QUALITY: Technique: [...] 03/10/2021 02:27 pm) PATIENT INFO: ID #: [id number] : 51 (65 yrs)(F) Name: ELIAZAR AVILA Visit Date: 03/10/2021 01:45 pm PERFORMED BY: Performed By: Margaret Marino RDMS Attending: Heraclio Gallagher MD Referred By: ALEX GAN Location: [facility] SERVICE(S) PROVIDED: UTV - Transvaginal - [id number] INDICATIONS: Abnormal uterine bleeding TECHNIQUE/SCAN QUALITY: Technique: [...] who have questions please contact the health careers counsellor that requested your imaging first. Electronically signed by: Heraclio Gallagher MD, [facility] ([phone]), at 03/10/2021 2:20 PM Thank you for letting us participate in the care of this patient. If you are a health care provider and have any questions regarding this report, please contact the number below. For patients who have questions, please contact the health careers counsellor that requested your imaging first. Staff Pilar Foreman Electronically Signed Final Report 03/10/2021 02:27 pm Alex Gan MD IMG US PELVIC ORDE RABLES * US Retroperitoneal Complete (03/10/2021 1:48 PM [...] who have questions please contact the health careers counsellor that requested your imaging first. Electronically signed by: Heraclio Gallagher MD, [facility] ([phone]), at 03/10/2021 1:55 PM Thank you for letting us participate in the care of this patient. If you are a health care provider and have any questions regarding this report, please contact the number below. For patients who have questions, please contact the health careers counsellor that requested your imaging first. ?Staff Pilar Foreman Electronically Signed Final Report ?? 03/10/2021 02:03 pm Narrative 03/10/2021 2:04 PM EDT Renal ? (Signed Final 03/10/2021 02:03 pm) PATIENT INFO: ID #: ? [id number] ?: ??[birth year] (65 yrs)(F) Name: ? ELIAZAR Moreno PETERJules ? Visit Date: 03/10/2021 01:32 pm PERFORMED BY: Performed By: ? Margaret Marino RDMS Attending: ?Heraclio Gallagher MD Referred By: ?JOLYNN PEPE Location: ? [facility] SERVICE(S) PROVIDED: URETRO - Retroperitoneal Complete - [id number] ? [id number] INDICATIONS: Hematuia, allergic to Iodine. Please assess [...] 03/10/2021 02:03 pm) PATIENT INFO: ID #: [id number] : [birth year] (65 yrs)(F) Name: ELIAZAR AVILA Visit Date: 03/10/2021 01:32 pm PERFORMED BY: Performed By: Margaret Marino RDMS Attending: Heraclio Gallagher MD Referred By: JOLYNN PEPE Location: [facility] SERVICE(S) PROVIDED: URETRO - Retroperitoneal Complete - [id number] INDICATIONS: Hematuia, allergic to Iodine. Please assess [...] who have questions please contact the health careers counsellor that requested your imaging first. Electronically signed by: Heraclio Gallagher MD, [facility] ([phone]), at 03/10/2021 1:55 PM Thank you for letting us participate in the care of this patient. If you are a health care provider and have any questions regarding this report, please contact the number below. For patients who have questions, please contact the health careers counsellor that requested your imaging first. Heraclio Gallagher, Staff Physician Electronically Signed Final Report 03/10/2021 02:03 pm Jolynn Pepe MD IMG US GEN ORDERABLE S documented in this encounter Visit Diagnoses Diagnosis Hematuria, unspecified type documented in this encounter Care Teams Sales Service Professional Relationship Specialty Start Date End Date Chip Harris PA PCP - General Family Medicine 07/09/19 documented as of this encounter
--- OUTSIDE RECORDS SUMMARY | 2024-05-01 01:54 | XMS_ITS | Encounter Summary ---
Author Organization [facility] [place] [address] Care Team Providers Care C2 Tactical Analysis Technician Name Role Phone Kristen Avina Wyatt JONES Primary Care Provider [phone] Encounter Details Date Type Department Care Team (Late st Contact Info) Description 06/03/2018 Notes Only [place] [address] Umesh Hernandez MD [facility] DR HEMATOLOGY/[place] [address] Social History Tobacco Use Types Packs/Day Years Used Date Smoking Tobacco: Former Smokeless Tobacco: Never Alcohol Use Standard Drinks/Week Comments No 0 (1 standard drink = 0.6 oz pur e alcohol) Sex and Gender Information Value Date Recorded Sex Assigned at Not on file Gender Identity Not on file Sexual Orientation Not on file documented as of this encounter Progress Notes * Umesh Hernandez MD - 06/03/2018 11:23 AM EDT I have reviewed the patient's record and given personal and/or family history of cancer she should be seen by genetic counselor. This is scheduled for next week. documented in this encounter Plan of Treatment Upcoming Encounters Date Type Department Care Team (Late st Contact Info) Description 06/01/2024 4:00 PM EDT Office Visit Dermatology at [place] [address] [place] [address] Anthony Uribe MD [address], [place] [address] documented as of this encounter Visit Diagnoses Not on filedocumented in this encounter Care Teams C2 Tactical Analysis Technician Relationship Specialty Start Date End Date Kristen Avina APRN PCP - General Family Medicine 07/03/17 03/19/19 documented as of this encounter
--- OUTSIDE RECORDS SUMMARY | 2024-05-01 01:54 | XMS_ITS | Encounter Summary ---
Author Organization [facility] [place] [address] Care Team Providers Care Diving Judge Name Role Phone Chip Harris Primary Care Provider Encounter Details Date Type Department Care Team (Late st Contact Info) Description 03/13/2021 Telephone Gynecology [place] [address] Althea Mascorro MD [facility] DR [place] [address] Social History Tobacco Use Types Packs/Day Years [...] encounter Miscellaneous Notes * Telephone Encounter - Althea Mascorro MD - 03/13/2021 9:45 AM EDT Spoke with Mary Ellen about her US showing normal left and non visible right ovaries. No pelvic masses. I am concerned the bleeding she experienced was from her bladder. She has declined refer to urology and would like to see her local urologist. Referal placed. She was also give the name of her local urologist and recommended to call for an appointment. documented in this encounter Plan of Treatment Upcoming Encounters Date Type Department Care Team (Late st Contact Info) Description 06/01/2024 4:00 PM EDT Office Visit Dermatology at [place] [address] [place] [address] Anthony Uribe MD [address], [place] [address] documented as of this encounter Visit Diagnoses Not on filedocumented in this encounter Care Teams Diving Judge Relationship Specialty Start Date End Date Chip Harris PA PCP - General Family Medicine 07/09/19 documented as of this encounter
--- OUTSIDE RECORDS SUMMARY | 2024-05-01 01:54 | XMS_ITS | Encounter Summary ---
Author Organization [facility] [place] [address] Care Team Providers Care Slot Shift Supervisor Name Role Phone Chip Harris Primary Care Provider [phone] Encounter Details Date Type Department Care Team (Late st Contact Info) Description 02/08/2021 Telephone Obstetrics [place] [phone] Jaylin Guthrie, RN Social History Tobacco Use [...] Miscellaneous Notes * Telephone Encounter - Jaylin Guthrie, RN - 02/08/2021 12:07 PM EDT This nurse spoke with Porsha Nurse practitioner who has been preforming pap smears on patient. Per Porsha she can be reached at [phone] till 3pm today. Porsha states she did a pap on the patient 1 week ago, pap returned negative and normal. Patient called yesterday she had a gush of shey color fluid that then went to bleeding till 3am this morning. Porsha had patient return to her office today did repeat exam and notes what she believes is a fistula the size of a q-tip. This nurse told porsha she would forward message to Dr. Oh for a call back at this time. documented in this encounter Plan of Treatment Upcoming Encounters Date Type Department Care Team (Late st Contact Info) Description 06/01/2024 4:00 PM EDT Office Visit Dermatology at [place] [address] [place] [address] Anthony Uribe MD [address], [place] [address] documented as of this encounter Visit Diagnoses Not on filedocumented in this encounter Care Teams Slot Shift Supervisor Relationship Specialty Start Date End Date Chip Harris PA PCP - General Family Medicine 07/09/19 documented as of this encounter
--- OUTSIDE RECORDS SUMMARY | 2024-05-01 01:54 | XMS_ITS | Encounter Summary ---
Author Organization [facility] [place] [address] Care Team Providers Care Brine Purifier Name Role Phone Chip Harris Primary Care Provider Encounter Details Date Type Department Care Team (Late Contact Info) Description 02/08/2021 Telephone [place] [phone] Michelle Kapoor Social History Tobacco Use Types Packs/Day Years [...] encounter Miscellaneous Notes * Telephone Encounter - Michelle Kapoor - 02/08/2021 1:22 PM EDT Called patient to tell her that jessica asked me to make an appt for her for next Saturday at 1pm. I lefta voicemail for her to call back to confirm, documented in this encounter Plan of Treatment Upcoming Encounters Date Type Department Care Team (Late Contact Info) Description 06/01/2024 4:00 PM EDT Office Visit Dermatology at [address] [place] [phone] Anthony Uribe MD [address], [place] [address] documented as of this encounter Visit Diagnoses Not on filedocumented in this encounter Care Teams Brine Purifier Relationship Specialty Start Date End Date Chip Harris PA PCP - General Family Medicine 07/09/19 documented as of this encounter
--- OUTSIDE RECORDS SUMMARY | 2024-05-01 01:54 | XMS_ITS | Encounter Summary ---
Author Organization [facility] [place] [address] Care Team Providers Care Form Press Operator Name Role Phone Chip Harris Primary Care Provider Encounter Details Date Type Department Care Team (Late Contact Info) Description 02/21/2021 Telephone [place] [address] Althea Mascorro MD [facility] [place] [address] Social History Tobacco Use Types Packs/Day Years [...] Telephone Encounter - Althea Mascorro MD - 02/21/2021 8:35 AM EDT LVM to discuss referral to urology documented in this encounter Plan of Treatment Upcoming Encounters Date Type Department Care Team (Late st Contact Info) Description 06/01/2024 4:00 PM EDT Office Visit Dermatology at [address] [place] [address] Anthony Uribe MD [address], [place] [address] documented as of this encounter Visit Diagnoses Not on filedocumented in this encounter Care Teams Form Press Operator Relationship Specialty Start Date End Date Chip Harris PA PCP - General Family Medicine 07/09/19 documented as of this encounter
--- OUTSIDE RECORDS SUMMARY | 2024-05-01 01:54 | XMS_ITS | Encounter Summary ---
Author Organization [facility] [place] [address] Care Team Providers Care Assistant Director Of Residence Life Name Role Phone Chip Harris Primary Care Provider Encounter Details Date Type Department Care Team (Late st Contact Info) Description 02/14/2021 Telephone Obstetrics [place] [phone] Jaylin Guthrie, RN Social History Tobacco Use [...] Telephone Encounter - Jaylin Guthrie, RN - 02/14/2021 3:07 PM EDT This nurse spoke with Jordyn PARKER. Jordyn PARKER calling to report that she did not hear back from thisoffice last week, she feels if she is going to be envoloved in this patient's care she needs to receive information. This nurse apologized that I did not call her back as patient was notified of appointment to be scheduled with Dr. Oh. Jordyn states she knew about the appointment on the as shewas informed of by the patient. In the future Jordyn would like notes sent from our office and callsto be returned to her. She will be sending her recent office not as well. Message sent to Dr. Oh for Follow-up * Telephone Encounter - Jaylin Guthrie RN - 02/14/2021 3:06 PM EDT ----- Message from Michelle Gonzalez sent at 02/14/2021 2:59 PM EDT ----- Jordyn the MARINE PHOTOGRAPHER who you spoke with last week would like to speak with you again as she feels things have not fully been communicated. Please call Jordyn back at [phone] documented in this encounter Plan of Treatment Upcoming Encounters Date Type Department Care Team (Late st Contact Info) Description 06/01/2024 4:00 PM EDT Office Visit Dermatology at [place] [address] [place] [address] Anthony Uribe MD [address], [place] [address] documented as of this encounter Visit Diagnoses Not on filedocumented in this encounter Care Teams Assistant Director Of Residence Life Relationship Specialty Start Date End Date Chip Harris PA PCP - General Family Medicine 07/09/19 documented as of this encounter
--- OUTSIDE RECORDS SUMMARY | 2024-05-01 01:54 | XMS_ITS | Encounter Summary ---
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 Contact Diagnoses VAIN III Procedures PRO PELVIC EXAMINATION W ANESTH PRO COLPOSCOPY, ENTIRE VAGINA PELVIC EXAM UNDER ANESTHESIA (WRVU 1.75) COLPOSCOPY OF VAGINA WITH CERVIX IF PRESENT (WRVU 1.6) Referral ID Status Reason Start Date Expiration Date Visits Re quested Visits Authorized [id number] 1 1 Encounter Details Date Type Department Care Team (Late st Contact Info) Description 06/09/2019 7:28 AM EDT Anesthesia Event [place] [address] Saskia Armstrong MD [facility] [place] [address] Anesthesia Record Procedure Summary Procedure Name Responsible Anesthesiologist Anesthesia Start Time Anesthesia Stop Time PELVIC EXAM UNDER ANESTHESIA (WRVU 1.75) (Perineum) Saskia Armstrong MD 06/09/19 0728 06/09/19 0812 Events Date Time Event Comment 06/09/2019 0702 0728 AN Verify 0728 Start 0731 An Start Data 0737 An Induction 0738 An Intubation 0739 Anesthesia Ready 0800 Extubation/LMA Out 0804 an stop data 0812 Recovery or ICU Handoff Faith ent care was transferred to the destination unit staff after review of the patient's medical history, current anesthetic/surgical status and plan, according to the Provider Handoff Checklist. 08 Stop Meds Name Total Propofol 200 mg Propofol INF 98.7 mg IV Lidocaine 100 mg Dexamethasone 8 mg Ondansetron 4 mg Ketorolac 30 mg lactated ringers infusion 250 mL * Agents Name O2 Air N2O Sevoflurane (et) O2 Auxiliary Flowmeter 1 * Blood No blood administrations on file. Lines, Drains, and Airways Type Details Placement Removal (RETIRED) Peripheral IV Line - Single Lumen 06/09/19; 723; median cubital vein (antecubital fossa), right; jyvt-rin-dolmzr catheter system; 20 gauge; Jeff Cunningham RN; intradermal injection, tolerated well, appears comfortable; no longer indicated, catheter/device intact, removed per policy/procedure; 06/09/19; 92706/09/19723 by Winifred Cunningham RN 06/09/19927 by Vic Kaur RN Supraglottic Mask Ventilation: Ea sy (1); LMA Type: iGel; LMA Size: 3; Inserted by: MARQUITA Nassar; Removal Date: 06/09/19; Removal Time: 0806/09/19 0738 by Annia Montelongo CRNA 06/09/19 0800 by Annia Montelongo CRNA documented in this encounter Social History Tobacco [...] OR Notes * Anesthesia Postprocedure Evaluation - Saskia Armstrong MD - 06/09/2019 8:11 AM EDT Department of Anesthesiology Post-procedure Note Patient: Mary Ellen Avila Procedure Summary Date: 06/09/19 Room / Location: [address] MAIN OR Anesthesia Start: 727 Anesthesia Stop: Procedures: PELVIC EXAM UNDER ANESTHESIA (WRVU 1.75) (N/A Perineum) COLPOSCOPY OF VAGINA WITH CERVIX IF PRESENT (WRVU 1.6) (N/A ) Diagnosis: (VAIN III) Surgeon: Althea Mascorro MD Responsible Provider: Saskia Armstrong MD Anesthesia Type: general ASA Status: 2 All Anesthesia Providers: Anesthesiologist: Saskia Armstrong MD ICU RN: Annia Montelongo CRNA Vitals Value Taken Time BP Temp Pulse Resp SpO2 Pain Level Patient Location: PACU/[facility] Level of Consciousness: Awake and Alert Pain Management: Satisfactory Analgesia PONV: None Cardiovascular Status: At Baseline and Hemodynamically Stable Respiratory Status: At Baseline and Room Air Postoperative Fluid Status: Intravascular EUvolemia Possible Anesthetic Complications: NONE apparent at time of evaluation Final Primary Anesthesia Type: General (The anesthetic type performed was the same as planned.) Comments: Asking/answering questions, appropriate, while en route to recovery. VSS. Saskia Armstrong MD * Anesthesia Preprocedure Evaluation - Saskia Armstrong MD - 06/08/2019 3:17 PM EDT Images from the original note were not included. Pre-Anesthesia Evaluation for: Mary Ellen Avila a 64 y.o. female. Procedure(s): PELVIC EXAM UNDER ANESTHESIA (WRVU 1.75) COLPOSCOPY OF VAGINA WITH CERVIX IF PRESENT (WRVU 1.6) Patient Active Problem List Diagnosis ??? VAIN III (vaginal intraepithelial neoplasia [...] 1.6) [facility]?? PRO COLPOSCOPY, ENTIRE VAGINA, W/BIOPSY(S) N/A 09/20/2017 COLPOSCOPY OF VAGINA WITH CERVIX IF PRESENT, BIOPSY (WRVU 2.2) performed by Althea Mascorro MDat [facility] MAIN OR ??? PRO DESTRUCT, VAGINAL LESION(S), SIMPLE N/A 11/08/2017 DESTRUCTION OF VAGINAL LESION(S), SIMPLE W\W\O LASER (WRVU 1.3) performed by Althea Mascorro MD at [facility] MAIN OR ??? PRO PELVIC EXAMINATION W ANESTH N/A 09/20/2017 PELVIC EXAM UNDER ANESTHESIA (WRVU 1.75) performed by Althea Mascorro MD at [facility] MAIN OR Social History Tobacco Use ??? Smoking status: Former Smoker ??? Smokeless tobacco: Never Used Substance Use Topics ??? Alcohol use: No Social History Substance and Sexual Activity Drug Use No Allergies Allergen Reactions ??? Allergen Yne-Fnxgn-Aikdk Bee CIS - Anaphylaxis ??? Iodine And Iodide Containing Products CIS - Anaphylaxis ??? Penicillins CIS - Anaphylaxis ??? Tetracyclines CIS - Anaphylaxis ??? Venom-Wasp CIS - Anaphylaxis ??? Guesn-Uwdyg-Cwewa Hornet CIS - Anaphylaxis ??? Venom-Yellow Hornet CIS - Anaphylaxis ??? Venom-Yellow Jacket CIS - Anaphylaxis ??? Amoxicillin Trihydrate CIS - mild ??? Atorvastatin Calcium CIS - muscle nadeen ??? Glimepiride CIS - N/V/D ??? Metformin CIS - nausea & diarrhea Medications: MAR and/or home medications have been reviewed. Physical Exam: There were no vitals filed for this visit. There is no height or weight on file to calculate BMI. Airway Assessment: Mallampati: I TM distance: >3 FB Neck ROM: full Cardiovascular Assessment: Pulmonary Assessment: Dental Assessment: Misc Assessment: Anesthesia Plan: ASA 2 general, with a(n) intravenous induction 64 yo female with htn hld hypothyroid presents for EUA and colposcopy if indicated. Did well with LMA for similar procedure last year. Recent dental work. Plan GALMA with standard ASA monitors and adequate IV access. Region - Other Informed Consent: Anesthetic plan and risks discussed with patient and spouse. Plan discussed with attending and ICU RN. PAT Clinic Note documented in this encounter Plan of Treatment Upcoming Encounters Date Type Department Care Team (Late st Contact Info) Description 06/01/2024 4:00 PM EDT Office Visit Dermatology at [place] [address] [place] [phone] Anthony Uribe MD [address], [place] [address] documented as of this encounter Visit Diagnoses Not on filedocumented in this encounter Administered Medications Inactive Administered Medications - up to 3 most recent administrations Medication Order MAR Action Action Date Dose Rate Site dexamethasone (DECADRON) injection Intravenous, PRN, Starting on Sat06/09/19 at 0737, Until Sat06/09/19 at 0812, Anesthesia Intra-op, Routine Given 06/09/2019 7:37 AM EDT 8 mg ketorolac (TORADOL) injection PRN, Starting on Sat06/09/19 at 0759, Until Sat06/09/19 at 0812, Anesthesia Intra-op, Routine Given 06/09/2019 7:59 AM EDT 30 mg lidocaine (PF) (XYLOCAINE) 100 mg/5 mL (2 %) injection Intravenous, PRN, Starting on Sat06/09/19 at 0737, Until Sat06/09/19 at 0812, Anesthesia Intra-op, Routine Given 06/09/2019 7:37 AM EDT 100 mg ondansetron (ZOFRAN) injection Intravenous, PRN, Starting on Sat06/09/19 at 0751, Until Sat06/09/19 at 0812, Anesthesia Intra-op, Routine Given 06/09/2019 7:51 AM EDT 4 mg propofol (DIPRIVAN) 10 mg/mL bolus injection (Anesthesia) Intravenous, PRN, Starting on Sat06/09/19 at 0737, Until Sat06/09/19 at 0812, Anesthesia Intra-op Given 06/09/2019 7:37 AM EDT 200 mg propofol (DIPRIVAN) infusion Intravenous, CONTINUOUS PRN, Starting on Sat06/09/19 at 0743, Until Sat06/09/19 at 0812, Anesthesia Intra-op, Routine Rate/Dose Change 06/09/2019 7:53 AM EDT 100 mcg/kg/min 39.5 mL/hr Rate/Dose Change 06/09/2019 7:47 AM EDT 150 mcg/kg/min 59. 2 mL/hr New Bag 06/09/2019 7:43 AM EDT 50 mcg/kg/min 19.7 mL/hr documented in this encounter Care Teams Leave Coordinator Relationship Specialty Start Date End Date Jena Benavides, KAREN [address] [phone] PCP - General Family Medicine 03/20/19 06/29/19 documented as of this encounter
--- OUTSIDE RECORDS SUMMARY | 2024-05-01 01:54 | XMS_ITS | Encounter Summary ---
[facility] Organization [facility] [place] [address] Care Team Providers Care Stage Settings Painter Name Role Phone Jena Benavides KAREN Primary Care Provider Encounter Details Date Type Department Care Team (Late Contact Info) Description 06/01/2019 Telephone Obstetrics [place] [phone] Jaylin Stovall RN Social History Tobacco Use [...] Telephone Encounter - Jaylin Stovall RN - 06/01/2019 5:08 PM EDT Pre-op Education Call: Dietary instructions reviewed. Anticoagulation plan: Stop fish oil Need for further testing: NA Patient was told to expect a phone call on the day prior to surgery to review day of surgery medication instructions as well as surgical arrival time. All questions answered to patient satisfaction. Mary Ellen Avila states understanding of instructionsreviewed and is in agreement with plan. documented in this encounter Plan of Treatment Upcoming Encounters Date Type Department Care Team (Late st Contact Info) Description 06/01/2024 4:00 PM EDT Office Visit Dermatology at [place] [address] [place] [address] Anthony Uribe MD [address], [place] [address] documented as of this encounter Visit Diagnoses Not on filedocumented in this encounter Care Teams Stage Settings Painter Relationship Specialty Start Date End Date Jena Benavides APRN [address] [place] [address] [address] [place] [address] PCP - General Family Medicine 03/20/19 06/29/19 documented as of this encounter
--- OUTSIDE RECORDS SUMMARY | 2024-05-01 01:54 | XMS_ITS | Encounter Summary ---
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 Procedures PRO PELVIC EXAMINATION W ANESTH PRO COLPOSCOPY, ENTIRE VAGINA PELVIC EXAM UNDER ANESTHESIA (WRVU 1.75) COLPOSCOPY OF VAGINA WITH CERVIX IF PRESENT (WRVU 1.6) Referral ID Status Reason Start Date Expiration Date Visits Re quested Visits Authorized [id number] 1 1 Encounter Details Date Type Department Care Team (Latest Contact Info) Description 06/09/2019 6:15 AM EDT - 06/09/2019 9:28 AM EDT Hospital Encounter [place] [phone] Alex Gan MD [facility] [place] [address] Discharge Disposition: Home Social History Tobacco Use [...] Sign Reading Time Taken Comments Blood Pressure 139/54 06/09/2019 9:00 AM EDT Pulse 76 06/09/2019 8:12 AM EDT Temperature 36 ??C (96.8 ??F) 06/09/2019 8:12 AM EDT Respiratory Rate 16 06/09/2019 9:00 AM EDT Oxygen Saturation 96% 06/09/2019 9:00 AM EDT Inhaled Oxygen Concentration - - Weight 65.8 kg (145 lb) 06/09/2019 6:29 AM EDT Height 157.5 cm (5' 2) 06/09/2019 6:29 AM EDT Body Mass Index 26.52 06/09/2019 6:29 AM EDT documented in this encounter Discharge Instructions * Patient Instructions* Minerva Hodge MD - 06/09/2019 8:09 AM EDT Engineering Consultant/Oncology Patient Instructions Future Appointments Date Time Provider Department Center 07/10/2019 1:15 PM Alex Gan MD [facility] GLUE MOUNTER OPERATOR 3K [facility] When to Call It is normal to have a auxobu-ee-olvltxon amount of discharge after vaginal surgery. This can rangein color from yellow to blood tinged. On days of high activity, you may have bright red spotting. This is OK. What is NOT normal is heaving bleeding, or discharge with foul odor, especially if it is associated with increasing pain, redness, or fever. These symptoms should be reported immediately. Follow-up Our marketing secretary will call you to schedule a follow-up appointment. If you do not hear from us after 1week, please call our office during normal business hours. Contact Information Dr. Alex Gan Division of Gynecologic Oncology [place] [phone] documented in this encounter Medications at Time [...] Take 2 g by mouth nightly. [place] Fruit 450 mg Capsule Take 450 mg by mouth. 08/21/20172020 acetaminophen (TYLENOL) 500 mg Tablet Take 1,000 mg by mouth every 6 hours as needed for Pain. 08/10/2019 estrogens, conjugated, (PREMARIN) 0.625 mg/gram Cream Place 0.5 g vaginally daily. 42.5 g 12 05/29/2019 08/07/2019 [place] 500 mg Capsule Take 500 mg by [...] MD - 06/09/2019 6:48 AM EDT Inpatient OFFICE MESSENGER - Admission Interval Note I have reviewed [...] Gan MD - 06/09/2019 9:28 AM EDT [facility] Operative Note Patient Name: Mary Ellen Avila : [id number] MR#: [id number] Case Date: 06/09/2019 Surgeon: Surgeon(s) and Role: [...] SPECIMEN TO PATHOLOGY VAIN III Right vaginal Lovilia biopsy No 06/09/2019 7:56 AM Time specimen [...] noted above. Biopsies were obtained with a Chuger biopsy forcep. The biopsy sites were found [...] 4:00 PM EDT Office Visit Dermatology at [place] [address] [place] [address] Anthony Uribe MD [address], [place] [address] documented as of this encounter Procedures Procedure Name Priority Date/Time Associated Diagnosis Comments POCT GLUCOSE Routine 06/09/2019 8:44 AM EDT SURGICAL PATHOLOGY REPORT Routine 06/09/2019 7:56 AM EDT SPECIMEN TO PATHOLOGY Routine 06/09/2019 7:56 AM EDT SPECIMEN TO PATHOLOGY Routine 06/09/2019 7:56 AM EDT Colposcopy, Entire Vagina ([id number]) 06/09/2019 7:30 AM EDT VAIN III Pelvic Examination W Anesth ([id number]) 06/09/2019 7:30 AM EDT VAIN III POCT GLUCOSE Routine 06/09/2019 6:51 AM EDT documented in this encounter Results * POCT Glucose (06/09/2019 8:44 AM EDT) Glucose, POC 159 65 - 199 mg/dL [facility] Comment: Supplemental ranges: <140 mg/dL before meals <180 mg/dL all other times of the day Blood specimen (specimen) 06/09/2019 8:44 AM EDT 06/09/2019 8:44 AM EDT Alex Gan MD POINT OF CARE TEST ORDERABLES [facility] [place] [address] * Surgical Pathology Report (06/09/2019 7:56 AM EDT) Final Diagnosis [id number] ? Location: [facility]; [facility]; The signing pathologist has (i) examined the [...] Mandel DO Verified: ??06/12/2019 ?Pathologist Performed at: ??-[facility] Dept. of Pathology, [place], [place] DISCUSSION Deeper levels were examined. ADDITIONAL [...] labeled B1. ??sns 06/12/2019 8:40 AM EDT [facility] VAGINAL STRUCTURE / Unknown 06/09/2019 7:56 AM EDT 06/09/2019 7:56 AM EDT VAGINAL STRUCTURE / Unknown 06/09/2019 7:56 AM EDT 06/09/2019 7:56 AM EDT Alex Gan MD PATHOLOGY/CYTOLOGY ORDERABLES Performing Organization Address [facility] Co de Phone Number [facility] [place] [address] * Specimen to Pathology (06/09/2019 7:56 AM EDT) AP Specimen 06/09/2019 7:56 AM EDT 06/09/2019 7:56 AM EDT Narrative [facility] - 06/09/2019 7:56 AM EDT Specimen requisition ordered. ??Separate Pathology report to follow Alex Gan MD PATHOLOGY/CYTOLOGY ORDERABLES Performing Organization Address [facility]/ZIP Co de Phone Number [facility] [place] [address] * Specimen to Pathology (06/09/2019 7:56 AM EDT) AP Specimen 06/09/2019 7:56 AM EDT 06/09/2019 7:56 AM EDT Narrative [facility] - 06/09/2019 7:56 AM EDT Specimen requisition ordered. ??Separate Pathology report to follow Alex Gan MD PATHOLOGY/CYTOLOGY ORDERABLES Performing Organization Address City/[facility]/ZIP Co de Phone Number [facility] [place] [address] * POCT Glucose (06/09/2019 6:51 AM EDT) Glucose, POC 144 65 - 199 mg/dL [facility] Comment: Supplemental ranges: <140 mg/dL before meals <180 mg/dL all other times of the day Blood specimen (specimen) 06/09/2019 6:51 AM EDT 06/09/2019 6:51 AM EDT Alex Gan MD POINT OF CARE TEST ORDERABLES Performing Organization Address City/[facility]/ZIP Co de Phone Number [facility] [place] [address] documented in this encounter Visit Diagnoses Not [...] at 100 mL/hr, Intravenous, CONTINUOUS, Starting on 06/09/19 at 0645, Until Sat06/09/19 at 0901, Day of Surgery (Day of Procedure) 0725 (New Bag - Prov ider: Winifred Cunningham, RN)0751 (Anesthesia Volume Adjustment - Provider: Annia Newman CRNA) documented in this encounter Care Teams Presiding Steward Relationship Specialty Start Date End Date Jena Benavides APRN [address] [phone] PCP - General Family Medicine 03/20/19 06/29/19 documented as of this encounter
--- OUTSIDE RECORDS SUMMARY | 2024-05-01 01:54 | XMS_ITS | Encounter Summary ---
Author Organization [facility] Address [facility] [place] [address] Care Team Providers Care Health Services Manager Name Role Phone Chip Harris Primary Care Provider Encounter Details Date Type Department Care Team (Late st Contact Info) Description 04/03/2023 4:40 PM EDT Ext Surgery or Single Event Cardiology at [address] [place] [phone] Jean Dickinson MD [facility] [place] [address] Palpitations Social History Tobacco Use Types Packs/Day Years Used Date Smoking Tobacco: Former Smokeless Tobacco: Never Alcohol Use Standard Drinks/Week Comments No 0 (1 standard drink = 0.6 oz pur e alcohol) Sex and Gender Information Value Date Recorded Sex Assigned at Not on file Gender Identity Not on file Sexual Orientation Not on file documented as of this encounter Progress Notes * Jean Dickinson MD - 04/03/2023 4:40 PM EDT Event Monitor Summary Start Date: 02/28/23 Indication: Palpitations Referring Provider: Diomedes Baseline: ROSEMARYR 74 Events: - Auto-Triggered events: none - Symptom-Triggered events: 103 - 1 episode was during an isolated PVC - Remainder 102 episodes were during sinus rhythm without nearby ectopy/arrhythmia Conclusion: Causation of reported symptoms not apparent on this study. Electronically Signed: Jean Dickinson MD, 04/03/2023 12:43 PM documented in this encounter Plan of Treatment Upcoming Encounters Date Type Department Care Team (Late st Contact Info) Description 06/01/2024 4:00 PM EDT Office Visit Dermatology at [place] [address] [place] [address] Anthony Uribe MD [address], [place] [address] documented as of this encounter Visit Diagnoses Diagnosis Palpitations documented in this encounter Care Teams Health Services Manager Relationship Specialty Start Date End Date Chpi Harris PA PCP - General Family Medicine 07/09/19 documented as of this encounter
--- OUTSIDE RECORDS SUMMARY | 2024-05-01 01:54 | XMS_ITS | Encounter Summary ---
Author Organization Formerly [facility] [place] [address] Care Team Providers Care Special Procedures Nurse Name Role Phone Chip Harris Primary Care [...] Expiration Date Visits Re quested Visits Authorized [id number] 1 1 Encounter Details Date Type Department Care Team (Late st Contact Info) Description 08/10/2019 1:34 PM EST - 08/10/2019 3:32 PM EST [place] [address] Alex Gan MD [facility] [address] COLPOSCOPY OF VAGINA WITH CERVIX IF PRESENT (WRVU 1.6) Social History Tobacco Use Types Packs/Day Years [...] Sign Reading Time Taken Comments Blood Pressure 139/58 08/10/2019 1:56 PM EST Pulse 60 08/10/2019 1:56 PM EST Temperature 36.7 ??C (98.1 ??F) 08/10/2019 1:56 PM ES T Respiratory Rate 18 08/10/2019 1:56 PM EST Oxygen Saturation 98% 08/10/2019 1:56 PM EST Inhaled Oxygen Concentration - - Weight 67.1 kg (148 lb) 08/10/2019 1:56 PM EST Height 158.8 cm (5' 2.5) 08/10/2019 1:56 PM EST Body Mass Index 26.64 08/10/2019 1:56 PM EST documented in this encounter Discharge Instructions * Patient Instructions* Yaa Peck - 08/10/2019 4:05 PM EST Joint Filler Surgery Patient Instructions Activity Restrictions and Hygeine Avoid vigorous exercise for 2 weeks. It is normal to have brown, black or redish discharge. If you have heavy vaginal bleeding, call. When to Call It is normal to have a fofngd-za-zlfhyckf amount of discharge. This can range in color from yellow to blood tinged. On days of high activity, you may have bright red spotting. This is OK. What is NOTnormal is heaving bleeding, or discharge with foul odor, especially if it is associated with increasing pain, redness, or fever. These symptoms should be reported immediately. Contact Information Dr. Summers-Kyaw Division of Gynecologic Oncology [place] [phone] documented in this encounter Medications at Time [...] Take 2 g by mouth nightly. Saw Leslie Fruit 450 mg Capsule Take 450 mg [...] for Visit: 64 y.o. Female presents to [facility] for scheduled surgery History of Present Illness: [...] 1.6) performed by Alex Pa MD at [facility] OR ??? PRO COLPOSCOPY, ENTIRE VAGINA N/A 06/09/2019 COLPOSCOPY OF VAGINA WITH CERVIX IF PRESENT (WRVU 1.6) [facility] ??? PRO COLPOSCOPY, ENTIRE VAGINA, W/BIOPSY(S) N/A 09/20/2017 COLPOSCOPY OF VAGINA WITH CERVIX IF PRESENT, BIOPSY (WRVU 2.2) performed by Alex Gan MDat [facility] OR ??? PRO DESTRUCT, VAGINAL LESION(S), SIMPLE N/A 11/08/2017 DESTRUCTION OF VAGINAL LESION(S), SIMPLE W\W\O LASER (WRVU 1.3) performed by Alex Gan MD at [facility] OR ??? PRO PELVIC EXAMINATION W ANESTH N/A 09/20/2017 PELVIC EXAM UNDER ANESTHESIA (WRVU 1.75) performed by Alex Gan MD at [facility] OR ??? PRO PELVIC EXAMINATION W ANESTH N/A 06/09/2019 PELVIC EXAM UNDER ANESTHESIA (WRVU 1.75) performed by Alex Gan MD at [facility] OR Past Obstetric History: OB History [...] time Allergies: Allergies Allergen Reactions ??? Allergen Vlz-Gorwm-Ezkik Bee CIS - Anaphylaxis ??? Iodine And Iodide Containing Products CIS - Anaphylaxis ??? Penicillins CIS - Anaphylaxis ??? Tetracyclines CIS - Anaphylaxis ??? Venom-Wasp CIS - Anaphylaxis ??? Wpltz-Gigsx-Exrmm Hornet CIS - Anaphylaxis ??? Venom-Yellow Hornet [...] file Gets together: Not on file Attends amish service: Not on file Active member of [...] lesions, CO2 laser of the vagina. Dr Gan counseled the patient about the risks including bleeding, infection, injury to surrounding structures. All questions were answered and she signed a consent form. Yaa Peck MD PGY4 08/10/2019 Associated attestation - Alex Gan MD - 08/10/2019 2:57 PM EST Into see patient prior to her surgery. We reviewed the planned procedure. Consents complete and in her chart. Questions answered. documented in this encounter Miscellaneous Notes * Op Note - Alex Gan MD - 08/10/2019 4:47 PM EST [facility] Operative Note Patient Name: Mary Ellen Avila : [id number] MR#: [id number] Case Date: 08/10/2019 Surgeon: Surgeon(s) and Role: * Alex Gan MD - Primary * Yaa Peck MD [...] was awake in the operating room. Sponge [place] counts were correct x2. Infection Bundle used? N/A Attestation: Case Date: 08/10/2019 I was present and I participated during the entire procedure (does not need to include opening and closing). ALEX GAN MD 08/10/2019 documented in this encounter Plan of Treatment Upcoming Encounters Date Type Department Care Team (Late st Contact Info) Description 06/01/2024 4:00 PM EDT Office Visit Dermatology at [place] [address] [place] [address] Anthony Uribe MD [address], [place] [address] documented as of this encounter Procedures Procedure Name Priority Date/Time Associated Diagnosis Comments POCT GLUCOSE Routine 08/10/2019 4:34 PM EST SPECIMEN TO PATHOLOGY Routine 08/10/2019 3:45 PM EST SURGICAL PATHOLOGY REPORT Routine 08/10/2019 3:39 PM EST MODIFIER LASER,CO2 08/10/2019 3: 04 PM EST VAIN III Destruct, Vaginal Lesion(S), Simple ([id number]) 08/10/2019 3:04 PM EST VAIN III Excision Vaginal Cyst Or Tumor ([id number]) 08/10/2019 3:04 PM EST VAIN III Colposcopy, Entire Vagina ([id number]) 08/10/2019 3:04 PM EST VAIN III POCT GLUCOSE Routine 08/10/2019 2:05 PM EST documented in this encounter Results * POCT Glucose (08/10/2019 4:34 PM EST) Glucose, POC 102 65 - 199 mg/dL [facility] Comment: Supplemental ranges: <140 mg/dL before meals <180 mg/dL all other times of the day Blood specimen (specimen) 08/10/2019 4:34 PM EST 08/10/2019 4:34 PM EST Alex Gan MD POINT OF CARE TEST ORDERABLES Performing Organization Address [facility]/ZIP Co de Phone Number [facility] [place] [address] * Specimen to Pathology (08/10/2019 3:45 PM EST) AP Specimen 08/10/2019 3:45 PM EST 08/10/2019 3:45 PM EST Narrative [facility] - 08/10/2019 3:45 PM EST Specimen requisition ordered. ??Separate Pathology report to follow Alex Gan MD PATHOLOGY/CYTOLOGY ORDERABLES Performing Organization Address City/[facility]/ZIP Co de Phone Number [facility] [place] [address] * Surgical Pathology Report (08/10/2019 3:39 PM EST) Final Diagnosis [id number] ? Location: [facility]; A The signing pathologist has (i) examined the relevant preparation(s) for the specimen(s) and (ii) rendered or confirmed the diagnosis(es). . 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 of Pathology, [place], [place] CLINICAL INFORMATION Specimen Submitted: A - [...] labeled A1. rh 08/13/2019 4:16 PM EST [facility] VAGINAL STRUCTURE / Unknown 08/10/2019 3:39 PM EST 08/10/2019 3:39 PM EST Alex Gan MD PATHOLOGY/CYTOLOGY ORDERABLES [facility] [place] [address] * POCT Glucose (08/10/2019 2:05 PM EST) Glucose, POC 126 65 - 199 mg/dL [facility] Comment: Supplemental ranges: <140 mg/dL before meals <180 mg/dL all other times of the day Blood specimen (specimen) 08/10/2019 2:05 PM EST 08/10/2019 2:05 PM EST Alex Gan MD POINT OF CARE TEST ORDERABLES [facility] [place] [address] documented in this encounter Visit Diagnoses Not on filedocumented in this encounter Administered Medications Inactive Administered Medications - up to 3 most recent administrations Medication Order MAR Action Action Date Dose Rate Site acetaminophen (Tylenol) tablet 650 mg 650 mg, Oral, ONCE, 1 dose, On 08/10/19 at 1430, Day of Surgery (Day of Procedure), Routine Given 08/10/2019 2:30 PM EST 650 mg BUpivacaine-EPINEPHr ine 0.5 %-1:200,000 injection ONCE PRN, Starting on Sat08/10/19 at 1545, Until Sat08/10/19 at 1920, Intra-Operative (Intra-Procedure), Routine Given 08/10/2019 3:45 PM EST 10 mLs 19- Surgical Site lactated ringers infusion 1,000 mL, at 100 mL/hr, Intravenous, CONTINUOUS, Starting on Sat08/10/19 at 1430, Until Sat08/10/19 at 1701, Day of Surgery (Day of Procedure) New Bag 08/10/2019 2:30 PM EST 1,000 mLs 100 mL/hr strong iodine (Lugols) 5% oral liquid ONCE PRN, Starting on Sat08/10/19 at 1536, Until Sat08/10/19 at 1920, Intra-Operative (Intra-Procedure), Routine Given 08/10/2019 3:36 PM EST 1 mL 19- Surgical Site documented in this encounter Active and Recently [...] (Intra-Procedure), Routine 1545 (Given - Provid er: Alex Gan MD) oxyCODONE (Roxicodone) tablet 5-10 mg 5-10 [...] Routine 1536 (Given - Provid er: Alex Gan MD - Comment: applied during colposcopy) documented in this encounter Care Teams Special Procedures Nurse Relationship Specialty Start Date End Date Chip Harris PA PCP - General Family Medicine 07/09/19 documented as of this encounter
--- OUTSIDE RECORDS SUMMARY | 2024-05-01 01:54 | XMS_ITS | Encounter Summary ---
Author Organization [facility] [place] [address] Care Team Providers Care Center Medical Specialist Name Role Phone Chip Harris Primary Care Provider Encounter Details Date Type Department Care Team (Late st Contact Info) Description 07/13/2019 12:54 PM EST Anesthesia Event [place] [address] Marty Murray MD [facility] [place] [address] Keith Brumfield CRNA [facility] [place] [address] Anesthesia Record Procedure Summary Procedure Name Responsible Anesthesiologist Anesthesia Start Time Anesthesia Stop Time COLPOSCOPY OF VAGINA WITH CERVIX IF PRESENT (WRVU 1.6) Events No events on file. Meds * Agents No agents on file. * Blood No blood administrations on file. Lines, Drains, and Airways No LDAs on file. documented in this encounter Social History Tobacco [...] of this encounter OR Notes * Anesthesia Preprocedure Evaluation - Marty Murray MD - 07/12/2019 8:19 PM EST Pre-Anesthesia Evaluation for: Mary Ellen [...] 1.6) performed by Althea Pa MD at [facility] OR ??? PRO COLPOSCOPY, ENTIRE VAGINA N/A 06/09/2019 COLPOSCOPY OF VAGINA WITH CERVIX IF PRESENT (WRVU 1.6) performed by [facility] ??? PRO COLPOSCOPY, ENTIRE VAGINA, W/BIOPSY(S) N/A 09/20/2017 COLPOSCOPY OF VAGINA WITH CERVIX IF PRESENT, BIOPSY (WRVU 2.2) performed by Althea Mascorro, MDat [facility] OR ??? PRO DESTRUCT, VAGINAL LESION(S), SIMPLE N/A 11/08/2017 DESTRUCTION OF VAGINAL LESION(S), SIMPLE W\W\O LASER (WRVU 1.3) performed by Althea Mascorro MD at [facility] MA[facility] OR ??? PRO PELVIC EXAMINATION W ANESTH N/A 09/20/2017 PELVIC EXAM UNDER ANESTHESIA (WRVU 1.75) performed by Althea Mascorro MD at [facility] OR ??? PRO PELVIC EXAMINATION W ANESTH N/A 06/09/2019 PELVIC EXAM UNDER ANESTHESIA (WRVU 1.75) performed by Althea Mascorro MD at [facility] MA[facility] OR Social History Tobacco Use ??? Smoking status: Former Smoker ??? Smokeless tobacco: Never Used Substance Use Topics ??? Alcohol use: No Social History Substance and Sexual Activity Drug Use No Allergies Allergen Reactions ??? Allergen Lie-Kbkcd-Xanwe Bee CIS - Anaphylaxis ??? Iodine And Iodide Containing Products CIS - Anaphylaxis ??? Penicillins CIS - Anaphylaxis ??? Tetracyclines CIS - Anaphylaxis ??? Venom-Wasp CIS - Anaphylaxis ??? Wlsjx-Tpnkm-Bdxhs Hornet CIS - Anaphylaxis ??? Venom-Yellow Hornet [...] or weight on file to calculate BMI. Anesthesia Physical Exam Anesthesia Plan: ASA 2 general, with a(n) intravenous induction 64 yo female, 67kg, for colposcopy/laser desctruction of lesions PMH: htn (KAREN-I, CCB), hld (statin), hypothyroid (synthroid) Did well with LMA for similar procedure last month. Plan: general Region - Other Informed Consent: PAT Clinic Note documented in this encounter Plan of Treatment Upcoming Encounters Date Type Department Care Team (Late st Contact Info) Description 06/01/2024 4:00 PM EDT Office Visit Dermatology at [place] [address] [place] [address] Anthony Uribe MD [address], [place] [address] documented as of this encounter Visit Diagnoses Not on filedocumented in this encounter Care Teams Center Medical Specialist Relationship Specialty Start Date End Date Cihp Harris PA PCP - General Family Medicine 07/09/19 documented as of this encounter
--- OUTSIDE RECORDS SUMMARY | 2024-05-01 01:54 | XMS_ITS | Encounter Summary ---
Author Organization Formerly [facility] [place] [address] Care Team Providers Care Jewel Waxer Name Role Phone Jena Benavides KAREN Primary Care Provider Reason for Visit * Reason Comments Follow-up Colposcopy Encounter Details Date Type Department Care Team (Latest Contact Info) Description 05/29/2019 11:45 AM EDT Procedure visit [place] [address] Althea Mascorro MD [facility] [place] [address] Abnormal cervical Papanicolaou smear, unspecified abnormal pap finding Social History Tobacco Use Types Packs/Day Years [...] Sign Reading Time Taken Comments Blood Pressure 140/65 05/29/2019 11:50 AM EDT Pulse 71 05/29/2019 11:50 AM EDT Temperature 36.5 ??C (97.7 ??F) 05/29/2019 11:50 AM E DT Respiratory Rate 16 05/29/2019 11:50 AM EDT Oxygen Saturation 97% 05/29/2019 11:50 AM EDT Inhaled Oxygen Concentration - - Weight 68 kg (149 lb 14.6 oz) 05/29/2019 11:50 A M EDT Height 160 cm (5' 2.99) 05/29/2019 11:50 AM EDT Body Mass Index 26.56 05/29/2019 11:50 AM EDT documented in this encounter Progress Notes * Althea Mascorro MD - 05/29/2019 11:45 AM EDT Division [place] [address] Follow up Visit: Patient Active Problem List [...] bleeding, nausea, vomiting or diarrhea. She had afollow up pap smear that showed HSIL 03/2019. She is unable to tolerate exams in the office. She feels her vaginal/vulvar discomfort is worsening in general. She is unable to have intercourse due to discomfort and dryness. Objective: Vitals: 05/29/19 1150 BP: 140/65 Pulse: 71 Resp: 16 Temp: 36.5 ??C (97.7 ??F) TempSrc: Temporal SpO2: 97% Weight: 68 kg (149 lb 14.6 oz) Height: 160 cm (5' 2.99) Body mass index is 26.56 kg/m??. Body surface area is 1.74 meters squared. Physical Exam Constitutional: She appears [...] She has no rales. Genitourinary: Genitourinary Comments: Declined Musculoskeletal: Normal range of motion. She exhibits no edema or tenderness. Neurological: She is alert. Coordination normal. Skin: Skin is warm and dry. No rash noted. She is not diaphoretic. Psychiatric: She has a normal mood and affect. Her behavior is normal. Assessment and Plan: Mary Ellen Avila is a 64 y.o. with hx of VAIN II-III now with HISL pap. Unable to tolerate office exam. I recommended she undergo a colposcopy in the OR. We discucssed that she will likely need a second ablative procedure if VAIN is again discovered. In addition I recommended she try vaginal estrogento improve vaginal symptoms possibly enough to re-engage in intercourse. Rx premarin cream. Instructed to apply daily X 2 weeks and then taper to lowest effective dose. Will schedule for colpo in theOR with biopsies. documented in this encounter Plan of Treatment Upcoming Encounters Date Type Department Care Team (Late st Contact Info) Description 06/01/2024 4:00 PM EDT Office Visit Dermatology at [place] [address] [facility] [place] [address] Anthony Uribe MD [address] [facility], [place] [address] documented as of this encounter Visit Diagnoses Diagnosis Abnormal cervical Papanicolaou smear, unspecified abnormal pap finding documented in this encounter Care Teams Jewel Waxer Relationship Specialty Start Date End Date Jena Benavides APRN [address] [place] [address] [address] [place] [address] PCP - General Family Medicine 03/20/19 06/29/19 documented as of this encounter
--- OUTSIDE RECORDS SUMMARY | 2024-05-01 01:55 | XMS_ITS | Encounter Summary ---
Author Organization [place] [address] Care Team Providers Care Learning Support Teacher Name Role Phone Amy Kaur MD Primary Care Provider [phone] Reason for Visit * Reason Comments Skin Check Encounter Details Date Type Department Care Team (Late st Contact Info) Description 05/24/2014 4:15 PM EDT Office Visit Dermatology at [address] [place] [address] Anthony Uribe MD [address] [place] [address], [place] [address] Acrlukasordon (Primary Dx); Psoriasis Discharge Disposition: Home Social History Tobacco Use Types Packs/Day Years Used Date Smoking Tobacco: Unknown Sex and Gender Information Value Date Recorded Sex Assigned at Not on file Gender Identity Not on file Sexual Orientation Not on file documented as of this encounter Patient Instructions * Patient Instructions* Marlin Bynum LPN - 05/24/2014 4:45 PM EDT Images from the original note were not included. [facility] Skin Tag Removal: After Your Visit Your Care Instructions Skin tags are small lumps of fleshy brown, meek, or pink skin. They are usually raised or hang from the skin on a small stalk. They often grow on the eyelids, neck, armpit, and groin. Skin tags are not moles and usually do not turn into cancer. You are more likely to get skin tags if you are overweight. They also tend to run in families. Skin tags may be removed if they bother you. Your doctor can remove an unwanted skin tag by simply cutting it off. However, new skin tags often form. Follow-up care is a bourgeois part of your treatment and safety. Be sure to make and go to all appointments, and call your doctor if you are having problems. It's also a good idea to know your test resultsand keep a list of the medicines you take. How can you care for yourself at home? ?? If clothing irritates a skin tag, cover it with a bandage to prevent rubbing and bleeding. ?? If you have a skin tag removed, clean the area with soap and water two times a day unless your doctor gives you different instructions. Don't use hydrogen peroxide or alcohol, which can slow healing. ?? You may cover the wound with a thin layer of petroleum jelly, such as Vaseline, and a nonstick bandage. ?? Check all the skin on your body once a month for skin growths or other changes, such as color and feel of the skin. ?? welt insole channeler front of a full-length mirror. Look carefully at the front and back of your body. Then look at your right and left sides with your arms raised. ?? Bend your elbows and look carefully at your forearms, the back of your upper arms, and your palms. ?? Look at your feet, the soles of your feet, and the spaces between your toes. ?? Use a hand mirror to look at the back of your legs, the back of your neck, and your back, rear end (buttocks), and genital area. Part the hair on your head to look at your scalp. ?? If you see a change in a skin growth, contact your doctor. Look for: ?? A mole that bleeds. ?? A fast-growing mole. ?? A scaly or crusted growth on the skin. ?? A sore that will not heal. When should you call for help? Call your doctor now or seek immediate medical care if: ?? You have a bump that itches and bleeds. ?? You have an area of normal skin that suddenly changes in shape, size, or how it looks. ?? You have signs of infection such as: ?? Pain, warmth, or swelling in your skin. ?? Red streaks near a wound in your skin. ?? Pus coming from a wound in your skin. ?? A fever not due to the flu or other illness. Watch closely for changes in your health, and be sure to contact your doctor if: ?? You do not get better as expected. Where can you learn more? Visit our health information library at [email or web address] You can also view health information on [employer], your personal patient account. Log in or sign up today. Enter B457 in the search box to learn more about Skin Tag Removal: After Your Visit. ?? [phone] [employer]. Care instructions adapted under license by [facility]. This care instruction is for use with your licensed healthcare professional. If you have questions about a medical condition or this instruction, always ask your healthcare professional. [employer] disclaims any warranty or liability for your use of this information. Content Version: 9.9.777295; Last Revised: October 14, 2012 documented in this encounter Progress Notes * Anthony Uribe MD - 05/24/2014 5:26 PM EDT Problems: 1. Followup psoriasis. 2. Tags. 3. History of palmar-plantar pustular psoriasis with chronic plaques, now primarily with just elbow and knee involvement, controlled with her home narrow-band UVB unit. 4. History of successful acitretin use, currently not taking this. 5. Status post unsuccessful course of Enbrel, March 2004 through October 2004. Mary Ellen follows up and has about 30 tags she would like to have removed from the base of her neck. 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 She is enjoying correction and has recently lost weight to get ahead of her diabetes, which was a new problem for her. Her psoriasis is beginning to flare a little bit on the elbows and knees, and she is going to be restarting shortly again her narrow-band UVB. I last saw Mary Ellen in October 2009. Physical examination confirms about 30 tags present around the base of her neck anteriorly and laterally, as well as one tag posteriorly. She has thin patch plaque psoriasis starting up again on the elbows and knees. Assessment and Plan: 1. Tags. a. After obtaining informed patient consent, the sites were anesthetized and electrodesiccated. b. The indication for removal of her skin tags is that they were often rubbed and irritated and would bleed. They would get caught in her hair and any chains that she would wear. 2. Psoriasis. a. Resume narrow-band UVB. b. I recommended that she switch from her betamethasone, which she has used thrice weekly all summer long, to clobetasol cream and apply this b.i.d. on weekends only; 30 grams dispensed with three refills. I think she is developing tachyphylaxis to the betamethasone. c. Resume Dovonex cream, applying this on a b.i.d. basis during the week; 60 grams dispensed with three refills. d. I recommended return to clinic p.r.n. Note: The patient is unable to take/tolerate chlorthalidone per Dr. Villeda to prevent renal stones. She has had a total of seven of these to date. Currently she states her ultrasound is clear, and no alternative medical therapy is planned for the moment. COPY: Amy Kaur M.D. documented in this encounter Plan of Treatment Upcoming Encounters Date Type Department Care Team (Late st Contact Info) Description 06/01/2024 4:00 PM EDT Office Visit Dermatology at [place] [address] [place] [id number] Anthony Uribe MD [address] [facility], [place] [address] documented as of this encounter Visit Diagnoses Diagnosis Acrochordon- Primary Unspecified hypertrophic and atrophic condition of skin Psoriasis Other psoriasis documented in this encounter Care Teams Learning Support Teacher Relationship Specialty Start Date End Date Amy Kaur MD [address] [place] [address] PCP - General 07/25/10 07/02/17 documented as of this encounter
--- OUTSIDE RECORDS SUMMARY | 2024-05-01 01:55 | XMS_ITS | Clinical Summary ---
Author Organization [facility] Address [address] [place] [address] Care Team Providers Care Automotive Parts Counter Associate Name Role Phone Sophia Hercules Primary Care Provider [phone] Encounters Date Type Department Care Team Description 03/03/2024 Lab Requisition [facility] Pathology & Laboratory Medicine - [facility] [address] [place] [address] Outr Resulting Lab, Provider from Last 3 Months Social History Tobacco Use Types Packs/Day Years Used Date Smoking Tobacco: Never Assessed Sex and Gender Information Value Date Recorded Sex Assigned at Not on file Gender Identity Female 01/29/2023 10:56 EDT Sexual Orientation Not on file Plan of Treatment Health Maintenance Due Date Last Done Comments Hepatitis C Screen 1955 RSV Immunization ( o r 60+ Years) (1 - 1-dose 60+ series) 2013 Fall Risk Screening 2018 COVID-19 Vaccine ( season) 2023 Procedures Procedure Name Priority Date/Time Associated Diagnosis Comments LYME AB Routine 03/03/2024 15:15 EDT RHEUMATOID FACTOR Routine 03/03/2024 15: 15 EDT ANTI NUCLEAR AB (TIFFANIE), IFA Routine 03/03/2024 15:15 EDT CCP ANTIBODIES Routine 03/03/2024 15:15 EDT from Last 3 Months Results * CCP ANTIBODIES (03/03/2024 15:15 EDT) Pathologist [facility] CCP Antibodies <2.5 <5.0 U/mL 03/04/2024 9:35 EDT [facility] Blood VENOUS BLOOD / Unknown 03/03/2024 15:15 EDT 03/03/2024 21:56 EDT Provider Outr Resulting Lab IMMUNOLOGY A ND SEROLOGY ORDERABLES Performing Organization Address City/[facility]/ZIP Co de Phone Number [facility] [address] [place] [address] * LYME AB (03/03/2024 15:15 EDT) [facility] Lyme Ab Negative Negative 03/04/2024 10:40 EDT [facility] Blood VENOUS BLOOD / Unknown 03/03/2024 15:15 EDT 03/03/2024 21:56 EDT Provider Outr Resulting Lab IMMUNOLOGY A ND SEROLOGY ORDERABLES Performing Organization Address [facility] Co de Phone Number [facility] [address] [place] [address] * RHEUMATOID FACTOR (03/03/2024 15:15 EDT) [facility] Rheumatoid Factor <8.6 <12.0 IU/mL 03/03/2024 22:19 EDT [facility] Blood VENOUS BLOOD / Unknown 03/03/2024 15:15 EDT 03/03/2024 21:56 EDT Provider Outr Resulting Lab CHEMISTRY & BLOOD GAS ORDERABLES Performing Organization Address [facility] Co de Phone Number [facility] [address] [place] [address] * ANTI NUCLEAR AB (TIFFANIE), IFA (03/03/2024 15:15 EDT) [facility] TIFFANIE Interpretation Negative Negative 2023 14:26 EDT [facility] Comment:No titer performed, TIFFANIE Screen is negative. Blood VENOUS BLOOD / Unknown 03/03/2024 15:15 EDT 03/03/2024 21:56 EDT Narrative [facility] - 03/04/2024 14:26 EDT Results were obtained with the CHEQROOM NOVA Lite HEp-2 TIFFANIE Kit by indirect immunofluorescence. Provider Outr Resulting Lab IMMUNOLOGY A ND SEROLOGY ORDERABLES [facility] [address], [place] [address] from Last 3 Months Care Teams Automotive Parts Counter Associate Relationship Specialty Start Date End Date Diomedes Tyra [address] [place] [address] PCP - General 01/29/23
--- OUTSIDE RECORDS SUMMARY | 2024-05-01 01:55 | XMS_ITS | Encounter Summary ---
Author Organization [facility] Address [address] [place] [address] Care Team Providers Care Audiovisual Tech Name Role Phone Sophia Hercules Primary Care Provider [phone] Encounter Details Date Type Department Care Team (Late st Contact Info) Description 03/01/2023 Lab Requisition [facility] Pathology & Laboratory Medicine - [address] [address] Outr Resulting Lab, Provider Social History Tobacco Use Types Packs/Day Years Used Date Smoking Tobacco: Never Assessed Sex and Gender Information Value Date Recorded Sex Assigned at Not on file Gender Identity Female 01/29/2023 10:56 EDT Sexual Orientation Not on file documented as of this encounter Plan of Treatment Not on file documented as of this encounter Procedures Procedure Name Priority Date/Time Associated Diagnosis Comments ANTI NUCLEAR AB (TIFFANIE), IFA Routine 03/01/2023 13:08 EDT documented in this encounter Results * ANTI NUCLEAR AB (TIFFANIE), IFA (03/01/2023 13:08 EDT) TIFFANIE Interpretation Negative Negative 2022 12:37 EDT [facility] Comment:No titer performed, TIFFANIE Screen is negative. Blood VENOUS BLOOD / Unknown 03/01/2023 13:08 EDT 03/01/2023 21:32 EDT Narrative [facility] - 03/04/2023 12:37 EDT Results were obtained with the INOVA NOVA Lite HEp-2 TIFFANIE Kit by indirect immunofluorescence. Provider Outr Resulting Lab IMMUNOLOGY A ND SEROLOGY ORDERABLES [facility] [address] [place] [address] documented in this encounter Visit Diagnoses Not on filedocumented in this encounter Care Teams Audiovisual Tech Relationship Specialty Start Date End Date Sophia Hercules [address] [place] [address] PCP - General 01/29/23 documented as of this encounter
--- OUTSIDE RECORDS SUMMARY | 2024-05-01 01:55 | XMS_ITS | Encounter Summary ---
Author Organization [facility] Address [address] [place] [address] Care Team Providers Care Medical Device Name Role Phone Amy Conklin MD Primary Care Provider [phone] Encounter Details Date Type Department Care Team (Late st Contact Info) Description 12/02/2013 Results Only [facility] Laboratory Services - [facility] ([facility]) [address] [place], [place] [id number] Yolanda Blank MD [address] [place] [address] [place] [address] Social History Tobacco Use Types Packs/Day Years Used Date Smoking Tobacco: Never Assessed Sex and Gender Information Value Date Recorded Sex Assigned at Not on file Gender Identity Female 01/29/2023 10:56 EDT Sexual Orientation Not on file documented as of this encounter Plan of Treatment Not on file documented as of this encounter Procedures Procedure Name Priority Date/Time Associated Diagnosis Comments PAP TEST- RESULT ONLY Routine 12/02/2013 0:00 EDT documented in this encounter Results * PAP TEST- RESULT ONLY (12/02/2013 0:00 EDT) Pathology Report: CYTOPATHOLOGY REPORT Reports generated via electronic interface contain original data; however they are lacking the format of the original report. Caution should be taken when reading/interpreti ng unformatted reports. Name: ? ELIAZAR AVILA ? Accession #: ? [id number] ? : ? 1955 (Age: 58) ??F ?Collect Date: ? 12/02/2013 ? Location: ? [facility] ? Receive Date: ? 12/03/2013 ? Provider: YOLANDA BLANK MD Copy to: AMY CONKLIN MD ? Final Report SPECIMEN ADEQUACY ? Satisfactory for Evaluation - assessment of transformation zone component not applicable ( e.g. atrophy, vaginal sample, hysterectomy) GENERAL CATEGORIZATION ? Epithelial Cell Abnormality INTERPRETATION ? Squamous Cell Abnormality - Atypical squamous cells, undetermined significance (ASC-US). EDUCATIONAL NOTES/RECOMMENDATI ONS ? [facility] recommends following ASCCP's 2012 Updated Consensus Guidelines for the Management of Abnormal Cervical Cancer Screening Tests and Cancer Precursors (JLGTD, 2013; 17(5):S1-S27). ??Consensus guidelines are available online at www.asccp.org. Previous Gynecologic Pathology: Yes: ASC-H 10/14/12 Treatment History: Hysterectomy: 10/25/11 Specimen/Source: ??Pap Test, Vagina, ThinPrep Imaging System with manual evaluation Document reviewed and electronically signed by: ? ROSHAN NAIR MD [facility] ? Report ??Date: 12/09/2013 13:34 HPV with Pap Test ? Date Ordered: ? 12/09/2013 ? Status: ?? Signed Out ?Date Complete: ? 12/11/2013 ? By: ??System Interface ? Date Reported: ? 12/11/2013 ? Interpretation RESULT: Positive for high or intermediate risk HPV. E6 OR E7 mRNA from one or more types of HPV types 16,18,31, 33,35,39,45,51,52, 56,58,59,66, and 68 is detected by supervisor joiners mediated amplification. High and intermediate risk HPV types are associated with most squamous intraepithelial lesions and cervical cancers. Test not validated for this type of specimen or collection method. The sensitivity and specificity of the test in this situation are unknown. The results should be interpreted with caution. Comments Document reviewed and electronically signed by: ? System Interface ? Report date: 12/11/2013 By the signature above, the attending physician certifies that he/she has personally conducted a gross and/or microscopic examination of the described specimens and rendered or confirmed the above diagnosis. End of Report FLORA GAMBINO 12/02/2013 12/03/2013 Yolanda Blank MD PATHOLOGY ORDERABLES Performing Organization Address City/State/[facility] Co wa Phone Number FLORA MALIN [facility] [address] [place] [address] documented in this encounter Visit Diagnoses Not on filedocumented in this encounter Care Teams Medical Device Relationship Specialty Start Date End Date Amy Conklin MD [address] [place] [address] [place] [address] PCP - General 03/14/10 01/28/23 documented as of this encounter
--- OUTSIDE RECORDS SUMMARY | 2024-05-01 01:55 | XMS_ITS | Encounter Summary ---
Author Organization [facility] [place] [address] Care Team Providers Care Ice Handler Name Role Phone Kristen Avina Wyatt JONES Primary Care Provider [phone] Reason for Visit * Auth/Cert Specialty Diagnoses / Procedures Referred By Robert jessica Referred To Contact Diagnoses HGSIL (high grade squamous intraepithelial lesion) on Pap smear of cervix HGSIL Procedures PRO PELVIC EXAMINATION W ANESTH PRO COLPOSCOPY, ENTIRE VAGINA, W/BIOPSY(S) PELVIC EXAM UNDER ANESTHESIA (WRVU 1.75) COLPOSCOPY OF VAGINA WITH CERVIX IF PRESENT, BIOPSY (WRVU 2.2) Referral ID Status Reason Start Date Expiration Date Visits Re quested Visits Authorized [id number] 1 1 Encounter Details Date Type Department Care Team (Late st Contact Info) Description 09/20/2017 8:32 AM EST Anesthesia [place] [address] Larissa Bailey MD [facility] [place] [address] Sylwia Dozier CRNA [facility] [place] [address] Anesthesia Record Procedure Summary Procedure Name Responsible Anesthesiologist Anesthesia Start Time Anesthesia Stop Time PELVIC EXAM UNDER ANESTHESIA (WRVU 1.75) (Perineum) Larissa Bailey MD 09/20/17 0832 09/20/17 0911 Events Date Time Event Comment 09/20/2017 0832 AN Verify 0832 Start 0832 An Start Data 0838 Anesthesia Ready Yellow OPA placed 0907 an stop data 0909 Recovery or ICU Handoff Faith ent care was transferred to the destination unit staff after review of the patient's medical history, current anesthetic/surgical status and plan, according to the Provider Handoff Checklist. 0911 Stop 1034 Meds Name Total Midazolam 2 mg fentaNYL 100 mcg IV Lidocaine 40 mg Propofol 50 mg Propofol INF 153.34 mg Ketorolac 30 mg Lactated Ringers 800 mL * Agents Name O2 Air N2O O2 Auxiliary Flowmeter 1 * Blood No blood administrations on file. Lines, Drains, and Airways Type Details Placement Removal (RETIRED) Peripheral IV Line - Single Lumen 09/20/17; 0729; metacarpal vein (top of hand), left; [id number]-[id number] catheter system; 18 gauge, 3/4 in length; Delphine Nagel,GLEN; intradermal injection, distraction, tolerated well; 0; 09/20/17; 1110 09/20/17 0729 by Delphine Nagel, GLEN 09/20/17 1110 by Libia Morales RN documented in this encounter Social History Tobacco Use Types Packs/Day Years Used Date Smoking Tobacco: Former Smokeless Tobacco: Never Sex and Gender Information Value Date Recorded Sex Assigned at Not on file Gender Identity Not on file Sexual Orientation Not on file documented as of this encounter OR Notes * Anesthesia Postprocedure Evaluation - Larissa Bailey MD - 09/20/2017 10:[address] [facility] Department of Anesthesiology Post-procedure Note Patient: Mary Ellen Avila Procedure Summary Date Anesthesia Start Anesthesia Stop Room / Location 09/20/17 0832 0911 [facility] OR / [facility] Procedure Diagnosis Surgeon Responsible Provider PELVIC EXAM UNDER ANESTHESIA (WRVU 1.75) (N/A Perineum); COLPOSCOPY OF VAGINA WITH CERVIX IF PRESENT, BIOPSY (WRVU 2.2) (N/A Vagina ) (HGSIL) Althea Mascorro MD Welch, Marnie B, MD All Anesthesia Providers: Anesthesiologist: Larissa Bailey MD BAGGAGE INSPECTOR: Sylwia Dozier CRNA Most Recent Vitals: 09/20/17 1030 BP: 118/84 Pulse: Resp: 16 Temp: SpO2: 97% Pain 2 (09/20/17 1030) Patient Location: PACU/[facility] Level of Consciousness: Awake and Alert Pain Management: Satisfactory Analgesia PONV: None Cardiovascular Status: At Baseline and Hemodynamically Stable Respiratory Status: At Baseline and Room Air Postoperative Fluid Status: Intravascular EUvolemia Possible Anesthetic Complications: NONE apparent at time of evaluation Final Primary Anesthesia Type: MAC (The anesthetic type performed was the same as planned.) Comments: LARISSA BAILEY MD No issues with anesthesia at this time, mild cramping * Anesthesia Preprocedure Evaluation - Larissa Bailey MD - 09/19/2017 2:48 PM EST Pre-Anesthesia Evaluation for: Mary Ellen Avila a 62 y.o. female. Procedure(s): PELVIC EXAM UNDER ANESTHESIA (WRVU 1.75) COLPOSCOPY OF VAGINA WITH CERVIX IF PRESENT, BIOPSY (WRVU 2.2) Patient Active Problem List Diagnosis ??? Pap smear of vagina with HGSIL [...] ??? LAPAROSCOPIC APPENDECTOMY ??? LEEP ??? LITHOTRIPSY Social History Substance Use Topics ??? Smoking status: Former Smoker ??? Smokeless tobacco: Never Used ??? Alcohol use Not on file History Drug Use Not on file Allergies Allergen Reactions ??? Allergen Gfh-Wfxxz-Dpcyr Bee CIS - Anaphylaxis ??? Iodine And Iodide Containing Products CIS - Anaphylaxis ??? Penicillins CIS - Anaphylaxis ??? Tetracyclines CIS - Anaphylaxis ??? Venom-Wasp CIS - Anaphylaxis ??? Njhvr-Fabdc-Zegas Hornet CIS - Anaphylaxis ??? Venom-Yellow Hornet [...] file to calculate BMI. Airway Assessment: Mallampati: II TM distance: >3 FB Neck ROM: full Cardiovascular Assessment: Rhythm: regular Pulmonary Assessment: breath sounds clear to auscultation Dental Assessment: (+) upper dentures and lower dentures Misc Assessment: IV access: Peripheral line Other exam findings: Partials Broken tooth lower left, having repaired Saturday Anesthesia Plan: ASA 2 general, with a(n) intravenous induction 62 y/o here for pelvic exam under anesthesia, colposcopy PMH: HTN, DM, hypothyroid No GERD, good fx capacity, no URIs, no smoking or EtOH, DM and BG under good control Did have episodes of dizziness per notes, called patient, had it evaluated by her PCP and thought to be inner ear vertigo, given a medication to take prn. Also had left arm pain, evaluated at [facility] ED this winter, pt states had the full work up there and was deemed to be non cardiac. Thought potentially to be shingles. EKG from [facility] shows NSR PSH: multiple anesthesia, C/S with shaking, nitrous oxide w/ goofiness for days for dental procedures, appy, stones, no other issues Plan : sedation, back up general [facility] Region - Other Informed Consent: Anesthetic plan and risks discussed with patient. Plan discussed with BAGGAGE INSPECTOR. PAT Staff Note documented in this encounter Plan of Treatment Upcoming Encounters Date Type Department Care Team (Late st Contact Info) Description 06/01/2024 4:00 PM EDT Office Visit Dermatology at [place] [address] [place] [id number] Anthony Uribe MD [address], [place] [address] documented as of this encounter Visit Diagnoses Not on filedocumented in this encounter Administered Medications Inactive Administered Medications - up to 3 most recent administrations Medication Order MAR Action Action Date Dose Rate Site fentaNYL 50 mcg/mL multi-dose injection PRN, Starting on Sat09/20/17 at 0837, Until Sat09/20/17 at 0914, Pain, Anesthesia Intra-op, Routine Given 09/20/2017 9:05 AM EST 25 mcg Given 09/20/2017 8:55 AM EST 25 mcg Given 09/20/2017 8:44 AM EST 25 mcg ketorolac (TORADOL) injection PRN, Starting on Sat09/20/17 at 0904, Until Sat09/20/17 at 0914, Pain, Anesthesia Intra-op, Routine Given 09/20/2017 9:04 AM EST 30 mg lactated Ringers infusion CONTINUOUS PRN, Starting on Sat09/20/17 at 0832, Until Sat09/20/17 at 0914, Anesthesia Intra-op New Bag 09/20/2017 8:32 AM EST lidocaine (PF) (XYLOCAINE) 100 mg/5 mL (2 %) injection PRN, Starting on Sat09/20/17 at 0837, Until Sat09/20/17 at 0914, Anesthesia Intra-op, Routine Given 09/20/2017 8:37 AM EST 40 mg midazolam (PF) (VERSED) 1 mg/mL multi-dose injection PRN, Starting on Sat09/20/17 at 0832, Until Sat09/20/17 at 0914, Sleep, Anesthesia Intra-op, Routine Given 09/20/2017 8:32 AM EST 2 mg propofol (DIPRIVAN) 10 mg/mL bolus injection (Anesthesia) PRN, Starting on Sat09/20/17 at 0837, Until Sat09/20/17 at 0914, Anesthesia Intra-op Given 09/20/2017 8:37 AM EST 50 mg propofol (DIPRIVAN) infusion CONTINUOUS PRN, Starting on Sat09/20/17 at 0838, Until Sat09/20/17 at 0914, Anesthesia Intra-op, Routine Rate/Dose Change 09/20/2017 8:57 AM EST 75 mcg/kg/min 30.3 mL/hr New Bag 09/20/2017 8:38 AM EST 100 mcg/kg/min 40.4 mL/h r documented in this encounter Care Teams Ice Handler Relationship Specialty Start Date End Date Kristen Avina APRN PCP - General Family Medicine 07/03/17 03/19/19 documented as of this encounter
--- OUTSIDE RECORDS SUMMARY | 2024-05-01 01:55 | XMS_ITS | Encounter Summary ---
Author Organization [facility] [place] [address] Care Team Providers Care Background Investigator Name Role Phone Chip Harris Primary Care Provider Encounter Details Date Type Department Care Team (Late Contact Info) Description 07/06/2008 Orders [place] [address] Johnson Mixon MD [facility] [address] Social History Tobacco Use Types Packs/Day Years Used Date Smoking Tobacco: Never Assessed Sex and Gender Information Value Date Recorded Sex Assigned at Not on file Gender Identity Not on file Sexual Orientation Not on file documented as of this encounter Plan of Treatment Upcoming Encounters Date Type Department Care Team (Late Contact Info) Description 06/01/2024 4:00 PM EDT Office Visit Dermatology at [place] [address] [place] [address] Anthony Uribe MD [address], [place] [address] documented as of this encounter Procedures Procedure Name Priority Date/Time Associated Diagnosis Comments SURGICAL PATHOLOGY REPORT Routine 07/06/2008 12:45 PM EST documented in this encounter Results * Surgical Pathology Report (07/06/2008 12:45 PM EST) Surgical Pathology Report [id number] ? Location: 4T The signing pathologist has (i) examined the relevant preparation(s) for the specimen(s) and (ii) rendered or confirmed the diagnosis(es). . ?Pathology Surgical Pathology Final Report Clinical Information Specimen Submitted: A - Biopsies of antral nodule Clinical History: Small antral mucosal nodule Clinical Diagnosis: Dysphagia, hx of esophageal spasms. Gross Description Labeled/Fixativ e: ? Biopsies of antral nodule, formalin. Qty/Size/Weight : ?Two, averaging 0.3 x 0.3 x 0.2 cm. Tissue Description: ?? Soft, meek tissue. Sections/Proces sing: ??(T1) ??aje/SNS Microscopic Description Slides reviewed, microscopic description not recorded. Diagnosis A - Gastric antrum nodule, biopsy: ?Gastric antral mucosa with foveolar hyperplasia consistent with ?hyperplastic polyp. ?There is no evidence of adenomatous change. CR-0 07/08/08 VMS 07/08/08 Verified by: ? Josi REAZ, Hugo ?Pathologist ?(Electronic Signature) The attending pathologist whose signature appears on this report has reviewed all diagnostic slides and has edited the gross and/or microscopic portion of the report in rendering the final pathologic diagnosis. YUDI DENNIS 07/06/2008 12:4 5 PM EST Johnson Mixon MD PATHOLOGY/CYTOLOGY O RDERABLES YUDI DENNIS documented in this encounter Visit Diagnoses Not on filedocumented in this encounter Care Teams Background Investigator Relationship Specialty Start Date End Date Chip Harris PA PCP - General Family Medicine 07/09/19 documented as of this encounter
--- OUTSIDE RECORDS SUMMARY | 2024-05-01 01:55 | XMS_ITS | Encounter Summary ---
Author Organization [facility] Address [address] [place] [address] Care Team Providers Care Medical Supply Technician Name Role Phone Amy Kaur MD Primary Care Provider [phone] Encounter Details Date Type Department Care Team (Late st Contact Info) Description 02/28/2011 Results Only [facility] Laboratory Services - [facility] ([facility]) [address] [place], [place] [phone] Yolanda Blank MD [address] [place] [address] [place] [address] Social History Tobacco Use Types Packs/Day Years [...] Diagnosis Comments PAP TEST- RESULT ONLY Routine 02/28/2011 0:00 EDT documented in this encounter Results * PAP TEST- RESULT ONLY (02/28/2011 0:00 EDT) Pathology Report: CYTOPATHOLOGY REPORT ? Reports generated via electronic interface contain original data; ? however they are lacking the format of the original report. ? Caution should be taken when reading/interpreti ng unformatted reports. ? Name: ? CATRACHO, ELIAZAR ? Accession #: ? [id number] ? : ? 1955 (Age: 55) ??F ?Collect Date: ? 02/28/2011 ? Location: ? [facility] ? Receive Date: ? 03/01/2011 ? Provider: YOLANDA MANUEL MD ? Copy to: AMY ROXYISMAN MD ? Final Report ? SPECIMEN ADEQUACY ? Satisfactory for Evaluation ? - transformation zone component present ? GENERAL CATEGORIZATION ? Epithelial Cell Abnormality ? INTERPRETATION ? Squamous Cell Abnormality - High grade squamous intraepithelial lesion ? (HSIL). ? EDUCATIONAL NOTES/RECOMMENDATI ONS ? [facility] recommends following the 2006 Consensus Guidelines for the Management of Women with Abnormal Cervical Cancer Screening Tests (JLGTD, ? 2007;114:201-222 ). ??Consensus guidelines are available online at ? www.ASCCP.org. ? Previous Gynecologic Pathology: ASC-US: pap 8// ? HSIL: 08/07, 05/06, 04/06, 03/07, 01/08, 02/09 ? LSIL: 09/05, 07/09, 02/07 ? Treatment History: Colposcopy: 06/05, 08/08 ? LEEP: 08/08 ? Specimen/Source: ??Pap Test, Cervix/Endocervix, ThinPrep Imaging System with ? manual evaluation ? Document reviewed and electronically signed by: ? CARMELA PATRICIA MD ? Report ??Date: 03/12/2011 18:00 ? HPV with Pap Test ? Date Ordered: ? 03/12/2011 ? Status: ?? Signed Out ?Date Complete: ? 03/19/2011 ? By: ??System Interface ? Date Reported: ? 03/19/2011 ? Interpretation ? RESULT: Quantity not sufficient. ? Credit Issued ? Comments ? Document reviewed and electronically signed by: ? System Interface ? Report date: 03/19/2011 ? By the signature above, the attending physician certifies that he/she has ? personally conducted a gross and/or microscopic examination of the described ? specimens and rendered or confirmed the above diagnosis. ? End of Report ? [facility] 02/28/2011 03/01/2011 Yolanda Blank MD PATHOLOGY ORDERABLES Performing Organization Address City/State/[facility] Co de Phone Number [facility] [address] [place] [address] documented in this encounter Visit Diagnoses Not on filedocumented in this encounter Care Teams Medical Supply Technician Relationship Specialty Start Date End Date Amy Kaur MD [address] [place] [address] [place] [address] PCP - General 03/14/10 01/28/23 documented as of this encounter
--- OUTSIDE RECORDS SUMMARY | 2024-05-01 01:55 | XMS_ITS | Encounter Summary ---
Author Organization [facility] Address [address] [place] [address] Care Team Providers Care Acupressurist Name Role Phone Amy Kaur MD Primary Care Provider [phone] Encounter Details Date Type Department Care Team (Late st Contact Info) Description 10/14/2012 Results Only [facility] Laboratory Services - [facility] ([facility]) [address] [place], [place] [phone] Yolanda Blank MD [address] [place] [address] [place] [address] Social History Tobacco Use Types Packs/Day Years [...] Diagnosis Comments PAP TEST- RESULT ONLY Routine 10/14/2012 0:00 EST documented in this encounter Results * PAP TEST- RESULT ONLY (10/14/2012 0:00 EST) Pathology Report: CYTOPATHOLOGY REPORT Reports generated via electronic interface contain original data; however they are lacking the format of the original report. Caution should be taken when reading/interpreti ng unformatted reports. Name: ? ELIAZAR AVILA ? Accession #: ? [id number] : ? 1955 (Age: 57) ??F ?Collect Date: ? 10/14/2012 Location: ? [facility] ? Receive Date: ? 10/15/2012 Provider: ?YOLANDA BLANK MD Copy to: ? Specimen/Source: ?Pap Test, Vagina, ThinPrep Imaging System with manual evaluation Last Menstrual Period: ? Previous Gynecologic Pathology: ? HSIL: 08/07, 05/06, 04/06, 03/07, 01/08, 01/2010, 01/2011, 09/2011, LSIL: 09/05, 07/09, 02/07 Treatment History: ? Hysterectomy: 10/25/2011 LEEP: 08/08 ? SPECIMEN ADEQUACY ? Satisfactory for Evaluation - assessment of transformation zone component not applicable ( e.g. atrophy, vaginal sample, hysterectomy) GENERAL CATEGORIZATION ? Epithelial Cell Abnormality INTERPRETATION ? Squamous Cell Abnormality - Atypical squamous cells, cannot exclude ? high grade squamous intraepithelial lesion (ASC-H). EDUCATIONAL NOTES/RECOMMENDATI ONS ? [facility] recommends following the 2006 Consensus Guidelines for the Management of Women with Abnormal Cervical Cancer Screening Tests (JLGTD, 2007;11(4):201-222 ). ??Consensus guidelines are available online at www.ASCCP.org. ? Document reviewed and electronically signed by: ? CYNDY CHEN MD ? Report Date: ??10/20/2012 15:53 End of Report [facility] 10/14/2012 10/15/2012 Yolanda Blank MD PATHOLOGY ORDERABLES [facility] [address] [place] [address] documented in this encounter Visit Diagnoses Not on filedocumented in this encounter Care Teams Acupressurist Relationship Specialty Start Date End Date Amy Kaur MD [address] [place] [address] [place] [address] PCP - General 03/14/10 01/28/23 documented as of this encounter
--- OUTSIDE RECORDS SUMMARY | 2024-05-01 01:55 | XMS_ITS | Encounter Summary ---
Author Organization [facility] Address [address] [place] [address] Care Team Providers Care Warp Picker Name Role Phone Amy Kaur MD Primary Care Provider [phone] Encounter Details Date Type Department Care Team (Latest Contact Info) Description 12/02/2013 16:11 EDT - 12/02/2013 23:59 EDT Hospital Encounter [address] [address] Unknown, Provider, Discharge Disposition: Home or Self Care Social History Tobacco Use Types Packs/Day Years Used Date Smoking Tobacco: Never Assessed Sex and Gender Information Value Date Recorded Sex Assigned at Not on file Gender Identity Female 01/29/2023 10:56 EDT Sexual Orientation Not on file documented as of this encounter Discharge Disposition Disposition Code Departure Means Destination Home or Self Retirement documented in this encounter Plan of Treatment Not on file documented as of this encounter Visit Diagnoses Not on filedocumented in this encounter Care Teams Warp Picker Relationship Specialty Start Date End Date Amy Kaur MD [address] [place] [address] [place] [address] PCP - General 03/14/10 01/28/23 documented as of this encounter
--- OUTSIDE RECORDS SUMMARY | 2024-05-01 01:55 | XMS_ITS | Encounter Summary ---
Author Organization [facility] [place] [address] Care Team Providers Care Beater Lead Name Role Phone Kristen Avina Wyatt JONES Primary Care Provider [phone] Reason for Visit * Auth/Cert Specialty Diagnoses / Procedures Referred By Robert jessica Referred To Contact Diagnoses VAGINAL DYSPLASIA Procedures PRO DESTRUCT, VAGINAL LESION(S), SIMPLE PRO COLPOSCOPY, ENTIRE VAGINA DESTRUCTION OF VAGINAL LESION(S), SIMPLE W\W\O LASER (WRVU 1.3) COLPOSCOPY OF VAGINA WITH CERVIX IF PRESENT (WRVU 1.6) MODIFIER LASER,CO2 Referral ID Status Reason Start Date Expiration Date Visits Re quested Visits Authorized [id number] 1 1 Encounter Details Date Type Department Care Team (Late st Contact Info) Description 11/08/2017 9:44 AM EST Anesthesia Event [place] [address] Jolynn Hagan MD [facility] [place] [address] Anesthesia Record Procedure Summary Procedure Name Responsible Anesthesiologist Anesthesia Start Time Anesthesia Stop Time DESTRUCTION OF VAGINAL LESION(S), SIMPLE W\W\O LASER (WRVU 1.3) Jolynn Hagan MD 11/08/17 0944 11/08/17 1040 Events Date Time Event Comment 11/08/2017 0944 AN Verify 0944 Start 0945 0948 An Start Data 0951 An Induction 0953 An Intubation 0954 Anesthesia Ready 1034 Extubation/LMA Out 1037 an stop data 1040 Recovery or ICU Handoff Faith ent care was transferred to the destination unit staff after review of the patient's medical history, current anesthetic/surgical status and plan, according to the Provider Handoff Checklist. 1040 Stop Meds Name Total Midazolam 2 mg fentaNYL 50 mcg Propofol 200 mg Propofol INF 144.28 mg lactated Ringers infusion 1,000 mL 400 m L * Agents Name O2 Air N2O * Blood No blood administrations on file. Lines, Drains, and Airways Type Details Placement Removal (RETIRED) Peripheral IV Line - Single Lumen 11/08/17; 916; ddlf-dge-gujhja catheter system; 20 gauge; Deann CARROLL; distraction, intradermal injection, tolerated well; 0; 11/08/17; 1219 11/08/17 0917 by Salma Sesay RN 11/08/17 1219 by Katelynn Royal RN Supraglottic Mask Ventilation: No t Attempted (0); LMA Type: iGel; LMA Size: 3; Inserted by: Deana Narvaez, Medical Student; Removal Date: 11/08/17; Removal Time: 1034 11/08/17 0953 by Margaret Chavez MD 11/08/17 1034 by Margaret Chavez MD documented in this encounter Social History Tobacco [...] OR Notes * Anesthesia Postprocedure Evaluation - Jolynn Hagan MD - 11/08/2017 11:21 AM EST [facility] Department of Anesthesiology Post-procedure Note Patient: Mary Ellen Avila Procedure Summary Date Anesthesia Start Anesthesia Stop Room / Location 11/08/17 0944 1040 [facility] OR 24 / MH MAIN OR Procedure Diagnosis Surgeon Responsible Provider DESTRUCTION OF VAGINAL LESION(S), SIMPLE W\W\O LASER (WRVU 1.3) (N/A ); COLPOSCOPY OF VAGINA WITH CERVIX IF PRESENT (WRVU 1.6) (N/A ); MODIFIER LASER,CO2 (N/A ) (ABNORMAL VAGINAL PAP) Althea Mascorro MD [place], John W, MD All Anesthesia Providers: Anesthesiologist: Jolynn Hagan MD Fur Weigher: Margaret Chavez MD Most Recent Vitals: 11/08/17 1110 BP: 109/64 Pulse: 57 Resp: Temp: SpO2: 95% Pain 4 (11/08/17 1058) Patient Location: PACU/[facility] Level of Consciousness: Awake and Alert Pain Management: Satisfactory Analgesia PONV: None Cardiovascular Status: At Baseline and Hemodynamically Stable Respiratory Status: At Baseline and Room Air Postoperative Fluid Status: Intravascular EUvolemia Possible Anesthetic Complications: NONE apparent at time of evaluation Final Primary Anesthesia Type: General (The anesthetic type performed was the same as planned.) Comments: JOLYNN HAGAN MD * Anesthesia Preprocedure Evaluation - Margaret Chavez MD - 11/07/2017 8:10 PM EST Pre-Anesthesia Evaluation for: Mary Ellen Avila a 62 y.o. female. Procedure(s): DESTRUCTION OF VAGINAL LESION(S), SIMPLE W\W\O LASER (WRVU 1.3) COLPOSCOPY OF VAGINA WITH CERVIX IF PRESENT (WRVU 1.6) MODIFIER LASER,CO2 Patient Active Problem List Diagnosis ??? VAIN [...] LEEP ??? LITHOTRIPSY ??? PRO COLPOSCOPY, ENTIRE VAGINA, W/BIOPSY(S) N/A 09/20/2017 COLPOSCOPY OF VAGINA WITH CERVIX IF PRESENT, BIOPSY (WRVU 2.2) performed by Althea Mascorro MDat [facility] MAIN OR ??? PRO PELVIC EXAMINATION W ANESTH N/A 09/20/2017 PELVIC EXAM UNDER ANESTHESIA (WRVU 1.75) performed by Althea Mascorro MD at [facility] MAIN OR Social History Substance Use Topics ??? Smoking status: Former Smoker ??? Smokeless tobacco: Never Used ??? Alcohol use No History Drug Use No Allergies Allergen Reactions ??? Allergen Pqk-Dqusf-Yhjgw Bee CIS - Anaphylaxis ??? Iodine And Iodide Containing Products CIS - Anaphylaxis ??? Penicillins CIS - Anaphylaxis ??? Tetracyclines CIS - Anaphylaxis ??? Venom-Wasp CIS - Anaphylaxis ??? Dlbcm-Pkhyz-Uwdog Hornet CIS - Anaphylaxis ??? Venom-Yellow Hornet [...] sounds clear to auscultation Dental Assessment: (+) lower dentures and upper dentures Comment: partials Misc Assessment: Anesthesia Plan: ASA 2 general, with a(n) intravenous induction 62yo woman 69kg (IBW 55kg) c history of abnormal pap smear to OR c Dr. Mascorro for destruction of vaginal lesions PMHx: HTN, hypothyroidism No previous anesthetic complications. History of prolonged effects of nitrous oxide after dental procedures. Denies family history of malignant hyperthermia. No documented recent chest pain, shortness of breath, fever, cold, cough, seizure, or weakness. Plan GA c LMA Adequate venous access Standard ASA monitors MARGARET CHAVEZ MD 3664 PGY4/CA3 Region - Other Informed Consent: PAT Staff Note documented in this encounter Miscellaneous Notes * Addendum Note - Magraret Chavez MD - 11/12/2017 7:20 AM EDT Addendum created 11/12/17719 by Margaret Chavez MD Anesthesia Intra Meds edited documented in this encounter Plan of Treatment Upcoming Encounters Date Type Department Care Team (Late st Contact Info) Description 06/01/2024 4:00 PM EDT Office Visit D[facility]ology at [place] [address] [place] [address] Anthony Uribe MD [address], [place] Josh [place] [address] documented as of this encounter Visit Diagnoses Not on filedocumented in this encounter Administered Medications Inactive Administered Medications - up to 3 most recent administrations Medication Order MAR Action Action Date Dose Rate Site fentaNYL 50 mcg/mL multi-dose injection PRN, Starting on Sat11/08/17 at 0957, Until Sat11/08/17 at 1111, Pain, Anesthesia Intra-op, Routine Given 11/08/2017 9:57 AM EST 50 mcg lactated Ringers infusion 1,000 mL 1,000 mL, at 100 mL/hr, Intravenous, CONTINUOUS, Starting on Sat11/08/17 at 0915, Until Sat11/08/17 at 1153, Day of Surgery (Day of Procedure) New Bag 11/08/2017 9:44 AM EST New Bag 11/08/2017 9:18 AM EST 1,000 mLs 100 mL/hr midazolam (PF) (VERSED) 1 mg/mL multi-dose injection PRN, Starting on Sat11/08/17 at 0944, Until Sat11/08/17 at 1111, Sleep, Anesthesia Intra-op, Routine Given 11/08/2017 9:44 AM EST 2 mg propofol (DIPRIVAN) 10 mg/mL bolus injection (Anesthesia) PRN, Starting on Sat11/08/17 at 0951, Until Sat11/08/17 at 1111, Anesthesia Intra-op Given 11/08/2017 9:57 AM EST 50 mg Given 11/08/2017 9:52 AM EST 50 mg Given 11/08/2017 9:51 AM EST 100 mg propofol (DIPRIVAN) infusion CONTINUOUS PRN, Starting on Sat11/08/17 at 0955, Until Sat11/08/17 at 1111, Anesthesia Intra-op, Routine Rate/Dose Change 11/08/2017 10:22 AM EST 30 mcg/kg/min 12.5 mL/hr New Bag 11/08/2017 9:55 AM EST 75 mcg/kg/min 31.1 mL/hr documented in this encounter Care Teams Beater Lead Relationship Specialty Start Date End Date Kristen Avina APRN PCP - General Family Medicine 07/03/17 03/19/19 documented as of this encounter
--- OUTSIDE RECORDS SUMMARY | 2024-05-01 01:55 | XMS_ITS | Encounter Summary ---
Author Organization [facility] Address [address] [place] [address] Care Team Providers Care Poker Dealer Name Role Phone Amy Kaur MD Primary Care Provider [phone] None, Provider Primary Care Provider Unavailabl e Encounter Details Date Type Department Care Team (Late st Contact Info) Description 02/17/2008 Results Only [facility] [address] [place] [address] Yolanda Blank MD [address] [place] [address] [place] [address] Social History Tobacco Use Types Packs/Day Years Used Date Smoking Tobacco: Never Assessed Sex and Gender Information Value Date Recorded Sex Assigned at Not on file Gender Identity Female 01/29/2023 10:56 EDT Sexual Orientation Not on file documented as of this encounter Plan of Treatment Not on file documented as of this encounter Procedures Procedure Name Priority Date/Time Associated Diagnosis Comments CYTOPATHOLOGY Routine 02/17/2008 0:00 EDT documented in this encounter Results * CYTOPATHOLOGY (02/17/2008 0:00 EDT) Pathology Report: CYTOPATHOLOGY REPORT Reports generated via electronic interface contain original data; however they are lacking the format of the original report. Caution should be taken when reading/interpreti ng unformatted reports. Name: ? ELIAZAR AVILA ? Accession #: ? [id number] : ? 1955 (Age: 52) ??F ?Collect Date: ? 02/17/2008 Location: ? [facility] ? Receive Date: ? 02/18/2008 Provider: ?YOLANDA BLANK MD Copy to: ? Specimen/Source: ?ThinPrep Pap Test, Cervix/Endocervix, processed on [employer] ThinPrep Imaging System, with manual evaluation Last Menstrual Period: ? Other: ? HPVA - HPV testing requested if ASC-US on the current ThinPrep Pap test. ? SPECIMEN ADEQUACY ? Satisfactory for Evaluation - transformation zone component present GENERAL CATEGORIZATION ? Epithelial Cell Abnormality INTERPRETATION ? Squamous Cell Abnormality - Low grade squamous intraepithelial lesion (LSIL). EDUCATIONAL NOTES/RECOMMENDATI ONS ? [facility] recommends following the 2006 Consensus Guidelines for the Management of Women with Abnormal Cervical Cancer Screening Tests (JLGTD, 2007;11(4):201-222 ). ??Consensus guidelines are available online at www.ASCCP.org. ? Document reviewed and electronically signed by: ? BARBIE PATTERSON MD ? Report Date: ??02/20/2008 14:30 End of Report [facility] 02/17/2008 02/18/2008 Yolanda Blank MD PATHOLOGY ORDERABLES [facility] [address] [place] [address] documented in this encounter Visit Diagnoses Not on filedocumented in this encounter Care Teams Poker Dealer Relationship Specialty Start Date End Date Amy Kaur MD [facility] [place] [address] PCP - General 03/14/10 01/28/23 None, Provider PCP - General 08/04/09 03/13/10 documented as of this encounter
--- OUTSIDE RECORDS SUMMARY | 2024-05-01 01:55 | XMS_ITS | Encounter Summary ---
Author Organization [facility] Address [address] [place] [address] Care Team Providers Care Quarter Seamer Name Role Phone None, Provider Primary Care Provider Unavailabl e Encounter Details Date Type Department Care Team ([facility] st Contact Info) Description 03/01/2010 Results Only [facility] Laboratory Services - [facility] ([facility]) [address] [place], [place] [phone] Yolanda Blank MD [address] [place] [address] [place] [address] Social History Tobacco Use Types Packs/Day Years Used Date Smoking Tobacco: Never Assessed Sex and Gender Information Value Date Recorded Sex Assigned at Not on file Gender Identity Female 01/29/2023 10:56 EDT Sexual Orientation Not on file documented as of this encounter Plan of Treatment Not on file documented as of this encounter Procedures Procedure Name Priority Date/Time Associated Diagnosis Comments CYTOPATHOLOGY Routine 03/01/2010 0:00 EDT documented in this encounter Results * CYTOPATHOLOGY (03/01/2010 0:00 EDT) Pathology Report: CYTOPATHOLOGY REPORT ? Reports generated via electronic interface contain original data; ? however they are lacking the format of the original report. ? Caution should be taken when reading/interpreti ng unformatted reports. ? Name: ? PETERM, ELIAZAR ? Accession #: ? [id number] ? : ? 1955 (Age: 54) ??F ?Collect Date: ? 03/01/2010 ? Location: ? [facility] ? Receive Date: ? 03/03/2010 ? Provider: ?YOLANDA BLANK MD ? Copy to: ? Specimen/Source: ?Pap Test, Cervix/Endocervix, ThinPrep Imaging System ? with manual evaluation ? Last Menstrual Period: ? Treatment History: ? Cone biopsy: F/u 1/20/10 ? SPECIMEN ADEQUACY ? Satisfactory for Evaluation ? - transformation zone component present ? GENERAL CATEGORIZATION ? Epithelial Cell Abnormality ? INTERPRETATION ? Squamous Cell Abnormality - Low grade squamous intraepithelial lesion, ? cannot exclude ? high grade squamous ? intraepithelial lesion (LSIL-H). ? EDUCATIONAL NOTES/RECOMMENDATI ONS ? There is no ASCCP recommendation specific to the diagnosis above. ??This ? diagnosis indicates a greater likelihood of the cervix harboring HSIL compared ?? to a diagnosis of LSIL alone, 55% vs. 17% in our experience. ??Initial ? colposcopic evaluation is advised. ? Should HSIL not be confirmed on colposcopic evaluation and/or biopsy, close ? follow-up with Pap test and/or repeat colposcopy is advised. ??In some situations there may be clinical or colposcopic reasons to perform a diagnostic cone ? biopsy/LEEP. ? Document reviewed and electronically signed by: ? Carmelo Gaitan MD ? Report Date: ??2010 07:50 ? End of Report ? [facility] 03/01/2010 03/03/2010 Yolanda Blank MD PATHOLOGY ORDERABLES [facility] [address] [place] [address] documented in this encounter Visit Diagnoses Not on filedocumented in this encounter Care Teams Quarter Seamer Relationship Specialty Start Date End Date None, Provider PCP - General 08/04/09 03/13/10 documented as of this encounter
--- OUTSIDE RECORDS SUMMARY | 2024-05-01 01:55 | XMS_ITS | Encounter Summary ---
Author Organization [facility] Address [address] [place] [address] Care Team Providers Care Jewelry Maker Name Role Phone Amy Kaur MD Primary Care Provider [phone] Encounter Details Date Type Department Care Team (Late st Contact Info) Description 08/24/2010 Results Only [facility] Laboratory Services - [facility] ([facility] [address] [place], [place] [phone] Yolanda Blank MD [address] [place] [address] [place] [address] Social History Tobacco Use Types Packs/Day Years Used Date Smoking Tobacco: Never Assessed Sex and Gender Information Value Date Recorded Sex Assigned at Not on file Gender Identity Female 01/29/2023 10:56 EDT Sexual Orientation Not on file documented as of this encounter Plan of Treatment Not on file documented as of this encounter Procedures Procedure Name Priority Date/Time Associated Diagnosis Comments SURGICAL PATHOLOGY Routine 08/24/2010 0:00 EST documented in this encounter Results * SURGICAL PATHOLOGY (08/24/2010 0:00 EST) Pathology Report: SURGICAL PATHOLOGY REPORT ? Reports generated via electronic interface contain original data; ? however they are lacking the format of the original report. ? Caution should be taken when reading/interpreti ng unformatted reports. ? Name: ? FLUM, ELIAZAR ? Accession #: ? [id number] ? : ? 1955 (Age: 55) ??F ? Collect Date: ? 08/24/2010 ? Location: ? [facility] ? Receive Date: ? 08/24/2010 ? Provider: YOLANDA BLANK MD ? Copy to: AMY GOREAN MD ? Final Pathologic Diagnosis: ? Endometrium, biopsy: ? - Superficial strips of inactive endometrium with tubal metaplasia and focal ? stromal breakdown. ? Document reviewed and electronically signed by: ? NEELIMA COLINOF MD ? Report ??Date: 08/31/2010 15:35 ? By the signature above, the attending physician certifies that he/she has ? personally conducted a gross and/or microscopic examination of the described ? specimens and rendered or confirmed the above diagnosis. ? Specimen(s) Received: ? Endometrial bx ? Clinical History: ? Postmenopausal bleeding; LMP: 2003 ? Gross Description: ? Received in formalin labelled Flum, Eliazar and endometrial bx is 2 cc of clotted blood and blood tinged mucus admixed with multiple fragments of ? red-brown tissue. ??The specimen is submitted entirely in one cassette following filtration. ??(COURTNEY Tessitore)/ljn ? End of Report ? [facility] 08/24/2010 08/24/2010 10: 36 EST Yolanda Blank MD PATHOLOGY ORDERABLES Performing Organization Address City/State/[facility] Co de Phone Number [facility] [address] [place] [address] documented in this encounter Visit Diagnoses Not on filedocumented in this encounter Care Teams Jewelry Maker Relationship Specialty Start Date End Date Amy Kaur MD [address] [place] [address] [place] [address] PCP - General 03/14/10 01/28/23 documented as of this encounter
--- OUTSIDE RECORDS SUMMARY | 2024-05-01 01:55 | XMS_ITS | Encounter Summary ---
Author Organization [facility] [place] [address] Care Team Providers Care Aerial Survey Technician Name Role Phone Kristen Avina Wyatt JONES Primary Care Provider [phone] Reason for Visit * Auth/Cert Specialty Diagnoses / Procedures Referred By Rboert jessica Referred To Contact Diagnoses VAGINAL DYSPLASIA Procedures PRO DESTRUCT, VAGINAL LESION(S), SIMPLE PRO COLPOSCOPY, ENTIRE VAGINA DESTRUCTION OF VAGINAL LESION(S), SIMPLE W\W\O LASER (WRVU 1.3) COLPOSCOPY OF VAGINA WITH CERVIX IF PRESENT (WRVU 1.6) MODIFIER LASER,CO2 Referral ID Status Reason Start Date Expiration Date Visits Re quested Visits Authorized [id number] 1 1 Encounter Details Date Type Department Care Team (Latest Contact Info) Description 11/08/2017 8:35 AM [facility] - 11/08/2017 12:25 PM [facility] Hospital [place]counter [place] [address] Alex Gan MD [facility] GYNECOLOGIC [place] [address] VAIN III (vaginal intraepithelial neoplasia III) Discharge [...] Sign Reading Time Taken Comments Blood Pressure 109/64 11/08/2017 11:10 AM EST Pulse 57 11/08/2017 11:10 AM EST Temperature 36.7 ??C (98.1 ??F) 11/08/2017 10:[address] Respiratory Rate 16 11/08/2017 10:42 AM EST Oxygen Saturation 95% 11/08/2017 11:10 AM EST Inhaled Oxygen Concentration - - Weight 69.2 kg (152 lb 8.9 oz) 11/08/2017 9:01 A M EST Height 160 cm (5' 3) 11/08/2017 9:01 AM EST Body Mass Index 27.02 11/08/2017 9:01 AM EST documented in this encounter Discharge Instructions * Patient Instructions* Karma Betancourt - 11/08/2017 9:24 AM EST PATIENT DISCHARGE INSTRUCTIONS [facility] [place] - [phone] Follow Up Appointment: November 29, 2017 - 9:30AM - with Dr. Gan, [facility] [place] [facility] Call your doctor if you develop: --A fever over 101 degrees --Severe pain --Heavy vaginal bleeding --Increasing pain, redness, or discharge from your vagina Activity level: No sexual intercourse, no tampons, nothing in the vagina for 8 weeks. Diet: You may resume your regular diet. Be sure you drink plenty of fluids. Please use myke-colace (or colace) 1-2 tablets twice daily for the entire time that you are taking pain medication to keep your bowel movements soft and regular. If you are constipated or have not had a bowel movement in 3 days, please use milk of magnesia (or miralax) as directed over the counter. Driving: Do not drive until you are not feeling pain. Shower/Bath: Showering is fine. Short baths are OK. Pain medications include ibuprofen (Advil/Motrin), acetaminophen (Tylenol). ??? Please use ibuprofen 600 mg every 6 hours with food around the clock for the next several days and then after that use it only as needed. ??? You may take Tylenol (acetaminophen) over the counter as prescribed, 650mg every 6 hours as needed, for the first two days, you may want to schedule this, every 6 hours. Do not exceed 3000mg of Tylenol in any 24 hour period. You can take ibuprofen and Tylenol at the same time as the two medications work differently. documented in this encounter Medications at Time of Discharge Medication Sig Dispensed Refills Start Date End Date cholecalciferol, Vitamin D3, 25 mcg (1,000 unit) Capsule Take 1,000 Units by mouth. 10/06/2015 UNABLE TO FIND Take 1 capsule by [...] Take 2 g by mouth nightly. Saw [place] Fruit 450 mg Capsule Take 450 mg by mouth. 08/21/20172020 Saw [place] 500 mg Capsule Take 500 mg by mouth 3 times daily. 06/30/2019 Biotin 10,000 mcg Capsule Take by mouth daily. 019 diphenhydrAMINE-acetamin ophen (TYLENOL PM) 25-500 mg Tablet Take by mouth nightly. 08/07/2019 acetaminophen (TYLENOL) 500 mg Tablet Take 1,000 mg by mouth every 6 hours as needed for Pain. 11/29/2017 lidocaine (LIDODERM) 5 %(700 mg/patch) 07/11/2010 02/17/2021 Cyanocobalamin (VITAMIN B-12) 2,000 mcg tablet 07/11/201008/07 documented as of this encounter Progress Notes * Katelynn Royal RN - 11/08/2017 12:08 PM EST Drank juice, ate jello 1210 up to bathroom with no assist. Dressed self. Reports one pad modest bleeding only; continues with lower abdom pain; consulted surgeon;: this is not surgical pain. Voided moderate yellow, clear urine. Patient alert and oriented, vital signs stable. Reviewed discharge instructions; patient and verbalized understanding. Copy of instruction sheet with contact numbers for questions/concerns. .Pain assessment documented. Patient escorted out of department via wheelchair with and all belongings. documented in this encounter H&P Notes * Karma Betancourt M - 11/08/2017 8:56 AM EST Patient Name: Mary Ellen Avila Patient Age: 62 y.o. Birthdate: 1955 Admit date: 11/08/2017 Attending Physician: Alex Gan MD GYNECOLOGY PRE-OPERATIVE ASSESSMENT Date of Visit: 10/17/2017 Planned Procedure: vaginal colposcopy, CO2 laser of vagina HPI: Mary Ellen Avila is a 62 y.o. 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 ? She complains of cramping abdominal pain of ~2 weeks duration that is improved today; denies any nausea, emesis, bloating, early satiety, change in bowel or bladder pattern. No vaginal bleeding. ?? She presents today for her scheduled procedure REVIEW OF SYSTEMS/FUNCTIONAL STATUS: Review of Systems - General ROS: negative except as per HPI Bleeding disorder (h/o nose bleeds, excessive bleeding following a surgical procedure?): [X] No Personal or Family history of blood clots?: [X] Yes - PE in 2000, has since d/c'd her estrogen and has had no further issues. No LMP recorded. Patient is postmenopausal. Contraception: NA, s/p hysterectomy Past anesthesia problems?:[X] No HISTORY Pull Over Hx: history of abnormal pap smears since she was 17 years old. She has had a LEEP and cryotherapy of the cervix in the past. She had a laparoscopic hysterectomy in 2012 for SHANNA,??but has continued to have high grade cell abnormalities on the vaginal cuff. Per the patient she has had normal vaginal colposcopies but in October 2016 her Pap came back HSIL and colposcopy in September 2017 demonstrated VAIN II-III. OB History Para Term AB Living 4 2 2 SAB TAB Ectopic Multiple Live Births 2 Patient Active Problem List Diagnosis Code ??? Acrochordon L91.8 ??? Psoriasis L40.9 ??? Abnormal Pap smear of cervix R87.619 ??? Anxiety F41.9 ??? HTN (hypertension) I10 ??? Hyperlipidemia E78.5 ??? Hypothyroidism E03.9 ??? Nephrolithiasis N20.0 ??? Pulmonary embolus I26.99 ??? Shingles B02.9 ??? Pap smear of vagina with HGSIL R87.623 ??? 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 Abnormal Pap smear of cervix ??? Anxiety ??? Diabetes ??? Hepatitis B at age 17 ??? HTN (hypertension) ??? Hyperlipidemia ??? Hypothyroidism ??? Nephrolithiasis ??? Psoriasis ??? Pulmonary embolus 2001 percipitated by HRT ??? Pyelonephritis ??? Shingles Past Surgical History: Procedure Laterality Date ??? CERVIX LESION DESTRUCTION ??? SECTION ??? DILATION AND CURETTAGE OF UTERUS ??? HYSTERECTOMY 2012 laparoscopic ??? LAPAROSCOPIC APPENDECTOMY ??? LEEP ??? LITHOTRIPSY ??? PRO COLPOSCOPY, ENTIRE VAGINA, W/BIOPSY(S) N/A 09/20/2017 COLPOSCOPY OF VAGINA WITH CERVIX IF PRESENT, BIOPSY (WRVU 2.2) performed by [facility] MA[facility] ??? PRO PELVIC EXAMINATION W ANESTH N/A 09/20/2017 PELVIC EXAM UNDER ANESTHESIA (WRVU 1.75) performed by Alex Gan MD at [facility] MAIN OR FAMILY HISTORY family history includes Cancer (age of onset: 35) in her sister; Dementia (age of onset: 82) in herfather; Depression in her brother; Diabetes in her brother, maternal grandmother, and mother; Myocardial Infarction (age of onset: 81) in her mother; Ovarian Cancer (age of onset: 40) in her paternalgrandmother. There is no history of Colorectal Cancer or Pancreatic Cancer. SOCIAL HISTORY Social History Occupational History ??? Not on file. Social History Main Topics ??? Smoking status: Former Smoker ??? Smokeless tobacco: Never Used ??? Alcohol use No ??? Drug use: No ??? Sexual activity: Not on file reports that she has quit smoking. She has never used smokeless tobacco. She reports that she does not drink alcohol or use illicit drugs. Allergies Allergen Reactions ??? Allergen Jer-Gumud-Pvmqr Bee CIS - Anaphylaxis ??? Iodine And Iodide Containing Products CIS - Anaphylaxis ??? Penicillins CIS - Anaphylaxis ??? Tetracyclines CIS - Anaphylaxis ??? Venom-Wasp CIS - Anaphylaxis ??? Mfiuv-Hcmng-Znyhg Hornet CIS - Anaphylaxis ??? Venom-Yellow Hornet CIS - Anaphylaxis ??? Venom-Yellow Jacket CIS - Anaphylaxis ??? Amoxicillin Trihydrate CIS - mild ??? Atorvastatin Calcium CIS - muscle nadeen ??? Glimepiride CIS - N/V/D ??? Metformin CIS - nausea & diarrhea Outpatient Prescriptions Marked as Taking for the 11/08/17 encounter (Hospital Encounter) Medication Sig Dispense Refill ??? Saw [place] 500 mg Capsule Take 500 mg by mouth 3 times daily. ??? Biotin 10,000 mcg Capsule Take by mouth daily. ??? diphenhydrAMINE-acetaminophen (TYLENOL PM) 25-500 mg Tablet Take by mouth nightly. ??? SYNTHROID 50 mcg Tablet Take 50 mcg by mouth daily. ??? lisinopril (PRINIVIL;ZESTRIL) 5 mg Tablet 5 mg nightly. ??? rosuvastatin (CRESTOR) 10 mg Tablet 10 mg nightly. ??? NIFEdipine (PROCARDIA XL) 30 mg Tablet Extended Rel 24 hr 30 mg nightly. ??? acetaminophen (TYLENOL) 500 mg Tablet Take 1,000 mg by mouth every 6 hours as needed for Pain. ??? CALCIUM CARBONATE/VITAMIN D3 (VITAMIN D-3 ORAL) Take by mouth nightly. ??? INULIN (FIBER GUMMIES ORAL) Take by mouth nightly. ??? fish oil-omega-3 fatty acids 1,000 mg Capsule Take 2 g by mouth nightly. ??? lidocaine (LIDODERM) 5 %(700 mg/patch) ??? Cyanocobalamin (VITAMIN B-12) 2,000 mcg tablet (Patient taking differently: takes nightly) Wt Readings from Last 3 Encounters: 11/08/17 69.2 kg (152 lb 8.9 oz) 10/16/17 69.2 kg (152 lb 8.9 oz) 09/20/17 67.4 kg (148 lb 8 oz) Body mass index is 27.02 kg/(m^2). Most Recent Vitals: 11/08/17 0901 BP: 150/68 Pulse: 66 Resp: 16 Temp: 36.6 ??C (97.9 ??F) SpO2: 98% Physical Exam: On exam she appeared her stated age and in no acute distress. Skin:non-diaphoretic, without rash/lesions Neurological: She is alert and oriented to person, place, and time. Psychiatric: Affect is appropriate. HEENT: Normocephalic. Anicteric, normal scleral and conjunctivae. Neck is supple without thyromegaly or lymphadenopathy Lungs were clear to auscultation bilaterally. Heart regular rate and rhythm without murmurs or gallops. The abdomen was soft, non-tender, and without guarding or rebound. No masses or organomegaly. Examination of the extremities revealed no cyanosis, clubbing or edema. Pelvic Exam: Deferred to OR Lab/ Radiology Review Results for orders placed or performed during the hospital encounter of 11/08/17 POCT Glucose Result Value Ref Range POC Glucose 155 65 - 199 mg/dL ASSESSMENT: 62 y.o. female seen today in preoperative consultation for CO2 laser of the vagina, vaginalcolposcopy for VAIN II-III. PLAN: ??? We will proceed with the above procedures ??? Anesthesia preference: per anesthesia ??? (X) Medications and herbal preparations reviewed ?? (x) Discontinue Solid foods at midnight ??? (X) Clear liquids (water, apple juice, jennifer ethan, or black coffee) may be consumed until 2 hours prior to scheduled procedure. Informed consent: was obtained by Dr. Gan 10/16/2017 and confirmed today. Karma Betancourt MD, PGY-1 Associated attestation - Alex Gan MD - 11/08/2017 10:47 AM EST Into see patient prior to her surgery. We reviewed the planned procedure. Consents complete and in her chart. Questions answered. documented in this encounter Miscellaneous Notes * Op Note - Alex Gan MD - 11/08/2017 10:56 AM EST [facility] [place] Patient Name: Mary Ellen Avila : [id number] MR#: [id number] Case Date: 11/08/2017 Surgeon: Surgeon(s) and Role: * Alex Gan MD - Primary * Karma Betancourt MD Preoperative diagnosis: ABNORMAL VAGINAL PAP Postoperative diagnosis: ABNORMAL VAGINAL PAP Procedure: Exam under anesthesia, vaginal colposcopy, CO2 laser of the vagina Findings: Unchanged from findings at time of initial colposcopy with erythematous plaque and glandular Changes surrounding the left vaginal fornix. Anesthesia: General Estimated Blood Loss: None Specimens removed during surgery: None Surgical Closure: NA Disposition: awakened from anesthesia, extubated and taken to the recovery room in a stable condition, having suffered no apparent untoward event. Condition: doing well without problems (Please see the Surgical Encounter Summary for any Implant and Specimen details pertinent to this patient.) HPI/Surgical Indications: On 09/20/17 she underwent a EUA, vaginal colposcopy that showed VAIN. Her postoperative course was uncomplicated. She has been doing well since surgery. Her energy level is improving and she is eating well. She denies fevers, chills, dysuria, incisional concerns, abdominal pain, vaginal bleeding, nausea, vomiting or diarrhea. Procedure Description: Informed consent was signed. Patient was taken to operating room where she was put sleep under general anesthesia with LMA. The patient was draped and A vaginal colposcopy was performed with findings as noted above. The laser was assembled perineum was draped with soaking wetblue towels and a wet Ray-Wilbert was placed in the rectum. The area surrounding the left vaginal fornix was lasered until the subepithelial repeat layer was visualized. All instruments were removed fromthe vagina. The patient tolerated the procedure well was awakened in the operating room. Sponge andinstrument counts were correct ??2. Thank you Infection Bundle used? N/A Attestation: Case Date: 11/08/2017 I was present and I participated during the entire procedure (does not need to include opening and closing). ALEX GAN MD 11/08/2017 documented in this encounter Plan of Treatment Upcoming Encounters Date Type Department Care Team (Late st Contact Info) Description 06/01/2024 4:00 PM EDT Office Visit Dermatology at [place] [address] [place] [address] Anthony Uribe MD [address], [place] [address] documented as of this encounter Procedures Procedure Name Priority Date/Time Associated Diagnosis Comments MODIFIER LASER,CO2 11/08/2017 9: 47 AM EST ABNORMAL VAGINAL PAP COLPOSCOPY OF VAGINA WITH CERVIX IF PRESENT (WRVU 1.6) 11/08/2017 9:47 AM EST ABNORMAL VAGINAL PAP DESTRUCTION OF VAGINAL LESION(S), SIMPLE W\W\O LASER (WRVU 1.3) 11/08/2017 9:47 AM EST ABNORMAL VAGINAL PAP POCT GLUCOSE Routine 11/08/2017 9:12 AM EST documented in this encounter Results * POCT Glucose (11/08/2017 9:12 AM EST) Glucose, POC 155 65 - 199 mg/dL [facility] Comment: Supplemental ranges: <140 mg/dL before meals <180 mg/dL all other times of the day Blood specimen (specimen) 11/08/2017 9:12 AM EST 11/08/2017 9:12 AM EST Alex Gan MD POINT OF CARE [place] [address] documented in this encounter Visit Diagnoses Diagnosis 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, vagina documented in this encounter Administered Medications Inactive Administered Medications - up to 3 most recent administrations Medication Order MAR Action Action Date Dose Rate Site lactated Ringers infusion 1,000 mL 1,000 mL, at 100 mL/hr, Intravenous, CONTINUOUS, Starting on Sat11/08/17 at 0915, Until Sat11/08/17 at 1153, Day of Surgery (Day of Procedure) New Bag 11/08/2017 9:44 AM EST New Bag 11/08/2017 9:18 AM EST 1,000 mLs 100 mL/hr lidocaine (XYLOCAINE) 10 mg/mL (1 %) injection 3 mg 3 mg (0.3 mL), Subcutaneous, ONCE PRN, 1 dose, Starting on Sat11/08/17 at 0857, Until Sat11/08/17 at 0918, for discomfort with PIV insertion, Day of Surgery (Day of Procedure), Routine Given 11/08/2017 9:18 AM EST 3 mg ondansetron (ZOFRAN) 4 mg/2 mL injection 1 dose, Starting on Sat11/08/17 at 0920, Until Sat11/08/17 at 0930, SALMA SESAY: cabinet override ondansetron (ZOFRAN) injection 4 mg 4 mg, Intravenous, EVERY 8 HOURS PRN, Starting on Sat11/08/17 at 0921, Until Sat11/08/17 at 1425, Nausea Given 11/08/2017 9:30 AM EST 4 mg documented in this encounter Active and Recently Administered Medications Times are shown in EST. Scheduled Medication Order 11/06/2017 11/07/2017 11/08/2017 ibuprofen (ADVIL;MOTRIN) tablet 600 mg 600 mg, Oral, EVERY 6 HOURS SCHEDULED, First dose on 11/09/17 at 0000, Until Discontinued, Begin after the Ketorolac is discontinued, Routine Continuous Medication Order 11/06/2017 11/07/2017 11/08/2017 lactated Ringers infusion 1,000 mL (CANCELED) 1,000 mL, at 100 mL/hr, Intravenous, CONTINUOUS, Starting on Sat11/08/17 at 0915, Until Sat11/08/17 at 1153, Day of Surgery (Day of Procedure) 0918 (New Bag - Prov ider: Salma Sesay RN)0944 (New Bag - Provider: Margaret Worrell MD)1020 (Anesthesia Volume Adjustment - Provider: Margaret Worrell MD) lactated Ringers infusion 1,000 mL 1,000 mL, at 100 mL/hr, Intravenous, CONTINUOUS, Starting on Sat11/08/17 at 1115, Until Sat11/08/17 at 1425 1115 (Due) PRN Medication Order 11/06/2017 11/07/2017 11/08/2017 acetaminophen (TYLENOL) tablet 650 mg 650 mg, Oral, EVERY 6 HOURS PRN, Starting on Sat11/08/17 at 1047, Until Sat11/08/17 at 1425, Pain, If multiple pain medications ordered, use acetaminophen first., Routine lidocaine (XYLOCAINE) 10 mg/mL (1 %) injection 3 mg (COMPLETED) 3 mg (0.3 mL), Subcutaneous, ONCE PRN, 1 dose, Starting on Sat11/08/17 at 0857, Until Sat11/08/17 at 0918, for discomfort with PIV insertion, Day of Surgery (Day of Procedure), Routine 0918 (Given - Provid er: Salma Sesay RN) ondansetron (ZOFRAN) injection 4 mg 4 mg, Intravenous, EVERY 8 HOURS PRN, Starting on Sat11/08/17 at 0921, Until Sat11/08/17 at 1425, Nausea 0930 (Given - Provid er: Salma Sesay RN - Comment: Verbal order per Dr. Worrell. Order repeated back to confirm.) documented in this encounter Care Teams Aerial Survey Technician Relationship Specialty Start Date End Date Kristen Avina APRN PCP - General Family Medicine 07/03/17 03/19/19 documented as of this encounter
--- OUTSIDE RECORDS SUMMARY | 2024-05-01 01:55 | XMS_ITS | Encounter Summary ---
Author Organization [facility] Address [facility] [place] [address] Care Team Providers Care Oil Well Services Supervisor Name Role Phone Fabrice Kristen Schneider APRN Primary Care Provider [phone] Reason for Visit * Reason Comments Establish Care HGSIL * Consultation (Routine) - Closed Specialty Diagnoses / Procedures Referred By Robert jessica Referred To Contact Gynecology Oncology Diagnoses HGSIL (high grade squamous intraepithelial lesion) on Pap smear of cervix HGSIL Procedures CONSULT Yolanda Blank MD [address] [place] [address] [facility] [employer] [address] [place] [address] Referral ID Status Reason Start Date Expiration Date Visits Re quested Visits Authorized [id number] Closed 04/05/2017 04/05/2018 1 1 Encounter Details Date Type Department Care Team (Late st Contact Info) Description 07/03/2017 1:30 PM EDT Office Visit [place] [address] Althea Mascorro MD [facility] [place] [address] Other pulmonary embolism without acute cor pulmonale, unspecified chronicity; Abnormal cervical Papanicolaou smear, unspecified abnormal pap finding Social History Tobacco Use Types Packs/Day Years Used Date Smoking Tobacco: Former Smokeless Tobacco: Never Sex and Gender Information Value Date Recorded Sex Assigned at Not on file Gender Identity Not on file Sexual Orientation Not on file documented as of this encounter Last Filed Vital Signs Vital Sign Reading Time Taken Comments Blood Pressure 134/65 07/03/2017 1:35 PM EDT Pulse 81 07/03/2017 1:35 PM EDT Temperature 36.8 ??C (98.2 ??F) 07/03/2017 1:35 PM ED T Respiratory Rate 20 07/03/2017 1:35 PM EDT Oxygen Saturation 100% 07/03/2017 1:35 PM EDT Inhaled Oxygen Concentration - - Weight 66 kg (145 lb 8.1 oz) 07/03/2017 1:35 PM EDT Height 156 cm (5' 1.42) 07/03/2017 1:35 PM EDT Body Mass Index 27.12 07/03/2017 1:35 PM EDT documented in this encounter Progress Notes * Alda Teixeira MD - 07/03/2017 1:30 PM EDT Division [place] [address] Gynecologic Oncology Clinic New Patient Visit Reason for visit: Yolanda Blank MD [address] [place] [address] Problem List Patient Active Problem List Diagnosis Code ??? Acrochordon L91.8 ??? Psoriasis L40.9 ??? Abnormal Pap smear of cervix R87.619 ??? Anxiety F41.9 ??? HTN (hypertension) I10 ??? Hyperlipidemia E78.5 ??? Hypothyroidism E03.9 ??? Nephrolithiasis N20.0 ??? Pulmonary embolus I26.99 ??? Shingles B02.9 History of present illness: Mary Ellen Avila is a 62 y.o. post menopausal female, s/p hysterectomy, who presents for high grade pap smears of vagina. She reports that she has had abnormal pap smears since she was 17 years old. She has had a LEEP andcryotherapy of the cervix in the past. She then had a laparoscopic hysterectomy in 2011 for her SHANNA, but has continued to have high grade cell abnormalities on the vaginal cuff. Per the patient she has had normal vaginal colposcopies, but this was last done 2 years ago. Her most recent pap smear was October, was HSIL. She has a difficult time with pap smears and colposcopies. In the past colposcopies have induced panic attacks. She believes she has tried ativan and narcotic analgesia in the past before colposcopies with no relief. She denies any nausea, emesis, bloating, early satiety, change in bowel or bladder pattern. No vaginal bleeding. She reports that she has lost 30 lbs recently on purpose with diet and exercise. Gynecologic history: Menarche was approximately age 10 menopause approximately age 46. Number of pregnancies: 4 Spontaneous vaginal deliveries: 1 c-sections: 1. TOP x2 via D&C Has history of genital warts Oral contraceptive/ control pill use: 5-6. Menopausal hormone therapy use: a few months. Other contraceptive history: none Pap smears: as above in HPI Cancer screening 1. Mammography: yearly, normal. 2. Colonoscopy: last year, follow up in 10 years. Family history: Endometrial: sister may have had this at age 35 Ovarian: paternal grandmother postmenopausal Colon: denies Pancreas: denies Past Medical History: Diagnosis Date ??? Abnormal Pap smear of cervix ??? Anxiety ??? Diabetes ??? Hepatitis B at age 17 ??? HTN (hypertension) ??? Hyperlipidemia ??? Hypothyroidism ??? Nephrolithiasis ??? Psoriasis ??? Pulmonary embolus 2000 percipitated by estrogen ??? Pyelonephritis ??? Shingles Past Surgical History: Procedure Laterality Date ??? CERVIX LESION DESTRUCTION ??? SECTION ??? DILATION AND CURETTAGE OF UTERUS ??? HYSTERECTOMY 2012 laparoscopic ??? LAPAROSCOPIC APPENDECTOMY ??? LEEP ??? 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 Alcohol history: denies Other drugs: denies Herbal/alternative therapies: Biotin, calcium, omega 3, B12, Tylenol PM, fiber gummies. Performance status: Karnofsky Scale - 100 Medications Current Outpatient Prescriptions on File Prior to Visit Medication Sig Dispense Refill ??? lidocaine (LIDODERM) 5 %(700 mg/patch) ??? Cyanocobalamin (VITAMIN B-12) 2,000 mcg tablet ??? HYDROCODONE BIT/ACETAMINOPHEN (VICODIN ORAL) 1 Tablet(s), PO, Q4-6H (Patient not taking: No sigreported) No current facility-administered medications on file prior to visit. Allergies Allergies Allergen Reactions ??? Allergen Dnh-Gvpzo-Uwdlj Bee CIS - Anaphylaxis ??? Iodine And Iodide Containing Products CIS - Anaphylaxis ??? Penicillins CIS - Anaphylaxis ??? Tetracyclines CIS - Anaphylaxis ??? Venom-Wasp CIS - Anaphylaxis ??? Imbbh-Twvrh-Zqdiz Hornet CIS - Anaphylaxis ??? Venom-Yellow Hornet CIS - Anaphylaxis ??? Venom-Yellow Jacket CIS - Anaphylaxis ??? Amoxicillin Trihydrate CIS - mild ??? Atorvastatin Calcium CIS - muscle nadeen ??? Glimepiride CIS - N/V/D ??? Metformin CIS - nausea & diarrhea Vital signs: Most Recent Vitals: 07/03/17 1335 BP: 134/65 Pulse: 81 Resp: 20 Temp: 36.8 ??C (98.2 ??F) SpO2: 100% Physical examination General: She is alert and oriented, well-groomed and dressed, no obvious distress. She ambulates easily. HEENT: PERRLA, no scleral icterus or corneal arcus. EOMI. Mucus membranes were moist. Neck was supple and without thyromegaly or adenopathy. Lungs: Clear to auscultation bilaterally Heart: RRR, no murmur, rubs, gallop Abdomen:Soft, non tender, non distended. No HSM, no palpable masses. Pelvic examination: declines today Extremities: No edema. Laboratory/pathology/imaging studies: As discussed above, in the history of present illness. Impression/plan: Mary Ellen Avila is a 62 y.o. woman with persistent high grade pap smears. I recommended she undergo colposcopy. Mary Ellen reports that she cannot have an office colposcopy and reports that she will only undergo this in the OR with sedation. We reviewed the pathophysiology of the HPV virus and abnormal pap smears. We discussed that colposcopy is diagnostic and that the finding of VAIN II or III would necessitate treatment. Treatment can be medical, surgical resection, or laser therapy. We reviewed that her history will necessitate life-long surveillance with pap smears and possible follow up with colposcopy and/or further treatment. We discussed that the reason for surveillance like this is to prevent development of vaginal cancer.All questions answered. She is consented for colposcopy with biopsy in the OR. We reviewed risks of surgery including bleeding, infection, injury to surrounding organs (vagina, bladder, bowel, urethra, nerves, vessels). We also reviewed course of typical recovery and plan for follow-up 2 weeks post-op. Questions answered and consents signed. 1. Preop/HSIL vaginal pap - will schedule for OR - She is considering agreeing to try an office colposcopy and will call the office if she is willing to return for colposcopy. Patient seen/examined, plan formulated with Dr. Ludwin TEIXEIRA MD PGY4 07/03/2017 I have seen and examined the patient and reviewed and edited the resident's above history and I agree with the details as written. The assessment and plan were formulated in discussion with me and I agree with them as documented. Althea Mascorro MD documented in this encounter Plan of Treatment Upcoming Encounters Date Type Department Care Team (Late st Contact Info) Description 06/01/2024 4:00 PM EDT Office Visit Dermatology at [place] [address] [place] [address] Anthony Uribe MD [address] [facility], [place] [address] documented as of this encounter Visit Diagnoses Diagnosis Other pulmonary embolism without acute cor pulmonale, unspecified chronicity Abnormal cervical Papanicolaou smear, unspecified abnormal pap finding documented in this encounter Care Teams Oil Well Services Supervisor Relationship Specialty Start Date End Date Kristen Avina APRN PCP - General Family Medicine 07/03/17 03/19/19 documented as of this encounter
--- OUTSIDE RECORDS SUMMARY | 2024-05-01 01:55 | XMS_ITS | Encounter Summary ---
Author Organization [facility] Address [address] [place] [address] Care Team Providers Care Tire Setter Name Role Phone Amy Kaur MD Primary Care Provider [phone] Encounter Details Date Type Department Care Team (Late st Contact Info) Description 05/01/[address] [facility] Laboratory Services - [facility] ([facility] [address] [place], [place] [id number] Yolanda Blank MD [address] [place] [address] [place] [address] Social History Tobacco Use Types Packs/Day Years Used Date Smoking Tobacco: Never Assessed Sex and Gender Information Value Date Recorded Sex Assigned at Not on file Gender Identity Female 01/29/2023 10:56 EDT Sexual Orientation Not on file documented as of this encounter Plan of Treatment Not on file documented as of this encounter Procedures Procedure Name Priority Date/Time Associated Diagnosis Comments HPV DETECTION, HIGH RISK TYPES Routine 05/01/2010 10:06 EDT CYTOPATHOLOGY Routine 05/01/2010 0:00 EDT documented in this encounter Results * HUMAN PAPILLOMA VIRUS DNA TEST (05/01/2010 10:06 EDT) Specimen Description Cervix, ThinPrep vial [facility] Result Negative for HPV types 16, 18, 31, 33, 35, 39, 45, 51, 52, 56, 58, 59, and 68. [facility] Report Status Final 05/08/2010 [facility] 05/01/2010 10:0 6 EDT 05/04/2010 10:06 EDT Yolanda Blank MD MICROBIOLOGY - GENER AL ORDERABLES [facility] [address] [place] [address] * CYTOPATHOLOGY (05/01/2010 0:00 EDT) Pathology Report: CYTOPATHOLOGY REPORT ? Reports generated via electronic interface contain original data; ? however they are lacking the format of the original report. ? Caution should be taken when reading/interpreti ng unformatted reports. ? Name: ? ELIAZAR AVILA ? Accession #: ? [id number] ? : ? 1955 (Age: 55) ??F ?Collect Date: ? 05/01/2010 ? Location: ? [facility] ? Receive Date: ? 05/02/2010 ? Provider: ?YOLANDA MANUEL MD ? Copy to: ? Specimen/Source: ?Pap Test, Cervix/Endocervix, ThinPrep Imaging System ? with manual evaluation ? Last Menstrual Period: ? 2003 ? Previous Gynecologic Pathology: ? HSIL: 12/06, 9/04, 8/05, 7/06 ? LSIL: 1/04, 11/07, 6/08 ? HSIL: 5/09, 6/10 ? Treatment History: ? Colposcopy: 10/04, 12/07 ? LEEP: 12/07 ? Other: ? HPVA - HPV testing requested if ASC-US on the current ThinPrep Pap test. ? SPECIMEN ADEQUACY ? Satisfactory for Evaluation ? - transformation zone component present ? GENERAL CATEGORIZATION ? Epithelial Cell Abnormality ? INTERPRETATION ? Squamous Cell Abnormality - Atypical squamous cells, undetermined ? significance (ASC-US). ? EDUCATIONAL NOTES/RECOMMENDATI ONS ? [facility] recommends following the 2006 Consensus Guidelines for the Management of Women with Abnormal Cervical Cancer Screening Tests (JLGTD, ? 2007;11(4):201-222 ). ??Consensus guidelines are available online at ? www.ASCCP.org. ? Document reviewed and electronically signed by: ? Harvey Nas Oral, MD ? Report Date: ??05/03/2010 16:46 ? End of Report ? [facility] 05/01/2010 05/02/2010 Yolanda Blank MD PATHOLOGY ORDERABLES Performing Organization Address City/State/[facility] Co de Phone Number [facility] [address] [place] [address] documented in this encounter Visit Diagnoses Not on filedocumented in this encounter Care Teams Tire Setter Relationship Specialty Start Date End Date Amy Kaur MD [address] [place] [address] [place] [address] PCP - General 03/14/10 01/28/23 documented as of this encounter
--- OUTSIDE RECORDS SUMMARY | 2024-05-01 01:55 | XMS_ITS | Encounter Summary ---
Author Organization [facility] Address [address] [place] [address] Care Team Providers Care Signal Worker Helper Name Role Phone Amy Kaur MD Primary Care Provider [phone] Encounter Details Date Type Department Care Team (Late st Contact Info) Description 10/31/2016 Results Only [facility] [phone] Yolanda Blank MD [address] [place] [address] [place] [address] Social History Tobacco Use Types Packs/Day Years [...] Diagnosis Comments PAP TEST- RESULT ONLY Routine 10/31/2016 0:00 EST documented in this encounter Results * PAP TEST- RESULT ONLY (10/31/2016 0:00 EST) Pathology Report: CYTOPATHOLOGY REPORT Reports generated via electronic interface contain original data; however they are lacking the format of the original report. Caution should be taken when reading/interpreting unformatted reports. Name: ? ELIAZAR AVILA ? Accession #: ? [id number] : ? 1955 (Age: 61) ??F ?Collect Date: ? 10/31/2016 Location: ? [facility] ? Receive Date: ? 11/01/2016 Provider: ?YOLANDA BLANK MD Copy to: ?NAEEM SAWYER ELEVATOR REPAIR MECHANIC ? Specimen/Source: ?Pap Test, Vagina, ThinPrep Imaging System with manual evaluation Last Menstrual Period: ? Previous Gynecologic Pathology: ? HSIL: 10/28/15 HPV: + 10/28/15 ? SPECIMEN ADEQUACY ? Satisfactory for Evaluation - assessment of transformation zone component not applicable ( e.g. atrophy, vaginal sample, hysterectomy) GENERAL CATEGORIZATION ? Epithelial Cell Abnormality INTERPRETATION ? Squamous Cell Abnormality - High grade squamous intraepithelial lesion (HSIL). EDUCATIONAL NOTES/RECOMMENDATION S ? [facility] recommends following ASCCP's 2012 Updated Consensus Guidelines for the Management of Abnormal Cervical Cancer Screening Tests and Cancer Precursors (JLGTD, 2013; 17(5):S1-S27). ??Consensus guidelines are available online at www.asccp.org. ? COMMENT ? This case was reviewed at the intradepartmental consultation conference. ? Document reviewed and electronically signed by: ? CARMELA PATRICIA MD ? Report Date: ??11/08/2016 08:54 End of Report [facility] 10/31/2016 11/01/2016 Yolanda Blank MD PATHOLOGY ORDERABLES [facility] [address] [place] [address] documented in this encounter Visit Diagnoses Not on filedocumented in this encounter Care Teams Signal Worker Helper Relationship Specialty Start Date End Date Amy Kaur MD [facility] [facility] [address] [address] PCP - General 03/14/10 01/28/23 documented as of this encounter
--- OUTSIDE RECORDS SUMMARY | 2024-05-01 01:55 | XMS_ITS | Referral Summary ---
Author Organization [facility] Address [address] [place] [address] Care Team Providers Care Lime Mixer Tender Name Role Phone Sophia Hercules Primary Care Provider [phone] Encounters Date Type Department Care Team Description 03/03/2024 Lab Requisition [facility] Pathology & Laboratory Medicine - [facility] [address] [place] [address] Outr Resulting Lab, Provider from Last 3 Months Social History Tobacco Use Types Packs/Day Years Used Date Smoking Tobacco: Never Assessed Sex and Gender Information Value Date Recorded Sex Assigned at Not on file Gender Identity Female 01/29/2023 10:56 EDT Sexual Orientation Not on file Plan of Treatment Not on file Procedures Procedure Name Priority Date/Time Associated Diagnosis Comments LYME AB Routine 03/03/2024 15:15 EDT RHEUMATOID FACTOR Routine 03/03/2024 15: 15 EDT ANTI NUCLEAR AB (TIFFANIE), IFA Routine 03/03/2024 15:15 EDT [facility] ANTIBODIES Routine 03/03/2024 15:15 EDT from Last 3 Months Results * [facility] ANTIBODIES (03/03/2024 15:15 EDT) [facility] Antibodies <2.5 <5.0 U/mL 03/04/2024 9:35 EDT [facility] Blood VENOUS BLOOD / Unknown 03/03/2024 15:15 EDT 03/03/2024 21:56 EDT Provider Outr Resulting Lab IMMUNOLOGY A ND SEROLOGY ORDERABLES Performing Organization Address [facility] Co de Phone Number [facility] [address] [place], [place] [phone] * LYME AB (03/03/2024 15:15 EDT) Lyme Ab Negative Negative 03/04/2024 10:40 EDT [facility] Blood VENOUS BLOOD / Unknown 03/03/2024 15:15 EDT 03/03/2024 21:56 EDT Provider Outr Resulting Lab IMMUNOLOGY A ND SEROLOGY ORDERABLES Performing Organization Address [facility] Co de Phone Number [facility] [address] [place], [place] [id number] * RHEUMATOID FACTOR (03/03/2024 15:15 EDT) Pathologist [facility] Rheumatoid Factor <8.6 <12.0 IU/mL 03/03/2024 22:19 EDT [facility] Blood VENOUS BLOOD / Unknown 03/03/2024 15:15 EDT 03/03/2024 21:56 EDT Provider Outr Resulting Lab CHEMISTRY & BLOOD GAS ORDERABLES Performing Organization Address [facility] Co de Phone Number [facility] [address] [place], [place] [id number] * ANTI NUCLEAR AB (TIFFANIE), IFA (03/03/2024 15:15 EDT) TIFFANIE Interpretation Negative Negative 2023 14:26 EDT [facility] Comment:No titer performed, TIFFANIE Screen is negative. Blood VENOUS BLOOD / Unknown 03/03/2024 15:15 EDT 03/03/2024 21:56 EDT Narrative [facility] - 03/04/2024 14:26 EDT Results were obtained with the [employer] HEp-2 TIFFANIE Kit by indirect immunofluorescence. Provider Outr Resulting Lab IMMUNOLOGY A ND SEROLOGY ORDERABLES [facility] [address] [place] [address] from Last 3 Months Care Teams Lime Mixer Tender Relationship Specialty Start Date End Date [address] [place] [address] PCP - General 01/29/23
--- OUTSIDE RECORDS SUMMARY | 2024-05-01 01:55 | XMS_ITS | Encounter Summary ---
Author Organization [facility] Address [address] [place] [address] Care Team Providers Care Wheel Inspector Name Role Phone Amy Kaur MD Primary Care Provider [phone] None, Provider Primary Care Provider Unavailabl e Encounter Details Date Type Department Care Team (Late st Contact Info) Description 08/28/2006 Results Only [facility] conversion [address] [place] [address] Yolanda Blank MD [address] [place] [address] [place] [address] Social History Tobacco Use Types Packs/Day Years Used Date Smoking Tobacco: Never Assessed Sex and Gender Information Value Date Recorded Sex Assigned at Not on file Gender Identity Female 01/29/2023 10:56 EDT Sexual Orientation Not on file documented as of this encounter Plan of Treatment Not on file documented as of this encounter Procedures Procedure Name Priority Date/Time Associated Diagnosis Comments CYTOPATHOLOGY Routine 08/28/2006 0:00 EST documented in this encounter Results * CYTOPATHOLOGY (08/28/2006 0:00 EST) Pathology Report: CYTOPATHOLOGY REPORT Reports generated via electronic interface contain original data; however they are lacking the format of the original report. Caution should be taken when reading/interpreti ng unformatted reports. Name: ? ELIAZAR AVILA ? Accession #: ? [id number] : ? 1955 (Age: 51) ??F ?Collect Date: ? 08/28/2006 Location: ? [facility] ? Receive Date: ? 08/28/2006 Provider: ?YOLANDA BLANK MD Copy to: ? Specimen/Source: ?ThinPrep Pap Test, Cervix/Endocervix, processed on [employer] ThinPrep Imaging System, with manual evaluation Last Menstrual Period: ? 2002 Previous Gynecologic Pathology: ? LSIL: 09/05 HSIL: 05/06, 04/06 & 03/07 Treatment History: ? Miscellaneous treatment: ECC 10/06 Colposcopy: 10/06 Miscellaneous treatment: Endo bx 06/05 Other: ? HPVA - HPV testing requested if ASC-US on the current ThinPrep Pap test. ? SPECIMEN ADEQUACY ? Satisfactory for Evaluation - transformation zone component present GENERAL CATEGORIZATION ? Epithelial Cell Abnormality INTERPRETATION ? Squamous Cell Abnormality - High grade squamous intraepithelial lesion (HSIL). EDUCATIONAL NOTES/RECOMMENDATI ONS ? [facility] recommends following the 2001 Consensus Guidelines for the Management of Women with Cervical Cytological Abnormalities (RHONDA,2002;287:212 0-9). Management algorithms have been distributed by [facility] and are available online at www.ASCCP.org. ? Document reviewed and electronically signed by: ? Angela Armendariz MD ? Report Date: ??09/10/2006 08:34 End of Report [facility] 08/28/2006 08/28/2006 Yolanda Blank MD PATHOLOGY ORDERABLES [facility] [address] [place] [address] documented in this encounter Visit Diagnoses Not on filedocumented in this encounter Care Teams Wheel Inspector Relationship Specialty Start Date End Date Amy Kaur MD [address] [place] [address] [place] [address] PCP - General 03/14/10 01/28/23 None, Provider PCP - General 08/04/09 03/13/10 documented as of this encounter
--- OUTSIDE RECORDS SUMMARY | 2024-05-01 01:55 | XMS_ITS | Encounter Summary ---
Author Organization [facility] [place] [address] Care Team Providers Care Biscuit Packer Name Role Phone Kristen Avina Wyatt JONES Primary Care Provider [phone] Reason for Visit * Auth/Cert Specialty Diagnoses [...] Expiration Date Visits Re quested Visits Authorized [id number] 1 1 Encounter Details Date Type Department Care Team (Late st Contact Info) Description 09/20/2017 8:30 AM EST - 09/20/2017 9:58 AM EST Surgery [place] [address] Alex Gan MD [facility] GYNECOLOGIC [place] [address] PELVIC EXAM UNDER ANESTHESIA (WRVU 1.75) Social History Tobacco Use Types Packs/Day Years Used Date Smoking Tobacco: Former Smokeless Tobacco: Never Sex and Gender Information Value Date Recorded Sex Assigned at Not on file Gender Identity Not on file Sexual Orientation Not on file documented as of this encounter Last Filed Vital Signs Vital Sign Reading Time Taken Comments Blood Pressure 109/77 09/20/2017 9:49 AM EST Pulse 68 09/20/2017 7:20 AM EST Temperature 36.4 ??C (97.5 ??F) 09/20/2017 9:14 AM ES T Respiratory Rate 16 09/20/2017 9:49 AM EST Oxygen Saturation 100% 09/20/2017 9:49 AM EST Inhaled Oxygen Concentration - - Weight 67.4 kg (148 lb 8 oz) 09/20/2017 7:20 AM EST Height 160 cm (5' 3) 09/20/2017 7:20 AM EST Body Mass Index 26.31 09/20/2017 7:20 AM EST documented in this encounter Discharge Instructions * Discharge Instructions* Libia Morales RN - 09/20/2017 9:25 AM EST POST ANESTHESIA INSTRUCTIONS Go home, rest, use caution on stairs. Change positions slowly. Do not smoke if you are alone. Diet light to regular as tolerated today. If nausea occurs start with clear liquids and progress slowly. No driving, operating machinery, alcoholic beverages and no important decisions for 24 hours. Monitor IV site for signs and symptoms of infection: increasing redness, swelling, foul drainage, if occurs contact M.D. Patients who have had endotrachial tubes (this tube, used by anesthesia department, is passed down your throat after you are asleep, to ensure safe air passage during your operation). A sore throat is normal due to the tube. Cold liquids or soothing lozenges will help ease the discomfort. The generalized muscle aches are due to the medication given to you just before the tube is inserted. As the medication wears off, you may develop muscle soreness, which usually goes away in 12-24 hours. * Patient Instructions* Maurisio Cook MD - 09/20/2017 9:11 AM EST PATIENT DISCHARGE INSTRUCTIONS [facility] Gynecology Oncology [phone] (after hours or weekends [phone] ask for the FAST FOOD SALES ASSISTANT provider building energy consultant) Follow Up Visit: 10/04/17 at 11:30am with Dr. Gan Call your doctor if you develop: --A fever over 101 degrees --Severe pain --Heavy vaginal bleeding --Increasing pain, redness, or discharge at your incision Activity level: You should be able to resume your usual activities of daily living (eating, drinking, washing, walking.). No sexual intercourse and place nothing in the vagina for 1 weeks. Diet: You may resume your regular diet. Be sure you drink plenty of fluids. Please use colace 100-200mg twice daily for the entire time that you are taking pain medication to keep your bowel movements soft and regular. If you are constipated or have not had a bowel movement in 3 days, please use milk of magnesia (or miralax) as directed over the counter. Driving: You can resume driving Shower/Bath: Showering is fine. Wound Care: You have no dressings to care for. Pain medications include ibuprofen (Advil/Motrin), acetaminophen (Tylenol). ??? Please use ibuprofen (Advil/Mortrin) 600 mg every 6 hours with food around the clock for the next several days and then after that use it only as needed. ??? You may take acetaminophen (Tylenol) 650mg every 6 hours as needed. Do not exceed 3000mg of acetaminophen (Tylenol) in any 24 hour period. documented in this encounter Medications at Time [...] Take 2 g by mouth nightly. Saw Pickering Fruit 450 mg Capsule Take 450 mg by mouth. 08/21/20172020 Biotin 10,000 mcg Capsule Take by mouth daily. diphenhydrAMINE-acetamin ophen (TYLENOL PM) 25-500 mg Tablet Take by mouth nightly. 08/07/2019 acetaminophen (TYLENOL) 500 mg Tablet Take 1,000 mg by mouth every 6 hours as needed for Pain. 11/29/2017 lidocaine (LIDODERM) 5 %(700 mg/patch) 07/11/2010 02/17/2021 HYDROCODONE BIT/ACETAMINOPHEN (VICODIN ORAL) 1 Tablet(s), PO, Q4-6H 07/11/2010 10/16/2017 Cyanocobalamin (VITAMIN B-12) 2,000 mcg tablet 07/11/201008/07 documented as of this encounter Progress Notes * Libia Morales RN - 09/20/2017 10:50 AM EST Patient alert and oriented, vital signs stable. Reviewed discharge instructions; patient and verbalized understanding. Copy of instruction sheet with contact numbers for questions/concerns with . Pain assessment documented - mild cramping reported - heating pad given with good effect. IV removed prior to discharge. Small amount of bleeding/spotting which is expected. Patient escorted out of department via wheelchair with . documented in this encounter H&P Notes * Maurisio Cook MD - 09/20/2017 7:37 AM EST GYNECOLOGY PRE-OPERATIVE ASSESSMENT Date of Visit: 07/05/2017 Planned Procedure: EUA, vaginal colposcopy, possible biopsy Planned Surgery Date: 09/20/2017 Indications/Pre-op Diagnosis: vaginal dysplasia HPI: Mary Ellen Avila is a 62 y.o. post menopausal female, s/p hysterectomy, who presents for highgrade pap smears of vagina. ?? She reports that she has had abnormal [...] the past before colposcopies with no relief. ?? She denies any nausea, emesis, bloating, early satiety, change in bowel or bladder pattern. No vaginal bleeding. She reports that she has lost 30 lbs recently on purpose with diet and exercise. She presents today for her scheduled procedure. She reports that she recently visited the ED in [facility] due to right arm pain. She reports her cardiac work up was negative and her pain was attributed to shingles. A EKG that is wnl is available in [facility]. She recently broke a tooth and has an extraction scheduled for next week. She also has been diagnosed with a hairline fracture in her right index finger per her report. REVIEW OF SYSTEMS/FUNCTIONAL STATUS: Review of Systems - General ROS: negative Bleeding disorder: denies Personal or Family history of blood clots: PE in 2000, has since d/c'd her estrogen No LMP recorded. Patient is postmenopausal. Past anesthesia problems?: denies HISTORY OB History Para Term AB Living 4 [...] Pap smear of vagina with HGSIL R87.623 Past Medical History: Diagnosis Date ??? Abnormal [...] ??? LAPAROSCOPIC APPENDECTOMY ??? LEEP ??? LITHOTRIPSY FAMILY HISTORY Mary Ellen's family history includes Cancer (age of onset: 35) in her sister; Dementia (age of onset: 82) in her father; Depression in her brother; Diabetes in her brother, maternal grandmother, and mother; Myocardial Infarction (age of onset: 81) in her mother; Ovarian Cancer (age of onset: 40) in her paternal grandmother. There is no history of Colorectal Cancer or Pancreatic Cancer. SOCIAL HISTORY Social History Occupational History ??? Not on file. Social History Main Topics ??? Smoking status: Former Smoker ??? Smokeless tobacco: Never Used ??? Alcohol use Not on file ??? Drug use: Not on file ??? Sexual activity: Not on file Mary Ellen reports that she has quit smoking. She has never used smokeless tobacco. Allergies Allergen Reactions ??? Allergen Czs-Kbowy-Qepaz Bee CIS - Anaphylaxis ??? Iodine And Iodide Containing Products CIS - Anaphylaxis ??? Penicillins CIS - Anaphylaxis ??? Tetracyclines CIS - Anaphylaxis ??? Venom-Wasp CIS - Anaphylaxis ??? Cdyvj-Xsypq-Gbogn Hornet CIS - Anaphylaxis ??? Venom-Yellow Hornet CIS - Anaphylaxis ??? Venom-Yellow Jacket CIS - Anaphylaxis ??? Amoxicillin Trihydrate CIS - mild ??? Atorvastatin Calcium CIS - muscle nadeen ??? Glimepiride CIS - N/V/D ??? Metformin CIS - nausea & diarrhea Outpatient Prescriptions Marked as Taking for the 09/20/17 encounter (Hospital Encounter) Medication Sig Dispense Refill ??? Biotin 10,000 mcg Capsule Take by mouth. ??? diphenhydrAMINE-acetaminophen (TYLENOL PM) 25-500 mg Tablet Take by mouth nightly. ??? SYNTHROID 50 mcg Tablet Take 50 mcg by mouth daily. ??? lisinopril (PRINIVIL;ZESTRIL) 5 mg Tablet 5 mg daily. ??? rosuvastatin (CRESTOR) 10 mg Tablet 10 mg daily. ??? NIFEdipine (PROCARDIA XL) 30 mg Tablet Extended Rel 24 hr 30 mg. ??? CALCIUM CARBONATE/VITAMIN D3 (VITAMIN D-3 ORAL) Take by mouth. ??? INULIN (FIBER GUMMIES ORAL) Take by mouth. ??? fish oil-omega-3 fatty acids 1,000 mg Capsule Take 2 g by mouth daily. ??? Cyanocobalamin (VITAMIN B-12) 2,000 mcg tablet Wt Readings from Last 3 Encounters: 09/20/17 67.4 kg (148 lb 8 oz) 07/03/17 66 kg (145 lb 8.1 oz) Body mass index is 26.31 kg/(m^2). Physical Exam: Most Recent Vitals: 09/20/17 0720 BP: 142/63 Pulse: 68 Resp: 18 Temp: 36.7 ??C (98.1 ??F) SpO2: 96% General: Appears healthy and well nourished. No apparent distress. Psychiatric: Affect is appropriate. Neurological: Alert and oriented to person, place, and time. Skin: Warm, dry and intact. No abnormal rashes or lesions noted. Non-diaphoretic. HEENT: Grossly normal. Anicteric, normal scleral and conjunctivae. Respiratory: Lungs clear to auscultation bilaterally. Cardiovascular: Normal rate and rhythm. No audible murmurs or gallops. Abdomen: Soft with no masses or organomegaly noted. Non-tender. Extremities: No unusual findings noted. No cyanosis, clubbing or edema. Pelvic Exam: Deferred to OR Lab/Radiology Review: No results found for this or any previous visit. Her last pap was done on 10/2016 and showed HSIL. ASSESSMENT: 62 y.o. female seen today for her scheduled procedure. PLAN: ?? We will proceed with the above procedures. ?? Anesthesia preference: per anesthesia ?? Medications: discussed that Tylenol and Motrin can be used for post procedure discomfort. Narcotics are expected to not be needed. The patient verbalizes understanding. Informed consent: Completed by Dr. Gan on 07/03/17. Maurisio Cook MD 09/20/2017 Associated attestation - Alex Gan MD - 09/20/2017 11:49 AM EST Into see patient prior to her surgery. We reviewed the planned procedure. Consents complete and in her chart. Questions answered. documented in this encounter Miscellaneous Notes * Op Note - Maurisio Cook MD - 09/20/2017 9:23 AM EST [facility] Operative [place] Patient Name: Mary Ellen Avila : [id number] MR#: [id number] Case Date: 09/20/2017 Surgeon: Surgeon(s) and Role: * Alex Gan MD - Primary * Maurisio Cook MD Preoperative diagnosis: HGSIL Postoperative diagnosis: HGSIL Procedures: 1. Exam under anesthesia 2. Vaginal pap smear 3. Vaginal colposcopy with biopsy Findings: EUA: normal external genitalia, intact vaginal cuff without nodularity, lesion, or mass Colposcopy: No acetowhite changes noted, poor uptake of Lugol's iodine, velvety appearing plaque inthe 3 o'clock position adjacent to the left vaginal fornices, glandular appearing area the 1 o'clock position adjacent to the left vaginal fornices. Anesthesia: MAC Estimated Blood Loss: none Specimens removed during surgery: Order Name Source Comment Collection Info Order Time SPECIMEN TO PATHOLOGY HGSIL Vaginal cuff biopsy No Biopsy 09/20/2017 8:58 AM Time removed from patient: 8:57 AM CYTOPATHOLOGY GYNECOLOGICAL 09/20/2017 9:06 AM HPV Testing choice (NOT recommended under 20 years): Concurrent HPV and Pap Sample(s) provided: Liquid based Pap Specimen collected from: Vaginal Last menstrual period (Date mm/dd/yy, Unknown or N/A)? n/a Currently on [employer] hormones (estrogen/proGESTerone compounds)? No Hysterectomy? Total Hysterectomy Pelvic radiation? No Prior [employer] therapy? (Cone bx, Cautery, Cryotherapy, Surgery) Cone Biopsy History of abnormal Pap or cervical biopsy? Yes, history of previous abnormal Pap History of HPV vaccination? No History of Smoking? No History of ANANTH exposure? No ICD-10 Diagnosis: Z91.89 Screening Pap, History Clinical High Risk Drains: none Surgical Closure: none Disposition: awakened from anesthesia, extubated and taken to the recovery room in a stable condition, having suffered no apparent untoward event. Condition: doing well without problems (Please see the Surgical Encounter Summary for any Implant and Specimen details pertinent to this patient.) HPI/Surgical Indications: Mary Ellen Avila??is a 62 y.o.??post menopausal??female, s/p hysterectomy,?who presents for high grade pap smears of vagina. ? She reports that she has had abnormal pap smears since she was 17 years old. She has had a LEEP andcryotherapy of the cervix in the past. She then had a laparoscopic hysterectomy in 2011 for her SHANNA,??but has continued to have high grade cell abnormalities on the vaginal cuff. Per the patient she has had normal vaginal colposcopies, but this was last done 2 years ago.??Her most recent pap smear was October, was HSIL. She has a difficult time with pap smears and colposcopies. In the past colposcopies have induced panic attacks. She believes she has tried ativan and narcotic analgesia in the past before colposcopies with no relief. She would like to proceed to the OR for the above procedures. Procedure Description: Patient was taken to the operating room with IV fluids running and identified upon arrival. She wasplaced in the dorsal lithotomy position with SCDs on and functioning. Anesthesia was administered and confirmed adequate. a timeout procedure was performed per protocol and all members of the team were in agreement to proceed. An exam under anesthesia was performed digitally and no mass or nodularity was palpated in the vagina. An intact cuff was palpated. A speculum was placed transvaginally andthe cuff was visualized. No lesions were noted with gross examination. A vaginal Pap smear was obtained. A colposcope was positioned and focused. An adequate view of the vaginal cuff was obtained with the colposcope. 5% acetic acid was applied to the vaginal cuff and no apparent acetowhite changes were noted. Lugol's iodine solution was applied to the vaginal cuff and poor uptake was noted diffusely. Examination showed a velvety plaque at the 3 o'clock position adjacent to the left vaginal fornices. In addition a glandular area was noted at the 1 o'clock position adjacent to the left vaginal fornices. A Tischler biopsy forcep was used to take biopsies of the vaginal mucosa at the 3 and 1:00positions adjacent to the left vaginal fornix. Silver nitrate was used to obtain hemostasis. All instruments were removed from the vagina. The patient tolerated the procedure well blood loss was minimal. The patient was awakened from anesthesia. All counts were correct ??2 at the end of the case. The patient was taken to the recovery area in stable condition. Dr. Alex Card was present for the entire procedure without conflicting clinical responsibility. Infection Bundle used? N/A Maurisio Cook MD 09/20/2017 Associated attestation - Alex Gan MD - 09/20/2017 11:48 AM EST Attestation: Case Date: 09/20/2017 I was present and I participated during the entire procedure (does not need to include opening and closing). ALEX GAN MD 09/20/2017 documented in this encounter Plan of Treatment Upcoming Encounters Date Type Department Care Team (Late st Contact Info) Description 06/01/2024 4:00 PM EDT Office Visit Dermatology at [place] [address] [place] [address] Anthony Uribe MD [address] [facility], [place] [address] documented as of this encounter Procedures Procedure Name Priority Date/Time Associated Diagnosis Comments POCT GLUCOSE Routine 09/20/2017 9:18 AM EST HPV Routine 09/20/2017 9:06 AM EST [employer] CYTOLOGY INTERPRETATION Routine 09/20/2017 9:06 AM EST [employer] CYTOLOGY FINAL REPORT Routine 09/20/2017 9:06 AM EST CYTOPATHOLOGY GYNECOLOGICAL Routine 09/20/2017 9:06 AM EST SURGICAL PATHOLOGY REPORT Routine 09/20/2017 8:58 AM EST SPECIMEN TO PATHOLOGY Routine 09/20/2017 8:58 AM EST POCT GLUCOSE Routine 09/20/2017 8:54 AM EST COLPOSCOPY OF VAGINA WITH CERVIX IF PRESENT, BIOPSY (WRVU 2.2) 09/20/2017 8:31 AM EST HGSIL PELVIC EXAM UNDER ANESTHESIA (WRVU 1.75) 09/20/2017 8:31 AM EST HGSIL documented in this encounter Results * POCT Glucose (09/20/2017 9:18 AM EST) Glucose, POC 149 65 - 199 mg/dL [facility] Comment: Supplemental ranges: <140 mg/dL before meals <180 mg/dL all other times of the day Blood specimen (specimen) 09/20/2017 9:18 AM EST 09/20/2017 9:18 AM EST Alex Gan MD POINT OF CARE TEST ORDERABLES [facility] [place] [address] * (ABNORMAL) [employer] Cytology Interpretation (09/20/2017 9:06 AM EST) President & Ceo Cytology Interpretation ASC-H(A) [facility] Comment:President & Ceo Cytology Final R eport Endocervical Component Present [facility] AP Specimen 09/20/2017 9:06 AM EST 10/01/2017 5:17 PM EST Alex Gan MD PATHOLOGY/CYTOLOGY ORDERABLES [facility] [place] [address] * President & Ceo Cytology Final Report (09/20/2017 9:06 AM EST) President & Ceo Cytology Final Report [id number] ? Location: [facility]; [facility]; A The signing pathologist has (i) examined the relevant preparation(s) for the specimen(s) and (ii) rendered or confirmed the diagnosis(es). . ? President & Ceo Final DIAGNOSIS Epithelial Cell Abnormality Atypical Squamous Cells, cannot exclude High Grade Squamous Intraepithelial Lesion (ASC-H). For consensus guidelines for the management of cervical cancer screening test results, please see: ?? http://www.asccp.o rg . Electronically signed by: ??Lorraine Zaman MD Verified: ??10/01/2017 ?Pathologist Performed at: ??-[facility] Dept. of Pathology, [place], [place] HPV RESULTS HPV16 (Result) ?Negative HPV18 [...] Clinical Genomics and Advanced Technology (CGAT) at [facility]. ? - Wilfrido Mahoney, PhD, [facility], Director-[facility] STATEMENT OF ADEQUACY Specimen submitted is satisfactory. Endocervical component present. CLINICAL INFORMATION HPV Option: ?Concurrent HPV and Pap Preparation: ? Liquid based Pap Specimen Source: ? Vaginal LMP: ? n/a Hormones?: ? No Hysterectomy?: ? Total Hysterectomy ?: ? _ ?: ? _ I.U.D.?: ? _ Pelvic Radiation: ?No Prior [employer] Therapy?: ?Cone Biopsy Hist Abnl Pap/Biopsy?: ?? Yes, history of previous abnormal Pap Hist of HPV Vaccine?: ?No Hist of Smoking?: ?No Hist of ANANTH exposure?: ?? No ICD Diagnosis: ? Z91.89 Screening Pap, History Clinical High Risk Clinical Data, Significant Therapy and Clinical Impression ?? : . CLINICAL INFORMATION ?_ This Pap Test has been evaluated with the assistance of the TransUnionPrep Pap Test Imaging System. Note: The Pap test is a screening test for cervical cancer with an inherent false-negative rate dependent upon several variables. For further information please contact the [facility] Laboratory. Reference: Parminder OSEI. Prototype Engineer Manager of Pap Smear Results. In: Loni BS, Vidal HERNANDEZ, ed. The Pap Smear. [place]: Jabier, 2002: 71-77. [facility] 09/20/2017 9:06 AM EST Alex Gan MD PATHOLOGY/CYTOLOGY ORDERABLES [facility] [place] [address] * (ABNORMAL) HPV (09/20/2017 9:06 AM EST) HPV16 NEGATIVE NEGATIVE [facility] HPV 18 NEGATIVE NEGATIVE [facility] HPV Other HR POSITIVE(A) NEGATIVE [facility] HPV Interpretation See Comment [facility] Comment: POSITIVE for high-risk HPV* (High [...] Narrative Resulting Agency Comment Spec In Lab Alex Gan MD PATHOLOGY/CYTOLOGY ORDERABLES Performing Organization Address [facility] [place] [address] * Cytopathology Gynecological (09/20/2017 9:06 AM EST) AP Specimen 09/20/2017 9:06 AM EST 09/20/2017 9:16 AM EST Narrative [facility] - 09/20/2017 9:17 AM EST Specimen requisition ordered. ??Separate Pathology report to follow Resulting Agency Comment Spec In Lab Alex Gan MD PATHOLOGY/CYTOLOGY ORDERABLES Performing Organization Address [facility] [place] [address] * Surgical Pathology Report (09/20/2017 8:58 AM EST) Final Diagnosis [id number] ? Location: [facility]; [facility]; A The signing pathologist has (i) examined the relevant preparation(s) for the specimen(s) and (ii) rendered or confirmed the diagnosis(es). . ?Surgical Pathology DIAGNOSIS Vaginal cuff biopsy: ?? 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 CR-0 Electronically signed by: ??Kevin REZA, Ortega Buckley Verified: ??09/26/2017 ?Pathologist Performed at: ??-[facility] Dept. of Pathology, [place], [place] CLINICAL INFORMATION Specimen Submitted: A - Vaginal cuff biopsy Clinical History: HGSIL Clinical Diagnosis: Same SPECIMEN PROCESSING A - Labeled/Fixativ e: Vaginal cuff biopsy, formalin. Quantity/Size: Four, ranging from 0.3-0.5 cm. Tissue Description: Rubbery, yellow-meek and meek-pink tissue fragments. Sections/Proces sing: (T1) ??ejr 09/26/2017 1:55 PM EST [facility] VULVAL STRUCTURE / Unknown 09/20/2017 8:58 AM EST 09/20/2017 8:58 AM EST Alex Gan MD PATHOLOGY/CYTOLOGY ORDERABLES Performing Organization Address [facility] Co de Phone Number [facility] [place] [address] * Specimen to Pathology (09/20/2017 8:58 AM EST) AP Specimen 09/20/2017 8:58 AM EST 09/20/2017 9:17 AM EST Narrative [facility] - 09/20/2017 9:17 AM EST Specimen requisition ordered. ??Separate Pathology report to follow Resulting Agency Comment Spec In Lab Alex Gan MD PATHOLOGY/CYTOLOGY ORDERABLES Performing Organization Address [facility]/ZIP Co de Phone Number [facility] [place] [address] * POCT Glucose (09/20/2017 8:54 AM EST) Glucose, POC 141 65 - 199 mg/dL [facility] Comment: Supplemental ranges: <140 mg/dL before meals <180 mg/dL all other times of the day Blood specimen (specimen) 09/20/2017 8:54 AM EST 09/20/2017 8:54 AM EST Alex Gan MD POINT [place] [address] documented in this encounter Visit Diagnoses Not on filedocumented in this encounter Administered Medications Inactive Administered Medications - up to 3 most recent administrations Medication Order MAR Action Action Date Dose Rate Site acetaminophen (TYLENOL) tablet 1,000 mg 1,000 mg, Oral, ONCE, 1 dose, On Sat09/20/17 at 0800, Administer with SIP of H2O only., Day of Surgery (Day of Procedure), Routine Given 09/20/2017 7:34 AM EST 1,000 mg lidocaine (XYLOCAINE) 10 mg/mL (1 %) injection 3 mg 3 mg (0.3 mL), Subcutaneous, ONCE PRN, 1 dose, Starting on Sat09/20/17 at 0734, Until Sat09/20/17 at 0735, for discomfort with PIV insertion, Day of Surgery (Day of Procedure), Routine Given 09/20/2017 7:35 AM EST 3 mg documented in this encounter Active and Recently Administered Medications Times are shown in EST. Scheduled Medication Order 09/18/2017 09/19/2017 09/20/2017 acetaminophen (TYLENOL) tablet 1,000 mg (COMPLETED) 1,000 mg, Oral, ONCE, 1 dose, On Sat09/20/17 at 0800, Administer with SIP of H2O only., Day of Surgery (Day of Procedure), Routine 0734 (Given - Provid er: Delphine Nagel RN)0800 (Due) ibuprofen (ADVIL;MOTRIN) tablet 600 mg 600 mg, Oral, EVERY 6 HOURS SCHEDULED, First dose on 09/21/17 at 0000, Until Discontinued, Begin after the Ketorolac is discontinued, Routine PRN Medication Order 09/18/2017 09/19/2017 09/20/2017 acetaminophen (TYLENOL) tablet 650 mg 650 mg, Oral, EVERY 6 HOURS PRN, Starting on Sat09/20/17 at 0917, Until Sat09/20/17 at 1318, Pain, If multiple pain medications ordered, use acetaminophen first., Routine lidocaine (XYLOCAINE) 10 mg/mL (1 %) injection 3 mg (COMPLETED) 3 mg (0.3 mL), Subcutaneous, ONCE PRN, 1 dose, Starting on Sat09/20/17 at 0734, Until Sat09/20/17 at 0735, for discomfort with PIV insertion, Day of Surgery (Day of Procedure), Routine 0735 (Given - Provid er: Delphine Nagel RN) documented in this encounter Care Teams Biscuit Packer Relationship Specialty Start Date End Date Kristen Avina APRN PCP - General Family Medicine 07/03/17 03/19/19 documented as of this encounter
--- OUTSIDE RECORDS SUMMARY | 2024-05-01 01:55 | XMS_ITS | Encounter Summary ---
Author Organization [facility] Address [address] [place] [address] Care Team Providers Care Hemmer Lockstitch Name Role Phone Amy Kaur MD Primary Care Provider [phone] Encounter Details Date Type Department Care Team (Late st Contact Info) Description 03/03/2015 Phlebotomy Only [address] [address] [employer] Counter Person, Outpatient Social History Tobacco Use Types Packs/Day Years Used Date Smoking Tobacco: Never Assessed Sex and Gender Information Value Date Recorded Sex Assigned at Not on file Gender Identity Female 01/29/2023 10:56 EDT Sexual Orientation Not on file documented as of this encounter Plan of Treatment Not on file documented as of this encounter Visit Diagnoses Not on filedocumented in this encounter Care Teams Hemmer Lockstitch Relationship Specialty Start Date End Date Amy Kaur MD [address] [place] [address] [place] [address] PCP - General 03/14/10 01/28/23 documented as of this encounter
--- OUTSIDE RECORDS SUMMARY | 2024-05-01 01:55 | XMS_ITS | Encounter Summary ---
Author Organization [facility] [place] [address] Care Team Providers Care Check Services Clerk Name Role Phone Chip Harris Primary Care Provider Encounter Details Date Type Department Care Team (Late st Contact Info) Description 10/24/2005 Orders Only Obstetrics [place] [address] Richard Evans MD [facility] OBSTETRICS & [place] [address] Social History Tobacco Use Types Packs/Day Years [...] 4:00 PM EDT Office Visit Dermatology at [place] [address] [facility] [place] [address] Anthony Uribe MD [address], [place] [address] documented as of this encounter Procedures Procedure Name Priority Date/Time Associated Diagnosis Comments NON-FUNERAL ARRANGER FINAL REPORT Routine 10/24/2005 6:12 PM EST documented in this encounter Results * Non-Gleason Gear Generator Final Report (10/24/2005 6:12 PM EST) Non-Gleason Gear Generator Final Report [id number] ? Location: The signing pathologist has (i) examined the relevant preparation(s) for the specimen(s) and (ii) rendered or confirmed the diagnosis(es). . ? Pathology Non-Gleason Gear Generator Cytology Final Report Clinical Information Specimen Source: ?Urine, Voided Clinical History/Impress ion: ?? 51yr old smoker with irritative voiding symptoms. Gross Description: ?Rec'd in Cytorich blue, ??approx. 35 ml. total volume of ??cloudy, yellow fluid. ?Total Prep - LBP 1. Interpretation Specimen submitted is satisfactory. Diagnosis Negative for Malignancy 10/31/05 ?Screened by: ? RSU ?Rescreened by: ?? EJG 10/31/05 ?Verified by: ? Nehemias Barton MD ? Pathologist ? (Electronic Signature) Comment Hypocellular sample. YUDI DENNIS 10/24/2005 6:12 PM EST Richard Evans MD PATHOLOGY/CYTOLOGY ORDERABLES YUDI DENNIS documented in this encounter Visit Diagnoses Not on filedocumented in this encounter Care Teams Check Services Clerk Relationship Specialty Start Date End Date Chip Harris PA PCP - General Family Medicine 07/09/19 documented as of this encounter
--- OUTSIDE RECORDS SUMMARY | 2024-05-01 01:55 | XMS_ITS | Encounter Summary ---
Author Organization [facility] Address [address] [place] [address] Care Team Providers Care Recreational Assistant Name Role Phone Amy Kaur MD Primary Care Provider [phone] Encounter Details Date Type Department Care Team (Latest Contact Info) Description 10/31/2016 8:55 EST - 10/31/2016 23:59 EST Hospital Encounter [address] [address] Unknown, Provider, Discharge Disposition: Home or Self Care Social History Tobacco Use Types Packs/Day Years Used Date Smoking Tobacco: Never Assessed Sex and Gender Information Value Date Recorded Sex Assigned at Not on file Gender Identity Female 01/29/2023 10:56 EDT Sexual Orientation Not on file documented as of this encounter Discharge Disposition Disposition Code Departure Means Destination Home or Self Senior Care documented in this encounter Plan of Treatment Not on file documented as of this encounter Visit Diagnoses Not on filedocumented in this encounter Care Teams Recreational Assistant Relationship Specialty Start Date End Date Amy Kaur MD [address] [place] [address] [place] [address] PCP - General 03/14/10 01/28/23 documented as of this encounter
--- OUTSIDE RECORDS SUMMARY | 2024-05-01 01:55 | XMS_ITS | Encounter Summary ---
Author Organization [facility] Address [address] [place] [address] Care Team Providers Care Pastry Finisher Name Role Phone Amy Conklin MD Primary Care Provider [phone] Encounter Details Date Type Department Care Team (Late st Contact Info) Description 01/27/2012 Results Only [facility] [phone] Dianne Klein, DO [address] [place] [address] Social History Tobacco Use Types Packs/Day Years [...] Date/Time Associated Diagnosis Comments SURGICAL PATHOLOGY Routine 01/27/2012 0:00 EDT documented in this encounter Results * SURGICAL PATHOLOGY (01/27/2012 0:00 EDT) Pathology Report: SURGICAL PATHOLOGY REPORT Reports generated via electronic interface contain original data; however they are lacking the format of the original report. Caution should be taken when reading/interpreti ng unformatted reports. Name: ? ELIAZAR AVILA ? Accession #: ? [id number] ? : ? 1955 (Age: 56) ??F ? Collect Date: ? 01/27/2012 ? Location: ? [facility] ? Receive Date: ? 01/29/2012 ? Provider: DIANNE KLEIN DO Copy to: JOLYNN CONKLIN MD ? Final Pathologic Diagnosis: ? Appendix, appendectomy: 1. ?Mild acute appendicitis. 2. ? Fibrinous serositis. ??See comment. Comment: ? The entire appendix has been submitted for histopathologic examination. (Dr. Fabian)/[facility]an Document reviewed and electronically signed by: RADHA FABIAN MD Report ??Date: 02/01/2012 11:10 By the signature above, the attending physician certifies that he/she has personally conducted a gross and/or microscopic examination of the described specimens and rendered or confirmed the above diagnosis. Specimen(s) Received: ? Appendix Clinical History: ? Appendicitis Gross Description: ? Received in formalin labelled Flum, Eliazar and appendix is an 8.0 cm in length vermiform appendix that ranges from 0.5 to 1.4 cm in diameter. ??The specimen is received stapled at the margin of resection and has a moderate amount of attached, markedly indurated and focally hemorrhagic adipose tissue. The margin is inked black. ??The serosa is meek, focally smooth but predominantly markedly roughened with hemorrhagic and fibrinopurulent exudate adherent to the serosal surface. ??There is a 0.5 cm in greatest dimension likely surgical defect located 2.0 cm from the proximal resection margin. ??Sectioning reveals a meek-white wall with a thickness ranging from 0.1 to 0.5 cm. ??The luminal diameter ranges from pinpoint to 0.5 cm and focally contains a moderate amount of soft, brown fecal material but no fecaliths are identified. ??Dinkey Motor Operator sections are submitted as (A1). ??The remainder of the appendix is entirely submitted as (A2) through (A6). ??(Ina Boswell)/[facility] End of Report [facility] 01/27/2012 01/29/2012 16: 29 EDT Dianne Klein DO PATHOLOGY ORDERABLES Performing Organization Address City/State/[facility] Co de Phone Number [facility] [address] [place] [address] documented in this encounter Visit Diagnoses Not on filedocumented in this encounter Care Teams Pastry Finisher Relationship Specialty Start Date End Date Amy Conklin MD [address] [place] [address] [place] [address] PCP - General 03/14/10 01/28/23 documented as of this encounter
--- OUTSIDE RECORDS SUMMARY | 2024-05-01 01:55 | XMS_ITS | Encounter Summary ---
Author Organization [facility] [place] [address] Care Team Providers Care County Health Officer Name Role Phone Chip Harirs Primary Care Provider Encounter Details Date Type Department Care Team (Late st Contact Info) Description 05/26/2009 [place] [address] Aoml Weeks Jr., MD [facility] [place] [address] Social History Tobacco Use Types Packs/Day Years Used Date Smoking Tobacco: Never Assessed Sex and Gender Information Value Date Recorded Sex Assigned at Not on file Gender Identity Not on file Sexual Orientation Not on file documented as of this encounter Plan of Treatment Upcoming Encounters Date Type Department Care Team (Late Contact Info) Description 06/01/2024 4:00 PM EDT Office Visit Dermatology at [place] [address] [facility] [place] [address] Anthoyn Uribe MD [address] [place] [address] documented as of this encounter Procedures Procedure Name Priority Date/Time Associated Diagnosis Comments SURGICAL PATHOLOGY REPORT Routine 05/26/2009 3:49 PM EDT documented in this encounter Results * Surgical Pathology Report (05/26/2009 3:49 PM EDT) Surgical Pathology Report 00- [id number] ? Location: The signing pathologist has (i) examined the relevant preparation(s) for the specimen(s) and (ii) rendered or confirmed the diagnosis(es). . ?Pathology Surgical Pathology Final Report Clinical Information Specimen Submitted: A - Kidney stones analysis Clinical History: Kidney stones for analysis Clinical Diagnosis: Kidney stones for analysis Gross Description Labeled/Fixative: ? Labeled with the patient's name and medical ?record number, fresh. Quantity/Size: ?Multiple, 0.6 x 0.4 x 0.2 cm in aggregate. Tissue Description: ?? Granular, meek-garcia calculi. Sections/Process: ? Submitted for chemical analysis. ??jlk/PPS Diagnosis Calculus, kidney, (see Comment). CR-0 05/31/09 [facility] 05/31/09 Verified by: ? Shorty Jones MD ?Pathologist ?(Electronic Signature) The attending pathologist whose signature appears on this report has reviewed all diagnostic slides and has edited the gross and/or microscopic portion of the report in rendering the final pathologic diagnosis. Comment The Report of Stone Analysis, order # [id number], has been received from the [facility], [address], [place], [place] ??[address]. For the full text of the [facility] report please refer to Non-DH Documentation Pathology in the Clinical Information System (CIS). [facility] 05/26/2009 3:49 PM EDT Amol Weeks Jr., MD PATHOLOGY/CYTOLOGY ORDERABLES [facility] documented in this encounter Visit Diagnoses Not on filedocumented in this encounter Care Teams County Health Officer Relationship Specialty Start Date End Date Chip Harris PA PCP - General Family Medicine 07/09/19 documented as of this encounter
--- OUTSIDE RECORDS SUMMARY | 2024-05-01 01:55 | XMS_ITS | Encounter Summary ---
Author Organization [facility] Address [address] [place] [address] Care Team Providers Care Stock Broker Name Role Phone None, Provider Primary Care Provider Unavailabl e Encounter Details Date Type Department Care Team (Late st Contact Info) Description 09/21/2009 Orders Only [facility] [address] [place], [place] [phone] Yolanda Blank MD [address] [place] [address] [place] [address] Social History Tobacco Use Types Packs/Day Years [...] Date/Time Associated Diagnosis Comments SURGICAL PATHOLOGY Routine 09/21/2009 0:00 EST documented in this encounter Results * SURGICAL PATHOLOGY (09/21/2009 0:00 EST) Pathology Report: SURGICAL PATHOLOGY REPORT ? Reports generated via electronic interface contain original data; ? however they are lacking the format of the original report. ? Caution should be taken when reading/interpreti ng unformatted reports. ? Name: ? FLUM, ELIAZAR ? Accession #: ? [id number] ? : ? 1955 (Age: 54) ??F ? Collect Date: ? 09/21/2009 ? Location: ? [facility] ? Receive Date: ? 09/21/2009 ? Provider: YOLANDA BLANK MD ? Copy to: TANVI ERISMAN MD ? Final Pathologic Diagnosis: ? Cervix, 12 o'clock, cone biopsy: ? 1. ?Ecto- and endocervix with mild chronic cervicitis and atrophic ? changes. ? 2. ? Negative for dysplasia. ? Comment: ? Dr. Melanie Langston has reviewed this case in consultation and agrees with ?? the above diagnosis. Additionally she has reviewed the referring PAP ([id number]) and confirmed the findings of HSIL.(Dr. Cole)/[facility] ? Document reviewed and electronically signed by: ? Cecilia Cole MD ? Report ??Date: 09/23/2009 16:27 ? By the signature above, the attending physician certifies that he/she has ? personally conducted a gross and/or microscopic examination of the described ? specimens and rendered or confirmed the above diagnosis. ? Specimen(s) Received: ? Cone biopsy ??suture at 12 o'clock ? 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 Gross Description: ? Received in formalin labelled Margarita, Eliazar and cone bx ??suture at 12 ?? o'clock is an annular, unoriented product of a conization of cervix which ? measures 2.2 cm from 12 to 6 o'clock, 1.5 cm from 3 to 9 o'clock, and is excised to a depth of 1.2 cm. ??One aspect is partially surfaced by meek, smooth to ? wrinkled mucosa. ??There is a central 0.3 cm patent, slit-like os. ??The ? endocervical margin is inked black and ectocervical inked blue. ??The specimen is serially sectioned from 12 to11 o'clock and is entirely submitted as (A1) to ? (A5), with the 12 o'clock aspect in cassette (A1) progressing to the 11 o'clock aspect in (A5). ??(Jill Sheets)/vivian ? End of Report ? FLOR[facility] GAM[facility] 09/21/2009 09/21/2009 18: 40 EST Yolanda Blank MD PATHOLOGY ORDERABLES [facility] [address] [place] [address] documented in this encounter Visit Diagnoses Not on filedocumented in this encounter Care Teams Stock Broker Relationship Specialty Start Date End Date None, Provider PCP - General 08/04/09 03/13/10 documented as of this encounter
--- OUTSIDE RECORDS SUMMARY | 2024-05-01 01:55 | XMS_ITS | Encounter Summary ---
Author Organization [facility] Address [address] [place] [address] Care Team Providers Care House Fellow Name Role Phone Amy Conklin MD Primary Care Provider [phone] None, Provider Primary Care Provider Unavailabl e Encounter Details Date Type Department Care Team (Late st Contact Info) Description 08/12/2007 Results Only [facility] conversion [address] [place] [address] Yolanda Blank MD [address] [place] [address] [place] [address] Social History Tobacco Use Types Packs/Day Years [...] Date/Time Associated Diagnosis Comments SURGICAL PATHOLOGY Routine 08/12/2007 0:00 EST documented in this encounter Results * SURGICAL PATHOLOGY (08/12/2007 0:00 EST) Pathology Report: SURGICAL PATHOLOGY REPORT Reports generated via electronic interface contain original data; however they are lacking the format of the original report. Caution should be taken when reading/interpreti ng unformatted reports. Name: ? ELIAZAR AVLIA ? Accession #: ? [id number] ? : ? 1955 (Age: 52) ??F ? Collect Date: ? 08/12/2007 ? Location: ? [facility] ? Receive Date: ? 08/13/2007 ? Provider: YOLANDA BLANK MD Copy to: AMY CONKLIN MD ? Final Pathologic Diagnosis: ? Cervix, LEEP, excision: - Cervical mucosa, negative for dysplasia. ??See comment. Comment: ? The prior Pap. smear ([id number]) was reviewed and the presence of dysplastic cells (LSIL-H) was confirmed. ??(Dr. Mcle[facility])/[facility] Document reviewed and electronically signed by: CYNDY CHEN MD Report ??Date: 08/15/2007 17:52 By the signature above, the attending physician certifies that he/she has personally conducted a gross and/or microscopic examination of the described specimens and rendered or confirmed the above diagnosis. Specimen(s) Received: ? LEEP bx Clinical History: ? HSIL 08/07, 05/06, 03/07; LSIL 09/05, 07/09; LSIL can't R/O LSIL-H 03/04; colposcopy 10/06; endo bx 06/05; ECC 10/06 Gross Description: ? Received in formalin labelled Flum and LEEP bx is a LEEP excision that is received in two parts. The larger has a smooth and glistening meek ectocervix and a small portion of endocervix with adherent mucus. ??The tissue is 1.2 x 1.0 x 0.3 cm. ??The smaller tissue is 0.9 x 0.6 x 0.2 cm and also has a smooth and glistening ectocervix. ??No portion of endocervix is grossly identified. ??The larger tissue has a stenotic central os. ??The larger tissue is inked as follows: endocervix is inked blue and ectocervix is inked black. ??The second tissue is also inked with possible endocervical region blue and remaining ectocervix margin black. The smaller and larger tissue specimens are radially sectioned and serially submitted as follows: BLOCK MENA A1-A5 ?Larger LEEP excision with central os, radially and serially submitted A6-A8 ?Smaller LEEP tissue, serially sectioned and submitted (Dr. Hennessy-)/[facility] End of Report FLORA GAMBINO 08/12/2007 08/13/2007 10: 44 EST Yolanda Blank MD PATHOLOGY ORDERABLES Performing Organization Address City/State/[facility] Co de Phone Number [facility] [address] [place] [address] documented in this encounter Visit Diagnoses Not on filedocumented in this encounter Care Teams House Fellow Relationship Specialty Start Date End Date Amy Conklin MD [address] [place] [address] [place] [address] PCP - General 03/14/10 01/28/23 None, Provider PCP - General 08/04/09 03/13/10 documented as of this encounter
--- OUTSIDE RECORDS SUMMARY | 2024-05-01 01:55 | XMS_ITS | Encounter Summary ---
Author Organization [facility] Address [address] [place] [address] Care Team Providers Care Forest Resources Professor Name Role Phone Amy Kaur MD Primary Care Provider [phone] None, Provider Primary Care Provider Unavailabl e Encounter Details Date Type Department Care Team (Late st Contact Info) Description 03/19/2006 Results Only [facility] conversion [address] [place] [address] Yolanda Blank MD [address] [place] [address] [place] [address] Social History Tobacco Use Types Packs/Day Years Used Date Smoking Tobacco: Never Assessed Sex and Gender Information Value Date Recorded Sex Assigned at Not on file Gender Identity Female 01/29/2023 10:56 EDT Sexual Orientation Not on file documented as of this encounter Plan of Treatment Not on file documented as of this encounter Procedures Procedure Name Priority Date/Time Associated Diagnosis Comments CYTOPATHOLOGY Routine 03/19/2006 0:00 EDT documented in this encounter Results * CYTOPATHOLOGY (03/19/2006 0:00 EDT) Pathology Report: CYTOPATHOLOGY REPORT Reports generated via electronic interface contain original data; however they are lacking the format of the original report. Caution should be taken when reading/interpreti ng unformatted reports. Name: ? ELIAZAR AVILA ? Accession #: ? [id number] : ? 1955 (Age: 51) ??F ?Collect Date: ? 03/19/2006 Location: ? [facility] ? Receive Date: ? 03/21/2006 Provider: ?YOLANDA BLANK MD Copy to: ? Specimen/Source: ?ThinPrep Pap Test, Cervix/Endocervix, processed on [employer] ThinPrep Imaging System, with manual evaluation Last Menstrual Period: ? 2002 Previous Gynecologic Pathology: ? LSIL: 09/05 HSIL: 05/06, 04/06 Yes: ECC 10/06 Treatment History: ? Miscellaneous treatment: Endo bx 06/05 Colposcopy: 10/06 ? SPECIMEN ADEQUACY ? Satisfactory for Evaluation - transformation zone component present GENERAL CATEGORIZATION ? Epithelial Cell Abnormality INTERPRETATION ? Squamous Cell Abnormality - High grade squamous intraepithelial lesion (HSIL). EDUCATIONAL NOTES/RECOMMENDATI ONS ? [facility] recommends following the 2001 Consensus Guidelines for the Management of Women with Cervical Cytological Abnormalities (RHONDA,2002;287:212 0-9). Management algorithms have been distributed by [facility] and are available online at www.ASCCP.org. ? Document reviewed and electronically signed by: ? BARBIE PATTERSON MD ? Report Date: ??03/26/2006 12:42 End of Report FLORA GAMBINO 03/19/2006 03/21/2006 Yolanda Blank MD PATHOLOGY ORDERABLES [facility] [address] [place] [address] documented in this encounter Visit Diagnoses Not on filedocumented in this encounter Care Teams Forest Resources Professor Relationship Specialty Start Date End Date Amy Kaur MD [address] [place] [address] [place] [address] PCP - General 03/14/10 01/28/23 None, Provider PCP - General 08/04/09 03/13/10 documented as of this encounter
--- OUTSIDE RECORDS SUMMARY | 2024-05-01 01:55 | XMS_ITS | Encounter Summary ---
Author Organization [facility] Address [address] [place] [address] Care Team Providers Care Termite Renewal Inspector Name Role Phone Amy Kaur MD Primary Care Provider [phone] None, Provider Primary Care Provider Unavailabl e Encounter Details Date Type Department Care Team (Late st Contact Info) Description 07/08/2007 Results Only [facility] [place] conversion [address] [place] [address] Beverley Gallagher, RYANN Social History Tobacco Use Types Packs/Day Years Used Date Smoking Tobacco: Never Assessed Sex and Gender Information Value Date Recorded Sex Assigned at Not on file Gender Identity Female 01/29/2023 10:56 EDT Sexual Orientation Not on file documented as of this encounter Plan of Treatment Not on file documented as of this encounter Procedures Procedure Name Priority Date/Time Associated Diagnosis Comments CYTOPATHOLOGY Routine 07/08/2007 0:00 EST documented in this encounter Results * CYTOPATHOLOGY (07/08/2007 0:00 EST) Pathology Report: CYTOPATHOLOGY REPORT Reports generated via electronic interface contain original data; however they are lacking the format of the original report. Caution should be taken when reading/interpreti ng unformatted reports. Name: ? ELIAZAR AVILA ? Accession #: ? [id number] : ? 1955 (Age: 52) ??F ?Collect Date: ? 07/08/2007 Location: ? [facility] ? Receive Date: ? 07/09/2007 Provider: ?BEVERLEY GALLAGHER SUPERVISOR REACTOR FUELING Copy to: ? Specimen/Source: ?ThinPrep Pap Test, Cervix/Endocervix, processed on StartX ThinPrep Imaging System, with manual evaluation Last Menstrual Period: ? 2002 Previous Gynecologic Pathology: ? HSIL: 08/07, 05/06, 04/06 & 03/07 LSIL: 09/05 LSIL: Can't R/o LSIL-H 02/06 Treatment History: ? Colposcopy: 10/06 Cervical biopsy: Endo Bx 06/05 Miscellaneous treatment: Rx: ECC 10/06 Other: ? HPVA - HPV testing requested if ASC-US on the current ThinPrep Pap test. ? SPECIMEN ADEQUACY ? Satisfactory for Evaluation - transformation zone component present GENERAL CATEGORIZATION ? Epithelial Cell Abnormality INTERPRETATION ? Squamous Cell Abnormality - Low grade squamous intraepithelial lesion (LSIL). EDUCATIONAL NOTES/RECOMMENDATI ONS ? [facility] recommends following the 2006 Consensus Guidelines for the Management of Women with Abnormal Cervical Cancer Screening Tests (JLGTD, 2007;11(4):201-222 ). ??Consensus guidelines are available online at www.ASCCP.org. ? Document reviewed and electronically signed by: ? POWER BANDA MD ? Report Date: ??07/15/2007 19:56 End of Report [facility] 07/08/2007 07/09/2007 Beverley Gallagher NP PATHOLOGY ORDERABLES [facility] [address] [place] [address] documented in this encounter Visit Diagnoses Not on filedocumented in this encounter Care Teams Termite Renewal Inspector Relationship Specialty Start Date End Date Amy Kaur MD [address] [place] [address] [place] [address] PCP - General 03/14/10 01/28/23 None, Provider PCP - General 08/04/09 03/13/10 documented as of this encounter
--- OUTSIDE RECORDS SUMMARY | 2024-05-01 01:55 | XMS_ITS | Encounter Summary ---
Author Organization [facility] Address [address] [place] [address] Care Team Providers Care Tape Rules Printing Machine Operator Name Role Phone Unavailable Primary Care Provider Unavailabl e Encounter Details Date Type Department Care Team (Late st Contact Info) Description 01/25/2009 Orders Only [facility] - [facility] [place] [address] [place], [place] [address] Yolanda Blank MD [address] [place] [address] [place] [address] Social History Tobacco Use Types Packs/Day Years Used Date Smoking Tobacco: Never Assessed Sex and Gender Information Value Date Recorded Sex Assigned at Not on file Gender Identity Female 01/29/2023 10:56 EDT Sexual Orientation Not on file documented as of this encounter Plan of Treatment Not on file documented as of this encounter Procedures Procedure Name Priority Date/Time Associated Diagnosis Comments CYTOPATHOLOGY Routine 01/25/2009 0:00 EDT documented in this encounter Results * CYTOPATHOLOGY (01/25/2009 0:00 EDT) Pathology Report: CYTOPATHOLOGY REPORT ? Reports generated via electronic interface contain original data; ? however they are lacking the format of the original report. ? Caution should be taken when reading/interpreting unformatted reports. ? Name: ? FLUM, ELIAZAR ? Accession #: ? [id number] ? : ? 1955 (Age: 53) ??F ?Collect Date: ? 01/25/2009 ? Location: ? [facility] ? Receive Date: ? 01/26/2009 ? Provider: ?YOLANDA BLANK MD ? Copy to: ? Specimen/Source: ?Pap Test, Cervix/Endocervix, ThinPrep Imaging System ? with manual evaluation ? Last Menstrual Period: ? Previous Gynecologic Pathology: ? HSIL: 12/06, 09/04, 08/05 & 07/06 ? LSIL: 01/04, 11/07 & 06/08 ? Treatment History: ? Colposcopy: 10/04 & 12/08 ? LEEP: 12/07 ? Miscellaneous treatment: Rx: ECC 02/04 & 12/08 ? SPECIMEN ADEQUACY ? Satisfactory for Evaluation ? - transformation zone component present ? GENERAL CATEGORIZATION ? Epithelial Cell Abnormality ? INTERPRETATION ? Squamous Cell Abnormality - Low grade squamous intraepithelial lesion, ? cannot exclude ? high grade squamous ? intraepithelial lesion (LSIL-H). ? EDUCATIONAL NOTES/RECOMMENDATION S ? [facility] recommends following the 2006 Consensus Guidelines for the Management of Women with Abnormal Cervical Cancer Screening Tests (JLGTD, ? 2007;11(4:201-222). ??Consensus guidelines are available online at ? www.ASCCP.org. ? COMMENT ? Case reviewed at intradepartmental case conference; result telephoned to Dr ? Abhay's voicemail on 5/29/09. ? Document reviewed and electronically signed by: ? ROSHAN NAIR MD [facility] ? Report Date: ??01/28/2009 16:24 ? End of Report ? [facility] 01/25/2009 01/26/2009 Yolanda Blank MD PATHOLOGY ORDERABLES [facility] [address] [place] [address] documented in this encounter Visit Diagnoses Not on filedocumented in this encounter
--- OUTSIDE RECORDS SUMMARY | 2024-05-01 01:55 | XMS_ITS | Encounter Summary ---
Author Organization [facility] [place] [address] Care Team Providers Care Cyber Reverse Engineer Name Role Phone Kristen Avina Wyatt JONES Primary Care Provider [phone] Reason for Visit * Reason Comments Post Hospital Discharge Encounter Details Date Type Department Care Team (Latest Contact Info) Description 10/16/2017 2:00 PM EST Office Visit [place] [address] Alex Gan MD [facility] [address] [place] [address] VAIN III (vaginal intraepithelial neoplasia III) Social History Tobacco Use Types Packs/Day Years Used Date Smoking Tobacco: Former Smokeless Tobacco: Never Sex and Gender Information Value Date Recorded Sex Assigned at Not on file Gender Identity Not on file Sexual Orientation Not on file documented as of this encounter Last Filed Vital Signs Vital Sign Reading Time Taken Comments Blood Pressure 127/63 10/16/2017 1:57 PM EST Pulse 68 10/16/2017 1:57 PM EST Temperature 36.3 ??C (97.3 ??F) 10/16/2017 1:57 PM ES T Respiratory Rate 16 10/16/2017 1:57 PM EST Oxygen Saturation 97% 10/16/2017 1:57 PM EST Inhaled Oxygen Concentration - - Weight 69.2 kg (152 lb 8.9 oz) 10/16/2017 1:59 P M EST Height - - Body Mass Index 27.02 09/20/2017 7:20 AM EST documented in this encounter Progress Notes * Alex Gan MD - 10/16/2017 2:00 PM EST Division of [place] [address] Postoperative Visit: Patient Active Problem List Diagnosis Code ??? Acrochordon L91.8 ??? Psoriasis L40.9 ??? Abnormal Pap smear of cervix R87.619 ??? Anxiety F41.9 ??? HTN (hypertension) I10 ??? Hyperlipidemia E78.5 ??? Hypothyroidism E03.9 ??? Nephrolithiasis N20.0 ??? Pulmonary embolus I26.99 ??? Shingles B02.9 ??? 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 On 09/20/17 she underwent a EUA, vaginal colposcopy. Her postoperative course was uncomplicated. She has been doing well since surgery. Her energy level is improving and she is eating well. She denies fevers, chills, dysuria, incisional concerns, abdominal pain, vaginal bleeding, nausea, vomiting or diarrhea. Objective: Vitals: 10/16/17 1357 10/16/17 1359 BP: 127/63 Patient Position: Sitting Pulse: 68 Resp: 16 Temp: 36.3 ??C (97.3 ??F) TempSrc: Oral SpO2: 97% Weight: 69.2 kg (152 lb 8.9 oz) Body mass index is 27.02 kg/(m^2). Body surface area is 1.75 meters squared. Physical Exam Constitutional: She is oriented to person, place, and time. She appears well- developed and well-nourished. Cardiovascular: Normal rate, regular rhythm, normal heart sounds and intact distal pulses. Exam reveals no gallop and no friction rub. No murmur heard. Pulmonary/Chest: Effort normal and breath sounds normal. No respiratory distress. She has no wheezes. She has no rales. She exhibits no tenderness. Abdominal: Soft. She exhibits no distension and no mass. There is no tenderness. There is no rebound and no guarding. Neurological: She is alert and oriented to person, place, and time. Surgical Pathology: ? 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 CR-0 Electronically signed by: ??Kevin REZA, Ortega Buckley Verified: ??09/26/2017 ?Pathologist Performed at: ??[facility] [place] Dept. 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 She is doing well postoperatively and is advised thatshe may resume full activities at 6 weeks postoperatively. I reviewed her pathology with her and have given her copies of her pathology report and operative note for her records. I recommended a CO2 laser of the vagina. We reviewed risks, benefits, alternatives. Consents signed. 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
--- OUTSIDE RECORDS SUMMARY | 2024-05-01 01:55 | XMS_ITS | Encounter Summary ---
Author Organization [facility] [place] [address] Care Team Providers Care Operating Theatre Technician Name Role Phone Amy Kaur MD Primary Care Provider [phone] Encounter Details Date Type Department Care Team (Late Contact Info) Description 01/09/2011 Orders [place] [address] Amol Weeks Jr., MD [facility] [place] [address] Urolithiasis (Primary Dx) Social History Tobacco Use Types [...] 4:00 PM EDT Office Visit Dermatology at [address] [facility] [place] [id number] Anthony Uribe MD [address] [address], [facility] DERMATOLOGY [place], [place] [id number] documented as of this encounter Visit Diagnoses Diagnosis Urolithiasis- Primary Urinary calculus, unspecified documented in this encounter Care Teams Operating Theatre Technician Relationship Specialty Start Date End Date Amy Kaur MD [address] [place] [address] PCP - General 07/25/10 07/02/17 documented as of this encounter
--- OUTSIDE RECORDS SUMMARY | 2024-05-01 01:55 | XMS_ITS | Encounter Summary ---
Author Organization [facility] [place] [address] Care Team Providers Care Steam Setter Name Role Phone Kristne Avina Wyatt JONES Primary Care Provider [phone] Reason for Visit * Auth/Cert Specialty Diagnoses / Procedures Referred By Robert jessica Referred To Contact Diagnoses VAGINAL DYSPLASIA Procedures PRO DESTRUCT, VAGINAL LESION(S), SIMPLE PRO COLPOSCOPY, ENTIRE VAGINA DESTRUCTION OF VAGINAL LESION(S), SIMPLE W\W\O LASER (WRVU 1.3) COLPOSCOPY OF VAGINA WITH CERVIX IF PRESENT (WRVU 1.6) MODIFIER LASER,CO2 Referral ID Status Reason Start Date Expiration Date Visits Re quested Visits Authorized [id number] 1 1 Encounter Details Date Type Department Care Team (Late st Contact Info) Description 11/08/2017 10:09 AM EST - 11/08/2017 12:07 PM EST Surgery [place] [address] Alex Gan MD [facility] [place] [address] DESTRUCTION OF VAGINAL LESION(S), SIMPLE W\W\O LASER (WRVU 1.3) Social History Tobacco Use Types Packs/Day Years [...] this encounter Discharge Instructions * Patient Instructions* Kendra Betancourttommy Vicente - 11/08/2017 9:24 AM EST PATIENT DISCHARGE INSTRUCTIONS [facility] Gynecologic Oncology - [phone] Follow Up Appointment: November 29, 2017 - 9:30AM - with Dr. Gan, [facility] Clinic Call your doctor if you [...] Take 2 g by mouth nightly. Saw Butler Fruit 450 mg Capsule Take 450 mg by mouth. 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 PRO PELVIC EXAMINATION W ANESTH N/A 09/20/2017 PELVIC EXAM UNDER ANESTHESIA (WRVU 1.75) performed by Alex Gan MD at [facility] MAIN OR FAMILY HISTORY family history [...] illicit drugs. Allergies Allergen Reactions ??? Allergen Bfv-Logtd-Tewpt Bee CIS - Anaphylaxis ??? Iodine And Iodide Containing Products CIS - Anaphylaxis ??? Penicillins CIS - Anaphylaxis ??? Tetracyclines CIS - Anaphylaxis ??? Venom-Wasp CIS - Anaphylaxis ??? Mcriq-Kkbes-Iyizo Hornet CIS - Anaphylaxis ??? Venom-Yellow Hornet CIS - Anaphylaxis ??? Venom-Yellow Jacket CIS - Anaphylaxis ??? Amoxicillin Trihydrate CIS - mild ??? Atorvastatin Calcium CIS - muscle nadeen ??? Glimepiride CIS - N/V/D ??? Metformin CIS - nausea & diarrhea Outpatient Prescriptions Marked as Taking for the 11/08/17 encounter (Hospital Encounter) Medication Sig Dispense Refill ??? Saw Butler 500 mg Capsule Take 500 mg by [...] Gan MD - 11/08/2017 10:56 AM EST [facility] Operative Note Patient Name: Mary Ellen Avila : [id number] MR#: [id number] Case Date: 11/08/2017 Surgeon: Surgeon(s) and Role: [...] 4:00 PM EDT Office Visit Dermatology at [place] [address] [place] [address] Anthony Uribe MD [address], [place] [address] documented as of this encounter Procedures Procedure [...] Glucose, POC 155 65 - 199 mg/dL [facility] Comment: Supplemental ranges: <140 mg/dL before meals <180 mg/dL all other times of the day Blood specimen (specimen) 11/08/2017 9:12 AM EST 11/08/2017 9:12 AM EST Alex Gan MD POINT OF CARE [place] [address] documented in this encounter Visit Diagnoses Not [...] confirm.) documented in this encounter Care Teams Steam Setter Relationship Specialty Start Date End Date Kristen Avina APRN PCP - General Family Medicine 07/03/17 03/19/19 documented as of this encounter
--- OUTSIDE RECORDS SUMMARY | 2024-05-01 01:55 | XMS_ITS | Encounter Summary ---
Author Organization [facility] Address [address] [place] [address] Care Team Providers Care R D Engineer Name Role Phone Amy Conklin MD Primary Care Provider Encounter Details Date Type Department Care Team (Late st Contact Info) Description 02/17/2015 Results Only [facility] [phone] Yolanda Blank MD [address] [place] [address] [place] [address] Social History Tobacco Use Types Packs/Day Years [...] Diagnosis Comments PAP TEST- RESULT ONLY Routine 02/17/2015 0:00 EDT documented in this encounter Results * PAP TEST- RESULT ONLY (02/17/2015 0:00 EDT) Pathology Report: CYTOPATHOLOGY REPORT Reports generated via electronic interface contain original data; however they are lacking the format of the original report. Caution should be taken when reading/interpreti ng unformatted reports. Name: ? ELIAZAR AVILA ? Accession #: ? [id number] ? : ? 1955 (Age: 59) ??F ?Collect Date: ? 02/17/2015 ? Location: ? [facility] ? Receive Date: ? 02/18/2015 ? Provider: YOLANDA BLANK MD Copy to: AMY CONKLIN MD ? Final Report SPECIMEN ADEQUACY ? Satisfactory for Evaluation - assessment of transformation zone component not applicable ( e.g. atrophy, vaginal sample, hysterectomy) GENERAL CATEGORIZATION ? Epithelial Cell Abnormality INTERPRETATION ? Squamous Cell Abnormality - Atypical squamous cells, cannot exclude high grade squamous intraepithelial lesion (ASC-H). EDUCATIONAL NOTES/RECOMMENDATI ONS ? [facility] recommends following ASCCP's 2012 Updated Consensus Guidelines for the Management of Abnormal Cervical Cancer Screening Tests and Cancer Precursors (JLGTD, 2013; 17(5):S1-S27). ??Consensus guidelines are available online at www.asccp.org. Previous Gynecologic Pathology: HSIL: H/O Treatment History: Hysterectomy: 3 years Specimen/Source: ??Pap Test, Vagina, ThinPrep Imaging System with manual evaluation Document reviewed and electronically signed by: ? ROSHAN NAIR MD [facility] ? Report ??Date: 03/01/2015 18:47 HPV with Pap Test ? Date Ordered: ? 03/01/2015 ? Status: ?? Signed Out ?Date Complete: ? 03/04/2015 ? By: ??System Interface ? Date Reported: ? 03/04/2015 ? Interpretation RESULT: High risk HPV testing is only FDA approved and validated for cervical or endocervical samples at the [facility]. It is not validated for vaginal samples as the test performance characteristics have not been evaluated. Credit issued. Sample has been sent to [facility] for HPV testing. Comments Document reviewed and electronically signed by: ? System Interface ? Report date: 03/04/2015 By the signature above, the attending physician certifies that he/she has personally conducted a gross and/or microscopic examination of the described specimens and rendered or confirmed the above diagnosis. End of Report [facility] 02/17/2015 02/18/2015 Yolanda Blank MD PATHOLOGY ORDERABLES Performing Organization Address City/State/[facility] Co de Phone Number [facility] [address] [place] [address] documented in this encounter Visit Diagnoses Not on filedocumented in this encounter Care Teams R D Engineer Relationship Specialty Start Date End Date Amy Conlkin MD [address] [place] [address] [place] [address] PCP - General 03/14/10 01/28/23 documented as of this encounter
--- OUTSIDE RECORDS SUMMARY | 2024-05-01 01:55 | XMS_ITS | Encounter Summary ---
Author Organization [facility] [place] [address] Care Team Providers Care Daytime Babysitter Name Role Phone Kristen Avina Wyatt JONES Primary Care Provider [phone] Reason for Visit * Auth/Cert Specialty Diagnoses [...] Expiration Date Visits Re quested Visits Authorized [id number] 1 1 Encounter Details Date Type Department Care Team (Latest Contact Info) Description 09/20/2017 6:54 AM EST - 09/20/2017 10:50 AM [facility] Hospital [place] [address] Alex Mascorro MD [facility] [place] [address] Pap smear of vagina with HGSIL Discharge Disposition: Home Social History Tobacco Use Types Packs/Day Years Used Date Smoking Tobacco: Former Smokeless Tobacco: Never Sex and Gender Information Value Date Recorded Sex Assigned at Not on file Gender Identity Not on file Sexual Orientation Not on file documented as of this encounter Last Filed Vital Signs Vital Sign Reading Time Taken Comments Blood Pressure 118/84 09/20/2017 10:30 AM EST Pulse 68 09/20/2017 7:20 AM EST Temperature 36.4 ??C (97.5 ??F) 09/20/2017 9:14 AM ES T Respiratory Rate 16 09/20/2017 10:30 AM EST Oxygen Saturation 97% 09/20/2017 10:30 AM EST Inhaled Oxygen Concentration - - [...] 09/20/2017 9:11 AM EST PATIENT DISCHARGE INSTRUCTIONS [facility] Gynecology Oncology [phone] (after hours or weekends [phone] ask for the CIGARETTE MACHINE OPERATOR provider online marketing strategist) Follow Up Visit: 10/04/17 at 11:30am with Dr. Mascorro Call your doctor if you develop: --A [...] Take 2 g by mouth nightly. Saw Harrold Fruit 450 mg Capsule Take 450 mg [...] smokeless tobacco. Allergies Allergen Reactions ??? Allergen Qvb-Xovip-Gdizx Bee CIS - Anaphylaxis ??? Iodine And Iodide Containing Products CIS - Anaphylaxis ??? Penicillins CIS - Anaphylaxis ??? Tetracyclines CIS - Anaphylaxis ??? Venom-Wasp CIS - Anaphylaxis ??? Xamze-Yvqtc-Nckdw Hornet CIS - Anaphylaxis ??? Venom-Yellow Hornet [...] verbalizes understanding. Informed consent: Completed by Dr. Mascorro on 07/03/17. Maurisio Cook MD 09/20/2017 Associated attestation - Alex Mascorro MD - 09/20/2017 11:49 AM EST Into see patient prior to her surgery. We reviewed the planned procedure. Consents complete and in her chart. Questions answered. documented in this encounter Miscellaneous Notes * Op Note - Maurisio Cook MD - 09/20/2017 9:23 AM EST [facility] Operative Note Patient Name: Mary Ellen Avila : [id number] MR#: [id number] Case Date: 09/20/2017 Surgeon: Surgeon(s) and Role: * Alex Mascorro MD - Primary * Maurisio Cook MD [...] mm/dd/yy, Unknown or N/A)? n/a Currently on HYDRAULIC CONTROLS TECHNICIAN hormones (estrogen/proGESTerone compounds)? No Hysterectomy? Total Hysterectomy Pelvic radiation? No Prior HYDRAULIC CONTROLS TECHNICIAN therapy? (Cone bx, Cautery, Cryotherapy, Surgery) [facility] [...] Cook MD 09/20/2017 Associated attestation - Alex Mascorro MD - 09/20/2017 11:48 AM EST Attestation: Case Date: 09/20/2017 I was present and I participated during the entire procedure (does not need to include opening and closing). ALEX MASCORRO MD 09/20/2017 documented in this encounter Plan of Treatment Upcoming Encounters Date Type Department Care Team (Late st Contact Info) Description 06/01/2024 4:00 PM EDT Office Visit Dermatology at [place] [address] [place] [address] Anthony Uribe MD [address] [facility], [place] [address] documented as of this encounter Procedures Procedure Name Priority Date/Time Associated Diagnosis Comments POCT GLUCOSE Routine 09/20/2017 9:18 AM EST HPV Routine 09/20/2017 9:06 AM EST HYDRAULIC CONTROLS TECHNICIAN CYTOLOGY INTERPRETATION Routine 09/20/2017 9:06 AM EST HYDRAULIC CONTROLS TECHNICIAN CYTOLOGY FINAL REPORT Routine 09/20/2017 9:06 AM [...] Glucose, POC 149 65 - 199 mg/dL [facility] Comment: Supplemental ranges: <140 mg/dL before meals <180 mg/dL all other times of the day Blood specimen (specimen) 09/20/2017 9:18 AM EST 09/20/2017 9:18 AM EST Alex Mascorro MD POINT OF CARE TEST ORDERABLES [facility] [place] [address] * (ABNORMAL) HYDRAULIC CONTROLS TECHNICIAN Cytology Interpretation (09/20/2017 9:06 AM EST) Driller Operator Cytology Interpretation ASC-H(A) [facility] Comment:Driller Operator Cytology Final R eport Endocervical Component Present [facility] AP Specimen 09/20/2017 9:06 AM EST 10/01/2017 5:17 PM EST Alex Mascorro MD PATHOLOGY/CYTOLOGY ORDERABLES [facility] [place] [address] * Driller Operator Cytology Final Report (09/20/2017 9:06 AM EST) Driller Operator Cytology Final Report [id number] ? Location: [facility]; [facility]; A The signing pathologist has (i) examined the relevant preparation(s) for the specimen(s) and (ii) rendered or confirmed the diagnosis(es). . ? Driller Operator Final DIAGNOSIS Epithelial Cell Abnormality Atypical Squamous Cells, cannot exclude High Grade Squamous Intraepithelial Lesion (ASC-H). For consensus guidelines for the management of cervical cancer screening test results, please see: ?? http://www.asccp.o rg . Electronically signed by: ??Lorraine Zaman MD Verified: ??10/01/2017 ?Pathologist Performed at: ??-[facility] Dept. of Pathology, [place], [place] HPV RESULTS HPV16 (Result) ?Negative HPV18 [...] Clinical Genomics and Advanced Technology (CGAT) at [facility]. ? - Wilfrido Mahoney, PhD, [facility], Director[facility] STATEMENT OF ADEQUACY Specimen submitted is satisfactory. Endocervical component present. CLINICAL INFORMATION HPV Option: ?Concurrent HPV and Pap Preparation: ? Liquid based Pap Specimen Source: ? Vaginal LMP: ? n/a Hormones?: ? No Hysterectomy?: ? Total Hysterectomy ?: ? _ ?: ? _ I.U.D.?: ? _ Pelvic Radiation: ?No Prior HYDRAULIC CONTROLS TECHNICIAN Therapy?: ?Cone Biopsy Hist Abnl Pap/Biopsy?: ?? Yes, history of previous abnormal Pap Hist of HPV Vaccine?: ?No Hist of Smoking?: ?No Hist of ANANTH exposure?: ?? No ICD Diagnosis: ? Z91.89 Screening Pap, History Clinical High Risk Clinical Data, Significant Therapy and Clinical Impression ?? : . CLINICAL INFORMATION ?_ This Pap Test has been evaluated with the assistance of the [employer]Prep Pap Test Imaging System. Note: The Pap test is a screening test for cervical cancer with an inherent false-negative rate dependent upon several variables. For further information please contact the [facility] Laboratory. Reference: Parminder OSEI. Lidar Technician of Pap Smear Results. In: Loni BS, Vidal HERNANDEZ, ed. The Pap Smear. [place]: Jabier, 2002: 71-77. [facility] 09/20/2017 9:06 AM EST Alex Mascorro MD PATHOLOGY/CYTOLOGY ORDERABLES [facility] [place] [address] * (ABNORMAL) HPV (09/20/2017 9:06 AM EST) HPV16 NEGATIVE NEGATIVE [facility] HPV 18 NEGATIVE NEGATIVE [facility] HPV Other HR POSITIVE(A) NEGATIVE [facility] HPV Interpretation See Comment [facility] Comment: POSITIVE for high-risk [...] Resulting Agency Comment Spec In Lab Alex Mascorro MD PATHOLOGY/CYTOLOGY ORDERABLES Performing Organization Address [facility] [place] [address] * Cytopathology Gynecological (09/20/2017 9:06 AM EST) AP Specimen 09/20/2017 9:06 AM EST 09/20/2017 9:16 AM EST Narrative [facility] - 09/20/2017 9:17 AM EST Specimen requisition ordered. ??Separate Pathology report to follow Resulting Agency Comment Spec In Lab Alex Mascorro MD PATHOLOGY/CYTOLOGY ORDERABLES Performing Organization Address [facility] [place] [address] * Surgical Pathology Report (09/20/2017 8:58 AM EST) Final Diagnosis [id number] ? Location: [facility]; [facility]; A The signing pathologist has (i) examined the relevant preparation(s) for the specimen(s) and (ii) rendered or confirmed the diagnosis(es). . ?Surgical Pathology DIAGNOSIS Vaginal cuff biopsy: ?? 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 CR-0 Electronically signed by: ??Kevin REZA, Ortega Buckley Verified: ??09/26/2017 ?Pathologist Performed at: ??-[facility] Dept. of Pathology, [place], [place] CLINICAL INFORMATION Specimen Submitted: A - Vaginal cuff biopsy Clinical History: HGSIL Clinical Diagnosis: Same SPECIMEN PROCESSING A - Labeled/Fixativ e: Vaginal cuff biopsy, formalin. Quantity/Size: Four, ranging from 0.3-0.5 cm. Tissue Description: Rubbery, yellow-meek and meek-pink tissue fragments. Sections/Proces sing: (T1) ??ejr 09/26/2017 1:55 PM EST [facility] VULVAL STRUCTURE / Unknown 09/20/2017 8:58 AM EST 09/20/2017 8:58 AM EST Alex Mascorro MD PATHOLOGY/CYTOLOGY ORDERABLES Performing Organization Address [facility] Co de Phone Number [facility] [place] [address] * Specimen to Pathology (09/20/2017 8:58 AM EST) AP Specimen 09/20/2017 8:58 AM EST 09/20/2017 9:17 AM EST Narrative [facility] - 09/20/2017 9:17 AM EST Specimen requisition ordered. ??Separate Pathology report to follow Resulting Agency Comment Spec In Lab Alex Mascorro MD PATHOLOGY/CYTOLOGY ORDERABLES Performing Organization Address [facility]/ZIP Co de Phone Number [facility] [place] [address] * POCT Glucose (09/20/2017 8:54 AM EST) Glucose, POC 141 65 - 199 mg/dL [facility] Comment: Supplemental ranges: <140 mg/dL before meals <180 mg/dL all other times of the day Blood specimen (specimen) 09/20/2017 8:54 AM EST 09/20/2017 8:54 AM EST Alex Mascorro MD POINT [place] [address] documented in this encounter Visit Diagnoses Diagnosis Pap smear of vagina with HGSIL- Primary 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
--- OUTSIDE RECORDS SUMMARY | 2024-05-01 01:55 | XMS_ITS | Encounter Summary ---
Author Organization [facility] Address [address] [place] [address] Care Team Providers Care Woolen Tester Name Role Phone Amy Conklin MD Primary Care Provider [phone] Encounter Details Date Type Department Care Team (Late st Contact Info) Description 10/28/2015 Results Only [facility] [phone] Yolanda Blank MD [address] [place] [address] [place] [address] Social History Tobacco Use Types Packs/Day Years [...] Diagnosis Comments PAP TEST- RESULT ONLY Routine 10/28/2015 0:00 EST documented in this encounter Results * PAP TEST- RESULT ONLY (10/28/2015 0:00 EST) Pathology Report: CYTOPATHOLOGY REPORT Reports generated via electronic interface contain original data; however they are lacking the format of the original report. Caution should be taken when reading/interpreti ng unformatted reports. Name: ? ELIAZAR AVILA ? Accession #: ? [id number] ? : ? 1955 (Age: 60) ??F ?Collect Date: ? 10/28/2015 ? Location: ? [facility] ? Receive Date: ? 10/31/2015 ? Provider: YOLANDA BLANK MD Copy to: AMY CONKLIN MD ? Final Report SPECIMEN ADEQUACY ? Satisfactory for Evaluation - assessment of transformation zone component not applicable ( e.g. atrophy, vaginal sample, hysterectomy) GENERAL CATEGORIZATION ? Epithelial Cell Abnormality INTERPRETATION ? Squamous Cell Abnormality - High grade squamous intraepithelial lesion (HSIL). EDUCATIONAL NOTES/RECOMMENDATI ONS ? [facility] recommends following ASCCP's 2012 Updated Consensus Guidelines for the Management of Abnormal Cervical Cancer Screening Tests and Cancer Precursors (JLGTD, 2013; 17(5):S1-S27). ??Consensus guidelines are available online at www.asccp.org. An additional slide was prepared and evaluated. Specimen/Source: ??Pap Test, Vagina, ThinPrep Imaging System with manual evaluation Document reviewed and electronically signed by: ? ROSHAN NAIR MD [facility] ? Report ??Date: 11/07/2015 16:24 HPV with Pap Test ? Date Ordered: ? 11/07/2015 ? Status: ?? Signed Out ?Date Complete: ? 11/08/2015 ? By: ??System Interface ? Date Reported: ? 11/08/2015 ? Interpretation RESULT: High risk HPV testing is only FDA approved and validated for cervical or endocervical samples at the [facility]. It is not validated for vaginal samples as the test performance characteristics have not been evaluated. Credit issued. Sample has been sent to [facility] for HPV testing. Comments Document reviewed and electronically signed by: ? System Interface ? Report date: 11/08/2015 By the signature above, the attending physician certifies that he/she has personally conducted a gross and/or microscopic examination of the described specimens and rendered or confirmed the above diagnosis. End of Report [facility] 10/28/2015 10/31/2015 Yolanda Blank MD PATHOLOGY ORDERABLES [facility] [address] [place] [address] documented in this encounter Visit Diagnoses Not on filedocumented in this encounter Care Teams Woolen Tester Relationship Specialty Start Date End Date Amy Conklin MD [address] [place] [address] [place] [address] PCP - General 03/14/10 01/28/23 documented as of this encounter
--- OUTSIDE RECORDS SUMMARY | 2024-05-01 01:55 | XMS_ITS | Encounter Summary ---
Author Organization [facility] Address [address] [place] [address] Care Team Providers Care Front Desk Assistant Name Role Phone Sophia Hercules Primary Care Provider [phone] Encounter Details Date Type Department Care Team ([facility] st Contact Info) Description 03/03/2024 Lab Requisition [facility] Pathology & Laboratory Medicine - [address] [address] Outr Resulting Lab, Provider Social History Tobacco [...] Procedure Name Priority Date/Time Associated Diagnosis Comments CCP ANTIBODIES Routine 03/03/2024 15:15 EDT LYME AB Routine 03/03/2024 15:15 EDT RHEUMATOID FACTOR Routine 03/03/2024 15: 15 EDT ANTI NUCLEAR AB (TIFFANIE), IFA Routine 03/03/2024 15:15 EDT documented in this encounter Results * LYME AB (03/03/2024 15:15 EDT) Lyme Ab Negative Negative 03/04/2024 10:40 EDT [facility] Blood VENOUS BLOOD / Unknown 03/03/2024 15:15 EDT 03/03/2024 21:56 EDT Provider Outr Resulting Lab IMMUNOLOGY A ND SEROLOGY ORDERABLES Performing Organization Address [facility] Co de Phone Number [facility] [address] [place] [address] * RHEUMATOID FACTOR (03/03/2024 15:15 EDT) Pathologist [facility] Rheumatoid Factor <8.6 <12.0 IU/mL 03/03/2024 22:19 EDT [facility] Blood VENOUS BLOOD / Unknown 03/03/2024 15:15 EDT 03/03/2024 21:56 EDT Provider Outr Resulting Lab CHEMISTRY & BLOOD GAS ORDERABLES Performing Organization Address [facility] de Phone Number [facility] [address] [place] [address] * ANTI NUCLEAR AB (TIFFANIE), IFA (03/03/2024 15:15 EDT) [facility] TIFFANIE Interpretation Negative Negative 2023 14:26 EDT [facility] Comment:No titer performed, TIFFANIE Screen is negative. Blood VENOUS BLOOD / Unknown 03/03/2024 15:15 EDT 03/03/2024 21:56 EDT Narrative [facility] - 03/04/2024 14:26 EDT Results were obtained with the i[employer] NOVA Lite HEp-2 TIFFANIE Kit by indirect immunofluorescence. Provider Outr Resulting Lab IMMUNOLOGY A ND SEROLOGY ORDERABLES Performing Organization Address [facility] Co de Phone Number [facility] [address] [place], [place] [id number] * CCP ANTIBODIES (03/03/2024 15:15 EDT) Pathologist [facility] CCP Antibodies <2.5 <5.0 U/mL 03/04/2024 9:35 EDT [facility] Blood VENOUS BLOOD / Unknown 03/03/2024 15:15 EDT 03/03/2024 21:56 EDT Provider Outr Resulting Lab IMMUNOLOGY A ND SEROLOGY ORDERABLES [facility] [address] [place] [address] documented in this encounter Visit Diagnoses Not on filedocumented in this encounter Care Teams Front Desk Assistant Relationship Specialty Start Date End Date Sophia Hercules [address] [facility] [place] [address] PCP - General 01/29/23 documented as of this encounter
--- OUTSIDE RECORDS SUMMARY | 2024-05-01 01:55 | XMS_ITS | Encounter Summary ---
Author Organization [facility] Address [address] [place] [address] Care Team Providers Care Game Designer/Creative Director Name Role Phone Amy Conklin MD Primary Care Provider [phone] Encounter Details Date Type Department Care Team (Late st Contact Info) Description 09/27/2011 Results Only [facility] - [facility] ([facility]) [address] [place], [place] [id number] Yolanda Blank MD [address] [place] [address] [place] [address] Social History Tobacco Use Types Packs/Day Years [...] Diagnosis Comments PAP TEST- RESULT ONLY Routine 09/27/2011 0:00 EST documented in this encounter Results * PAP TEST- RESULT ONLY (09/27/2011 0:00 EST) Pathology Report: CYTOPATHOLOGY REPORT Reports generated via electronic interface contain original data; however they are lacking the format of the original report. Caution should be taken when reading/interpreti ng unformatted reports. Name: ? ELIAZAR AVILA ? Accession #: ? [id number] : ? 1955 (Age: 56) ??F ?Collect Date: ? 09/27/2011 Location: ? [facility] ? Receive Date: ? 09/28/2011 Provider: ?YOLANDA BLANK MD Copy to: ?AMY CONKLIN MD ? Specimen/Source: ?Pap Test, Cervix/Endocervix, ThinPrep Imaging System with manual evaluation Last Menstrual Period: ? Previous Gynecologic Pathology: ? ASC-US: 04/04/10 HSIL: 08/07, 05/06, 04/06, 03/07, 01/08, 02/09 & 02/10 LSIL: 09/05, 07/09 & 02/07 Treatment History: ? Colposcopy: 06/05 & 08/08 LEEP: 08/08 ? SPECIMEN ADEQUACY ? Satisfactory for Evaluation - assessment of transformation zone component not applicable ( e.g. atrophy, vaginal sample, hysterectomy) GENERAL CATEGORIZATION ? Epithelial Cell Abnormality INTERPRETATION ? Squamous Cell Abnormality - High grade squamous intraepithelial lesion (HSIL). EDUCATIONAL NOTES/RECOMMENDATI ONS ? [facility] recommends following the 2006 Consensus Guidelines for the Management of Women with Abnormal Cervical Cancer Screening Tests (JLGTD, 2007;11(4):201-222 ). ??Consensus guidelines are available online at www.ASCCP.org. ? Document reviewed and electronically signed by: ? [facility] ? Report Date: ??10/04/2011 12:43 End of Report [facility] 09/27/2011 09/28/2011 Yolanda Blank MD PATHOLOGY ORDERABLES Performing Organization Address City/State/[facility] Co de Phone Number [facility] [address] [place] [address] documented in this encounter Visit Diagnoses Not on filedocumented in this encounter Care Teams Game Designer/Creative Director Relationship Specialty Start Date End Date Amy Conklin MD [address] [place] [address] [place] [address] PCP - General 03/14/10 01/28/23 documented as of this encounter
--- OUTSIDE RECORDS SUMMARY | 2024-05-01 01:55 | XMS_ITS | Encounter Summary ---
Author Organization [facility] [place] [address] Care Team Providers Care Stock Buyer Name Role Phone Kristen Avina [place]att [place] Primary Care Provider [phone] Reason for Visit * Reason Onset Date Comments Dizziness 08/01/2017 Encounter Details Date Type Department Care Team (Late st Contact Info) Description 08/01/2017 Telephone [place]ematology [place] [address] Dayana Lee RN Dizziness Social History Tobacco Use Types Packs/Day Years Used Date Smoking Tobacco: Former Smokeless Tobacco: Never Sex and Gender Information Value Date Recorded Sex Assigned at Not on file Gender Identity Not on file Sexual Orientation Not on file documented as of this encounter Miscellaneous Notes * Telephone Encounter - Dayana Lee RN - 08/01/2017 10:37 AM EST Mary Ellen calls to report she has been having dizzy spells for the last two weeks. States it comes and goes. States she will be fine and all of a sudden she has to grab something so she doesn't fall down. She has been monitoring her B/P which she states is ok. Pt is diabetic and she reports her bloodsugars are ok. She spoke with her PCP this morning who per pt said it could be vertigo, or dehydration, or some heart problem. I will see you on the and we can talk about it then. Pt states that when she told her PCP she was scheduled for an EUA she stated if it's your heart [facility] is a good place to be. Pt states she did not tell her PCP that she has been having left arm pain for thelast two days. Mary Ellen is scheduled for an EUA tomorrow. Pt advised to go to the ER but she states she will call her PCP first. EUA canceled. documented in this encounter Plan of Treatment Upcoming Encounters Date Type Department Care Team (Late st Contact Info) Description 06/01/2024 4:00 PM EDT Office Visit Dermatology at [place] [address] [facility] [place] [address] Anthony Uribe MD [address] [place] [address] documented as of this encounter Visit Diagnoses Not on filedocumented in this encounter Care Teams Stock Buyer Relationship Specialty Start Date End Date Kristen Avina APRN PCP - General Family Medicine 07/03/17 03/19/19 documented as of this encounter
--- OUTSIDE RECORDS SUMMARY | 2024-05-01 01:55 | XMS_ITS | Encounter Summary ---
Author Organization [facility] Address [address] [place] [address] Care Team Providers Care Distribution Spec Name Role Phone Unavailable Primary Care Provider Unavailabl e Encounter Details Date Type Department Care Team (Late st Contact Info) Description 07/26/2009 Orders Only [facility] Laboratory Services - [facility] ([facility]) [address] [place], [place] [address] Yolanda Blank MD [address] [place] [address] [place] [address] Social History Tobacco Use Types Packs/Day Years Used Date Smoking Tobacco: Never Assessed Sex and Gender Information Value Date Recorded Sex Assigned at Not on file Gender Identity Female 01/29/2023 10:56 EDT Sexual Orientation Not on file documented as of this encounter Plan of Treatment Not on file documented as of this encounter Procedures Procedure Name Priority Date/Time Associated Diagnosis Comments CYTOPATHOLOGY Routine 07/26/2009 0:00 EST documented in this encounter Results * CYTOPATHOLOGY (07/26/2009 0:00 EST) Pathology Report: CYTOPATHOLOGY REPORT ? Reports generated via electronic interface contain original data; ? however they are lacking the format of the original report. ? Caution should be taken when reading/interpreti ng unformatted reports. ? Name: ? FLUM, ELIAZAR ? Accession #: ? [id number] ? : ? 1955 (Age: 54) ??F ?Collect Date: ? 07/26/2009 ? Location: ? [facility] ? Receive Date: ? 07/27/2009 ? Provider: ?YOLANDA BLANK MD ? Copy to: ? Specimen/Source: ?Pap Test, Cervix/Endocervix, ThinPrep Imaging System ? with manual evaluation ? Last Menstrual Period: ? Previous Gynecologic Pathology: ? HSIL: 12/06, 09/04, 08/05 & 07/06 ? LSIL: 01/04, 11/07 & 06/08 ? LSIL: -H 05/09 ? Treatment History: ? Colposcopy: 10/04 & 12/08 ? LEEP: 12/07 ? Other: ? HPVA - HPV testing requested if ASC-US on the current ThinPrep Pap test. ? SPECIMEN ADEQUACY ? Satisfactory for Evaluation ? - transformation zone component present ? GENERAL CATEGORIZATION ? Epithelial Cell Abnormality ? INTERPRETATION ? Squamous Cell Abnormality - High grade squamous intraepithelial lesion ? (HSIL). ? EDUCATIONAL NOTES/RECOMMENDATI ONS ? [facility] recommends following the 2006 Consensus Guidelines for the Management of Women with Abnormal Cervical Cancer Screening Tests (JLGTD, ? 2007;11(4:201-222 ). ??Consensus guidelines are available online at ? www.ASCCP.org. ? Document reviewed and electronically signed by: ? Carmelo Gaitan MD ? Report Date: ??08/03/2009 15:35 ? End of Report ? FLORA GAMBINO 07/26/2009 07/27/2009 Yolanda Blank MD PATHOLOGY ORDERABLES [facility] [address] [place] [address] documented in this encounter Visit Diagnoses Not on filedocumented in this encounter
--- OUTSIDE RECORDS SUMMARY | 2024-05-01 01:55 | XMS_ITS | Encounter Summary ---
Author Organization [facility] Address [address] [place] [address] Care Team Providers Care Director Graphics Name Role Phone Amy Conklin MD Primary Care Provider [phone] Encounter Details Date Type Department Care Team (Late st Contact Info) Description 10/25/2011 Results Only [facility] Laboratory Services - [facility] ([facility]) [address] [place], [place] [id number] Yolanda Blank MD [address] [place] [address] [place] [address] Social History Tobacco Use Types Packs/Day Years [...] Date/Time Associated Diagnosis Comments SURGICAL PATHOLOGY Routine 10/25/2011 0:00 EST documented in this encounter Results * SURGICAL PATHOLOGY (10/25/2011 0:00 EST) Pathology Report: SURGICAL PATHOLOGY REPORT Reports generated via electronic interface contain original data; however they are lacking the format of the original report. Caution should be taken when reading/interpreti ng unformatted reports. Name: ? ELIAZAR AVILA ? Accession #: ? [id number] ? : ? 1955 (Age: 56) ??F ? Collect Date: ? 10/25/2011 ? Location: ? [facility] ? Receive Date: ? 10/25/2011 ? Provider: YOLANDA BLANK MD Copy to: AMY CONKLIN MD ? Final Pathologic Diagnosis: ? Uterus and cervix, hysterectomy: 1. ?Cervix: ? - Focal detached fragment of dysplastic squamous mucosa, favor high-grade dysplasia. See comment. ? 2. ?? Endometrium: ?- Inactive endometrium. 3. ?? Myometrium: ?- No pathologic features. 4. ?? Serosa: ?- No pathologic features. Comment: ? [employer] sections of the cervix were reviewed in the intradepartmental consultation conference. The entire cervix was submitted for histologic examination. The focal detached dysplastic squamous mucosa shows cautery/degenerati ve changes, however a high-grade dysplasia is favored. The remaining cervical mucosa shows no dysplasia. Clinical correlation, including clinical evaluation of vulvar-vaginal mucosa, is recommended to rule out high-grade dysplasia arising from this region. ??(Dr. Gaitan)/[facility] Document reviewed and electronically signed by: BARBIE GAITAN MD Report ??Date: 10/30/2011 10:52 By the signature above, the attending physician certifies that he/she has personally conducted a gross and/or microscopic examination of the described specimens and rendered or confirmed the above diagnosis. Specimen(s) Received: ? Uterus Clinical History: ? Long history of persistent cervical dysplasia Gross Description: ? Received in formalin labelled NaamEliazar and uterus is a 45 gram corpus uterus and cervix, which does not include adnexa, which measures 8.0 cm from fundus to cervix by 5.0 cm from cornu to cornu by 4.0 cm from anterior to posterior. ??The ectocervix is webster-white, focally dusky, and meek-red, smooth to focally slightly irregular. ??The endocervix is slightly furrowed and light meek with a discernible squamocolumnar junction. ??The cervical margin is black inked. The endometrium is emek-red, mildly hemorrhagic, generally smooth, and measures 0.1 cm in thickness. ??The myometrium is meek-pink, firm, and measures up to 1.0 cm in thickness. ??The serosa is smooth and meek. ??[employer] sections of the specimen, including the entire coned in cervix, are submitted as follows: BLOCK MENA A1-A8 ?Anterior half of cervix, starting at 9 o'clock and moving progressively clockwise towards 3 ? o'clock ? A9-A16 ?Posterior half of cervix, starting at 3 o'clock and moving progressively clockwise towards 9 ? o'clock ? A17 ?Transverse section of anterior endocervix taken adjacent to amputated cervix A18 ?Transverse section of posterior endocervix taken adjacent to amputated cervix A19 ?Anterior endomyometrium A20 ?Posterior endomyometrium (J. Tessitore)/ljn End of Report FLORA GAMBINO 10/25/2011 10/25/2011 9:0 4 EST Yolanda Blank MD PATHOLOGY ORDERABLES [facility] [address] [place] [address] documented in this encounter Visit Diagnoses Not on filedocumented in this encounter Care Teams Director Graphics Relationship Specialty Start Date End Date Amy Conklin MD [address] [place] [address] [place] [address] PCP - General 03/14/10 01/28/23 documented as of this encounter
--- OUTSIDE RECORDS SUMMARY | 2024-05-01 01:55 | XMS_ITS | Encounter Summary ---
Author Organization [facility] Address [address] [place] [address] Care Team Providers Care Refinery Operator Helper Name Role Phone Unavailable Primary Care Provider Unavailabl e Encounter Details Date Type Department Care Team (Late st Contact Info) Description 08/06/2008 Before PRISM Converted Visit (Maple) [facility] - Maple conversion [address] [place] [address] Yolanda Blank MD [address] [place] [address] [place] [address] Social History Tobacco Use Types Packs/Day Years [...] Date/Time Associated Diagnosis Comments SURGICAL PATHOLOGY Routine 08/06/2008 0:00 EST documented in this encounter Results * SURGICAL PATHOLOGY (08/06/2008 0:00 EST) Pathology Report: SURGICAL PATHOLOGY REPORT ? Reports generated via electronic interface contain original data; ? however they are lacking the format of the original report. ? Caution should be taken when reading/interpreti ng unformatted reports. ? Name: ? FLUM, ELIAZAR ? Accession #: ? [id number] ? : ? 1955 (Age: 53) ??F ? Collect Date: ? 08/06/2008 ? Location: ? [facility] ? Receive Date: ? 08/06/2008 ? Provider: YOLANDA BLANK MD ? Copy to: TANVI ERISMAN MD ? Final Pathologic Diagnosis: ? A. ?Endocervix, curettings: ? 1. ?Squamous mucosa with reactive changes. See comment. ? 2. ? No dysplasia seen ? B. ?Cervix, 7:00, biopsy: ? 1. ?Squamous mucosa with mild, reactive changes and focal atrophy. ? 2. ? No dysplasia seen ? Comment: ? Deeper levels for specimen (A) and (B) have been examined. The previous Pap test ([id number]) has been reviewed and the diagnosis of low grade squamous ? intraepithelial lesion (LSIL) is confirmed. ??The dysplastic cells seen on the ?? Pap test are not identified in the current case. ??(Dr. Stuart)/mpl ? Document reviewed and electronically signed by: ? Rigoberto Stuart MD ? Report ??Date: 08/10/2008 15:48 ? By the signature above, the attending physician certifies that he/she has ? personally conducted a gross and/or microscopic examination of the described ? specimens and rendered or confirmed the above diagnosis. ? Specimen(s) Received: ? A. ?Endocervical curettage ? B. ? Cervix bx @ 7:00 ? Clinical History: ? Pap 6/17/08 LSIL; LMP: 2003 ? Gross Description: ? Received in formalin labelled Flum and endocervical curettage is a ? scant 0.1 x 0.1 x 0.1 cm aggregate of white tissue. ??The specimen is entirely ?? submitted as (A) following filtration. ? Received in formalin labelled Flum and cx bx @ 7:00 are two garcia-white ? irregular tissues measuring 0.4 x 0.2 x 0.1 cm and 0.8 x 0.3 x 0.1 cm as well as a minimal amount of mucinous material. ??The specimen is entirely submitted as ?? (B) following filtration. ??(Kasie Hemphill)/keiko ? End of Report ? [facility] 08/06/2008 08/06/2008 9:5 0 EST Yolanda Blank MD PATHOLOGY ORDERABLES [facility] [address] [place] [address] documented in this encounter Visit Diagnoses Not on filedocumented in this encounter
--- OUTSIDE RECORDS SUMMARY | 2024-05-01 01:55 | XMS_ITS | Encounter Summary ---
Author Organization [facility] Address [address] [place] [address] Care Team Providers Care Financial Aid Director Name Role Phone Amy Kaur MD Primary Care Provider [phone] Encounter Details Date Type Department Care Team (Late st Contact Info) Description 03/28/2010 Results Only [facility] Laboratory Services - [facility] ([facility]) [address] [place], [place] [phone] Yolanda Blank MD [address] [place] [address] [place] [address] Social History Tobacco Use Types Packs/Day Years [...] Date/Time Associated Diagnosis Comments SURGICAL PATHOLOGY Routine 03/28/2010 0:00 EDT documented in this encounter Results * SURGICAL PATHOLOGY (03/28/2010 0:00 EDT) Pathology Report: SURGICAL PATHOLOGY REPORT ? Reports generated via electronic interface contain original data; ? however they are lacking the format of the original report. ? Caution should be taken when reading/interpreti ng unformatted reports. ? Name: ? FLUM, ELIAZAR ? Accession #: ? [id number] ? : ? 1955 (Age: 55) ??F ? Collect Date: ? 03/28/2010 ? Location: ? [facility] ? Receive Date: ? 03/29/2010 ? Provider: YOLANDA BLANK MD ? Copy to: AMYJEFF GOREAN MD ? Final Pathologic Diagnosis: ? Endometrium, biopsy: ? 1. ?Inactive endometrium with no cytologic atypia. ? 2. ? Fragments of benign endocervical tissue. ? 3. ? Abundant mucus. ? Document reviewed and electronically signed by: ? POWER MOUNT MD ? Report ??Date: 04/03/2010 14:17 ? By the signature above, the attending physician certifies that he/she has ? personally conducted a gross and/or microscopic examination of the described ? specimens and rendered or confirmed the above diagnosis. ? Specimen(s) Received: ? Endometrial bx ? Clinical History: ? PM bleeding; LMP: 2001 ? Gross Description: ? Received in formalin labelled Flum, Eliazar and endometrial bx is 2 cc of blood tinged mucus admixed with fragments of red-brown tissue. ??The specimen is submitted entirely in one cassette. ??(COURTNEY Piedrasigertrudis)/kylen ? End of Report ? [facility] 03/28/2010 03/29/2010 16: 36 EDT Yolanda Blank MD PATHOLOGY ORDERABLES Performing Organization Address City/State/[facility] Co de Phone Number [facility] [address] [place] [address] documented in this encounter Visit Diagnoses Not on filedocumented in this encounter Care Teams Financial Aid Director Relationship Specialty Start Date End Date Amy Kaur MD [address] [place] [address] [place] [address] PCP - General 03/14/10 01/28/23 documented as of this encounter
--- OUTSIDE RECORDS SUMMARY | 2024-05-01 01:55 | XMS_ITS | Encounter Summary ---
Author Organization [facility] Address [address] [place] [address] Care Team Providers Care Warp Worker Name Role Phone Amy Kaur MD Primary Care Provider [phone] Encounter Details Date Type Department Care Team (Late st Contact Info) Description 02/23/2019 Results Only [facility] [phone] Van Zhou, RYANN [address] [place] [phone] Social History Tobacco Use Types Packs/Day Years Used Date Smoking Tobacco: Never Assessed Sex and Gender Information Value Date Recorded Sex Assigned at Not on file Gender Identity Female 01/29/2023 10:56 EDT Sexual Orientation Not on file documented as of this encounter Plan of Treatment Not on file documented as of this encounter Procedures Procedure Name Priority Date/Time Associated Diagnosis Comments HPV DNA DETECTION WITH GENOTYPING, PCR, THINPREP Routine 02/23/2019 14:57 EDT PAP TEST- RESULT ONLY Routine 02/23/2019 0:00 EDT documented in this encounter Results * (ABNORMAL) HPV DNA DETECTION WITH GENOTYPING, PCR, THINPREP (02/23/2019 14:57 EDT) Specimen Source Vagina 02/27/2019 14:57 EDT [facility] Comment:THIN PREP HPV type 16, PCR Negative Negative 03/03/2019 7:16 EDT [facility] HPV type 18, PCR Negative Negative 03/03/2019 7:16 EDT [facility] HPV other types, PCR Positive(A) Negative 03/03/2019 7:16 EDT [facility] Comment: (Note) Positive for one or more of the following Other High Risk HPV types: 31, 33, 35, 39, 45, 51, 52, 56, 58, 59, 66, and 68 Performed or Referred by: [facility], [address] [place] [address] TOPOGRAPHY UNKNOWN / Unknown 02/23/2019 14:57 EDT 02/27/2019 14:57 EDT Van Zhou [employer] MICROBIOLOGY - GENER AL ORDERABLES [facility] [address] [place] [address] * PAP TEST- RESULT ONLY (02/23/2019 0:00 EDT) Pathology Report: CYTOPATHOLOGY REPORT Reports generated via electronic interface contain original data; however they are lacking the format of the original report. Caution should be taken when reading/interpreti ng unformatted reports. Name: ? ELIAZAR AVILA ? Accession #: ? [id number] ? : ? 1955 (Age: 63) ??F ?Collect Date: ? 02/23/2019 ? Location: ? [facility] ? Receive Date: ? 02/25/2019 ? Provider: [facility]- Copy to: ? Final Report SPECIMEN ADEQUACY ? Satisfactory for Evaluation - assessment of transformation zone component not applicable ( e.g. atrophy, vaginal sample, hysterectomy) GENERAL CATEGORIZATION ? Epithelial Cell Abnormality INTERPRETATION ? Squamous Cell Abnormality - High grade squamous intraepithelial lesion (HSIL). EDUCATIONAL NOTES/RECOMMENDATI ONS ? [facility] recommends following ASCCP's 2012 Updated Consensus Guidelines for the Management of Abnormal Cervical Cancer Screening Tests and Cancer Precursors (JLGTD, 2013; 17(5):S1-S27). ??Consensus guidelines are available online at www.asccp.org. Menstrual/Pregnanc y Status: ??Post Menopausal Previous Gynecologic Pathology: VAIN: II-III Specimen/Source: ??Pap Test, Specimen from Vaginal Cuff, ThinPrep Imaging System with manual evaluation Document reviewed and electronically signed by: ? CARMELA PATRICIA MD ? Report ??Date: 02/27/2019 11:04 HPV with Pap Test ? Date Ordered: ? 02/27/2019 ? Status: ?? Signed Out ?Date Complete: ? 02/27/2019 ? By: ??System Interface ? Date Reported: ? 02/27/2019 ? Interpretation RESULT: High risk HPV testing is only FDA approved and validated for cervical or endocervical samples at the [facility]. It is not validated for vaginal samples as the test performance characteristics have not been evaluated. Credit issued. Sample has been sent to [facility] for HPV testing. Comments Document reviewed and electronically signed by: ? System Interface ? Report date: 02/27/2019 By the signature above, the attending physician certifies that he/she has personally conducted a gross and/or microscopic examination of the described specimens and rendered or confirmed the above diagnosis. End of Report [facility] 02/23/2019 02/25/2019 Van Zhou NP PATHOLOGY ORDERABLES [facility] [address] [place] [address] documented in this encounter Visit Diagnoses Not on filedocumented in this encounter Care Teams Warp Worker Relationship Specialty Start Date End Date Amy Kaur MD [address] [place] [address] [place] [address] PCP - General 03/14/10 01/28/23 documented as of this encounter
--- OUTSIDE RECORDS SUMMARY | 2024-05-01 01:55 | XMS_ITS | Encounter Summary ---
Author Organization [facility] Address [address] [place] [address] Care Team Providers Care Lab Technician Name Role Phone Amy Kaur MD Primary Care Provider [phone] None, Provider Primary Care Provider Unavailabl e Encounter Details Date Type Department Care Team (Late st Contact Info) Description 02/05/2007 Results Only [facility] - Map conversion [address] [place] [address] Yolanda Blank MD [address] [place] [address] [place] [address] Social History Tobacco Use Types Packs/Day Years [...] Comments HPV DETECTION, HIGH RISK TYPES Routine 02/05/2007 14:20 EDT CYTOPATHOLOGY Routine 02/05/2007 0:00 EDT documented in this encounter Results * HUMAN PAPILLOMA VIRUS DNA TEST (02/05/2007 14:20 EDT) Specimen Description Cervix, ThinPrep vial [facility] Result Negative for HPV types 16, 18, 31, 33, 35, 39, 45, 51, 52, 56, 58, 59, and 68. [facility] Report Status Final [id number] [facility] 02/05/2007 14:2 0 EDT 02/13/2007 10:29 EDT Yolanda Blank MD MICROBIOLOGY - GENER AL ORDERABLES [facility] [address] [place] [address] * CYTOPATHOLOGY (02/05/2007 0:00 EDT) Pathology Report: CYTOPATHOLOGY REPORT Reports generated via electronic interface contain original data; however they are lacking the format of the original report. Caution should be taken when reading/interpreti ng unformatted reports. Name: ? ELIAZAR AVILA ? Accession #: ? [id number] : ? 1955 (Age: 51) ??F ?Collect Date: ? 02/05/2007 Location: ? [facility] ? Receive Date: ? 02/06/2007 Provider: ?YOLANDA BLANK MD Copy to: ? Specimen/Source: ?ThinPrep Pap Test, Cervix/Endocervix, processed on [employer] ThinPrep Imaging System, with manual evaluation Last Menstrual Period: ? 2002 Previous Gynecologic Pathology: ? HSIL: 08/07, 05/06, 04/06, 03/07 LSIL: 09/05 Yes: ECC 10/06 Treatment History: ? Colposcopy: 10/06 Endometrial biopsy: 06/05 Other: ? HPVDX - HPV testing requested regardless of diagnosis on current ThinPrep Pap test. ? SPECIMEN ADEQUACY ? Satisfactory for Evaluation - transformation zone component present GENERAL CATEGORIZATION ? Epithelial Cell Abnormality INTERPRETATION ? Squamous Cell Abnormality - Low grade squamous intraepithelial lesion, cannot exclude ? high grade squamous intraepithelial lesion (LSIL-H). EDUCATIONAL NOTES/RECOMMENDATI ONS ? There is no ASCCP recommendation specific to the diagnosis above. ??This diagnosis indicates a greater likelihood of the cervix harboring HSIL compared to a diagnosis of LSIL alone, 55% vs. 17% in our experience. ??Initial colposcopic evaluation is advised. Should HSIL not be confirmed on colposcopic evaluation and/or biopsy, close follow-up with Pap test and/or repeat colposcopy is advised. ??In some situations there may be clinical or colposcopic reasons to perform a diagnostic cone biopsy/LEEP. ? Document reviewed and electronically signed by: ? Harvey Mixon MD ? Report Date: ??02/12/2007 16:06 End of Report [facility] 02/05/2007 02/06/2007 Yolanda Blank MD PATHOLOGY ORDERABLES Performing Organization Address City/State/[facility] Co de Phone Number [facility] [address] [place] [address] documented in this encounter Visit Diagnoses Not on filedocumented in this encounter Care Teams Lab Technician Relationship Specialty Start Date End Date Amy Kaur MD [address] [place] [address] [place] [address] PCP - General 03/14/10 01/28/23 None, Provider PCP - General 08/04/09 03/13/10 documented as of this encounter
--- OUTSIDE RECORDS SUMMARY | 2024-05-01 01:55 | XMS_ITS | Encounter Summary ---
Author Organization [facility] [place] [address] Care Team Providers Care Sports Medicine Physician Name Role Phone Unavailable Primary Care Provider Unavailabl e Encounter Details Date Type Department Care Team (Late st Contact Info) Description 07/11/2010 2:15 PM EST Office Visit Obstetrics [place] [address] Abhay Michelle MD [facility] DR OBSTETRICS [place] [address] Social History Tobacco Use Types Packs/Day Years [...] 4:00 PM EDT Office Visit Dermatology at [place] [address] [place] [address] Anthony Uribe MD [address], [place] [address] documented as of this encounter Visit Diagnoses Not on filedocumented in this encounter
--- OUTSIDE RECORDS SUMMARY | 2024-05-01 01:55 | XMS_ITS | Encounter Summary ---
Author Organization [facility] Address [address] [place] [address] Care Team Providers Care Pattern Storage Clerk Name Role Phone Amy Kaur MD Primary Care Provider Encounter Details Date Type Department Care Team (Latest Contact Info) Description 10/28/2015 13:31 EST - 10/28/2015 23:59 EST Hospital Encounter [address] [address] Unknown, Provider, Discharge Disposition: Home or Self Care Social History Tobacco Use Types Packs/Day Years Used Date Smoking Tobacco: Never Assessed Sex and Gender Information Value Date Recorded Sex Assigned at Not on file Gender Identity Female 01/29/2023 10:56 EDT Sexual Orientation Not on file documented as of this encounter Discharge Disposition Disposition Code Departure Means Destination Home or Self Penitentiary documented in this encounter Plan of Treatment Not on file documented as of this encounter Visit Diagnoses Not on filedocumented in this encounter Care Teams Pattern Storage Clerk Relationship Specialty Start Date End Date Amy Kaur MD [address] [place] [address] [place] [address] PCP - General 03/14/10 01/28/23 documented as of this encounter
--- OUTSIDE RECORDS SUMMARY | 2024-05-01 01:56 | XMS_ITS | Encounter Summary ---
Author Organization [facility] Address [address] [place] [address] Care Team Providers Care Stiff Leg Derrick Operator Name Role Phone Amy Conklin MD Primary Care Provider None, Provider Primary Care Provider Unavailabl e Encounter Details Date Type Department Care Team (Late st Contact Info) Description 11/02/2003 Results Only [facility] - [place] conversion [address] [place] [id number] Jer Hernandez, DO [address] [facility] ,[address] [id number] Social History Tobacco Use Types Packs/Day Years [...] Date/Time Associated Diagnosis Comments SURGICAL PATHOLOGY Routine 11/02/2003 0:00 EST documented in this encounter Results * SURGICAL PATHOLOGY (11/02/2003 0:00 EST) Pathology Report: SURGICAL PATHOLOGY REPORT Reports generated via electronic interface contain original data; however they are lacking the format of the original report. Caution should be taken when reading/interpreti ng unformatted reports. Name: ? ELIAZAR AVILA ? Accession #: ? [id number] ? : ? 1955 (Age: 48) ??F ? Collect Date: ? 11/02/2003 ? Location: ? [facility] ? Receive Date: ? 11/02/2003 ? Provider: JER HERNANDEZ DO Copy to: AMY CONKLIN MD ? Final Pathologic Diagnosis: ? Colon, 15 cm, polyp, biopsy: - Hyperplastic polyp. Document reviewed and electronically signed by: Carmelo Gaitan MD Report ??Date: 11/03/2003 15:28 By the signature above, the attending physician certifies that he/she has personally conducted a gross and/or microscopic examination of the described specimens and rendered or confirmed the above diagnosis. Specimen(s) Received: ? Polyp @ 15.0 cm Clinical History: ? Hematochezia Gross Description: ? Received in Hollande's fixative labelled Flum and polyp at 15.0 cm is a 0.3 x 0.2 x 0.1 cm meek soft tissue biopsy. ??The specimen is entirely submitted in one cassette. /[facility] End of Report [facility] 11/02/2003 11/02/2003 15: 39 EST Jer Hernandez DO PATHOLOGY ORDER TRISHA [facility] [address] [place] [address] documented in this encounter Visit Diagnoses Not on filedocumented in this encounter Care Teams Stiff Leg Derrick Operator Relationship Specialty Start Date End Date Amy Conklin MD [address] [place] [address] [place] [address] PCP - General 03/14/10 01/28/23 None, Provider PCP - General 08/04/09 03/13/10 documented as of this encounter
--- OUTSIDE RECORDS SUMMARY | 2024-05-01 01:56 | XMS_ITS | Encounter Summary ---
Author Organization [facility] Address [address] [place] [address] Care Team Providers Care Job Analysis Manager Name Role Phone None, Provider Primary Care Provider Unavailabl e Encounter Details Date Type Department Care Team ([facility] st Contact Info) Description 11/25/2000 Results Only [facility] - [place] conversion [address] [place] [address] Gerber Peterson MD [address] [place] [phone] Social History Tobacco Use Types Packs/Day Years Used Date Smoking Tobacco: Never Assessed Sex and Gender Information Value Date Recorded Sex Assigned at Not on file Gender Identity Female 01/29/2023 10:56 EDT Sexual Orientation Not on file documented as of this encounter Plan of Treatment Not on file documented as of this encounter Procedures Procedure Name Priority Date/Time Associated Diagnosis Comments CYTOPATHOLOGY Routine 11/25/2000 0:00 EST documented in this encounter Results * CYTOPATHOLOGY (11/25/2000 0:00 EST) Pathology Report: CYTOPATHOLOGY REPORT Reports generated via electronic interface contain original data; however they are lacking the format of the original report. Caution should be taken when reading/interpreti ng unformatted reports. Name: ? ELIAZAR AVILA ? Accession #: ? [id number] : ? 1955 (Age: 45) ??F ?Collect Date: ? 11/25/2000 Location: ? [facility] ? Receive Date: ? 11/25/2000 Provider: ? GERBER PETERSON MD Copy to: ? CYTOLOGIC DIAGNOSIS: ? Urine, voided: - Atypical cells present. ??See comment. ? COMMENT: ? Rare partially degenerative urothelial clusters are present in a background of external squamous contamination, cannot rule out stone disease versus low grade transitional cell carcinoma. ??Clinical correlation and follow-up is recommended. ??(Dr. Barone)/[facility] Document reviewed and electronically signed by: ? ANGEL BARONE MD Report Date: ??11/26/2000 15:34 By the signature above, the attending physician certifies that he/she has personally conducted a gross and/or microscopic examination of the described specimens and rendered or confirmed the above diagnosis. Specimen Type: ? Urine, Voided Clinical History: ? Frequency and abdominal pain. ? Gross Description: ? 1 tube of cytolyt was received and processed. ? End of Report [facility] 11/25/2000 11/25/2000 15: 54 EST Gerber Peterson MD PATHOLOGY ORDERABLES [facility] [address] [place] [address] documented in this encounter Visit Diagnoses Not on filedocumented in this encounter Care Teams Job Analysis Manager Relationship Specialty Start Date End Date None, Provider PCP - General 08/04/09 03/13/10 documented as of this encounter
--- OUTSIDE RECORDS SUMMARY | 2024-05-01 01:56 | XMS_ITS | Encounter Summary ---
Author Organization [facility] Address [address] [place] [address] Care Team Providers Care Facility Examiner Name Role Phone Amy Kaur MD Primary Care Provider [phone] None, Provider Primary Care Provider Unavailabl e Encounter Details Date Type Department Care Team (Late st Contact Info) Description 05/05/2004 Results Only [facility] - [place] conversion [address] [place] [address] Yolanda Blank MD [address] [place] [address] [place] [address] Social History Tobacco Use Types Packs/Day Years Used Date Smoking Tobacco: Never Assessed Sex and Gender Information Value Date Recorded Sex Assigned at Not on file Gender Identity Female 01/29/2023 10:56 EDT Sexual Orientation Not on file documented as of this encounter Plan of Treatment Not on file documented as of this encounter Procedures Procedure Name Priority Date/Time Associated Diagnosis Comments CYTOPATHOLOGY Routine 05/05/2004 0:00 EDT documented in this encounter Results * CYTOPATHOLOGY (05/05/2004 0:00 EDT) Pathology Report: CYTOPATHOLOGY REPORT Reports generated via electronic interface contain original data; however they are lacking the format of the original report. Caution should be taken when reading/interpreti ng unformatted reports. Name: ? ELIAZAR AVILA ? Accession #: ? [id number] : ? 1955 (Age: 49) ??F ?Collect Date: ? 05/05/2004 Location: ? [facility] ? Receive Date: ? 05/10/2004 Provider: ?YOLANDA BLANK MD Copy to: ? Specimen/Source: ?ThinPrep Pap Test, Cervix/Endocervix Last Menstrual Period: ? 03/04 Previous Gynecologic Pathology: ? LSIL: 09/03/03 Treatment History: ? Colposcopy: 10/06 Miscellaneous treatment: ECC ? SPECIMEN ADEQUACY ? Satisfactory for Evaluation - transformation zone component present GENERAL CATEGORIZATION ? Epithelial Cell Abnormality INTERPRETATION ? Squamous Cell Abnormality - High grade squamous intraepithelial lesion (HSIL). EDUCATIONAL NOTES/RECOMMENDATI ONS ? [facility] recommends following the 2001 Consensus Guidelines for the Management of Women with Cervical Cytological Abnormalities (RHONDA,2002;287:212 0-9). Management algorithms have been distributed by [facility] and are available online at www.ASCCP.org. ? Document reviewed and electronically signed by: ? BARBIE PATTERSON MD ? Report Date: ??05/16/2004 17:01 End of Report [facility] 05/05/2004 05/10/2004 Yolanda Blank MD PATHOLOGY ORDERABLES [facility] [address] [place] [address] documented in this encounter Visit Diagnoses Not on filedocumented in this encounter Care Teams Facility Examiner Relationship Specialty Start Date End Date Amy Kaur MD [facility] [facility] [place] [address] PCP - General 03/14/10 01/28/23 None, Provider PCP - General 08/04/09 03/13/10 documented as of this encounter
--- OUTSIDE RECORDS SUMMARY | 2024-05-01 01:56 | XMS_ITS | Encounter Summary ---
Author Organization [facility] Address [address] [place] [address] Care Team Providers Care Information Security Engineer Name Role Phone Amy Conklin MD Primary Care Provider [phone] None, Provider Primary Care Provider Unavailabl e Encounter Details Date Type Department Care Team (Late st Contact Info) Description 06/06/2004 Results Only [facility] [place] [facility] [address] [place] [address] Yolanda Blank MD [address] [place] [address] [place] [address] Social History Tobacco Use Types Packs/Day Years [...] Date/Time Associated Diagnosis Comments SURGICAL PATHOLOGY Routine 06/06/2004 0:00 EDT documented in this encounter Results * SURGICAL PATHOLOGY (06/06/2004 0:00 EDT) Pathology Report: SURGICAL PATHOLOGY REPORT Reports generated via electronic interface contain original data; however they are lacking the format of the original report. Caution should be taken when reading/interpreti ng unformatted reports. Name: ? ELIAZAR AVILA ? Accession #: ? [id number] ? : ? 1955 (Age: 49) ??F ? Collect Date: ? 06/06/2004 ? Location: ? [facility] ? Receive Date: ? 06/07/2004 ? Provider: YOLANDA BLANK MD Copy to: AMY CONKLIN MD ? Final Pathologic Diagnosis: A. ?Cervix, 2 o' clock, biopsy: 1. ?No specific pathologic features. ??See comment. B. ?Cervix, 10 o' clock, biopsy: 1. ?No specific pathologic features. ??See comment. Comment: ? Deeper sections were reviewed on both specimens (A) and (B) with no additional diagnoses. ??The specimen has been correlated with the previous high grade squamous intraepithelial lesion PAP smear ([id number]). ?? (Dr. Jones)/[facility] Document reviewed and electronically signed by: BARBIE PATTERSON MD Report ??Date: 06/12/2004 10:02 By the signature above, the attending physician certifies that he/she has personally conducted a gross and/or microscopic examination of the described specimens and rendered or confirmed the above diagnosis. Specimen(s) Received: A. ?Cx bx @ 2:00 (#1) B. ?Cx bx @ 10:00 (#2) Clinical History: ? P.M.B. 05/15/04 PAP HSIL; LMP: 14 mo. ago Gross Description: ? Received in formalin labelled Flum is a pink soft tissue fragment that measures 0.3 x 0.3 x 0.2 cm. ??The specimen is submitted entirely as (A). Received in formalin labelled Flum and cx bx at 10 o' clock is single soft tissue fragment that measures 0.4 x 0.3 x 0.2 cm. ??The specimen is submitted entirely as (B). ??(Dr. Jones)/[facility] End of Report [facility] 06/06/2004 06/07/2004 15: 00 EDT Yolanda Blank MD PATHOLOGY ORDERABLES [facility] [address] [place] [address] documented in this encounter Visit Diagnoses Not on filedocumented in this encounter Care Teams Information Security Engineer Relationship Specialty Start Date End Date Amy Conklin MD [address] [place] [address] [place] [address] PCP - General 03/14/10 01/28/23 None, Provider PCP - General 08/04/09 03/13/10 documented as of this encounter
--- OUTSIDE RECORDS SUMMARY | 2024-05-01 01:56 | XMS_ITS | Encounter Summary ---
Author Organization [facility] Address [address] [place] [address] Care Team Providers Care Plant Superintendent Name Role Phone Amy Conklin MD Primary Care Provider [phone] None, Provider Primary Care Provider Unavailabl e Encounter Details Date Type Department Care Team (Late st Contact Info) Description 06/27/2004 Results Only [facility] conversion [address] [place] [address] Yolanda Blank MD [address] [place] [address] [place] [address] Social History Tobacco Use Types Packs/Day Years [...] Date/Time Associated Diagnosis Comments SURGICAL PATHOLOGY Routine 06/27/2004 0:00 EDT documented in this encounter Results * SURGICAL PATHOLOGY (06/27/2004 0:00 EDT) Pathology Report: SURGICAL PATHOLOGY REPORT Reports generated via electronic interface contain original data; however they are lacking the format of the original report. Caution should be taken when reading/interpreti ng unformatted reports. Name: ? ELIAZAR AVILA ? Accession #: ? [id number] ? : ? 1955 (Age: 49) ??F ? Collect Date: ? 06/27/2004 ? Location: ? [facility] ? Receive Date: ? 06/28/2004 ? Provider: YOLANDA BLANK MD Copy to: AMY CONKLIN MD ? Final Pathologic Diagnosis: ? Endometrium, biopsy: 1. ?Superficial fragments of inactive endometrium. 2. ?Fragments of benign endocervical tissue with squamous metaplasia. Document reviewed and electronically signed by: EARL LOCKE MD Report ??Date: 06/30/2004 17:19 By the signature above, the attending physician certifies that he/she has personally conducted a gross and/or microscopic examination of the described specimens and rendered or confirmed the above diagnosis. Specimen(s) Received: ? Endometrial bx Clinical History: ? PMB Gross Description: ? Received in formalin labelled Flum and endometrial biopsy is a 1.3 x 1.0 x 0.3 cm aggregate of clotted blood admixed with scant soft tissue which is submitted in toto in one cassette. ??(Kasie Cisneros)/[facility] End of Report [facility] 06/27/2004 06/28/2004 15: 38 EDT Yolanda Blank MD PATHOLOGY ORDERABLES [facility] [address] [place] [address] documented in this encounter Visit Diagnoses Not on filedocumented in this encounter Care Teams Plant Superintendent Relationship Specialty Start Date End Date Amy Conklin MD [address] [place] [address] PCP - General 03/14/10 01/28/23 None, Provider PCP - General 08/04/09 03/13/10 documented as of this encounter
--- OUTSIDE RECORDS SUMMARY | 2024-05-01 01:56 | XMS_ITS | Encounter Summary ---
Author Organization [facility] Address [address] [place] [address] Care Team Providers Care Category Development Manager Name Role Phone None, Provider Primary Care Provider Unavailabl e Encounter Details Date Type Department Care Team (Late st Contact Info) Description 05/22/2000 Results Only [facility] - [place] conversion [address] [place] [address] Zelda Savage MD [address] [place] [phone] Social History Tobacco Use Types Packs/Day Years Used Date Smoking Tobacco: Never Assessed Sex and Gender Information Value Date Recorded Sex Assigned at Not on file Gender Identity Female 01/29/2023 10:56 EDT Sexual Orientation Not on file documented as of this encounter Plan of Treatment Not on file documented as of this encounter Procedures Procedure Name Priority Date/Time Associated Diagnosis Comments CYTOPATHOLOGY Routine 05/22/2000 0:00 EDT documented in this encounter Results * CYTOPATHOLOGY (05/22/2000 0:00 EDT) Pathology Report: CYTOPATHOLOGY REPORT Reports generated via electronic interface contain original data; however they are lacking the format of the original report. Caution should be taken when reading/interpreti ng unformatted reports. Name: ? ELIAZAR AVILA ? Accession #: ? [id number] : ? 1955 (Age: 45) ??F ?Collect Date: ? 05/22/2000 Location: ? [facility] ? Receive Date: ? 05/24/2000 Provider: ?ZELDA SAVAGE FIELD SALES REPRESENTATIVE Copy to: ? Specimen/Source: ?Conventional Pap Test, Cervix/Endocervix Last Menstrual Period: ? 04/17/00 Hormonal/Contracep tive Status: ? Yes ? SPECIMEN ADEQUACY ? Satisfactory for evaluation. GENERAL CATEGORIZATION ? Within Normal Limits ? Document reviewed and electronically signed by: ? Rakesh [place] CT(ASCP) ? Report Date: ??05/28/2000 07:58 End of Report [facility] 05/22/2000 05/24/2000 Zelda Savage MD PATHOLOGY ORDERABLES [facility] [address] [place] [address] documented in this encounter Visit Diagnoses Not on filedocumented in this encounter Care Teams Category Development Manager Relationship Specialty Start Date End Date None, Provider PCP - General 08/04/09 03/13/10 documented as of this encounter
--- OUTSIDE RECORDS SUMMARY | 2024-05-01 01:56 | XMS_ITS | Encounter Summary ---
Author Organization [facility] Address [address] [place] [address] Care Team Providers Care Die Cast Supervisor Name Role Phone None, Provider Primary Care Provider Unavailabl e Encounter Details Date Type Department Care Team (Late st Contact Info) Description 05/09/2001 Results Only [facility] - [place] conversion [address] [place] [address] Abdi Callahan, RYANN [address] [place] [id number] Social History Tobacco Use Types Packs/Day Years Used Date Smoking Tobacco: Never Assessed Sex and Gender Information Value Date Recorded Sex Assigned at Not on file Gender Identity Female 01/29/2023 10:56 EDT Sexual Orientation Not on file documented as of this encounter Plan of Treatment Not on file documented as of this encounter Procedures Procedure Name Priority Date/Time Associated Diagnosis Comments CYTOPATHOLOGY Routine 05/09/2001 0:00 EDT documented in this encounter Results * CYTOPATHOLOGY (05/09/2001 0:00 EDT) Pathology Report: CYTOPATHOLOGY REPORT Reports generated via electronic interface contain original data; however they are lacking the format of the original report. Caution should be taken when reading/interpreti ng unformatted reports. Name: ? ELIAZAR AVILA ? Accession #: ? [id number] : ? 1955 (Age: 46) ??F ?Collect Date: ? 05/09/2001 Location: ? [facility] ? Receive Date: ? 05/14/2001 Provider: ?ABDI CALLAHAN WELLNESS CONSULTANT Copy to: ? Specimen/Source: ?ThinPrep Pap Test, Cervix/Endocervix Last Menstrual Period: ? 01/31 Previous Gynecologic Pathology: ? Yes: 1974 Treatment History: ? Cryotherapy: 1974 ? SPECIMEN ADEQUACY ? Satisfactory for evaluation. GENERAL CATEGORIZATION ? Within Normal Limits ? Document reviewed and electronically signed by: ? Tonya Younger, ??SCT(ASCP) ? Report Date: ??05/15/2001 10:07 End of Report [facility] 05/09/2001 05/14/2001 Abdi Callahan NP PATHOLOGY ORDERABLES [facility] [address] [place] [address] documented in this encounter Visit Diagnoses Not on filedocumented in this encounter Care Teams Die Cast Supervisor Relationship Specialty Start Date End Date None, Provider PCP - General 08/04/09 03/13/10 documented as of this encounter
--- OUTSIDE RECORDS SUMMARY | 2024-05-01 01:56 | XMS_ITS | Encounter Summary ---
Author Organization [facility] Address [address] [place] [address] Care Team Providers Care Cleaner Wall Name Role Phone Amy Kaur MD Primary Care Provider [phone] None, Provider Primary Care Provider Unavailabl e Encounter Details Date Type Department Care Team (Late st Contact Info) Description 09/04/2005 Results Only [facility] [place] conversion [address] [place] [address] Yolanda Blank MD [address] [place] [address] [place] [address] Social History Tobacco Use Types Packs/Day Years Used Date Smoking Tobacco: Never Assessed Sex and Gender Information Value Date Recorded Sex Assigned at Not on file Gender Identity Female 01/29/2023 10:56 EDT Sexual Orientation Not on file documented as of this encounter Plan of Treatment Not on file documented as of this encounter Procedures Procedure Name Priority Date/Time Associated Diagnosis Comments CYTOPATHOLOGY Routine 09/04/2005 0:00 EST documented in this encounter Results * CYTOPATHOLOGY (09/04/2005 0:00 EST) Pathology Report: CYTOPATHOLOGY REPORT Reports generated via electronic interface contain original data; however they are lacking the format of the original report. Caution should be taken when reading/interpreti ng unformatted reports. Name: ? ELIAZAR AVILA ? Accession #: ? [id number] : ? 1955 (Age: 50) ??F ?Collect Date: ? 09/04/2005 Location: ? [facility] ? Receive Date: ? 09/06/2005 Provider: ?YOLANDA BLANK MD Copy to: ? Specimen/Source: ?ThinPrep Pap Test, Cervix/Endocervix, processed on VOLITIONRX ThinPrep Imaging System, with manual evaluation Last Menstrual Period: ? 03/04 Previous Gynecologic Pathology: ? LSIL: 09/05 HSIL: 05/05/04, 05/01/05 Treatment History: ? Colposcopy: 10/06 Endometrial biopsy: 06/05 Other: ? Additional clinical information: ECC 10/06 ? SPECIMEN ADEQUACY ? Satisfactory for Evaluation - transformation zone component present GENERAL CATEGORIZATION ? Epithelial Cell Abnormality INTERPRETATION ? Squamous Cell Abnormality - High grade squamous intraepithelial lesion (HSIL). EDUCATIONAL NOTES/RECOMMENDATI ONS ? [facility] recommends following the 2001 Consensus Guidelines for the Management of Women with Cervical Cytological Abnormalities (RHONDA,2002;287:212 0-9). Management algorithms have been distributed by [facility] and are available online at www.ASCCP.org. ? Document reviewed and electronically signed by: ? Angela Armenadriz MD ? Report Date: ??09/10/2005 13:36 End of Report [facility] 09/04/2005 09/06/2005 Yolanda Blank MD PATHOLOGY ORDERABLES Performing Organization Address City/State/[place] Co de Phone Number [facility] [address] [place] [address] documented in this encounter Visit Diagnoses Not on filedocumented in this encounter Care Teams Cleaner Wall Relationship Specialty Start Date End Date Amy Kaur MD [address] [place] [address] [place] [address] PCP - General 03/14/10 01/28/23 None, Provider PCP - General 08/04/09 03/13/10 documented as of this encounter
--- OUTSIDE RECORDS SUMMARY | 2024-05-01 01:56 | XMS_ITS | Encounter Summary ---
Author Organization [facility] Address [address] [place] [address] Care Team Providers Care Process Safety Engineer Name Role Phone Amy Conklin MD Primary Care Provider [phone] None, Provider Primary Care Provider Unavailabl e Encounter Details Date Type Department Care Team (Late st Contact Info) Description 10/19/2003 Results Only [facility] [place] conversion [address] [place] [id number] Yolanda Blank MD [address] [place] [address] [place] [address] Social History Tobacco Use Types Packs/Day Years [...] Date/Time Associated Diagnosis Comments SURGICAL PATHOLOGY Routine 10/19/2003 0:00 EST documented in this encounter Results * SURGICAL PATHOLOGY (10/19/2003 0:00 EST) Pathology Report: SURGICAL PATHOLOGY REPORT Reports generated via electronic interface contain original data; however they are lacking the format of the original report. Caution should be taken when reading/interpreti ng unformatted reports. Name: ? ELIAZAR AVILA ? Accession #: ? [id number] ? : ? 1955 (Age: 48) ??F ? Collect Date: ? 10/19/2003 ? Location: ? [facility] ? Receive Date: ? 10/20/2003 ? Provider: YOLANDA BLANK MD Copy to: AMY CONKLIN MD ? Final Pathologic Diagnosis: ? Endocervix, curettage: 1. ?Acute and chronic cervicitis. ??See comment. 2. ?Squamous metaplasia. 3. ?Mature squamous epithelium 4. ?No dysplasia identified. Comment: ? The referring PAP smear was not reviewed at this institution. ??Deeper levels have been examined on the current specimen. ??(Dr. Sanchez)/[facility] Document reviewed and electronically signed by: Melanie Langston MD Report ??Date: 10/22/2003 17:40 By the signature above, the attending physician certifies that he/she has personally conducted a gross and/or microscopic examination of the described specimens and rendered or confirmed the above diagnosis. Specimen(s) Received: ? Endocx curettage Clinical History: ? PAP; LGSIL Gross Description: ? Received in formalin labelled Flum and cervix are scant fragments of white mucinous tissue with an aggregate measurement of 0.5 x 0.4 x 0.2 cm. ??It is submitted in its entirety in one cassette. ??(Dr. De Guzman-)/[facility] End of Report [facility] 10/19/2003 10/20/2003 15: 13 EST Yolanda Blank MD PATHOLOGY ORDERABLES [facility] [address] [place] [address] documented in this encounter Visit Diagnoses Not on filedocumented in this encounter Care Teams Process Safety Engineer Relationship Specialty Start Date End Date Amy Conklin MD [address] [place] [address] [place] [address] PCP - General 03/14/10 01/28/23 None, Provider PCP - General 08/04/09 03/13/10 documented as of this encounter
--- OUTSIDE RECORDS SUMMARY | 2024-05-01 01:56 | XMS_ITS | Encounter Summary ---
Author Organization [facility] Address [address] [place] [address] Care Team Providers Care Mortgage Clerk Name Role Phone Amy Kaur MD Primary Care Provider [phone] None, Provider Primary Care Provider Unavailabl e Encounter Details Date Type Department Care Team (Late st Contact Info) Description 05/01/2005 Results Only [facility] [place] conversion [address] [place] [id number] Yolanda Blank MD [address] [place] [address] [place] [address] Social History Tobacco Use Types Packs/Day Years Used Date Smoking Tobacco: Never Assessed Sex and Gender Information Value Date Recorded Sex Assigned at Not on file Gender Identity Female 01/29/2023 10:56 EDT Sexual Orientation Not on file documented as of this encounter Plan of Treatment Not on file documented as of this encounter Procedures Procedure Name Priority Date/Time Associated Diagnosis Comments CYTOPATHOLOGY Routine 05/01/2005 0:00 EDT documented in this encounter Results * CYTOPATHOLOGY (05/01/2005 0:00 EDT) Pathology Report: CYTOPATHOLOGY REPORT Reports generated via electronic interface contain original data; however they are lacking the format of the original report. Caution should be taken when reading/interpreti ng unformatted reports. Name: ? ELIAZAR AVILA ? Accession #: ? [id number] : ? 1955 (Age: 50) ??F ?Collect Date: ? 05/01/2005 Location: ? [facility] ? Receive Date: ? 05/03/2005 Provider: ?YOLANDA BLANK MD Copy to: ? Specimen/Source: ?ThinPrep Pap Test, Cervix/Endocervix, processed on [employer] Interactive ThinPrep Imaging System, with manual evaluation Last Menstrual Period: ? 03/04 Previous Gynecologic Pathology: ? LSIL: 09/05 HSIL: 05/05/04 Treatment History: ? Colposcopy: ??and ECC 10/06 Cervical biopsy: 06/05 Endometrial biopsy: 06/05 Other: ? HPVA - HPV testing requested if ASC-US on the current ThinPrep Pap test. ? SPECIMEN ADEQUACY ? Satisfactory for Evaluation - transformation zone component present GENERAL CATEGORIZATION ? Epithelial Cell Abnormality INTERPRETATION ? Squamous Cell Abnormality - High grade squamous intraepithelial lesion (HSIL). EDUCATIONAL NOTES/RECOMMENDATI ONS ? [facility] recommends following the 2001 Consensus Guidelines for the Management of Women with Cervical Cytological Abnormalities (RHONDA,2002;287:212 0-9). Management algorithms have been distributed by [facility] and are available online at www.ASCCP.org. ? Document reviewed and electronically signed by: ? POWER BANDA MD ? Report Date: ??05/15/2005 11:44 End of Report [facility] 05/01/2005 05/03/2005 Yolanda Blank MD PATHOLOGY ORDERABLES [facility] [address] [place] [address] documented in this encounter Visit Diagnoses Not on filedocumented in this encounter Care Teams Mortgage Clerk Relationship Specialty Start Date End Date Amy Kaur MD [address] [place] [address] [place] [address] PCP - General 03/14/10 01/28/23 None, Provider PCP - General 08/04/09 03/13/10 documented as of this encounter
--- OUTSIDE RECORDS SUMMARY | 2024-05-01 01:56 | XMS_ITS | Encounter Summary ---
Author Organization [facility] Address [address] [place] [address] Care Team Providers Care Slitter Cut Off Operator Name Role Phone Amy Conklin MD Primary Care Provider [phone] None, Provider Primary Care Provider Unavailabl e Encounter Details Date Type Department Care Team (Late st Contact Info) Description 11/06/2005 Results Only [facility] [place] [facility] [address] [place] [id number] Yolanda Blank MD [address] [place] [address] [place] [address] Social History Tobacco Use Types Packs/Day Years [...] Date/Time Associated Diagnosis Comments SURGICAL PATHOLOGY Routine 11/06/2005 0:00 EST documented in this encounter Results * SURGICAL PATHOLOGY (11/06/2005 0:00 EST) Pathology Report: SURGICAL PATHOLOGY REPORT Reports generated via electronic interface contain original data; however they are lacking the format of the original report. Caution should be taken when reading/interpreting unformatted reports. Name: ? ELIAZAR AVILA ? Accession #: ? [id number] ? : ? 1955 (Age: 50) ??F ? Collect Date: ? 11/06/2005 ? Location: ? [facility] ? Receive Date: ? 11/07/2005 ? Provider: YOLANDA BLANK MD Copy to: AMY CONKLIN MD ? Final Pathologic Diagnosis: A. ?Endocervix, curettage: 1. ?Squamous mucosa with no specific pathological features. ??See comment. ? - No evidence of dysplasia. B. ?Cervix, 5 o' clock, biopsy: 1. ?Squamous mucosa with no specific pathological features. ??See comment. ? - No evidence of dysplasia. Comment: ? The previous PAP test ([id number] and [id number]) were reviewed, and the finding of high grade squamous intraepithelial lesion was confirmed. ??Although squamous intraepithelial lesion is not identified in either of the current biopsies, specimen (A) consists solely of squamous mucosa with no representation of the endocervix. Therefore, the possibility of a lesion higher in the cervical canal should be excluded. ??Deeper sections were examined on specimens (A) and (B). This case was reviewed in the intradepartmental consultation conference. (Dr. Kasie Garcia)/[facility] Document reviewed and electronically signed by: BARBIE PATTERSON MD Report ??Date: 11/09/2005 17:03 By the signature above, the attending physician certifies that he/she has personally conducted a gross and/or microscopic examination of the described specimens and rendered or confirmed the above diagnosis. Specimen(s) Received: A. ?Endocervical curettage B. ?Cervix bx @ 5:00 Clinical History: ? 09/04/05 PAP HSIL; LMP: 11/07/02 Gross Description: ? Received in formalin labelled Flum and endocervical curettage are several scant transparent fragments of mucinous material which measure less than 0.25 cc in total volume. ??Entirely submitted as (A). Received in formalin labelled Flum and cx bx at 5:00 is a 0.2 x 0.1 x 0.1 cm firm white piece of tissue. ??The specimen is submitted intact as (B). ??(Kyler Mcgovern)/[facility] End of Report [facility] 11/06/2005 11/07/2005 11: 56 EST Yolanda Blank MD PATHOLOGY ORDERABLES Performing Organization Address City/State/[facility] Co de Phone Number [facility] [address] [place] [address] documented in this encounter Visit Diagnoses Not on filedocumented in this encounter Care Teams Slitter Cut Off Operator Relationship Specialty Start Date End Date Amy Conklin MD [address] [place] [address] [place] [address] PCP - General 03/14/10 01/28/23 None, Provider PCP - General 08/04/09 03/13/10 documented as of this encounter
[2024-05-01 14:16] LABS: Creatine Kinase 109 U/L (26-192)
== END 2024-05-01 01:49 | disposition home or self-care (01) ==
LOC: LBO 01:48
PROVIDERS: PCP Family Medicine; Visit Provider Family Medicine
DX: M79.18 Myalgia, other site (principal)
CPT/HCPCS: 36415; 82550

== ENCOUNTER 2024-08-10 02:21 | Outpatient (CLI) | payer MEDICARE, BC, SELFPAY ==
[2024-08-10 14:30] LABS: Calculated LDL 83 mg/dL (<100); Cholesterol 158 mg/dL (<200); HDL Cholesterol 57 mg/dL (40-60); Triglyceride 90 mg/dL (<150)
== END 2024-08-10 02:22 | disposition home or self-care (01) ==
LOC: LBO 02:21
PROVIDERS: PCP Family Medicine; Visit Provider Family Medicine
DX: E78.5 Hyperlipidemia, unspecified (principal)
CPT/HCPCS: 36415; 80061

== ENCOUNTER 2024-11-26 01:41 | Outpatient (CLI) | payer MEDICARE, BC, SELFPAY ==
--- NOTE | 2024-11-26 | DI.US_ITS ---
Exam(s) US BREAST LT COMPLETE MG MAMMO DIAGNOSTIC BI EXAM: MG MAMMO DIAGNOSTIC BI AND COMPLETE LEFT BREAST ULTRASOUND CLINICAL HISTORY: DIAGNOSTIC,LT BREAST TENDERNESS,ILL DEFINED THICKENING 2-3 O'CLOCK. TECHNIQUE: BILATERAL CC AND MLO mammographic images were obtained with 3D tomosynthesis technique an d utilizing computer aided detection (CAD). COMPLETE LEFT BREAST ULTRASOUND was performed including all 4 quadrants as well as the left axillary region. COMPARISON: Prior mammograms were reviewed, the most recent being December 2022.. This patient recently entered few weeks of left lateral chest and breast pain which has subsequently mostly resolved. She denies having felt a lump. Denies nipple discharge. FINDINGS: DIAGNOSTIC BILATERAL MAMMOGRAM: There has been no significant change in the appearance and distribution of the fibroglandular tissue of both breasts. There are no new spiculated masses nor malignant-appearing microcalcification groups. 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 There is no new architectural distortion or skin thickening-retraction. COMPLETE LEFT BREAST ULTRASOUND: At the 10 o'clock position there is a 3 millimeter benign microcyst. Adjacent to this is a 2 millimet er benign microcyst. At the 11 o'clock position there is a 3 mm benign calcified oil cyst. No concerning masses seen in all 4 quadrants on this ultrasound exam. Scanning of the left axilla is negative for significant adenopathy. IMPRESSION: 1. No radiographic evidence of malignancy in either breast. 2. Benign microcysts seen in the left breast as described above. No solid lesions. The patient was informed of the findings and follow-up recommendations by myself prior to leaving the department today. Listening to her history of severe pain over the left posterior chest and breast I wonder if there we re any clinical findings to suggest herpes zoster/shingles infection. BI-RADS Category 2 - Benign Findings Breast Density - Category B - Scattered areas of fibroglandular density Breast density Category C or D implies that the patient has dense breast tissue. Dense breast tissue can make it harder to find cancer on a mammogram. Dense breast tissue is also associated with an incr eased risk of breast cancer. This information about the result of the mammogram report was provided to the patient to raise their awareness. Use this report when you speak with the patient about their risks for breast cancer, which includes their family history. At that time, you may recommend additional screening tests (Ultrasoun d or MRI) as these tests may add significant information. A negative radiographic report should not delay biopsy if a dominant or clinically suspicious mass is present. Up to ten percent of cancers are not identified on mammography. A negative report may reinforce clinical impression. Adenosis and dense breasts may obscure an underlying neoplasm. False positive reports average 6 to 10%. Patient will receive a letter notifying them of these results.
== END 2024-11-26 02:01 ==
LOC: DI 01:41
PROVIDERS: PCP Family Medicine; Visit Provider Family Medicine
DX: N64.4 Mastodynia (principal); Z12.31 Encounter for screening mammogram for malignant neoplasm of breast; N63.25 Unspecified lump in the left breast, overlapping quadrants
CPT/HCPCS: 76642; 77062; 77066; G0279

== ENCOUNTER 2025-01-04 14:23 | Emergency (ER) | payer MEDICARE, BC, SELFPAY ==
[2025-01-04] VITALS (22 sets, daily range): BP systolic 100–137; BP diastolic 38–70; PULSE 75–96; RESP 12–28; TEMP 36.5–36.6; O2SAT 91–97
--- NOTE | 2025-01-04 14:15 | RT.EKG_ITS ---
APPROVED REPORT Exam: Resting ECG Reason for Exam: syncope Patient Location: E HR:92 bpm ECG Measurements Heart Rate 92 AXIS MA 166 P 54 QRSd 108 QRS 50 QT 360 T 24 QTc 444 Conclusion Sinus rhythm...normal P axis, V-rate 60- 99 Probable left atrial enlargement...P >50mS, <-0.10mV V1
--- NOTE | 2025-01-04 14:45 | DI.RAD_ITS ---
Exam(s) XR CHEST 2V PA LATERAL EXAM: XR CHEST 2V PA LATERAL CLINICAL HISTORY: cough. TECHNIQUE: 2D digital imaging was performed. COMPARISON: CR,XR XR CHEST 2V PA LATERAL from 08/01/2022 FINDINGS: 2 views: Heart size is normal. The mediastinum is not widened. Rhino Silvana clear. There is platelike atelectasis or scarring in the lateral left lung base costoph renic angle which was not evident in 2021. Right lung base is clear. IMPRESSION: Subsegmental platelike atelectasis or scarring in the lateral left lung base. No other pulmonary fin dings and there are no pleural effusions. DATA REPOSITORY: RADIATION DOSE DELIVERED:
--- NOTE | 2025-01-04 14:56 | W.ED.GENAD ---
Discharge Plan Disposition Patient Disposition: Home Condition: Stable Discharge Details Clinical Impression: Respiratory infection Primary Care Provider: Karma Muse ED Provider: Vic Flores Home Meds and New Rx's Prescriptions: New levofloxacin 750 mg tablet 750 mg PO DAILY Qty: 5 0RF Continued ascorbic acid (vitamin C) 250 mg tablet 250 mg PO DAILY (DME) Contour Next Test Strips strip See Dose Instructions .ROUTE .MEDSUPPLY Qty: 25 3RF Dose Instruction: As directed Rx Instructions: Glucose monitoring 3 times per week- DM (DME) lancets [OneTouch Delica Lancets] 1 EACH misc 1 ea Intradermal DAILY Qty: 300 Rx Instructions: DX:E11.9. ON ORAL AGENTS, ADJUSTING MEDS hair health 1 cap PO DAILY ONETOUCH ULTRA TEST STRIPS 1 EACH strip 1 strip Miscellaneous BID 90 Days Qty: 180 4RF Rx Instructions: DX: E11.9 Prevnar 13 (PF) 0.5 mL syringe 0.5 ml IM ONCE Qty: 0.5 0RF Rx Instructions: as a single dose nifedipine 30 mg tablet extended release 24hr 30 mg PO DAILY Qty: 90 0RF Digestive Advantage Prob Gummy 250 million cell tablet,chewable See Rx Instructions PO .COMPLEX Rx Instructions: 1 tablet orally daily aspirin [Enteric Coated Aspirin] 81 mg tablet,delayed release (DR/EC) 81 mg PO DAILY Child's Fiber Select Gummies 1.5 gram tablet,chewable 3 g PO DAILY cholecalciferol (vitamin D3) 25 mcg (1,000 unit) capsule 25 mcg PO DAILY omega 2-plw-ndb-fish oil [Fish Oil] 300-1,000 mg capsule 2 cap PO DAILY levothyroxine 50 mcg tablet 25 mcg PO DAILY metformin 500 mg tablet extended release 24 hr 1,000 mg PO QPM Patient Comments: Take 2 tablet by mouth every evening Take in the evening to minimize GI side effects. minoxidil 2.5 mg tablet 2.5 mg DAILY lisinopril 20 mg tablet 10 mg PO DAILY rosuvastatin [Crestor] 10 mg tablet 20 mg PO HS Discharge Instructions Additional Instructions: Your blood work did not show any concerning findings at this time. You are being put on antibiotic to cover for possible respiratory bacterial infection. If no improvement within a week follow-up with your primary care provider. If you feel significantly more ill or have severe shortness of breath return to the emergency department for reevaluation. HPI General Date/Time Provider Initiated Documentation: 01/04/25 14:26. Limitations to Documentation: no limitations. Information obtained by: patient. History of Present Illness 69 year old F presents to the emergency department with the chief complaint of body aches, cough, n/v, described as moderate, Patient started experiencing this day(s) (6) and it has been intermittent. No relieving factors improve symptom(s), No exacerbating factors reported . Patient notes cough and nausea/vomiting; denies chest pain. Patient did receive the following treatments prior to arrival, none Related Data Home Medications ?Medication ?Instructions ?Recorded ?Confirmed lancets 33 gauge ([employer] #300 ea 12/25/16 01/04/25 Lancets) Hair Health 1 cap PO DAILY 08/21/17 01/04/25 ascorbic acid (vitamin C) 250 mg 250 mg PO DAILY 08/20/18 01/04/25 tablet blood sugar diagnostic (Contour #25 ea 02/23/19 01/04/25 Next Test Strips) pneumoc 13-cristy conj-dip cr(PF) 0.5 0.5 ml IM ONCE #0.5 mL 05/06/19 mL IM syringe (Prevnar 13 (PF)) nifedipine 30 mg tablet,extended 30 mg PO DAILY #90 tabs 06/26/19 01/04/25 release 24 hr levothyroxine 50 mcg tablet 25 mcg PO DAILY 02/12/22 01/04/25 Bacillus coagulans 250 million See Rx Instructions PO .COMPLEX 07/24/22 01/04/25 cell chewable tablet (Digestive Advantage Probiotic Gummy) aspirin 81 mg tablet,delayed 81 mg PO DAILY 07/24/22 01/04/25 release (Enteric Coated Aspirin) cholecalciferol (vitamin D3) 25 25 mcg PO DAILY 07/24/22 01/04/25 mcg (1,000 unit) capsule inulin 1.5 gram chewable tablet 3 g PO DAILY 07/24/22 01/04/25 (Children's Fiber Select Gummies) omega 5-xhm-qjw-fish oil 300 2 cap PO DAILY 07/24/22 01/04/25 mg-1,000 mg capsule (Fish Oil) levofloxacin 750 mg tablet 750 mg PO DAILY #5 tabs 01/04/25 lisinopril 20 mg tablet 10 mg PO DAILY 01/04/25 01/04/25 metformin 500 mg tablet,extended 1,000 mg PO QPM 01/04/25 01/04/25 release 24 hr minoxidil 2.5 mg tablet 2.5 mg DAILY Hair 01/04/25 rosuvastatin 10 mg tablet (Crestor) 20 mg PO HS 01/04/25 01/04/25 Previous Rx's ?Medication ?Instructions ?Recorded blood sugar diagnostic (Contour #25 ea 02/23/19 Next Test Strips) pneumoc 13-cristy conj-dip cr(PF) 0.5 0.5 ml IM ONCE #0.5 mL 05/06/19 mL IM syringe (Prevnar 13 (PF)) nifedipine 30 mg tablet,extended 30 mg PO DAILY #90 tabs 06/26/19 release 24 hr levofloxacin 750 mg tablet 750 mg PO DAILY #5 tabs 01/04/25 Allergies Allergy/AdvReac Type Severity Reaction Status Date / Time allopurinol Allergy Severe HARD TIME Verified 01/04/25 14:28 BREATHING chlorthalidone Allergy Severe HARD TIME Verified 01/04/25 14:28 BREATHING Tetracyclines Allergy Severe Anaphylaxsi Verified 01/04/25 14:28 s Penicillins Allergy Intermediate swells up Verified 01/04/25 14:28 venom-honey bee Allergy Intermediate swells up Verified 01/04/25 14:28 amoxicillin Allergy Mild unknown Verified 01/04/25 14:28 atorvastatin AdvReac Intermediate cramps Verified 01/04/25 14:28 gabapentin AdvReac Intermediate Diarrhea Verified 01/04/25 14:28 glimepiride AdvReac Intermediate Diarrhea Unverified 01/04/25 14:28 lorazepam AdvReac Intermediate HX OF Unverified 01/04/25 14:28 ADDICTION AND WITHDRAWAL metformin AdvReac Intermediate Headache Unverified 01/04/25 14:28 simvastatin AdvReac Intermediate myalgia Unverified 01/04/25 14:28 valacyclovir AdvReac Intermediate Diarrhea Unverified 01/04/25 14:28 amitriptyline AdvReac Mild insomnia Unverified 01/04/25 14:28 contrast dye Allergy Severe Anaphylaxis Uncoded 01/04/25 14:28 General Stated Complaint: GenMedical IESHA: 3 Review of Systems All systems reviewed & are unremarkable except as noted in HPI and below Constitutional Constitutional: Denies chills and Denies fever(s) Eyes Eyes: Reports eye discharge and Denies loss of vision Cardiovascular Cardiovascular: Denies chest pain and Denies dyspnea Respiratory Respiratory: Reports cough and Denies dyspnea Gastrointestinal Gastrointestinal: Denies abdominal pain, Reports nausea and Reports vomiting Neurologic Neurologic: Denies loss of vision Psychiatric Psychiatric: Denies depression Exam Const General: no acute distress Orientation: alert HENMT Head: normal to inspection Ears: external ears normal General nose exam: external nose normal Mouth: moist mucous membranes Eyes Pupils: PERRL EOM: EOM intact bilaterally Neck Neck: normal visual inspection Resp Effort & Inspection: normal respiratory effort and able to speak in complete sentences Auscultation: clear to auscultation bilaterally Cardio Jugular venous pressure: no JVD Rate: regular rate Heart Sounds: no murmurs GI Palpation: soft and nontender Skin General skin exam: no rashes or lesions noted Neuro General: patient alert and patient oriented x3 Extrem General: normal to inspection Psych Mental Status: mental status grossly normal Course Vital Signs Vital signs: Vital Signs Temperature 36.6 C 01/04/25 14:24 Pulse 96 H 01/04/25 14:24 Respiratory Rate 12 01/04/25 14:24 Blood Pressure 137/70 01/04/25 14:24 Pulse Oximetry 94 01/04/25 14:24 Temperature 36.6 C 01/04/25 14:40 Temperature Source Oral 01/04/25 14:40 Pulse 96 H 01/04/25 14:40 Respiratory Rate 16 01/04/25 14:40 Respiratory Effort Normal, Non-Labored, Short of Breath 01/04/25 14:40 Respiratory Depth Normal 01/04/25 14:40 Respiratory Pattern Normal 01/04/25 14:40 Blood Pressure 115/70 01/04/25 14:40 Blood Pressure Position Supine 01/04/25 14:40 Pulse Oximetry 94 01/04/25 14:40 Oxygen Delivery Method Room Air 01/04/25 14:40 Oxygen Flow Rate 0 01/04/25 14:24 Pain Level 4 01/04/25 14:40 Medical Decision Making 69-year-old female with a history of hypothyroidism, hyperlipidemia, hypertension who comes in with 6 days of intermittent nausea vomiting, body aches and chills, along with a productive cough. She denies any chest pain or difficulty breathing, no fevers, no recent travel. She denies any severe abdominal pain. She does note that for the last day she will also have some right eye redness with some discharge. Denies any loss of vision or pain in the eye. She is stable on arrival, she has clear lung sounds, clear rhinorrhea, the right conjunctive has mild erythema without any current discharge. Full range of motion of the eyes without any pain in the eye, no periorbital swelling. Left eye appears normal. Pupils are equal and reactive to light. Soft nontender abdomen. Suspect she has a conjunctivitis and we will start her on erythromycin for her eye. URI versus pneumonia given her cough and chills, will check a [id number]-[id number] COVID and flu and also check a CBC, CMP, troponins given her vomiting and also a chest x-ray and reassess. She has no tachycardia or signs of DVT on exam so I doubt PE and she is not complaining of any upper tearing back pain has equal peripheral pulses so I doubt dissection. Patient with mild leukocytosis, otherwise benign labs and x-ray shows no acute findings. Given she is at 6 days of symptoms and her viral swab is negative I am going to initiate antibiotics. She has multiple medication allergies/side effects so we will initiate levofloxacin. She is stable for discharge and will follow-up with her PCP if not improving and return precautions given Differential Diagnosis Differential Diagnosis: Viral illness, dehydration, pneumonia Medical Records Medical records reviewed: Yes I reviewed the patient's medical records. Lab Data Lab results reviewed: Yes I reviewed the patient's lab results. 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 (Acute) Psoriasis (Acute) Pain of left heel (Acute 07/19/15) heel spur on x ray Numbness and tingling in left hand (Acute 12/30/14) Kidney stone (Acute) recurrent 2013 [facility] Johnie Herrera Hypothyroidism (Acute 12/02/12) Hyperlipidemia (Acute 04/16/13) 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 (Acute 07/23/11) 11/11 TOTAL LAP HYST for abnormal PAP PAP at [facility] q 6 mo HGSIL Pap smear of vagina (Acute 04/03/17) Generalized osteoarthrosis (Acute) Gastroesophageal reflux disease with esophagitis (Acute) Essential hypertension (Acute 08/06/13) Diabetes mellitus (Acute) 2013 control improved with weight loss Depressive disorder (Acute) Chest pain (Acute) spasm; esoph spasm--resolved w/ nefedipine Carpal tunnel syndrome on both sides (Acute 02/21/15) bilateral L>R Medical History Abnormal vaginal bleeding Gout Hepatitis B History of neck pain Hx of herpes zoster Hypertension Insomnia Neuropathy Osteopenia Type 2 diabetes mellitus Surgical History S/P appendectomy Status post laparoscopic hysterectomy Family History Mother Diabetes Myocardial infarction Father Dementia Depression Sister No problems noted. Sister Neoplasm OVARIAN OR UTERINE Brother Diabetes Brother No problems noted. Brother Depression Suicide Grandfather No problems noted. Grandfather , MINING ACCIDENT at age 40. No problems noted. Grandmother , CAR ACCIDENT at age 52. Diabetes Grandmother Neoplasm OVARIAN OR UTERINE Son No problems noted. Daughter Depression Social History Smoking/Tobacco Use Status: Former Tobacco Use Smoking risk assessment performed?: Yes Alcohol Intake: never Drug use: Never Substance use type: does not use Household members: spouse Housing: house Number of Children: 2 current occupation: Retired Do you feel safe at home: Yes Do you feel safe in your relationship?: Yes
[2025-01-04 15:21] LABS: COVID-19 PCR Negative (Negative); Influenza A PCR Negative (Negative); Influenza B PCR Negative (Negative); RSV PCR Negative (Negative)
[2025-01-04 15:22] LABS: Abs Immature Grans 0.05 10^3/uL (0.0-0.06); Absolute Basophil Count 0.08 10^3/uL (0.0-0.2); Absolute Eosinophil Count 0.32 10^3/uL (0.0-0.7); Absolute Monocyte Count 0.93 10^3/uL (0.1-0.8); Basophils % 0.7 %; Eosinophils % 2.8 %; HCT 41.6 % (36.0-46.0); HGB 13.6 g/dL (11.2-15.7); Immature Grans % 0.4 %; Lymphocytes % 15.6 %; MCH 29.5 pg (27.0-33.0); MCHC 32.7 % (32.0-36.0); MCV 90 fL (80-95); MPV 9.2 fL (8.0-11.0); Monocytes % 8.1 %; Neutrophils % 72.4 %; Platelet Count 218 10^3/uL (130-400); RBC 4.61 10^6/uL (3.93-5.22); RDW 12.2 % (11.7-14.6); WBC 11.54 10^3/uL (4.4-10.8)
[2025-01-04 15:22] LABS: Source Nasopharynx
[2025-01-04 15:23] LABS: Absolute Neutrophil Count 8.35 10^3/uL (1.2-6.7)
[2025-01-04] MEDS: Erythromycin Ophth Oint 3.5 GM TUBE OD (15:24)
[2025-01-04] MEDS: Ketorolac 15 MG/ML VIAL IVP (15:25)
[2025-01-04] MEDS: Normal Saline 1,000 ML 1000 ML IV (15:29)
[2025-01-04 15:40] LABS: ALT 25 U/L (14-59); AST 20 U/L (15-37); Albumin 3.4 g/dL (3.4-5.0); Alkaline Phosphatase 94 U/L (46-116); Anion Gap 7.5 mmol/L (3-11); BUN 19 mg/dL (7-18); Bilirubin, Total 0.3 mg/dL (0.2-1.0); CO2 28.5 mmol/L (21.0-32.0); CREATININE 1.1 mg/dL (0.55-1.02); Calcium 9.5 mg/dL (8.5-10.1); Chloride 101 mmol/L (98-107); Estimated GFR 53.72 (mL/min/1.73m2); Glucose 271 mg/dL (74-106); Magnesium 2.1 mg/dL (1.8-2.4); Potassium 3.8 mmol/L (3.5-5.1); Sodium 137 mmol/L (136-145); Total Protein 8.3 g/dL (6.4-8.2); Troponin I 4 ng/L (<or=51)
[2025-01-04 15:50] LABS: Bilirubin Negative (Negative); Blood Negative (Negative); Clarity Clear (Clear); Glucose 500 mg/dL (Negative); Ketones Trace mg/dL (Negative); Leukocyte Esterase Negative (Negative); Nitrite Negative (Negative); pH 5.5 (5-8)
[2025-01-04] MEDS: levoFLOXacin 500 MG, levoFLOXacin 250 MG 750 MG PO (17:11)
== END 2025-01-04 17:32 | disposition home or self-care (01) ==
PROVIDERS: Emergency Provider Emergency Medicine; PCP Family Medicine
DX: J06.9 Acute upper respiratory infection, unspecified (principal); E11.40 Type 2 diabetes mellitus with diabetic neuropathy, unspecified; E03.9 Hypothyroidism, unspecified; I10 Essential (primary) hypertension; E78.5 Hyperlipidemia, unspecified; R94.31 Abnormal electrocardiogram [ECG] [EKG]; Z79.82 Long term (current) use of aspirin; Z79.84 Long term (current) use of oral hypoglycemic drugs; Z87.891 Personal history of nicotine dependence
CPT/HCPCS: 36415; 80053; 87637; 93005; 96374; 99284; 71046; 81003; 83735; 84484; 85025; 93010; J1885

== ENCOUNTER 2025-03-11 02:08 | Outpatient (CLI) | payer MEDICARE, BC, SELFPAY ==
[2025-03-11 15:15] LABS: Creatine Kinase 230 U/L (26-192); Magnesium 2.0 mg/dL (1.8-2.4); NT-proBNP 15 pg/mL (<300); TSH 2.74 uIU/mL (0.36-3.74)
[2025-03-11 15:20] LABS: C-Reactive Protein < 0.50 mg/dL (<or=0.5)
[2025-03-12 09:26] LABS: Hepatitis C Ab w Rflx HCV PCR Negative (Negative)
== END 2025-03-11 02:09 | disposition home or self-care (01) ==
LOC: LBO 02:08
PROVIDERS: PCP Family Medicine; Visit Provider Family Medicine
DX: M79.642 Pain in left hand (principal); R53.83 Other fatigue; R25.1 Tremor, unspecified; R01.1 Cardiac murmur, unspecified; E03.9 Hypothyroidism, unspecified
CPT/HCPCS: 36415; 82550; 86803; 83735; 83880; 84443; 86140

== ENCOUNTER 2025-04-20 02:37 | Outpatient (CLI) | payer MEDICARE, BC, SELFPAY ==
[2025-04-20 13:59] LABS: Creatine Kinase 102 U/L (26-192)
== END 2025-04-20 02:38 | disposition home or self-care (01) ==
LOC: LBO 02:37
PROVIDERS: PCP Family Medicine; Visit Provider Family Medicine
DX: M79.10 Myalgia, unspecified site (principal)
CPT/HCPCS: 36415; 82550; 86038

== ENCOUNTER 2025-05-06 14:46 | Outpatient (CLI) | payer MEDICARE, BC, SELFPAY ==
[2025-05-06 17:32] LABS: Creatine Kinase 108 U/L (26-192)
[2025-05-10 13:54] LABS: Sm (Smith) Ab, IgG <0.2 U
== END 2025-05-06 14:47 | disposition home or self-care (01) ==
LOC: LBO 14:46
PROVIDERS: PCP Family Medicine; Visit Provider Family Medicine
DX: D68.61 Antiphospholipid syndrome (principal); M79.10 Myalgia, unspecified site
CPT/HCPCS: 36415; 82550; 86147; 86038; 86160; 86235

== ENCOUNTER 2025-05-26 17:01 | Outpatient (REF) | payer MEDICARE, BC, SELFPAY ==
[2025-05-26 19:20] LABS: PROTEIN 11.7 mg/dL (0.0-11.9)
[2025-05-26 19:23] LABS: TOTAL PROTEIN,URINE TIMED 81.9 mg/24hr (0.0-149.1); Total Volume 700 ml
== END 2025-05-26 17:02 | disposition home or self-care (01) ==
LOC: LBN 17:01
PROVIDERS: PCP Family Medicine; Visit Provider Family Medicine
DX: D68.61 Antiphospholipid syndrome (principal); E11.40 Type 2 diabetes mellitus with diabetic neuropathy, unspecified
CPT/HCPCS: 84155